=== PATIENT | male | born 1965 | race Caucasian/White ===

== ENCOUNTER 2018-04-20 07:54 | Inpatient (IN) | payer SELFPAY ==
[2018-04-20] MEDS ORDERED: NA CHLORIDE 0.9% 1,000 ML ONE (08:22)
[2018-04-20] MEDS ORDERED: HYDROCODONE/APAP 10/325 TAB ONE (08:35)
[2018-04-20] MEDS ORDERED: ASPIRIN 81 MG CHEWABLE TABLET ONE (08:35)
[2018-04-20 08:54] LABS: Absolute Lymphocytes (CBC) 2.3 K/uL (0.7-4.9); Absolute Monocytes 1.1 K/uL (0.1-1.3); Absolute Neutrophil 7.1 K/uL (1.8-8.0); Basophils % 0.5 % (0-1.3); Eosinophils % 2.3 % (0-4.4); Hematocrit 49.8 % (39.6-49.0); MCH 32.3 pg (27.0-35.0); MCV 95.1 fL (80-100); MPV 9.3 fL (7.6-11.3); Monocytes % 9.8 % (3.3-12.3); RBC Red Blood Cell Count 5.23 M/uL (4.33-5.43)
[2018-04-20 08:57] LABS: Protime INR 1.03
[2018-04-20 09:09] LABS: Potassium 3.8 mmol/L (3.5-5.1)
--- NOTE | 2018-04-20 10:06 | ER ---
Nurse's Notes [facility] Name: Micheal Murillo Age: 52 yrs Sex: Male : 1965 Arrival Date: 04/20/2018 Time: 07:58 Bed 13 Private MD: None, None Diagnosis: Deep venous thrombosis of left lower extremity;Peripheral vascular disease, unspecified Presentation: 04/20 08:10 Presenting complaint: Patient states: woke up Sunday evening with burning to his L toes ss and then Sunday had pain to his L calf. No swelling noted to affected area. Transition of care: patient was not received from another setting of care. Onset of symptoms was April 14, 2018. Risk Assessment: Do you want to hurt yourself or someone else? Patient reports no desire to harm self or others. Initial Sepsis Screen: Does the patient meet any 2 criteria? No. Patient's initial sepsis screen is negative. Does the patient have a suspected source of infection? No. Patient's initial sepsis screen is negative. Care prior to arrival: None. 08:10 Method Of Arrival: Other ss 08:10 Acuity: TORRIE 3 ss Historical: - Allergies: 08:13 No Known Allergies; ss - Home Meds: 08:10 None [Active]; rb1 - PMHx: 08:10 None; rb1 - PSHx: 08:10 None; rb1 - Immunization history:: Adult Immunizations unknown. - Social history:: Smoking status: Patient uses tobacco products, smokes one-half pack cigarettes per day. - Ebola Screening: : Patient denies exposure to infectious person Patient denies travel to an Ebola-affected area in the 21 days before illness onset. - Family history:: not pertinent. - Hospitalizations: : No recent hospitalization is reported. Screenin:10 Abuse screen: Denies threats or abuse. Nutritional screening: No deficits noted. rb1 Tuberculosis screening: No symptoms or risk factors identified. Fall Risk None identified. Assessment: 08:10 General: Appears uncomfortable, well groomed, well developed, well nourished, Behavior rb1 is calm, cooperative, Denies fever. Pain: Complains of pain in left calf Pain currently is 8 out of 10 on a pain scale. Pain began Sunday. Pain: Aggravated by weight bearing. Neuro: Level of Consciousness is awake, alert, obeys commands, Oriented to person, place, time, situation. Cardiovascular: Capillary refill < 3 seconds is brisk in bilateral toes Pulses are palpable in left dorsalis pedis artery. Respiratory: Airway is patent Respiratory effort is even, unlabored, Respiratory pattern is regular, symmetrical. GI: No signs and/or symptoms were reported involving the gastrointestinal system. : No signs and/or symptoms were reported regarding the genitourinary system. Derm: Skin is pink, warm \T\ dry. Musculoskeletal: Range of motion: intact in all extremities. 08:40 Reassessment: Ultrasound at bedside. rb1 09:00 Reassessment: Patient appears in no apparent distress at this time. No changes from rb1 previously documented assessment. 10:09 Reassessment: Patient appears in no apparent distress at this time. Patient and/or rb1 family updated on plan of care and expected duration. Pain level reassessed. Patient is alert, oriented x 3, equal unlabored respirations, skin warm/dry/pink. Faxed Xarelto to pharmacy. 11:00 Reassessment: Patient appears in no apparent distress at this time. No changes from rb1 previously documented assessment. Pt. is watching TV. 12:00 Reassessment: Patient appears in no apparent distress at this time. Patient and/or rb1 family updated on plan of care and expected duration. Pain level reassessed. Patient is alert, oriented x 3, equal unlabored respirations, skin warm/dry/pink. 12:23 Reassessment: Spoke to Moni, stenographer secretary. Was not able to give report because the [facility] room is not clean. 12:55 Reassessment: Spoke to Moni, stenographer secretary on the floor. Was unable to give report rb1 because the room is still not clean. Notified ALISON Moreno and she called [facility] [facility] [employer]. 13:20 Reassessment: Called report to ASHLEY Geiger. Information from the SBAR was given. All rb1 questions asked and answered. Vital Signs: 08:13 BP 149 / 97; Pulse 83; Resp 17; Temp 97.8(TE); Pulse Ox 98% on R/A; Weight 63.5 kg; ss Height 5 ft. 5 in. (165.10 cm); Pain 8/10; 09:00 BP 156 / 88; Pulse 65; Resp 17; Pulse Ox 100% on R/A; rb1 10:00 BP 143 / 90; Pulse 66; Resp 19; Pulse Ox 100% on R/A; rb1 11:00 BP 127 / 92; Pulse 65; Resp 17; Pulse Ox 99% on R/A; rb1 12:00 BP 131 / 91; Pulse 62; Resp 17; Pulse Ox 99% on R/A; rb1 13:00 BP 147 / 93; Pulse 67; Resp 20; Pulse Ox 100% on R/A; rb1 08:13 Body Mass Index 23.30 (63.50 kg, 165.10 cm) ED Course: 07:58 Patient arrived in ED. sb2 07:59 None, None is Private Physician. sb2 08:07 Abilio Ortega MD is Attending Physician. rn 08:10 Patient has correct armband on for positive identification. Placed in gown. Bed in low rb1 position. Call light in reach. Side rails up X 1. Pulse ox on. NIBP on. 08:13 Triage completed. ss 08:13 Arm band placed on right wrist. ss 08:25 Initial lab(s) drawn, by me, sent to lab. Inserted saline lock: 20 gauge in right em antecubital area, using aseptic technique. Blood collected. 08:37 Yvonne Walton, RN is Primary Nurse. rb1 09:32 Ultrasound completed. Patient tolerated well. Notified Primary Nurse aron rodgers. sg3 09:39 Extremity Venous Uni Ltd US In Process Unspecified. EDMS 09:40 Lower Extremity Artery Uni Ltd US In Process Unspecified. EDMS 10:05 Celestina Sparrow MD is Referral Physician. rn 10:32 Yifan Al DO is Hospitalizing Provider. rn 11:46 CT completed. Patient tolerated procedure well. Patient moved back from CT. sj 13:45 No provider procedures requiring assistance completed. Patient admitted, IV remains in rb1 place. Administered Medications: 08:30 Drug: NS 0.9% 1000 ml Route: IV; Rate: 1000 ml; Site: right antecubital; em 09:42 Follow up: IV Status: Completed infusion rb1 08:37 Drug: [place] 10 mg-325 mg 1 tabs Route: PO; em 09:02 Follow up: Response: No adverse reaction; Pain is decreased rb1 08:37 Drug: Aspirin Chewable Tablet 324 mg Route: PO; em 09:02 Follow up: Response: No adverse reaction rb1 10:31 Not Given (Duplicate Order): Xarelto 20 mg PO once rn 10:40 Drug: Lovenox 60 mg Route: Sub-Q; Site: right lower abdomen; rb1 Outcome: 10:05 Discharge ordered by . rn 10:33 Decision to Hospitalize by Provider. rn 13:45 Patient left the ED. rb1 13:45 Admitted to Med/surg accompanied by tech, via wheelchair, room 230, with chart, Report rb1 called to ASHLEY Geiger 13:45 Condition: stable 13:45 Instructed on the need for admit. Signatures: Dispatcher [employer] Kimber Driscoll Edgar, MAT PUNCHER MAT PUNCHER Abilio Aragon MD MD rn Smirch, Shelby, RN RN ss Barber, Rebecca, RN RN rb1 Yeny Sheldon sg3 Tricia Pacheco sb2 Corrections: (The following items were deleted from the chart) 08:27 08:10 Acuity: TORRIE 4 ss ss 13:56 13:55 Patient left the ED. rb1 rb1
--- NOTE | 2018-04-20 10:06 | EDPHYS ---
Physician Documentation [facility] Name: Micheal Murillo Age: 52 yrs Sex: Male : 1965 Arrival Date: 04/20/2018 Time: 07:58 Bed 13 Private MD: None, None ED Physician Abilio Ortega HPI: 04/20 08:20 This 52 yrs old Male presents to ER via Other with complaints of Leg Pain. rn 08:20 The patient presents with pain. The complaints affect the left calf. Context: The rn problem was sustained at home, resulted from an unknown cause, the patient can fully bear weight, the patient is able to ambulate. Onset: The symptoms/episode began/occurred 6 day(s) ago. Modifying factors: The symptoms are alleviated by nothing. the symptoms are aggravated by movement. Severity of symptoms: At their worst the symptoms were moderate, in the emergency department the symptoms have improved. The patient has experienced a previous episode. Reports left leg pain/burning, began 5-6 days ago, worse with movement and ambulation, hurts posterior lower left leg, shoots to toes, no trauma, no fever, + smokes. Improves at night.. Historical: - Allergies: 08:13 No Known Allergies; ss - Home Meds: 08:10 None [Active]; rb1 - PMHx: 08:10 None; rb1 - PSHx: 08:10 None; rb1 - Immunization history:: Adult Immunizations unknown. - Social history:: Smoking status: Patient uses tobacco products, smokes one-half pack cigarettes per day. - Ebola Screening: : Patient denies exposure to infectious person Patient denies travel to an Ebola-affected area in the 21 days before illness onset. - Family history:: not pertinent. - Hospitalizations: : No recent hospitalization is reported. ROS: 08:20 Constitutional: Negative for fever, chills, and weight loss, Eyes: Negative for injury, rn pain, redness, and discharge, Cardiovascular: Negative for chest pain, palpitations, and edema, Respiratory: Negative for shortness of breath, cough, wheezing, and pleuritic chest pain, Abdomen/GI: Negative for abdominal pain, nausea, vomiting, diarrhea, and constipation, MS/Extremity: + LLE pain Skin: Negative for injury, rash, and discoloration, Neuro: Negative for headache, weakness, and seizure. Exam: 08:20 Constitutional: This is a well developed, well nourished patient who is awake, alert, rn and in no acute distress. Head/Face: Normocephalic, atraumatic. Eyes: Pupils equal round and reactive to light, extra-ocular motions intact. Lids and lashes normal. Conjunctiva and sclera are non-icteric and not injected. Cornea within normal limits. Periorbital areas with no swelling, redness, or edema. Cardiovascular: Regular rate and rhythm with a normal S1 and S2. No gallops, murmurs, or rubs. Normal PMI, no JVD. No pulse deficits. Respiratory: Lungs have equal breath sounds bilaterally, clear to auscultation and percussion. No rales, rhonchi or wheezes noted. No increased work of breathing, no retractions or nasal flaring. MS/ Extremity: no cyanosis. Neuro intact. Full, normal range of motion. Equal circumference. + palpable distal pulses on RLE, no palpable pulse LLE, extremities without pallor or cold. No appreciable skin changes/rash. + tender to touch dorsum of foot and squeezing left calf. Vital Signs: 08:13 BP 149 / 97; Pulse 83; Resp 17; Temp 97.8(TE); Pulse Ox 98% on R/A; Weight 63.5 kg; ss Height 5 ft. 5 in. (165.10 cm); Pain 8/10; 09:00 BP 156 / 88; Pulse 65; Resp 17; Pulse Ox 100% on R/A; rb1 10:00 BP 143 / 90; Pulse 66; Resp 19; Pulse Ox 100% on R/A; rb1 11:00 BP 127 / 92; Pulse 65; Resp 17; Pulse Ox 99% on R/A; rb1 12:00 BP 131 / 91; Pulse 62; Resp 17; Pulse Ox 99% on R/A; rb1 13:00 BP 147 / 93; Pulse 67; Resp 20; Pulse Ox 100% on R/A; rb1 08:13 Body Mass Index 23.30 (63.50 kg, 165.10 cm) ss MDM: 08:07 Patient medically screened. rn 10:03 Differential diagnosis: arterial insufficiency, DVT. Data reviewed: vital signs, nurses rn notes, lab test result(s), radiologic studies, doppler, ultrasound, and as a result, I will discharge patient. Counseling: I had a detailed discussion with the patient and/or guardian regarding: the historical points, exam findings, and any diagnostic results supporting the discharge/admit diagnosis, lab results, radiology results, the need for outpatient follow up, to return to the emergency department if symptoms worsen or persist or if there are any questions or concerns that arise at home. Response to treatment: the patient's symptoms have mildly improved after treatment, and as a result, I will admit patient. Special discussion: I discussed with the patient/guardian in detail that at this point there is no indication for admission to the hospital. It is understood, however, that if the symptoms persist or worsen the patient needs to return immediately for re-evaluation. Based on the history and exam findings, there is no indication for further emergent testing or inpatient evaluation. I discussed with the patient/guardian the need to see the thread checker/oncologist for further evaluation of the symptoms. 10:03 ED course: Uncomplicated DVT, has arterial blood flow but decreased likely due to rn smoking, will dc home on xarelto and heme f/u for hypercoagulable w/u as no clear etiology for DVT.. 10:31 ED course: Pt unable to afford xarelto, will admit to Dr. Al for coumadin loading rn and social work consult.. 04/20 08:20 Order name: CBC with Diff; Complete Time: 09:15 rn 04/20 08:20 Order name: Basic Metabolic Panel; Complete Time: 09:15 rn 04/20 08:20 Order name: Protime (+inr); Complete Time: 09: rn 04/20 08:20 Order name: Ptt, Activated; Complete Time: 09:15 rn 04/20 13:23 Order name: Troponin I EDWA 04/20 13:24 Order name: Creatine Phosphokinase EDWA 04/20 08:20 Order name: Extremity Venous Uni Ltd US; Complete Time: :42 rn 04/20 08:20 Order name: Lower Extremity Artery Uni Ltd US; Complete Time: :42 rn 04/20 12:07 Order name: CT; Complete Time: 12:12 EDWA 04/20 13:24 Order name: CKMB Creatine Kinase MB EDWA 04/20 08:20 Order name: IV Start; Complete Time: 08: rn 04/20 08:23 Order name: EKG; Complete Time: 08:23 rn 04/20 08:23 Order name: EKG - Nurse/Tech; Complete Time: 09:59 rn 04/20 11:28 Order name: Diet Heart Healthy; Complete Time: 11:29 rb1 Administered Medications: 08:30 Drug: NS 0.9% 1000 ml Route: IV; Rate: 1000 ml; Site: right antecubital; em 09:42 Follow up: IV Status: Completed infusion rb1 08:37 Drug: [place] 10 mg-325 mg 1 tabs Route: PO; em 09:02 Follow up: Response: No adverse reaction; Pain is decreased rb1 08:37 Drug: Aspirin Chewable Tablet 324 mg Route: PO; em 09:02 Follow up: Response: No adverse reaction rb1 10:31 Not Given (Duplicate Order): Xarelto 20 mg PO once rn 10:40 Drug: Lovenox 60 mg Route: Sub-Q; Site: right lower abdomen; rb1 Disposition: 04/20/18 10:33 Hospitalization ordered by Yifan Al for Inpatient Admission. Preliminary diagnosis are Deep venous thrombosis of left lower extremity, Peripheral vascular disease, unspecified. - Bed requested for Telemetry/MedSurg (Inpatient). - Status is Inpatient Admission. rb1 - Condition is Stable. - Problem is new. - Symptoms have improved. UTI on Admission? No Signatures: Dispatcher [employer] EDMS Del Henriquez, PRACTICE SPECIALIST PRACTICE SPECIALIST em Abilio Ortega MD MD rn Martinez, Eric em1 Tiffanie Short RN RN ss Yvonne Walton, RN RN rb1 Corrections: (The following items were deleted from the chart) 08:24 08:20 Constitutional: This is a well developed, well nourished patient who is awake, rn alert, and in no acute distress. rn 10:31 10:05 04/20/2018 10:05 Discharged to Home. Impression: Deep venous thrombosis of left rn lower extremity. Condition is Stable. Prescriptions for Xarelto 20 mg Oral tablet - take 1 tablet by ORAL route once daily; 60 tablet. and Forms are Medication Reconciliation Form, Thank You Letter, Antibiotic Education, Prescription Opioid Use. Follow up: Celestina Baker; When: 5 - 6 days; Reason: Recheck today's complaints, Re-evaluation by your physician. Problem is new. Symptoms have improved. rn 12:12 10:33 Hospitalization Ordered by Yifan Al DO for Inpatient Admission. Preliminary em1 diagnosis is Deep venous thrombosis of left lower extremity; Peripheral vascular disease, unspecified. Bed requested for Telemetry/MedSurg (Inpatient). Status is Inpatient Admission. Condition is Stable. Problem is new. Symptoms have improved. UTI on Admission? No. rn 13:55 12:12 04/20/2018 10:33 Hospitalization Ordered by Yifan Al DO for Inpatient rb1 Admission. Preliminary diagnosis is Deep venous thrombosis of left lower extremity; Peripheral vascular disease, unspecified. Bed requested for Telemetry/MedSurg (Inpatient). Status is Inpatient Admission. Condition is Stable. Problem is new. Symptoms have improved. UTI on Admission? No. em1
--- NOTE | 2018-04-20 10:37 | RAD REPORT ---
EXAM DESCRIPTION: VAS - Extremity Venous Uni Ltd - 04/20/2018 9:39 am CLINICAL HISTORY: Left leg pain, numbness and tingling Preliminary findings provided at the time of the study. COMPARISON: None. TECHNIQUE: Real-time sonographic evaluation of the left lower extremity deep venous system was perfo rmed. FINDINGS: Normal compressibility, flow augmentation, phasic flow and spontaneous flow are identified in the left lower extremity common femoral and superficial femoral veins. Hypoechoic material is pre sent filling the popliteal vein. Vein is noncompressible. More distally into the calf and into the po sterior tibial vein there is a mixed echogenic and hypoechoic thrombus pattern filling and enlarging the vein. No abscess or drainable fluid collection. IMPRESSION: Acute deep venous thrombosis in the left popliteal and posterior tibial veins. A portion of the posterior tibial vein thrombus is relatively echogenic and the distal leg may have a mixed acute and chronic thrombus pattern.
--- NOTE | 2018-04-20 10:41 | RAD REPORT ---
EXAM DESCRIPTION: VAS - Lower Extremity Artery Uni Ltd - 04/20/2018 9:40 am CLINICAL HISTORY: Left lower extremity pain, numbness and tingling. COMPARISON: None. TECHNIQUE: Grayscale and duplex Doppler evaluation of the left lower extremity arterial tree perform ed. Velocity values and waveforms were obtained. Visual inspection of the lower extremity arterial tr ee performed. FINDINGS: Triphasic waveform pattern was identified in the left common femoral artery to the mid fem oral artery level. Prominent plaquing changes are identifiable in the distal femoral artery extending into the popliteal artery. There is significantly diminished blood flow in this region with monophas ic to biphasic waveform pattern seen. Very minimal flow seen at the dorsalis pedis artery and diminis hed flow seen in the posterior tibial artery. Common femoral artery peak systolic velocity was 66 cm/second. This taper to 48 cm/seconds into the m id superficial femoral artery. Significant diminished velocity noted in the distal superficial femora l artery down to 20 cm/second. Popliteal artery was 29 cm/second with posterior tibial artery and hernesto salis pedis artery velocities measuring 10 cm/second and 8 cm/second, respectively. IMPRESSION: No arterial occlusion seen. Significant flow restricting lower extremity peripheral arterial disease involving the distal superfi cial femoral artery, popliteal artery, posterior tibial and dorsalis pedis arteries.
[2018-04-20] MEDS ORDERED: ENOXAPARIN 60 MG/0.6 ML SQ ONE (10:44)
[2018-04-20] MEDS ORDERED: RIVAROXABAN 20 MG TABLET PO ONE (11:00)
[2018-04-20] MEDS ORDERED: IPRATROPIUM BROM 0.5MG/2.5ML NEB PRN (11:12)
[2018-04-20] MEDS ORDERED: ONDANSETRON 4 MG/2 ML VIAL IV PRN (11:12)
[2018-04-20] MEDS ORDERED: TRAMADOL HCL 50 MG TAB PO PRN (11:12)
[2018-04-20] MEDS ORDERED: ACETAMINOPHEN 500 MG TAB PO PRN (11:12)
[2018-04-20] MEDS ORDERED: ALBUTEROL 2.5 MG/3 ML NEB SOL NEB PRN (11:12)
--- NOTE | 2018-04-20 11:23 | P.HP ---
Certification for Inpatient Patient admitted to: Observation With expected LOS: <2 Midnights Patient will require the following post-hospital care: Other Practitioner: I am a practitioner with admitting privileges, knowledge of patient current condition, hospital course, and medical plan of care. Services: Services provided to patient in accordance with Admission requirements found in Title 42 Section 412.3 of the Code of Federal Regulations Patient History Date of Service: 04/20/18 Primary Care Provider: None Reason for admission: Left calf pain History of Present Illness: 52-year-old male presented emergency room with left calf pain. Patient reports left calf pain since Sunday. He denies any fever, chills, nausea, vomiting or significant shortness of breath. Patient has no past medical problems. He does smoke regularly. 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 No significant swelling noted to the calf. Pain persisted to the point were he came to the emergency room for evaluation. In the ER patient was evaluated. CBC and BMP unremarkable. INR 1.0. Venous Doppler shows left popliteal acute thrombus. Posterior tibial veins also notes thrombus. Arterial Doppler showed no arterial occlusion. Significant PVD noted to the distal superficial femoral artery, popliteal artery, posterior tibialis artery and dorsalis pedis. Patient was admitted for further evaluation and treatment. Patient given Lovenox in the emergency room. When I saw the patient ER, he still reported pain to the lower extremity. He was given pain medication. No prior history of DVTs. He has not been traveling. He has not been sedentary. No recent trauma. There is a family history of lymphoma. He smokes about a half a pack to more a day. Drinks on occasion. Allergies No Known Allergies Allergy (Verified 04/20/18 10:13) Home medications list reviewed: Yes - Past Medical/Surgical History Diabetic: No -: Tobacco abuse Past Surgical History: Patient denies surgical history Psychosocial/ Personal History: The patient works heavily stacking pallets. - Family History Mother -: Cancer (Lymphoma) - Social History Smoking Status: Heavy Tobacco smoker (>10 cigarettes/day) Counseled patient to stop smoking for: less than 10 minutes Smoking therapy provided: Yes Patient receptive to therapy: Yes Alcohol use: Yes CD- Drugs: No Caffeine use: Yes Place of Residence: Home Review of Systems General: As per HPI Eyes: Unremarkable ENT: Unremarkable Respiratory: Unremarkable Cardiovascular: Unremarkable Gastrointestinal: Unremarkable Genitourinary: Unremarkable Musculoskeletal: Leg Pain, As per HPI Integumentary: As per HPI Neurological: Unremarkable Lymphatics: Unremarkable Physical Examination - Physical Exam General: Alert, In no apparent distress, Oriented x3, Cooperative HEENT: Atraumatic, Normocephalic, Other (Dry mucous membranes), EOMI Neck: Supple, No Thyromegaly Respiratory: Other (Poor inspiration and expiration) Cardiovascular: Normal pulses, Regular rate/rhythm Gastrointestinal: Normal bowel sounds, Soft and benign, Non-distended, No tenderness, No masses, No rebound, No guarding Musculoskeletal: No warmth, Tenderness (Tenderness to the right calf region. Tenderness also noted to the foot.) Integumentary: No erythema, No warmth, No cyanosis, Other (Cool extremities noted [id number].) Neurological: Normal speech, Normal strength at 5/5 x4 extr, Normal tone, Normal affect Lymphatics: No axilla or inguinal lymphadenopathy - Studies Laboratory Data (last 24 hrs) 04/20/18 08:25: PT 12.1, INR 1.03, APTT 24.8 04/20/18 08:25: Sodium 142, Potassium 3.8, BUN 13, Creatinine 0.90, Glucose 99 04/20/18 08:25: WBC 10.7, Hgb 16.9, Hct 49.8 H, Plt Count 197 Assessment and Plan - Problems (Diagnosis) (1) DVT (deep venous thrombosis) Current Visit: Yes Status: Acute Plan: Acute DVT noted to the left lower extremity. Will start Lovenox at 1 milligram/ kilograms subcu twice daily. Will discuss options for chronic anti coagulation therapy. Prefer newer agent. Will check echocardiogram and CT of the chest to rule out pulmonary embolism. Will have social worker assistant help with discharge medication. Qualifiers: DVT location: lower extremity Affected thrombotic vein of extremity: popliteal Chronicity: acute Laterality: left Qualified Code(s): I82.432 - Acute embolism and thrombosis of left popliteal vein (2) PVD (peripheral vascular disease) Current Visit: Yes Status: Chronic Plan: Patient found to have severe PVD to the lower extremities. No arterial occlusion noted. Significant distal superficial femoral artery, popliteal artery , posterior tibialis dialysis, and dorsalis pedis arteries notes significant PVD. Will start aspirin 81 mg daily. Patient will need to discontinue tobacco. Will discuss cessation. Patient will need to be further evaluated by cardiology as an outpatient to further address and monitor. (3) Tobacco abuse Current Visit: Yes Status: Chronic Plan: Tobacco cessation addressed in detail. Will provide nicotine patch. (4) COPD (chronic obstructive pulmonary disease) Current Visit: Yes Status: Suspected Plan: Suspect COPD. Will start COPD medication. Will check CT scan to rule out pulmonary embolism. Patient may require pulmonary consultation if abnormal. Qualifiers: COPD type: chronic bronchitis Chronic bronchitis type: unspecified Qualified Code(s): J42 - Unspecified chronic bronchitis Discharge Plan: Home Plan to discharge in: 48 Hours - Advance Directives Does patient have a Living Will: No Does patient have a Durable POA for Healthcare: No - Code Status/Comfort Care Code Status Assessed: Yes (Full code) Time Spent Managing Pts Care (In Minutes): 55
[2018-04-20] MEDS: NA CHLORIDE 0.9% 1,000 ML IV SCH (12:00)
--- NOTE | 2018-04-20 12:07 | RAD REPORT ---
EXAM DESCRIPTION: CT - Chest Angio - 04/20/2018 11:46 am CLINICAL HISTORY: Chest pain, shortness of breath COMPARISON: None. TECHNIQUE: Dynamically enhanced 3 mm thick images of the chest were obtained during administration o f approximately 150mL Isovue 370 IV contrast. Coronal and oblique reconstruction images were generate d and reviewed. Exam utilizes a protocol to evaluate the pulmonary arterial tree. All CT scans are performed using dose optimization technique as appropriate and may include automated exposure control or mA/KV adjustment according to patient size. FINDINGS: No pulmonary emboli are identified. The aorta as imaged shows no acute or suspicious finding. No pericardial thickening or effusion. No mass or infiltrate in the lung parenchyma. Bulla and bleb formation is present in the medial right upper lobe. No pleural effusion or pleural thickening. No mediastinal or hilar suspicious masses. No chest wall masses or abnormal axillary lymphadenopathy. No acute bone finding. IMPRESSION: No pulmonary emboli identified. Right upper lobe bulla and bleb formation. No acute or suspicious lung parenchymal finding.
[2018-04-20 13:24] LABS: CKMB Creatine Kinase MB 1.8 ng/mL (0.3-3.6)
[2018-04-20] MEDS: HYDROCODONE/APAP 7.5/325 MG TAB PO PRN ×2 (14:18→20:59)
[2018-04-20 18:13] LABS: Urine Appearance CLEAR; Urine Bilirubin NEGATIVE (NEG); Urine Blood NEGATIVE (NEG); Urine Color YELLOW; Urine Glucose NEGATIVE (NEG); Urine Protein NEGATIVE (NEG); Urine Specific Gravity >=1.030 (1.005-1.030)
[2018-04-20 18:15] LABS: Urine Microscopic Reflex NO UMIC
[2018-04-20 18:32] LABS: Barbiturates NEGATIVE (NEGATIVE); Benzodiazepines NEGATIVE (NEGATIVE); Cocaine NEGATIVE (NEGATIVE); METHAMPHETAM NEGATIVE (NEGATIVE); Methadone NEGATIVE (NEGATIVE); Opiates POSITIVE (NEGATIVE); Phencyclidine NEGATIVE (NEGATIVE); THC Cannibis NEGATIVE (NEGATIVE)
[2018-04-20] MEDS: ARFORMOTEROL TARTRATE 15 MCG/2 ML VIAL.NEB NEB SCH (19:47)
[2018-04-20 19:52] LABS: CKMB Creatine Kinase MB 1.4 ng/mL (0.3-3.6)
[2018-04-20] MEDS: ENOXAPARIN 60 MG/0.6 ML SQ SCH (20:57)
--- NOTE | 2018-04-20 22:59 | EKG ---
Test Date: 2018-04-20 Test Time: 09:49:23 Dry Finisher: REYNA MEASUREMENT RESULTS: Intervals: Rate: 68 AZ: 130 QRSD: 144 QT: 430 QTc: 457 Gunter: P: 76 AZ: 130 QRS: 79 T: 63 INTERPRETIVE STATEMENTS: Normal sinus rhythm Right bundle branch block Septal infarct, age undetermined Abnormal ECG No previous ECG available for comparison Electronically Signed On 04-20-18 22:58:54 CDT by Philippe Lubin
[2018-04-21] MEDS: NA CHLORIDE 0.9% 1,000 ML IV SCH ×2 (02:18→16:15)
[2018-04-21] MEDS: HYDROCODONE/APAP 7.5/325 MG TAB PO PRN ×3 (04:18→16:15)
[2018-04-21 04:33] LABS: Absolute Lymphocytes (CBC) 2.8 K/uL (0.7-4.9); Absolute Monocytes 0.8 K/uL (0.1-1.3); Basophils % 0.8 % (0-1.3); Eosinophils % 3.4 % (0-4.4); Hematocrit 44.4 % (39.6-49.0); MCV 94.8 fL (80-100); MPV 9.4 fL (7.6-11.3); Monocytes % 8.9 % (3.3-12.3); RBC Red Blood Cell Count 4.68 M/uL (4.33-5.43)
[2018-04-21 04:55] LABS: CKMB Creatine Kinase MB 1.3 ng/mL (0.3-3.6)
[2018-04-21 04:57] LABS: BUN Blood Urea Nitrogen 13 mg/dL (7-18); Bicarbonate 28 mmol/L (21-32); Glucose Level 94 mg/dL (74-106); HDL Cholesterol 30 mg/dL (40-60); LDL Cholesterol, Calculated 70 (<130); Magnesium 2.3 mg/dL (1.8-2.4); Sodium Level 143 mmol/L (136-145)
[2018-04-21] MEDS: PANTOPRAZOLE 40MG TABLET PO SCH (05:44)
[2018-04-21] MEDS: ARFORMOTEROL TARTRATE 15 MCG/2 ML VIAL.NEB NEB SCH ×2 (08:00→19:57)
[2018-04-21] MEDS: ASPIRIN EC 81 MG TAB PO SCH (09:00)
[2018-04-21] MEDS: NICOTINE 21 MG/PAT TD SCH (09:00)
[2018-04-21] MEDS: ENOXAPARIN 60 MG/0.6 ML SQ SCH ×2 (09:02→20:19)
--- NOTE | 2018-04-21 11:00 | P.PN ---
Subjective Date of Service: 04/21/18 Primary Care Provider: None Chief Complaint: Left calf pain Subjective: Improving Physical Examination - Vital Signs Temperature: 97.6 F Blood Pressure: 126/78 Pulse: 54 Respirations: 20 Pulse Ox (%): 98 - Physical Exam General: Alert, In no apparent distress, Oriented x3, Cooperative HEENT: Atraumatic Neck: Supple Respiratory: Clear to auscultation bilaterally, Normal air movement Cardiovascular: Normal pulses, Regular rate/rhythm Gastrointestinal: Normal bowel sounds, Soft and benign, Non-distended, No tenderness, No masses, No rebound, No guarding Musculoskeletal: No erythema, No tenderness, No warmth Integumentary: Tenderness/swelling (Less pain to the left lower extremity. No erythema, swelling noted.) Neurological: Normal speech, Normal strength at 5/5 x4 extr, Normal tone, Normal affect - Studies Medications List Reviewed: Yes Assessment & Plan - Problems (Diagnosis) (1) DVT (deep venous thrombosis) Current Visit: Yes Status: Acute Plan: Acute DVT noted to the left lower extremity. Will continue with Lovenox at 1 milligram/kilogram subcu twice daily. CT scan showed no pulmonary embolism. Await echocardiogram. Recommend chronic anti coagulation therapy with newer agent. Patient provided information for patient assistance on Contrib. Will check to see if the patient can afford Contrib with the help of family. Patient will need close follow up with a PCP. Will try to arrange PCP arrangement. Qualifiers: DVT location: lower extremity Affected thrombotic vein of extremity: popliteal Chronicity: acute Laterality: left Qualified Code(s): I82.432 - Acute embolism and thrombosis of left popliteal vein (2) PVD (peripheral vascular disease) Current Visit: Yes Status: Chronic Plan: Patient found to have severe PVD to the lower extremities. No arterial occlusion noted. Significant distal superficial femoral artery, popliteal artery , posterior tibialis dialysis, and dorsalis pedis arteries notes significant PVD. Will start aspirin 81 mg daily. Patient will need to discontinue tobacco. Will discuss cessation. Patient will need to be further evaluated by cardiology as an outpatient to further address and monitor. (3) Tobacco abuse Current Visit: Yes Status: Chronic Plan: Tobacco cessation addressed in detail. Will provide nicotine patch. (4) COPD (chronic obstructive pulmonary disease) Current Visit: Yes Status: Suspected Plan: Suspect COPD. Will start COPD medication. CT scan shows no pulmonary embolism. Patient will need follow up with pulmonology as an outpatient to further monitor and address Qualifiers: COPD type: chronic bronchitis Chronic bronchitis type: unspecified Qualified Code(s): J42 - Unspecified chronic bronchitis (5) Bleb, lung Current Visit: Yes Status: Acute Plan: CT scan showed right upper lobe bleb. Likely from COPD exacerbation. This can be followed up as an outpatient. Patient to continue with COPD medication at discharge. Patient will need pulmonology evaluation as an outpatient. (6) Abnormal TSH Current Visit: Yes Status: Acute Plan: Recommendation to recheck tsh and free T4 in 4 weeks to monitor progress. Patient may require medication in the future if still abnormal. Discharge Plan: Home Plan to discharge in: 24 Hours - Code Status/Comfort Care Code Status Assessed: Yes (Patient full code) Time Spent Managing Pts Care (In Minutes): 55
[2018-04-22] MEDS: HYDROCODONE/APAP 7.5/325 MG TAB PO PRN ×3 (00:05→11:53)
[2018-04-22 05:22] LABS: Absolute Lymphocytes (CBC) 2.9 K/uL (0.7-4.9); Absolute Monocytes 0.8 K/uL (0.1-1.3); Absolute Neutrophil 6.4 K/uL (1.8-8.0); Basophils % 0.5 % (0-1.3); Eosinophils % 2.5 % (0-4.4); Hematocrit 45.3 % (39.6-49.0); Lymphocytes % 27.6 % (15.3-44.8); MCH 32.6 pg (27.0-35.0); MCV 95.7 fL (80-100); MPV 9.5 fL (7.6-11.3); Monocytes % 8.1 % (3.3-12.3); RBC Red Blood Cell Count 4.73 M/uL (4.33-5.43)
[2018-04-22] MEDS: NA CHLORIDE 0.9% 1,000 ML IV SCH (05:37)
[2018-04-22] MEDS: PANTOPRAZOLE 40MG TABLET PO SCH (05:37)
[2018-04-22 05:41] LABS: Magnesium 2.2 mg/dL (1.8-2.4); Potassium 4.2 mmol/L (3.5-5.1)
[2018-04-22] MEDS: ARFORMOTEROL TARTRATE 15 MCG/2 ML VIAL.NEB NEB SCH (08:00)
[2018-04-22] MEDS: NICOTINE 21 MG/PAT TD SCH (09:00)
[2018-04-22] MEDS: ENOXAPARIN 60 MG/0.6 ML SQ SCH (09:35)
[2018-04-22] MEDS: ASPIRIN EC 81 MG TAB PO SCH (09:36)
--- NOTE | 2018-04-22 16:06 | P.DS ---
Admission Date: 04/20/18 Discharge Date: 04/22/18 Primary Care Provider: None Disposition: ROUTINE DISCHARGE Discharge Condition: GOOD Reason for Admission: Left calf pain Consultations: None - Problems (1) DVT (deep venous thrombosis) Onset Date: 04/22/18 Current Visit: Yes Status: Acute Qualifiers: DVT location: lower extremity Affected thrombotic vein of extremity: popliteal Chronicity: acute Laterality: left Qualified Code(s): I82.432 - Acute embolism and thrombosis of left popliteal vein (2) PVD (peripheral vascular disease) Onset Date: 04/22/18 Current Visit: Yes Status: Chronic (3) Tobacco abuse Onset Date: 04/22/18 Current Visit: Yes Status: Chronic (4) COPD (chronic obstructive pulmonary disease) Onset Date: 04/22/18 Current Visit: Yes Status: Suspected Qualifiers: COPD type: chronic bronchitis Chronic bronchitis type: unspecified Qualified Code(s): J42 - Unspecified chronic bronchitis Brief History of Present Illness: 52-year-old male presented emergency room with left calf pain. Patient reports left calf pain since Sunday. He denies any fever, chills, nausea, vomiting or significant shortness of breath. Patient has no past medical problems. He does smoke regularly. 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 No significant swelling noted to the calf. Pain persisted to the point were he came to the emergency room for evaluation. In the ER patient was evaluated. CBC and BMP unremarkable. INR 1.0. Venous Doppler shows left popliteal acute thrombus. Posterior tibial veins also notes thrombus. Arterial Doppler showed no arterial occlusion. Significant PVD noted to the distal superficial femoral artery, popliteal artery, posterior tibialis artery and dorsalis pedis. Patient was admitted for further evaluation and treatment. Patient given Lovenox in the emergency room. When I saw the patient ER, he still reported pain to the lower extremity. He was given pain medication. No prior history of DVTs. He has not been traveling. He has not been sedentary. No recent trauma. There is a family history of lymphoma. He smokes about a half a pack to more a day. Drinks on occasion. Hospital Course: Overall during the hospital stay patient remained stable The patient was initially admitted to the hospital for left lower extremity swelling. Patient had an ultrasound of the left lower extremity done and was found to have deep venous thrombosis. Patient was started on anti coagulation here. Patient was started on Ellik was 10 mg b.i.d. slack cooper consult was placed was arranged for 10 dollar co-pay program. Patient under stable condition. Had no complication during hospital stay. Vital Signs/Physical Exam: Temp Pulse Resp BP Pulse Ox 98.6 F 68 20 127/76 98 04/22/18 12:00 04/22/18 12:00 04/22/18 12:00 04/22/18 12:00 04/22/18 12:00 General: Alert, In no apparent distress HEENT: Atraumatic, PERRLA, EOMI Neck: Supple, JVD not distended Respiratory: Clear to auscultation bilaterally, Normal air movement Cardiovascular: Regular rate/rhythm, Normal S1 S2 Gastrointestinal: Normal bowel sounds, No tenderness Musculoskeletal: No tenderness Integumentary: No rashes Neurological: Normal speech, Normal tone, Normal affect Lymphatics: No axilla or inguinal lymphadenopathy Laboratory Data at Discharge: WBC 10.5 K/uL (4.3-10.9) D 04/22/18 05:03 Hgb 15.4 g/dL (13.6-17.9) 04/22/18 05:03 Hct 45.3 % (39.6-49.0) 04/22/18 05:03 Plt Count 199 K/uL (152-406) 04/22/18 05:03 PT 12.1 SECONDS (9.5-12.5) 04/20/18 08:25 INR 1.03 04/20/18 08:25 APTT 24.8 SECONDS (24.3-36.9) 04/20/18 08:25 Sodium 140 mmol/L (136-145) 04/22/18 05:03 Potassium 4.2 mmol/L (3.5-5.1) 04/22/18 05:03 BUN 9 mg/dL (7-18) 04/22/18 05:03 Creatinine 0.90 mg/dL (0.55-1.3) 04/22/18 05:03 Glucose 84 mg/dL (74-106) 04/22/18 05:03 Magnesium 2.2 mg/dL (1.8-2.4) 04/22/18 05:03 Troponin I < 0.02 ng/mL (0.0-0.045) 04/21/18 04:05 Triglycerides 73 mg/dL (<150) 04/21/18 04:05 Cholesterol 115 mg/dL (<200) 04/21/18 04:05 HDL Cholesterol 30 mg/dL (40-60) L 04/21/18 04:05 Cholesterol/HDL Ratio 3.83 04/21/18 04:05 Home Medications: Albuterol Sulfate [Proair Hfa] 8.5 gm IH TID PRN #1 hfa.aer.ad 04/21/18 Apixaban [Eliquis] 5 mg PO SEECOM #90 tablet 04/21/18 Fluticasone/Salmeterol [Airduo Respiclick 113-14 Mcg] 1 each IH BID #1 aer.[email or web address] 04/21/18 New Medications: Albuterol Sulfate [Proair Hfa] 8.5 gm IH TID PRN #1 hfa.aer.ad PRN Reason: Shortness Of Breath Apixaban [Eliquis] 5 mg PO SEECOM #90 tablet Fluticasone/Salmeterol [Airduo Respiclick 113-14 Mcg] 1 each IH BID #1 [email or web address] Patient Discharge Instructions: Please f.u with PCP in 1 to 2 days post discharge. New medication. Eliquis 5mg BID, You will need to take 10mg twice daily for 7 days and then take 5mg twice daily thereafter. Diet: Regular Activity: Ad rose
[2018-04-24 03:53] LABS: HBsAG Nonreactive (Nonreactive); Hepatitis A IgM Antibody Nonreactive
[2018-04-24 14:02] LABS: Hepatitis C Virus RNA (PCR)log 6.39 log IU/mL
== END 2018-04-22 17:31 | disposition home or self-care (01) | DRG 300 ==
LOC: ER 07:54 → ERHOLD 10:33 → 2ND 13:26
PROVIDERS: ADMIT Family Medicine; ATTEND Family Medicine
DX: I82.432 Acute embolism and thrombosis of left popliteal vein (principal); J44.1 Chronic obstructive pulmonary disease with (acute) exacerbation; I82.442 Acute embolism and thrombosis of left tibial vein; I73.9 Peripheral vascular disease, unspecified; F17.210 Nicotine dependence, cigarettes, uncomplicated; R94.6 Abnormal results of thyroid function studies
CPT/HCPCS: 36415; 71275; 80048; 80061; 80074; 80307; 81003; 82550; 82553; 83735; 84439; 84443; 84484; 85025; 85610; 85730; 87522; 93005; 93926; 93971; 94640; 96360; 96372; 99285; J1650; J7030; J7605; Q9967

== ENCOUNTER 2018-05-06 10:25 | Emergency (ER) | payer SELFPAY ==
--- NOTE | 2018-05-06 11:25 | ER ---
Nurse's Notes [facility] Name: Micheal Murillo Age: 52 yrs Sex: Male : 1965 Arrival Date: 05/06/2018 Time: 10:29 Bed 25 Private MD: None, None Diagnosis: Pain in left leg;Peripheral vascular disease, unspecified;Tobacco abuse counseling;Tobacco use Presentation: 05/06 10:34 Presenting complaint: Patient states: was admitted to hospital 2 weeks ago, had dvt in iw leg, wants a note to go back to work now. Transition of care: patient was not received from another setting of care. Onset of symptoms was May 06, 2018. Risk Assessment: Do you want to hurt yourself or someone else? Patient reports no desire to harm self or others. Initial Sepsis Screen: Does the patient meet any 2 criteria? No. Patient's initial sepsis screen is negative. Does the patient have a suspected source of infection? No. Patient's initial sepsis screen is negative. Care prior to arrival: None. 10:34 Method Of Arrival: Ambulatory iw 10:34 Acuity: TORRIE 4 iw Historical: - Allergies: 10:38 NKA; iw - Home Meds: 10:38 None [Active]; iw - PMHx: 10:38 DVT; iw - PSHx: 10:38 None; iw - Immunization history:: Adult Immunizations up to date. - Ebola Screening: : Patient negative for fever greater than or equal to 101.5 degrees Fahrenheit, and additional compatible Ebola Virus Disease symptoms Patient denies exposure to infectious person Patient denies travel to an Ebola-affected area in the 21 days before illness onset No symptoms or risks identified at this time. - Family history:: not pertinent. - Social history:: Smoking status: Patient uses tobacco products, smokes one-half pack cigarettes per day. Screenin:45 Abuse screen: Denies threats or abuse. Denies injuries from another. Nutritional sg screening: No deficits noted. Tuberculosis screening: No symptoms or risk factors identified. Never had TB. Fall Risk None identified. Assessment: 10:45 General: Appears in no apparent distress. comfortable, well groomed, well developed, sg well nourished, Behavior is calm, cooperative, appropriate for age. Pain: Complains of pain in left leg Pain does not radiate. Quality of pain is described as aching. Neuro: No deficits noted. Cardiovascular: Heart tones S1 S2 present Capillary refill is brisk in bilateral fingers Patient's skin is warm and dry. Chest pain is denied. Respiratory: Airway is patent Respiratory effort is even, unlabored, Respiratory pattern is regular, symmetrical, Breath sounds are clear. GI: No signs and/or symptoms were reported involving the gastrointestinal system. : No signs and/or symptoms were reported regarding the genitourinary system. EENT: No signs and/or symptoms were reported regarding the EENT system. Derm: Skin is pink, warm \T\ dry. Musculoskeletal: No signs and/or symptoms reported regarding the musculoskeletal system. Vital Signs: 10:36 BP 155 / 93; Pulse 89; Resp 18; Temp 98.7; Pulse Ox 100% on R/A; iw 11:25 BP 142 / 86; Pulse 88; Resp 18; Temp 98.7; Pulse Ox 99% on R/A; Pain 0/10; sg ED Course: 10:29 Patient arrived in ED. mr 10:30 None, None is Private Physician. mr 10:32 Yuniel Navarro MD is Attending Physician. norma 10:33 Pascual Quintanilla RN is Primary Nurse. sg 10:36 Triage completed. iw 10:43 Patient taken to ultrasound. hr 10:45 Patient has correct armband on for positive identification. Bed in low position. Call sg light in reach. Pulse ox on. NIBP on. Warm blanket given. Head of bed elevated. 10:45 No provider procedures requiring assistance completed. sg 11:23 Arm band placed on. sg 11:25 Awaiting radiology results. sg 11:26 Florencio Cadena MD is Referral Physician. norma 11:30 Patient did not have IV access during this emergency room visit. sg 11:54 US Extremity Venous W Compression Eddie In Process Unspecified. EDMS Administered Medications: No medications were administered Outcome: 11:25 Discharge ordered by . norma 11:30 Discharged to home ambulatory. sg 11:30 Condition: good 11:30 Discharge instructions given to patient, Instructed on discharge instructions, follow up and referral plans. safety practices, Demonstrated understanding of instructions, follow-up care. 11:32 Patient left the ED. iw Signatures: Dispatcher [employer] EDMS Pascual Quintanilla, RN RN Yuniel Singh MD MD cha Rivera, Maria mr Rod, Haley hr Arsenio, Michelle, RN RN iw Corrections: (The following items were deleted from the chart) 10:37 10:34 Acuity: TORRIE 5 iw iw 05/07 11:29 11:25 BP 142 / 86; Pulse 88bpm; Resp 18bpm; Pulse Ox 99% RA; Temp 98.7F; Pain 0/10; sg sg
--- NOTE | 2018-05-06 11:25 | EDPHYS ---
Physician Documentation [facility] Name: Micheal Murillo Age: 52 yrs Sex: Male : 1965 Arrival Date: 05/06/2018 Time: 10:29 Bed 25 Private MD: None, None ED Physician Yuniel Navarro HPI: 05/06 10:38 This 52 yrs old Male presents to ER via Ambulatory with complaints of Work norma Note,Leg Recheck. 10:38 The patient presents with pain. The complaints affect the left leg. Context: The norma problem was sustained at an unknown site. Onset: The symptoms/episode began/occurred 2 week(s) ago. Modifying factors: The symptoms are alleviated by nothing. the symptoms are aggravated by nothing. Associated signs and symptoms: The patient has no apparent associated signs or symptoms. Treatment prior to arrival includes: aspirin. Severity of symptoms: At their worst the symptoms were a " 0" out of "10", in the emergency department the symptoms a " 0" out of "10". The patient has not experienced similar symptoms in the past. Historical: - Allergies: 10:38 NKA; iw - Home Meds: 10:38 None [Active]; iw - PMHx: 10:38 DVT; iw - PSHx: 10:38 None; iw - Immunization history:: Adult Immunizations up to date. - Ebola Screening: : Patient negative for fever greater than or equal to 101.5 degrees Fahrenheit, and additional compatible Ebola Virus Disease symptoms Patient denies exposure to infectious person Patient denies travel to an Ebola-affected area in the 21 days before illness onset No symptoms or risks identified at this time. - Family history:: not pertinent. - Social history:: Smoking status: Patient uses tobacco products, smokes one-half pack cigarettes per day. ROS: 10:38 Constitutional: Negative for fever, chills, and weight loss, Eyes: Negative for injury, norma pain, redness, and discharge, ENT: Negative for injury, pain, and discharge, Neck: Negative for injury, pain, and swelling, Cardiovascular: Negative for chest pain, palpitations, and edema, Respiratory: Negative for shortness of breath, cough, wheezing, and pleuritic chest pain, Abdomen/GI: Negative for abdominal pain, nausea, vomiting, diarrhea, and constipation, Back: Negative for injury and pain, : Negative for injury, bleeding, discharge, and swelling, MS/Extremity: Negative for injury and deformity, Skin: Negative for injury, rash, and discoloration, Neuro: Negative for headache, weakness, numbness, tingling, and seizure, Psych: Negative for depression, anxiety, suicide ideation, homicidal ideation, and hallucinations, Allergy/Immunology: Negative for hives, rash, and allergies, Endocrine: Negative for neck swelling, polydipsia, polyuria, polyphagia, and marked weight changes, Hematologic/Lymphatic: Negative for swollen nodes, abnormal bleeding, and unusual bruising. Exam: 10:38 Constitutional: This is a well developed, well nourished patient who is awake, alert, norma and in no acute distress. Head/Face: Normocephalic, atraumatic. Eyes: Pupils equal round and reactive to light, extra-ocular motions intact. Lids and lashes normal. Conjunctiva and sclera are non-icteric and not injected. Cornea within normal limits. Periorbital areas with no swelling, redness, or edema. ENT: Nares patent. No nasal discharge, no septal abnormalities noted. Tympanic membranes are normal and external auditory canals are clear. Oropharynx with no redness, swelling, or masses, exudates, or evidence of obstruction, uvula midline. Mucous membranes moist. Neck: Trachea midline, no thyromegaly or masses palpated, and no cervical lymphadenopathy. Supple, full range of motion without nuchal rigidity, or vertebral point tenderness. No Meningismus. Chest/axilla: Normal chest wall appearance and motion. Nontender with no deformity. No lesions are appreciated. Cardiovascular: Regular rate and rhythm with a normal S1 and S2. No gallops, murmurs, or rubs. Normal PMI, no JVD. No pulse deficits. Respiratory: Lungs have equal breath sounds bilaterally, clear to auscultation and percussion. No rales, rhonchi or wheezes noted. No increased work of breathing, no retractions or nasal flaring. Abdomen/GI: Soft, non-tender, with normal bowel sounds. No distension or tympany. No guarding or rebound. No evidence of tenderness throughout. Back: No spinal tenderness. No costovertebral tenderness. Full range of motion. Skin: Warm, dry with normal turgor. Normal color with no rashes, no lesions, and no evidence of cellulitis. MS/ Extremity: Pulses equal, no cyanosis. Neurovascular intact. Full, normal range of motion. Neuro: Awake and alert, GCS 15, oriented to person, place, time, and situation. Cranial nerves II-XII grossly intact. Motor strength 5/5 in all extremities. Sensory grossly intact. Cerebellar exam normal. Normal gait. Psych: Awake, alert, with orientation to person, place and time. Behavior, mood, and affect are within normal limits. Vital Signs: 10:36 BP 155 / 93; Pulse 89; Resp 18; Temp 98.7; Pulse Ox 100% on R/A; iw 11:25 BP 142 / 86; Pulse 88; Resp 18; Temp 98.7; Pulse Ox 99% on R/A; Pain 0/10; sg MDM: 10:32 Patient medically screened. norma 05/06 10:41 Order name: US Extremity Venous W Compression Eddie norma Administered Medications: No medications were administered Disposition: 05/06/18 11:25 Discharged to Home. Impression: Pain in left leg, Peripheral vascular disease, unspecified, Tobacco abuse counseling, Tobacco use. - Condition is Stable. - Discharge Instructions: Peripheral Vascular Disease, Smoking Cessation, Smoking Hazards, Smoking Cessation, Tips For Success, Smoking, You Can Quit, [id number], Peripheral Vascular Disease, [id number], Aspirin and Your Heart. - Work release form, Medication Reconciliation Form, Thank You Letter, Antibiotic Education, Prescription Opioid Use form. - Follow up: Private Physician; When: 2 - 3 days; Reason: Recheck today's complaints, Continuance of care, Re-evaluation by your physician. Follow up: Florencio Cadena MD; When: 2 - 3 days; Reason: Recheck today's complaints, Re-evaluation by your physician. - Problem is new. - Symptoms have improved. Signatures: Dispatcher [employer] EDVT Pascual Quintanilla, Yuniel Clement RN, MD MD cha Williams, Irene, RN RN Corrections: (The following items were deleted from the chart) 10:45 10:38 Extremity Venous Uni [id number] ordered. EDVT EDVT 11:26 11:25 05/06/2018 11:25 Discharged to Home. Impression: Pain in left leg; Peripheral norma vascular disease, unspecified; Tobacco abuse counseling; Tobacco use. Condition is Stable. Forms are Medication Reconciliation Form, Thank You Letter, Antibiotic Education, Prescription Opioid Use. Follow up: Private Physician; When: 2 - 3 days; Reason: Recheck today's complaints, Continuance of care, Re-evaluation by your physician. Problem is new. Symptoms have improved. norma 11:32 11:26 05/06/2018 11:25 Discharged to Home. Impression: Pain in left leg; Peripheral iw vascular disease, unspecified; Tobacco abuse counseling; Tobacco use. Condition is Stable. Discharge Instructions: Peripheral Vascular Disease, Smoking Cessation, Smoking Hazards, Smoking Cessation, Tips For Success, Smoking, You Can Quit, [id number], Peripheral Vascular Disease, [id number], Aspirin and Your Heart. Forms are Medication Reconciliation Form, Thank You Letter, Antibiotic Education, Prescription Opioid Use. Follow up: Private Physician; When: 2 - 3 days; Reason: Recheck today's complaints, Continuance of care, Re-evaluation by your physician. Follow up: Florencio Cadena; When: 2 - 3 days; Reason: Recheck today's complaints, Re-evaluation by your physician. Problem is new. Symptoms have improved. norma
--- NOTE | 2018-05-06 12:19 | RAD REPORT ---
EXAM DESCRIPTION: VAS - Extrem Venous W Compress Eddie - 05/06/2018 11:54 am CLINICAL HISTORY: Left leg pain and swelling, history of DVT COMPARISON: Ultrasound April 20 TECHNIQUE: Real-time sonographic evaluation of the bilateral lower extremity deep venous systems was performed. FINDINGS: Normal compressibility, flow augmentation, phasic flow and spontaneous flow are identified in the right side common femoral, superficial femoral and popliteal veins. Right posterior tibial ve in also compressible and without DVT. No abnormality in the adjacent soft tissues. Left lower extremity common femoral, superficial and popliteal veins show good compression with augme nted flow. No thrombus or remnant clot identifiable. Left posterior tibial vein also clear of thrombu s. Patient has significant echogenic material filling left popliteal artery. There is significant flow r estriction through this region. By report from the referring clinician, the patient used only aspirin therapy for treatment of the DVT detailed April 20. It is possible the popliteal vessels were miss identified with the significant arterial restrictive disease mistaken for venous thrombosis. Findings the current and prior studies were discussed with the referring physician. IMPRESSION: No DVT in either lower extremity. Patient has significant left popliteal arterial disease causing very substantial flow restriction thr ough this region.
== END 2018-05-06 11:32 | disposition home or self-care (01) ==
LOC: ER 10:25
DX: M79.605 Pain in left leg (principal); I73.9 Peripheral vascular disease, unspecified; F17.210 Nicotine dependence, cigarettes, uncomplicated
CPT/HCPCS: 93970; 99284

== ENCOUNTER 2023-03-20 08:47 | Emergency (ER) | payer SELFPAY ==
--- OUTSIDE RECORDS SUMMARY | 2023-03-20 08:54 | XMS REPORT | Continuity of Care Document ---
:1965 Author Organization [facility] t Address [address] [place] [id number] Care Team Providers Name Role Phone Unavailable Unavailable Unavailable Problems This patient has no known problems. Allergies, Adverse Reactions, Alerts This patient has no known allergies or adverse reactions. Medications This patient has no known medications. Procedures This patient has no known procedures. Results This patient has no known results.
[2023-03-20 09:39] LABS: Specific Gravity 1.007 (1.005-1.030); Urine Bacteria None Seen /HPF (<20); Urine Bilirubin NEGATIVE (Negative); Urine Blood Negative (Negative); Urine Clarity Clear (Clear); Urine Color Dark-Yellow (Yellow); Urine Glucose NEGATIVE (Negative); Urine Protein NEGATIVE (Negative); Urine RBC <5 /HPF (None Seen); Urine Urobilinogen Normal (Normal)
--- NOTE | 2023-03-20 09:50 | RAD REPORT ---
EXAM DESCRIPTION: CT - Abdomen Pelvis Wo Contrast - 03/20/2023 9:19 am CLINICAL HISTORY: urinary retention, hematuri COMPARISON: No comparisons TECHNIQUE: Thin cut axial CT imaging of the abdomen and pelvis was performed without IV contrast. Mu ltiplanar reformats were generated and reviewed. All CT scans are performed using dose optimization technique as appropriate and may include automated exposure control or mA/KV adjustment according to patient size. FINDINGS: No suspicious findings in the lung bases. Heterogeneous areas of hypoattenuation throughout the liver, most prominent in the right lobe, nonspe cific. The adrenal gland, spleen, and pancreas show no suspicious findings. Gallbladder and biliary t ree are also without suspicious finding. Symmetric renal contour, without suspicious parenchymal findings within limits of noncontrast techniq ue. No evidence of radiopaque calculi. Mild bilateral hydroureter and hydronephrosis. No dilated bowel loops or bowel wall thickening. No free air, free fluid or inflammatory stranding. N o suspicious mass or bulky lymphadenopathy. Left inguinal hernia containing fat. The urinary bladder is markedly distended. . Prostatomegaly with calcifications. No suspicious bony findings. IMPRESSION: Marked urinary bladder distention. Mild bilateral hydroureter and hydronephrosis, could relate to retrograde reflux. Prostatomegaly with calcifications. The bladder distention could be related to mechanical outlet obst ruction. Heterogeneous areas of hypoattenuation throughout the liver, nonspecific. Findings may relate to vinicio onal areas of fatty infiltration. Please correlate clinically, and with patient's hepatic lab profile .
[2023-03-20 09:51] LABS: Absolute Lymphocytes (CBC) 1.4 K/uL (0.7-4.9); Hematocrit 52.8 % (39.6-49.0); MCV 102.7 fL (80-100); MPV 9.4 fL (7.6-11.3); RBC Red Blood Cell Count 5.15 M/uL (4.33-5.43)
[2023-03-20 10:06] LABS: Potassium 4.1 mEq/L (3.5-5.1)
--- NOTE | 2023-03-20 10:17 | EDPHYS ---
Physician Documentation [facility] Name: Micheal Murillo Age: 57 yrs Sex: Male : 1965 Arrival Date: 03/20/2023 Time: 08:47 Bed 11 Private MD: ED Physician Anthony Paredes HPI: 03/20 09:08 This 57 yrs old Male presents to ER via Unassigned with complaints of Urinary bs3 Problem. 09:08 57-year-old male no significant past medical history presents with several days of bs3 discomfort when urinating sure on he notes pain with urination dribbling and difficulty urinating he notes small amount of blood today never had this before no new medications tried Azo last night without relief denies fevers chills chest pain shortness of breath he does note abdominal pain. Historical: - Allergies: 09:16 NKA; hb - PMHx: 09:16 DVT; hb - PSHx: 09:16 None; hb - Immunization history:: Adult Immunizations up to date. - Social history:: Smoking status: Patient denies any tobacco usage or history of. ROS: 09:08 Constitutional: Negative for fever, chills bs3 09:08 All other systems are negative. Exam: 09:08 Constitutional: This is a well developed, well nourished patient who is awake, alert, bs3 and in no acute distress. Head/Face: Normocephalic, atraumatic. Eyes: Pupils equal round and reactive to light, extra-ocular motions intact. Lids and lashes normal. ENT: mmm, no posterior phyarngeal erythema Chest/axilla: Normal chest wall appearance and motion. Nontender with no deformity. No lesions are appreciated. Cardiovascular: Regular rate and rhythm with a normal S1 and S2. symmetric pulses in upper extremities Respiratory: Lungs have equal breath sounds bilaterally, clear to auscultation, no respiratory distress Abdomen/GI: Suprapubic tenderness and distention MS/ Extremity: Pulses equal, no cyanosis. Neurovascular intact. Full, normal range of motion. Neuro: Awake and alert, GCS 15, oriented to person, place, time, and situation. Cranial nerves II-XII grossly intact. Motor strength 5/5 in all extremities. Sensory grossly intact. Vital Signs: 09:14 BP 146 / 96; Pulse 87; Resp 16; Temp 99(TE); Pulse Ox 100% on R/A; Weight 63.5 kg; hb Height 5 ft. 7 in. ; Pain 10; 09:14 Body Mass Index 21.93 (63.50 kg, 170.18 cm) hb 09:14 Pain Scale: Adult hb MDM: 08:56 Patient medically screened. bs3 09:08 Data reviewed: vital signs, nurses notes. ED course: Patient showed me his urine looked bs3 orange in color likely related to the Azo he only had approximately 20 cc in his urine cup he noted that he was only able to pee 20 cc I did a bedside ultrasound which demonstrated greater than 300 cc in his bladder he likely has acute urinary retention secondary to possible infection although less likely possible BPH possible prostate cancer we will do CT as he is a smoker and does not follow-up with anyone advised outpatient urology follow-up for further work-up. 09:59 ED course: CT notable for bladder outlet obstruction possible enlarged prostate advised bs3 outpatient follow-up with urology. 03/20 09:07 Order name: CBC with Diff; Complete Time: 09:59 bs3 03/20 09:07 Order name: BMP; Complete Time: 10:15 bs3 03/20 09:07 Order name: Urinalysis w/ reflexes; Complete Time: 09:59 bs3 03/20 09:07 Order name: CT Abd/Pelvis - Without Contrast; Complete Time: 09:59 bs3 03/20 09:07 Order name: Bautista; Complete Time: 11:37 bs3 Administered Medications: No medications were administered Disposition Summary: 03/20/23 10:17 Discharge Ordered Location: Home bs3 Problem: new bs3 Symptoms: have improved bs3 Condition: Stable bs3 Diagnosis - Retention of urine, unspecified bs3 Followup: bs3 - With: Private Physician - When: 5 - 6 days - Reason: Recheck today's complaints Discharge Instructions: - Discharge Summary Sheet bs3 - Acute Urinary Retention, Male bs3 Forms: - Medication Reconciliation Form bs3 - Thank You Letter bs3 - Antibiotic Education bs3 - Prescription Opioid Use bs3 Prescriptions: - tamsulosin 0.4 mg Oral capsule - take 1 capsule by ORAL route once for 14 days; 14 capsule; Refills: 0, Product bs3 Selection Permitted Signatures: Dispatcher MedAyanna Anthony, RN RN Anthony Gonzalez MD MD bs3
--- NOTE | 2023-03-20 10:17 | ER ---
Nurse's Notes [facility] Name: Micheal Murillo Age: 57 yrs Sex: Male : 1965 Arrival Date: 03/20/2023 Time: 08:47 Bed 11 Private MD: Diagnosis: Retention of urine, unspecified Presentation: 03/20 09:14 Chief complaint: Lower abdominal pain, penile pain when urinating, and difficulty hb urinating x 3 days. Coronavirus screen: At this time, the client does not indicate any symptoms associated with coronavirus-19. Ebola Screen: No symptoms or risks identified at this time. Initial Sepsis Screen: Does the patient meet any 2 criteria? No. Patient's initial sepsis screen is negative. Does the patient have a suspected source of infection? No. Patient's initial sepsis screen is negative. Risk Assessment: Do you want to hurt yourself or someone else? Patient reports no desire to harm self or others. Onset of symptoms was March 17, 2023. 09:14 Method Of Arrival: Ambulatory hb 09:14 Acuity: TORRIE 3 hb Triage Assessment: 12:00 General: Appears distressed, uncomfortable, Behavior is cooperative, appropriate for iw age, anxious. Pain: Complains of pain in pelvis. EENT: No deficits noted. Neuro: No deficits noted. Cardiovascular: No deficits noted. Respiratory: No deficits noted. GI: No signs and/or symptoms were reported involving the gastrointestinal system. : Reports inability to void. Derm: No deficits noted. Musculoskeletal: No deficits noted. Historical: - Allergies: 09:16 NKA; hb - PMHx: 09:16 DVT; hb - PSHx: 09:16 None; hb - Immunization history:: Adult Immunizations up to date. - Social history:: Smoking status: Patient denies any tobacco usage or history of. Screenin:39 [facility] ED Fall Risk Assessment (Adult) History of falling in the last 3 months, iw including since admission No falls in past 3 months (0 pts). Abuse screen: Denies threats or abuse. Denies injuries from another. Nutritional screening: No deficits noted. Tuberculosis screening: No symptoms or risk factors identified. Assessment: 12:39 Reassessment: PT DC HOME AMBULATORY WITH LEG BAG. iw Vital Signs: 09:14 BP 146 / 96; Pulse 87; Resp 16; Temp 99(TE); Pulse Ox 100% on R/A; Weight 63.5 kg; hb Height 5 ft. 7 in. ; Pain 10/10; 09:14 Body Mass Index 21.93 (63.50 kg, 170.18 cm) hb 09:14 Pain Scale: Adult hb ED Course: 08:52 Patient arrived in ED. mr 08:56 Anthony Paredes MD is Attending Physician. bs3 09:15 Anthony Paredes MD is Attending Physician. bs3 09:16 Triage completed. hb 09:16 Arm band placed on. hb 09:19 CT Abd/Pelvis - Without Contrast In Process Unspecified. EDMS 09:22 Urinalysis w/ reflexes Sent. zm 09:41 Inserted saline lock: 20 gauge in right antecubital area, using aseptic technique. zm Blood collected. 09:41 BMP Sent. zm 09:41 CBC with Diff Sent. zm 11:37 Bautista cath inserted, using sterile technique, 16 Fr., by ED staff, balloon inflated, to iw gravity drainage. 12:39 Patient has correct armband on for positive identification. iw 12:39 No provider procedures requiring assistance completed. IV discontinued, intact, iw bleeding controlled, No redness/swelling at site. Pressure dressing applied. Administered Medications: No medications were administered Medication: 12:39 VIS not applicable for this client. iw Outcome: 10:17 Discharge ordered by . bs3 12:39 Discharged to home ambulatory. iw 12:39 Condition: stable 12:39 Discharge instructions given to patient, Instructed on discharge instructions, follow up and referral plans. medication usage, Demonstrated understanding of instructions, follow-up care, medications, Prescriptions given X 1. 12:49 Patient left the ED. iw Signatures: Dispatcher [employer] [facility] CamposBrandy hartman Michelle Cesar, Ayanna Gooden RN, RN RN hb Martinez, Zaina Anthony Paredes MD MD bs3
[2023-03-20 13:11] VITALS: BP 146/96; TEMP 99; O2SAT 100
== END 2023-03-20 12:49 | disposition home or self-care (01) ==
LOC: ER 08:47
DX: R33.9 Retention of urine, unspecified (principal)
CPT/HCPCS: 36415; 51702; 74176; 80048; 81001; 85025; 99284

== ENCOUNTER 2023-04-03 08:38 | Emergency (ER) | payer SELFPAY ==
--- OUTSIDE RECORDS SUMMARY | 2023-04-03 08:41 | XMS REPORT | Continuity of Care Document ---
:1965 Author Organization [facility] t Address [address] [place] [address] [place] [id number] Care Team Providers Name Role Phone Unavailable Unavailable Unavailable Problems This patient has no known problems. Allergies, Adverse Reactions, Alerts This patient has no known allergies or adverse reactions. Medications This patient has no known medications. Procedures This patient has no known procedures. Results This patient has no known results.
--- NOTE | 2023-04-03 10:56 | EDPHYS ---
Physician Documentation [facility] Name: Micheal Murillo Age: 57 yrs Sex: Male : 1965 Arrival Date: 04/03/2023 Time: 08:38 Bed 19 Private MD: ED Physician Dickson Shirley HPI: 04/03 11:27 This 57 yrs old Male presents to ER via Ambulatory with complaints of Medication ms3 Refill, Carmichael catheter removal. Historical: - Allergies: 08:59 NKA; cm10 - PMHx: 08:59 DVT; cm10 - Immunization history:: Adult Immunizations up to date. - Social history:: Smoking status: Patient reports the use of cigarette tobacco products, denies chronic smoking, but will smoke occasionally, smokes one-half pack cigarettes per day. ROS: 11:27 Constitutional: Negative for fever, and chills. Neck: Negative for injury, pain, and ms3 swelling, Cardiovascular: Negative for chest pain, and palpitations. Respiratory: Negative for shortness of breath, cough, wheezing, and pleuritic chest pain, Abdomen/GI: Negative for abdominal pain, nausea, vomiting, diarrhea, and constipation. 11:27 : Positive for Carmichael catheter in. 11:27 All other systems are negative. Exam: 11:27 Constitutional: This is a well developed, well nourished patient who is awake, alert, ms3 and in no acute distress. Head/Face: Normocephalic, atraumatic. Neck: Trachea midline, no cervical lymphadenopathy. Supple, full range of motion without nuchal rigidity, or vertebral point tenderness. No Meningismus. Chest/axilla: Normal chest wall appearance and motion. Nontender with no deformity. Cardiovascular: Regular rate and rhythm with a normal S1 and S2. No gallops, murmurs, or rubs. Normal PMI, no JVD. No pulse deficits. Respiratory: Lungs have equal breath sounds bilaterally, clear to auscultation and percussion. No rales, rhonchi or wheezes noted. No increased work of breathing, no retractions or nasal flaring. Abdomen/GI: Soft, non-tender, with normal bowel sounds. No distension or tympany. No guarding or rebound. No evidence of tenderness throughout. 11:27 : a carmichael is noted. Vital Signs: 08:58 BP 163 / 103; Pulse 88; Resp 16; Temp 99.3; Pulse Ox 99% ; Weight 65.77 kg; Height 5 cm10 ft. 7 in. ; Pain 0/10; 08:58 Body Mass Index 22.71 (65.77 kg, 170.18 cm) cm10 08:58 Pain Scale: Adult cm10 MDM: 08:55 Patient medically screened. ms3 11:27 Data reviewed: vital signs, nurses notes, and as a result, I will discharge patient. ms3 Care significantly affected by the following Social Determinants of Health: Poor access to healthcare and/or lack of insurance. Counseling: I had a detailed discussion with the patient and/or guardian regarding: the historical points, exam findings, and any diagnostic results supporting the discharge/admit diagnosis, the need for outpatient follow up, a urologist. Special discussion: I discussed with the patient/guardian in detail that at this point there is no indication for admission to the hospital. It is understood, however, that if the symptoms persist or worsen the patient needs to return immediately for re-evaluation. ED course: Patient's Carmichael catheter removed without complications. Patient able to self urinate while in the emergency department, no suprapubic pain. Patient given prescription for tamsulosin x30 days. Patient follow-up with Dr. Syed. Patient understands and agrees with plan. All questions were answered. Return precautions discussed include worsening symptoms, or any other concerns. 04/03 08:56 Order name: Sarabjit. Order: Remove Carmichael Cath; Complete Time: 09:22 ms3 Administered Medications: No medications were administered Disposition Summary: 04/03/23 10:55 Discharge Ordered Location: Home ms3 Condition: Stable ms3 Diagnosis - Carmichael Catheter removal ms3 - Medication Refill ms3 Followup: ms3 - With: Rayray Syed MD - When: 2 - 3 days - Reason: Recheck today's complaints Discharge Instructions: - Discharge Summary Sheet ms3 - Benign Prostatic Hyperplasia ms3 Forms: - Medication Reconciliation Form ms3 - Thank You Letter ms3 - Antibiotic Education ms3 - Prescription Opioid Use ms3 Prescriptions: - Flomax 0.4 mg Oral capsule - take 1 capsule by ORAL route every 24 hours; 30 capsule; Refills: 0, Product ms3 Selection Permitted Signatures: Dickson Shirley DO DO ms3 Sherie Ferrera, RN RN cm10
--- NOTE | 2023-04-03 10:56 | ER ---
Nurse's Notes [facility] Name: Micheal Murillo Age: 57 yrs Sex: Male : 1965 Arrival Date: 04/03/2023 Time: 08:38 Bed 19 Private MD: Diagnosis: Carmichael Catheter removal;Medication Refill Presentation: 04/03 08:56 Chief complaint: Patient states: Pt states, "I am here following up and to have my cm10 catheter removed. I was told to come back when I finished my medication." Pt was seen here 14 days ago and is noted to have carmichael catheter in place. Pt denies any other complaints. Coronavirus screen: Vaccine status: Patient reports receiving the 2nd dose of the covid vaccine. 08:56 Method Of Arrival: Ambulatory cm10 08:58 Ebola Screen: No symptoms or risks identified at this time. Initial Sepsis Screen: Does cm10 the patient meet any 2 criteria? No. Patient's initial sepsis screen is negative. Does the patient have a suspected source of infection? No. Patient's initial sepsis screen is negative. Risk Assessment: Do you want to hurt yourself or someone else? Patient reports no desire to harm self or others. 08:58 Acuity: TORRIE 4 cm10 Historical: - Allergies: 08:59 NKA; cm10 - PMHx: 08:59 DVT; cm10 - Immunization history:: Adult Immunizations up to date. - Social history:: Smoking status: Patient reports the use of cigarette tobacco products, denies chronic smoking, but will smoke occasionally, smokes one-half pack cigarettes per day. Vital Signs: 08:58 BP 163 / 103; Pulse 88; Resp 16; Temp 99.3; Pulse Ox 99% ; Weight 65.77 kg; Height 5 cm10 ft. 7 in. ; Pain 0/10; 08:58 Body Mass Index 22.71 (65.77 kg, 170.18 cm) cm10 08:58 Pain Scale: Adult cm10 ED Course: 08:41 Patient arrived in ED. rg4 08:45 Dickson Shirley DO is Attending Physician. ms3 08:59 Triage completed. cm10 08:59 Arm band placed on. cm10 09:06 Paula Alvarado, ASHLEY is Primary Nurse. eh3 09:22 Patient tolerated well. Carmichael cath removed intact, balloon deflated. 3 10:55 Rayray Syed MD is Referral Physician. ms3 Administered Medications: No medications were administered Outcome: : Discharge ordered by . ms3 11:17 Patient left the ED. 3 Signatures: Vesna Thakkar rg4 Dickson Shirley DO DO ms3 Paula Alvarado, RN RN 3 Sherie Ferrera RN RN cm10
[2023-04-03 11:35] VITALS: BP 163/103; TEMP 99.3; O2SAT 99
== END 2023-04-03 11:17 | disposition home or self-care (01) ==
LOC: ER 08:38
DX: Z46.6 Encounter for fitting and adjustment of urinary device (principal); Z76.0 Encounter for issue of repeat prescription
CPT/HCPCS: 99281

== ENCOUNTER 2023-04-04 08:16 | Emergency (ER) | payer SELFPAY ==
--- OUTSIDE RECORDS SUMMARY | 2023-04-04 08:19 | XMS REPORT | Continuity of Care Document ---
:1965 Author Organization [facility] t Address [address] [place] [id number] Care Team Providers Name Role Phone Unavailable Unavailable Unavailable Problems This patient has no known problems. Allergies, Adverse Reactions, Alerts This patient has no known allergies or adverse reactions. Medications This patient has no known medications. Procedures This patient has no known procedures. Results This patient has no known results.
[2023-04-04] MEDS ORDERED: LIDOCAINE HCL JELLY 2% 6 ML SYRINGE TOP ONE (08:49)
[2023-04-04] MEDS ORDERED: LIDOCAINE JELLY 2% 5 ML SYRINGE TOP ONE (08:51)
[2023-04-04 09:31] LABS: Specific Gravity 1.005 (1.005-1.030); Urine Bacteria <20 /HPF (<20); Urine Bilirubin NEGATIVE (Negative); Urine Blood 1+ (Negative); Urine Clarity Extremely Turbid (Clear); Urine Color Light-Orange (Yellow); Urine Glucose NEGATIVE (Negative); Urine Protein TRACE (Negative); Urine RBC <5 /HPF (None Seen); Urine Urobilinogen Normal (Normal); Urine WBC Clump Moderate /HPF (None Seen); Urine pH 6.5 (5.0-7.0)
--- NOTE | 2023-04-04 09:36 | ER ---
Nurse's Notes [facility] Name: Micheal Murillo Age: 57 yrs Sex: Male : 1965 Arrival Date: 04/04/2023 Time: 08:16 Bed 13 Private MD: Diagnosis: UTI/ Urinary tract infection, site not specified Presentation: 04/04 08:26 Chief complaint: Patient states: Cannot urinate well since he got the catheter taken ll1 out yesterday. Coronavirus screen: Client denies travel out of the [place] in the last 14 days. At this time, the client does not indicate any symptoms associated with coronavirus-19. Ebola Screen: Patient denies travel to an Ebola-affected area in the 21 days before illness onset. Initial Sepsis Screen: Does the patient meet any 2 criteria? No. Patient's initial sepsis screen is negative. Does the patient have a suspected source of infection? Yes: Dysuria/Frequency/Urgency/UTI. Risk Assessment: Do you want to hurt yourself or someone else? Patient reports no desire to harm self or others. Onset of symptoms was April 03, 2023. 08:26 Method Of Arrival: Ambulatory ll1 08:26 Acuity: TORRIE 3 ll1 Triage Assessment: 08:26 General: Appears uncomfortable, Behavior is calm, cooperative, appropriate for age. ll1 Pain: Complains of pain in pelvis Pain currently is 10 out of 10 on a pain scale. Quality of pain is described as aching, pressure. Derm: Reports cannot urinate well, only dribbling. Historical: - Allergies: 08:26 NKA; ll1 - PMHx: 08:26 DVT; ll1 - Immunization history:: Adult Immunizations up to date. - Social history:: Smoking status: Patient reports the use of cigarette tobacco products, smokes one-half pack cigarettes per day. Screenin:28 [facility] ED Fall Risk Assessment (Adult) History of falling in the last 3 months, db including since admission No falls in past 3 months (0 pts) Confusion or Disorientation No (0 pts) Intoxicated or Sedated No (0 pts) Impaired Gait No (0 pts) Mobility Assist Device Used No (0 pt) Altered Elimination No (0 pt) Score/Fall Risk Level 0 - 2 = Low Risk Oriented to surroundings, Maintained a safe environment. Abuse screen: Denies threats or abuse. Denies injuries from another. Nutritional screening: No deficits noted. Tuberculosis screening: No symptoms or risk factors identified. Assessment: 09:00 Reassessment: Patient appears in no apparent distress at this time. Patient and/or db family updated on plan of care and expected duration. Pain level reassessed. Patient is alert, oriented x 3, equal unlabored respirations, skin warm/dry/pink. General: Appears in no apparent distress. comfortable, Behavior is calm, cooperative. Neuro: Level of Consciousness is awake, alert, obeys commands, Oriented to person, place, time, situation, Speech is normal. Respiratory: Airway is patent Respiratory effort is even, unlabored, Respiratory pattern is regular, symmetrical. Vital Signs: 08:26 BP 181 / 112; Pulse 102; Resp 18; Temp 98.7; Pulse Ox 94% on R/A; Weight 65.77 kg; ll1 Height 5 ft. 7 in. ; Pain 10/10; 09:45 BP 151 / 99; Pulse 86; Resp 16; Pulse Ox 99% on R/A; db 08:26 Body Mass Index 22.71 (65.77 kg, 170.18 cm) ll1 08:26 Pain Scale: Adult ll1 ED Course: 08:18 Patient arrived in ED. mr 08:19 Anthony Paredes MD is Attending Physician. bs3 08:25 Arm band placed on Patient placed in an exam room, on a stretcher. ll1 08:27 Triage completed. ll1 08:28 Tg Whitehead, ASHLEY is Primary Nurse. db 09:20 Bautista cath inserted, using sterile technique, 16 Fr., by ED staff, balloon inflated, to db gravity drainage, clamped. urine specimen collected. 09:26 No provider procedures requiring assistance completed. db 10:01 Patient has correct armband on for positive identification. Bed in low position. Call db light in reach. Side rails up X 1. Client placed on continuous cardiac and pulse oximetry monitoring. NIBP monitoring applied. Warm blanket given. 10:01 Patient did not have IV access during this emergency room visit. db Administered Medications: 09:40 Drug: Cephalexin PO 500 mg Route: PO; db 10:06 Follow up: Response: No adverse reaction db Medication: 10:02 VIS not applicable for this client. db Output: 09:24 Urine: 625ml (Bautista); Total: 625ml. db 09:59 Urine: 250ml (Bautista); Total: 875ml. db Outcome: 09:35 Discharge ordered by bs3 10:01 Discharged to home ambulatory. db 10:01 Condition: stable 10:01 Discharge instructions given to patient, Instructed on discharge instructions, Prescriptions given X 1. 10:16 Patient left the ED. zm Signatures: Brandy Campos mr Sully Leos, RN RN ll1 Tamanna Ferrera Brandon, MD MD bs3 Tg Whitehead RN RN db
--- NOTE | 2023-04-04 09:36 | EDPHYS ---
Physician Documentation [facility] Name: Micheal Murillo Age: 57 yrs Sex: Male : 1965 Arrival Date: 04/04/2023 Time: 08:16 Bed 13 Private MD: ED Physician Anthony Paredes HPI: 04/04 08:39 This 57 yrs old Male presents to ER via Ambulatory with complaints of Urinary bs3 Problem. 08:39 57-year-old male presents with urinary retention after his Bautista was discontinued bs3 yesterday at our emergency department he notes increasing supra pubic distention he is able to pee a little bit but it just dribbles out. Historical: - Allergies: 08:26 NKA; ll1 - PMHx: 08:26 DVT; ll1 - Immunization history:: Adult Immunizations up to date. - Social history:: Smoking status: Patient reports the use of cigarette tobacco products, smokes one-half pack cigarettes per day. ROS: 08:39 Constitutional: Negative for fever, chills bs3 08:39 All other systems are negative. Exam: 08:39 Constitutional: This is a well developed, well nourished patient who is awake, alert, bs3 and in no acute distress. Head/Face: Normocephalic, atraumatic. Eyes: Pupils equal round and reactive to light, extra-ocular motions intact. Lids and lashes normal. ENT: mmm, no posterior phyarngeal erythema Chest/axilla: Normal chest wall appearance and motion. Nontender with no deformity. No lesions are appreciated. Cardiovascular: Regular rate and rhythm with a normal S1 and S2. symmetric pulses in upper extremities Respiratory: Lungs have equal breath sounds bilaterally, clear to auscultation, no respiratory distress Abdomen/GI: Suprapubic tenderness and distention MS/ Extremity: Pulses equal, no cyanosis. Neurovascular intact. Full, normal range of motion. Neuro: Awake and alert, GCS 15, oriented to person, place, time, and situation. Cranial nerves II-XII grossly intact. Motor strength 5/5 in all extremities. Sensory grossly intact. Psych: Awake, alert, with orientation to person, place and time. Behavior, mood, and affect are within normal limits. Vital Signs: 08:26 BP 181 / 112; Pulse 102; Resp 18; Temp 98.7; Pulse Ox 94% on R/A; Weight 65.77 kg; ll1 Height 5 ft. 7 in. ; Pain 10/10; 09:45 BP 151 / 99; Pulse 86; Resp 16; Pulse Ox 99% on R/A; db 08:26 Body Mass Index 22.71 (65.77 kg, 170.18 cm) ll1 08:26 Pain Scale: Adult ll1 MDM: 08:19 Patient medically screened. bs3 08:39 Data reviewed: vital signs, nurses notes. ED course: Bedside ultrasound demonstrated bs3 large volume of urine in bladder after he tried to urinate will place Bautista advised outpatient follow-up. 09:34 ED course: Urinalysis consistent with UTI. bs3 04/04 09:00 Order name: Urinalysis w/ reflexes; Complete Time: 09:32 bs3 04/04 09:35 Order name: Urine Culture EDMS Administered Medications: 09:40 Drug: Cephalexin PO 500 mg Route: PO; db 10:06 Follow up: Response: No adverse reaction db Disposition Summary: 04/04/23 09:35 Discharge Ordered Location: Home bs3 Problem: new bs3 Symptoms: have improved bs3 Condition: Stable bs3 Diagnosis - UTI/ Urinary tract infection, site not specified bs3 Followup: bs3 - With: Private Physician - When: 10 - 14 days - Reason: Re-evaluation by your physician Discharge Instructions: - Discharge Summary Sheet bs3 - Urinary Tract Infection, Adult, [id number]-mt-[id number] bs3 Forms: - Medication Reconciliation Form bs3 - Thank You Letter bs3 - Antibiotic Education bs3 - Prescription Opioid Use bs3 Prescriptions: - Cephalexin 500 mg Oral Capsule - take 1 capsule by ORAL route every 12 hours for 10 days; 20 capsule; Refills: bs3 0, Product Selection Permitted Signatures: Dispatcher [employer] EDSully Licona RN RN ll1 Anthony Paredes MD MD bs3 Tg Whitehead RN RN db
[2023-04-04] MEDS ORDERED: CEPHALEXIN 250 MG CAP ONE (09:49)
[2023-04-04 10:23] VITALS: TEMP 98.7
[2023-04-04 10:24] VITALS: BP 151/99; O2SAT 99
== END 2023-04-04 10:16 | disposition home or self-care (01) ==
LOC: ER 08:16
DX: N39.0 Urinary tract infection, site not specified (principal); F17.210 Nicotine dependence, cigarettes, uncomplicated
CPT/HCPCS: 51702; 81001; 87077; 87086; 87088; 87186; 99284

== ENCOUNTER 2023-05-29 15:44 | Emergency (ER) | payer SELFPAY ==
--- OUTSIDE RECORDS SUMMARY | 2023-05-29 15:52 | XMS REPORT | Continuity of Care Document ---
:1965 Author Organization [facility] t Address [address] [place] [address] [place] [id number] Care Team Providers Name Role Phone Unavailable Unavailable Unavailable Problems This patient has no known problems. Allergies, Adverse Reactions, Alerts This patient has no known allergies or adverse reactions. Medications This patient has no known medications. Procedures This patient has no known procedures. Results This patient has no known results.
--- NOTE | 2023-05-29 16:56 | ER ---
Nurse's Notes [facility] Name: Micheal Murillo Age: 58 yrs Sex: Male : 1965 Arrival Date: 05/29/2023 Time: 15:44 Bed 11 Private MD: Diagnosis: Breakdown (mechanical) of indwelling urethral catheter, initial encounter Presentation: 05/29 16:21 Chief complaint: Patient states: LEAKING ANDERSON BAG / NO F/U WITH UROLOGY. Coronavirus bp screen: At this time, the client does not indicate any symptoms associated with coronavirus-19. Ebola Screen: No symptoms or risks identified at this time. Initial Sepsis Screen: Does the patient meet any 2 criteria? No. Patient's initial sepsis screen is negative. Does the patient have a suspected source of infection? No. Patient's initial sepsis screen is negative. Risk Assessment: Do you want to hurt yourself or someone else? Patient reports no desire to harm self or others. Onset of symptoms is unknown. 16:21 Method Of Arrival: Wheelchair bp 16:21 Acuity: TORRIE 5 bp Triage Assessment: 16:22 General: Appears in no apparent distress. Behavior is agitated, anxious, Smells of bp alcohol. Pain: Denies pain. EENT: No deficits noted. Neuro: No deficits noted. Cardiovascular: No deficits noted. Respiratory: No deficits noted. GI: No deficits noted. : Anderson in place. Derm: No deficits noted. Musculoskeletal: No deficits noted. Historical: - Allergies: 16:22 NKA; bp - PMHx: 16:22 DVT; bp - Immunization history:: Adult Immunizations unknown. - Social history:: Smoking status: Patient reports the use of cigarette tobacco products, unknown amount Patient uses alcohol, on a daily basis. - Family history:: not pertinent. - Hospitalizations: : No recent hospitalization is reported. Screenin:25 [facility] ED Fall Risk Assessment (Adult) History of falling in the last 3 months, bp including since admission No falls in past 3 months (0 pts). Abuse screen: Denies threats or abuse. Denies injuries from another. Nutritional screening: No deficits noted. Tuberculosis screening: No symptoms or risk factors identified. Assessment: 17:25 Reassessment: [facility]. bp Vital Signs: 16:21 BP 157 / 65; Pulse 95; Resp 16; Temp 98; Pulse Ox 97% ; bp ED Course: 15:51 Patient arrived in ED. mg5 16:21 Triage completed. bp 16:22 Arm band placed on. bp 16:30 Abilio Ortega MD is Attending Physician. rn 17:25 Patient has correct armband on for positive identification. bp 17:25 No provider procedures requiring assistance completed. Patient did not have IV access bp during this emergency room visit. Administered Medications: No medications were administered Medication: 17:25 VIS not applicable for this client. bp Outcome: 16:55 Discharge ordered by . rn 17:25 Discharged to home ambulatory. bp 17:25 Condition: stable 17:25 Discharge instructions given to patient, Instructed on discharge instructions, follow up and referral plans. Demonstrated understanding of instructions, follow-up care. 17:26 Patient left the ED. bp Signatures: Abilio Ortega MD MD rn Peltier, Brian, RN RN Theodora Roman mg5
--- NOTE | 2023-05-29 16:56 | EDPHYS ---
Physician Documentation [facility] Name: Micheal Murillo Age: 58 yrs Sex: Male : 1965 Arrival Date: 05/29/2023 Time: 15:44 Bed 11 Private MD: ED Physician Abilio Ortega HPI: 05/29 16:50 This 58 yrs old Male presents to ER via Wheelchair with complaints of Carmichael Leak. rn 16:50 The patient presents with a Carmichael catheter problem, is leaking urine. Onset: The rn symptoms/episode began/occurred at an unknown time. Modifying factors: The symptoms are alleviated by taping bag, the symptoms are aggravated by nothing. Severity of symptoms: At their worst the symptoms were moderate, in the emergency department the symptoms are unchanged. The patient has not experienced similar symptoms in the past. The patient has not recently seen a physician. Has had existing carmichael for some time, now leaking, tape helps but still leaks. . Historical: - Allergies: 16:22 NKA; bp - PMHx: 16:22 DVT; bp - Immunization history:: Adult Immunizations unknown. - Social history:: Smoking status: Patient reports the use of cigarette tobacco products, unknown amount Patient uses alcohol, on a daily basis. - Family history:: not pertinent. - Hospitalizations: : No recent hospitalization is reported. ROS: 16:50 Constitutional: Negative for fever, chills, and weight loss, Cardiovascular: Negative rn for chest pain, palpitations, and edema, Respiratory: Negative for shortness of breath, cough, wheezing, and pleuritic chest pain, Abdomen/GI: Negative for abdominal pain, nausea, vomiting, diarrhea, and constipation, : + carmichael leaking Exam: 16:50 Constitutional: This is a well developed, well nourished patient who is awake, alert, rn and in no acute distress. Male : + carmichael leaking from bag. Vital Signs: 16:21 BP 157 / 65; Pulse 95; Resp 16; Temp 98; Pulse Ox 97% ; bp MDM: 16:31 Patient medically screened. rn 16:50 Differential diagnosis: Carmichael catheter problem. Data reviewed: vital signs, nurses rn notes, and as a result, I will discharge patient. Counseling: I had a detailed discussion with the patient and/or guardian regarding: the historical points, exam findings, and any diagnostic results supporting the discharge/admit diagnosis, the need for outpatient follow up, to return to the emergency department if symptoms worsen or persist or if there are any questions or concerns that arise at home. Response to treatment: the patient's symptoms have resolved after treatment. 05/29 16:34 Order name: Carmichael: replace entire carmichael catheter and bag, is leaking; Complete Time: rn 16:43 Administered Medications: No medications were administered Disposition Summary: 05/29/23 16:55 Discharge Ordered Location: Home rn Problem: new rn Symptoms: have improved rn Condition: Stable rn Diagnosis - Breakdown (mechanical) of indwelling urethral catheter, initial encounter rn Followup: rn - With: Private Physician - When: As needed - Reason: Recheck today's complaints, Re-evaluation by your physician Discharge Instructions: - Discharge Summary Sheet rn - Indwelling Urinary Catheter Care, Adult rn Forms: - Medication Reconciliation Form rn - Thank You Letter rn - Antibiotic medical technologist prn - Prescription Opioid Use rn - Patient Portal Instructions rn Signatures: Abilio Ortega MD MD rn Peltier, Brian RN RN bp
[2023-05-29 17:35] VITALS: BP 157/65; TEMP 98; O2SAT 97
== END 2023-05-29 17:26 | disposition home or self-care (01) ==
LOC: ER 15:44
DX: T83.011A Breakdown (mechanical) of indwelling urethral catheter, initial encounter (principal)
CPT/HCPCS: 99282

== ENCOUNTER 2023-08-13 20:29 | Inpatient (IN) | payer SELFPAY ==
--- OUTSIDE RECORDS SUMMARY | 2023-08-13 20:33 | XMS REPORT | Continuity of Care Document ---
:1965 Author Organization [facility] t Address [address] [place] [id number] Care Team Providers Name Role Phone Unavailable Unavailable Unavailable Problems This patient has no known problems. Allergies, Adverse Reactions, Alerts This patient has no known allergies or adverse reactions. Medications This patient has no known medications. Procedures This patient has no known procedures. Results This patient has no known results.
[2023-08-13 22:04] LABS: Absolute Lymphocytes (CBC) 1.8 K/uL (0.7-4.9); Hematocrit 48.1 % (39.6-49.0); Lymphocytes % 18.6 % (15.3-44.8); MCV 99.3 fL (80-100); MPV 8.7 fL (7.6-11.3); Platelets 256 thou/uL (152-406); RBC Red Blood Cell Count 4.85 M/uL (4.33-5.43)
[2023-08-13] MEDS ORDERED: PHENAZOPYRIDINE 100MG TAB PO ONE (22:06)
[2023-08-13] MEDS ORDERED: VANCOMYCIN 1 GM/VIAL ONE (22:07)
[2023-08-13] MEDS ORDERED: SMZ./TMP. 800/160 MG TABLET ONE (22:07)
[2023-08-13] MEDS ORDERED: DIAZEPAM 10 MG/2 ML INJ SYRINGE ONE (22:07)
[2023-08-13] MEDS ORDERED: MORPHINE 4 MG/ML SYR ONE (22:07)
[2023-08-13] MEDS ORDERED: CEFTRIAXONE 1000 MG/VIAL ONE (22:08)
[2023-08-13] MEDS ORDERED: NA CHLORIDE 0.9% 50 ML ONE (22:08)
[2023-08-13] MEDS ORDERED: NA CHLORIDE 0.9% 250 ML ONE (22:08)
[2023-08-13] MEDS ORDERED: NA CHLORIDE 0.9% 1,000 ML ONE (22:08)
[2023-08-13 22:23] LABS: Albumin 3.3 g/dL (3.4-5.0); Bilirubin Total 0.2 mg/dL (0.2-1.0); Potassium 3.8 mEq/L (3.5-5.1); Protein, Total 7.5 g/dL (6.4-8.2)
[2023-08-13] MEDS ORDERED: LIDOCAINE HCL JELLY 2% 6 ML SYRINGE TOP ONE (22:29)
[2023-08-13 22:52] LABS: Specific Gravity 1.015 (1.005-1.030); Urine Bacteria <20 /HPF (<20); Urine Bilirubin NEGATIVE (Negative); Urine Blood 3+ (OVER) (Negative); Urine Clarity Extremely Turbid (Clear); Urine Color Colorless (Yellow); Urine Crystals Unidentified Few /HPF (None Seen); Urine Glucose 1+ (Negative); Urine Protein TRACE (Negative); Urine RBC >50 /HPF (None Seen); Urine Urobilinogen Normal (Normal); Urine pH 5.5 (5.0-7.0)
--- NOTE | 2023-08-13 23:28 | EDPHYS ---
Physician Documentation [facility] Name: Micheal Murillo Age: 58 yrs Sex: Male : 1965 Arrival Date: 08/13/2023 Time: 20:29 Bed 16 Private MD: ED Physician Zack Barakat HPI: 08/13 20:52 This 58 yrs old Male presents to ER via Unassigned with complaints of General complaint sp4 . 20:55 Prescriptions from 08/02/2023 - tamsulosin 0.4 mg Oral capsule take 1 capsule ORAL sp4 route every 24 hours; 30 capsule; Refills: 0 Cipro 500 mg Oral Tablet take 1 tablet ORAL route every 12 hours for 7 days; 14 tablet. 21:01 58-year-old male with history of indwelling urinary catheter and the leg bag presents sp4 with acute worsening of bladder pain, penile pain feeling like he has to urinate and burning sensation. Patient mildly agitated on arrival pacing restlessly. Reports moderate pain that causes him agitation and anxiety. Leg bag present on arrival. . 21:02 Patient states last time his catheter was exchanged was about 2 months ago, patient was sp4 here on 08/02/2023 and was diagnosed with urinary tract infection and prescribed tamsulosin, and ciprofloxacin 500 mg every 12 hours for 7 days. . Urine culture has established that patient has E. coli, and Staphylococcus,, E. coli is susceptible to Bactrim, nitrofurantoin, Augmentin, gentamicin, cefazolin, levofloxacin, Unasyn, ceftazidime, ciprofloxacin. Staphylococcus is resistant to everything except for vancomycin. I reported the results to be due to Bactrim.. 23:22 Additional history includes DVT, PVD, tobacco use, COPD,. Prior medications include sp4 albuterol, apixaban, fluticasone-salmeterol.. Historical: - Allergies: 21:01 NKA; cm10 - PMHx: 21:01 BPH (DVT); DVT; cm10 - Immunization history:: Adult Immunizations unknown. - Social history:: Smoking status: unknown. - Family history:: not pertinent. ROS: 23:22 Constitutional: Negative for fever, chills, and weight loss, positive for bladder sp4 pain, urethral pain, pain associated with Bautista catheter, positive for cloudy urine, positive for spasmodic bladder pain 23:22 All other systems are negative, Exam: 23:22 Constitutional: This is a well developed, well nourished patient who is awake, alert, sp4 moderate agitation on arrival, restlessness and emotional upset/ Bautista catheter with leg bag present on arrival. Head/Face: Normocephalic, atraumatic. Eyes: Pupils equal round and reactive to light, extra-ocular motions intact. Lids and lashes normal. Conjunctiva and sclera are not injected. Cornea within normal limits. Periorbital areas with no swelling, redness, or edema. ENT: Nares patent. No nasal discharge, no septal abnormalities noted. Tympanic membranes are normal and external auditory canals are clear. Oropharynx with no redness, swelling, or masses, exudates, or evidence of obstruction, uvula midline. Mucous membranes moist. Neck: Trachea midline, no thyromegaly or masses palpated, and no cervical lymphadenopathy. Supple, full range of motion without nuchal rigidity, or vertebral point tenderness. Chest/axilla: Normal chest wall appearance and motion. Nontender with no deformity. No lesions are appreciated. Cardiovascular: Regular rate and rhythm with a normal S1 and S2. No gallops, murmurs, or rubs. Normal PMI, no JVD. No pulse deficits. Respiratory: Lungs have equal breath sounds bilaterally, clear to auscultation and percussion. No rales, rhonchi or wheezes noted. No increased work of breathing, no retractions or nasal flaring. Abdomen/GI: Soft, non-tender, with normal bowel sounds. No distension or tympany. No guarding or rebound. No evidence of tenderness throughout. Back: No spinal tenderness. No costovertebral tenderness. Male : Normal genitalia with no discharge or lesions. Patient is circumcised male with indwelling Bautista catheter Skin: Warm, dry with normal turgor. Normal color with no rashes, no lesions, and no evidence of cellulitis. MS/ Extremity: Pulses equal, no cyanosis. Neurovascular intact. Full, normal range of motion. Neuro: Awake and alert, GCS 15, oriented to person, place, time, and situation. Cranial nerves II-XII grossly intact. Motor strength 5/5 in all extremities. Sensory grossly intact. Psych: Awake, alert, with orientation to person, place and time. Behavior is agitated, patient has emotional upset and the restlessness on exam Vital Signs: 20:58 BP 176 / 123; Pulse 99; Resp 18; Temp 97.1(TE); Pulse Ox 100% ; cm10 22:15 BP 160 / 99; Pulse 79; Resp 16; Pulse Ox 98% on R/A; jb4 23:36 Weight 63.5 kg; jb4 23:54 BP 133 / 74; Pulse 61; Resp 16; Pulse Ox 95% on R/A; jb4 08/14 01:14 BP 112 / 75; Pulse 56; Resp 16; Pulse Ox 93% ; jb4 01:20 BP 118 / 69; Pulse 54; Resp 16; Pulse Ox 94% ; jj7 02:37 BP 130 / 74; Pulse 61; Resp 17; Pulse Ox 97% ; Pain 0/10; jj7 02:37 Pain Scale: Adult jj7 MDM: 08/13 21:01 Patient medically screened. sp4 23:22 Differential Diagnosis altered mental status, sepsis, flu. Data reviewed: vital signs, sp4 nurses notes, old medical records, lab test result(s), CBC, electrolytes, hepatic panel, urinalysis. Consideration of Admission/Observation Patient was admitted/placed on observation. Escalation of care including admission/observation considered. Management of patient was discussed with the following: Hospitalist: Discussed with admitting hospitalist. ED course: Patient has urinary catheter associated infection, with urine culture on 08/02/2023 revealing presence of Staphylococcus that is multidrug-resistant including Bactrim resistance. It is susceptible to vancomycin. This secondary microorganism includes E. coli that is susceptible to multiple antibiotics. Since were not able to start patient on outpatient vancomycin we will consider admission at this time for IV antibiotic management and further consultation with infectious disease. . 08/13 20:55 Order name: Urinalysis W/Microscopic; Complete Time: 23:22 sp4 08/13 21:00 Order name: CBC with Diff; Complete Time: 23:22 sp4 08/13 21:00 Order name: CMP; Complete Time: 23:22 sp4 08/13 22:55 Order name: Urine Culture EDMS 08/14 00:52 Order name: Urinalysis w/ reflexes EDMS 08/13 21:00 Order name: Bautista; Complete Time: 22:31 sp4 08/13 21:00 Order name: IV Saline Lock; Complete Time: 21:47 sp4 08/13 21:00 Order name: Labs collected and sent; Complete Time: 21:47 sp4 Administered Medications: 22:08 Drug: morphine IVP or IV 4 mg IVP once over 4 mins Route: IVP; Infused Over: 4 mins; jb4 Site: left upper arm; 08/14 02:55 Follow up: Response: Pain is decreased j 08/13 22:08 Drug: Diazepam IVP 5 mg IVP once Route: IVP; Site: left upper arm; [facility] 08/14 02:54 Follow up: Response: No adverse reaction j 08/13 22:08 Drug: NS 0.9% IV 1000 ml IV at 1 bolus Per protocol; 1000 mL bolus Route: IV; Rate: 1 jb4 bolus; Site: left upper arm; 22:08 Drug: Trimethoprim-Sulfamethoxazole PO (160 mg-800 mg (DS) 1 tablet PO once Route: PO; [facility] 08/14 02:54 Follow up: Response: No adverse reaction j 08/13 22:08 Drug: Phenazopyridine PO 200 mg PO once Route: PO; 4 08/14 02:53 Follow up: Response: No adverse reaction j 08/13 22:31 Drug: Rocephin - Rocephin (cefTRIAXone) IVPB 1 grams IVPB once over 30 mins; (mix in 50 jb4 mL NS) Route: IVPB; Infused Over: 30 mins; Site: left upper arm; 08/14 01:20 Follow up: IV Status: Completed infusion j7 08/13 22:31 Drug: Lidocaine Mucous Membrane Gel 2 % 1 application Mucous Membrane once Route: jb4 Mucous Membrane; 23:53 Drug: vancoMYCIN IVPB 1 grams IVPB once over 2 hrs Route: IVPB; Infused Over: 2 hrs; 4 Site: left upper arm; 08/14 01:55 Follow up: IV Status: Completed infusion 7 08/13 23:53 Drug: NS 0.9% IV 1000 ml IV at 125 ml/hr continuous Route: IV; Rate: 125 ml/hr; Site: [facility] left upper arm; 23:54 Drug: [place] PO 10 mg-325 mg 1 tabs PO once Route: PO; [facility] 08/14 02:54 Follow up: Response: Pain is decreased jj7 08/13 23:54 Drug: Promethazine PO 25 mg PO once Route: PO; jb4 08/14 02:54 Follow up: Response: No adverse reaction jj7 Disposition Summary: 08/13/23 23:27 Hospitalization Ordered Notes: Hospitalization Status: Inpatient Admission sp4 Provider: Alexandru Ball sp4 [facility] sp[facility] Condition: Stable sp4 Problem: new sp4 Symptoms: have improved sp4 Bed/Room Type: Standard sp4 Room Assignment: 411(08/14/23 01:27) mw Diagnosis - UTI/ Urinary tract infection, site not specified sp4 - Indwelling Bautista catheter, acute cystitis, multidrug-resistant UTI sp4 Forms: - Medication Reconciliation Form sp4 - SBAR form sp4 - Leadership Thank You Letter sp4 Signatures: Dispatcher [employer] Patience Loving RN RN mw Nathaniel Chávez RN RN jb4 Zack Barakat MD MD sp4 Sherie Ferrera RN RN cm10 Kenney Baker RN jj7 Corrections: (The following items were deleted from the chart) 01:27 08/13 23:27 sp4 mw
--- NOTE | 2023-08-13 23:28 | ER ---
Nurse's Notes [facility] Name: Micheal Murillo Age: 58 yrs Sex: Male : 1965 Arrival Date: 08/13/2023 Time: 20:29 Bed 16 Private MD: Diagnosis: UTI/ Urinary tract infection, site not specified;Indwelling Carmichael catheter, acute cystitis, multidrug-resistant UTI Presentation: 08/13 20:58 Chief complaint: Patient states: pt has a chronic carmichael catheter in place and feels cm10 like he is having burning with urination. Pt pacing in triage. Coronavirus screen: Vaccine status: Patient reports receiving the 2nd dose of the covid vaccine. Client denies travel out of the [place] in the last 14 days. Ebola Screen: Patient denies travel to an Ebola-affected area in the 21 days before illness onset. No symptoms or risks identified at this time. Initial Sepsis Screen: Does the patient meet any 2 criteria? No. Patient's initial sepsis screen is negative. Does the patient have a suspected source of infection? Yes: Catheter related infection (Carmichael/dialysis/PICC/central line). Risk Assessment: Do you want to hurt yourself or someone else? Patient reports no desire to harm self or others. Onset of symptoms was August 13, 2023. 20:58 Method Of Arrival: Ambulatory cm10 20:58 Acuity: TORRIE 3 cm10 Historical: - Allergies: 21:01 NKA; cm10 - PMHx: 21:01 BPH (DVT); DVT; cm10 - Immunization history:: Adult Immunizations unknown. - Social history:: Smoking status: unknown. - Family history:: not pertinent. Screenin/24 01:20 [facility] ED Fall Risk Assessment (Adult) History of falling in the last 3 months, jj7 including since admission No falls in past 3 months (0 pts) Confusion or Disorientation No (0 pts) Intoxicated or Sedated No (0 pts) Impaired Gait No (0 pts) Mobility Assist Device Used No (0 pt) Altered Elimination Yes (1 pt) Score/Fall Risk Level 0 - 2 = Low Risk Oriented to surroundings, Maintained a safe environment, Educated pt \T\ family on fall prevention, incl call for assistance when getting out of bed. Abuse screen: Denies threats or abuse. Nutritional screening: No deficits noted. Tuberculosis screening: No symptoms or risk factors identified. Assessment: 08/13 22:00 General: Appears in no apparent distress. comfortable, Behavior is calm, cooperative, jb4 appropriate for age. Pain: Complains of pain in head of penis Pain does not radiate. Pain currently is 9 out of 10 on a pain scale. Quality of pain is described as burning. Neuro: Level of Consciousness is awake, alert, obeys commands, Oriented to person, place, time, situation. Cardiovascular: Patient's skin is warm and dry. Respiratory: Airway is patent Respiratory effort is even, unlabored, Respiratory pattern is regular, symmetrical. GI: No signs and/or symptoms were reported involving the gastrointestinal system. : No signs and/or symptoms were reported regarding the genitourinary system. EENT: No signs and/or symptoms were reported regarding the EENT system. Derm: Skin is intact, Skin is pink, warm \T\ dry. Musculoskeletal: Circulation, motion, and sensation intact. Range of motion: intact in all extremities. 23:00 Reassessment: Patient appears in no apparent distress at this time. Patient and/or jb4 family updated on plan of care and expected duration. Pain level reassessed. Patient is alert, oriented x 3, equal unlabored respirations, skin warm/dry/pink. 08/14 00:01 Reassessment: Patient appears in no apparent distress at this time. Patient and/or jb4 family updated on plan of care and expected duration. Pain level reassessed. Patient is alert, oriented x 3, equal unlabored respirations, skin warm/dry/pink. 01:14 Reassessment: Pt resting in bed with eyes closed, respirations are even and unlabored jb4 with no s/s of pain or distress noted. 01:20 Reassessment: ASSUMED CARE OF PT. PT RESTING IN BED. NO DISTRESS NOTED. VS STABLE. CALL jj7 MCKEON IN REACH. Vital Signs: 08/13 20:58 BP 176 / 123; Pulse 99; Resp 18; Temp 97.1(TE); Pulse Ox 100% ; cm10 22:15 BP 160 / 99; Pulse 79; Resp 16; Pulse Ox 98% on R/A; jb4 23:36 Weight 63.5 kg; jb4 23:54 BP 133 / 74; Pulse 61; Resp 16; Pulse Ox 95% on R/A; jb4 08/14 01:14 BP 112 / 75; Pulse 56; Resp 16; Pulse Ox 93% ; jb4 01:20 BP 118 / 69; Pulse 54; Resp 16; Pulse Ox 94% ; jj7 02:37 BP 130 / 74; Pulse 61; Resp 17; Pulse Ox 97% ; Pain 0/10; jj7 02:37 Pain Scale: Adult j7 ED Course: 08/13 20:40 Patient arrived in ED. cm10 20:52 Zack Barakat MD is Attending Physician. sp4 21:01 Triage completed. cm10 21:01 Arm band placed on Patient placed in waiting room. cm10 22:07 Nathaniel Cháevz RN is Primary Nurse. jb4 23:27 Alexandru Ball MD is Hospitalizing Provider. sp4 08/14 01:20 Patient has correct armband on for positive identification. Bed in low position. Call jj7 light in reach. Side rails up X2. 01:20 No provider procedures requiring assistance completed. Carmichael cath inserted, using jj7 sterile technique, 16 Fr., by ED staff, balloon inflated, urine specimen collected. Inserted saline lock: 18 gauge in left upper arm, using aseptic technique. ,using aseptic technique. INSERTED BY THELMA RAMIREZ Blood collected. 02:57 Patient admitted, IV remains in place. jj7 Administered Medications: 08/13 22:08 Drug: morphine IVP or IV 4 mg IVP once over 4 mins Route: IVP; Infused Over: 4 mins; jb4 Site: left upper arm; 08/14 02:55 Follow up: Response: Pain is decreased jj7 08/13 22:08 Drug: Diazepam IVP 5 mg IVP once Route: IVP; Site: left upper arm; jb4 08/14 02:54 Follow up: Response: No adverse reaction jj7 08/13 22:08 Drug: NS 0.9% IV 1000 ml IV at 1 bolus Per protocol; 1000 mL bolus Route: IV; Rate: 1 jb4 bolus; Site: left upper arm; 22:08 Drug: Trimethoprim-Sulfamethoxazole PO (160 mg-800 mg (DS) 1 tablet PO once Route: PO; jb4 08/14 02:54 Follow up: Response: No adverse reaction jj7 08/13 22:08 Drug: Phenazopyridine PO 200 mg PO once Route: PO; 4 08/14 02:53 Follow up: Response: No adverse reaction j7 08/13 22:31 Drug: Rocephin - Rocephin (cefTRIAXone) IVPB 1 grams IVPB once over 30 mins; (mix in 50 jb4 mL NS) Route: IVPB; Infused Over: 30 mins; Site: left upper arm; 08/14 01:20 Follow up: IV Status: Completed infusion j7 08/13 22:31 Drug: Lidocaine Mucous Membrane Gel 2 % 1 application Mucous Membrane once Route: jb4 Mucous Membrane; 23:53 Drug: vancoMYCIN IVPB 1 grams IVPB once over 2 hrs Route: IVPB; Infused Over: 2 hrs; 4 Site: left upper arm; 08/14 01:55 Follow up: IV Status: Completed infusion j7 08/13 23:53 Drug: NS 0.9% IV 1000 ml IV at 125 ml/hr continuous Route: IV; Rate: 125 ml/hr; Site: [facility] left upper arm; 23:54 Drug: Dwarf PO 10 mg-325 mg 1 tabs PO once Route: PO; 4 08/14 02:54 Follow up: Response: Pain is decreased j7 08/13 23:54 Drug: Promethazine PO 25 mg PO once Route: PO; [facility] 08/14 02:54 Follow up: Response: No adverse reaction j7 Medication: 01:20 VIS not applicable for this client. jj7 Outcome: 08/13 23:27 Decision to Hospitalize by Provider. 4 08/14 02:57 Admitted to Med/surg accompanied by nurse, via wheelchair, room 411, Report called to catrachita STANLEY RN Condition: improved 03:05 Patient left the ED. jw7 Signatures: Nathaniel Chávez RN RN jb4 Sabiha Rhodes RN RN [email or web address] Kenney Baker RN RN Zack Christie MD MD sp4 Sherie Ferrera RN RN cm10
[2023-08-13] MEDS ORDERED: PROMETHAZINE 25 MG TABLET ONE (23:59)
[2023-08-13] MEDS ORDERED: HYDROCODONE/APAP 10/325 TAB ONE (23:59)
[2023-08-14] MEDS ORDERED: NA CHLORIDE 0.9% 1,000 ML ONE
[2023-08-14] MEDS ORDERED: ACETAMINOPHEN 325 MG TABLET PO PRN (00:45)
[2023-08-14] MEDS ORDERED: ONDANSETRON 4 MG/2 ML VIAL IV PRN (00:45)
--- NOTE | 2023-08-14 05:58 | P.HP ---
Certification for Inpatient Patient admitted to: Inpatient With expected LOS: >2 Midnights Practitioner: I am a practitioner with admitting privileges, knowledge of patient current condition, hospital course, and medical plan of care. Services: Services provided to patient in accordance with Admission requirements found in Title 42 Section 412.3 of the Code of Federal Regulations Patient History Date of Service: 08/14/23 Reason for admission: Complicated UTI, abdominal pain. History of Present Illness: 50-year-old male patient with medical history significant for complicated genitourinary health with chronic indwelling Bautista catheter that has not been changed for about 2 months. He had come to the ER with complaint of abdominal pain and concerns for worsening infection so he had a catheter exchange. . 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 He recently had oral antibiotic therapy with ciprofloxacin for 7 days. UA was significantly concerning for UTI and because of clinical states he was asked evaluated for inpatient care. 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 - Family History Mother -: Cancer - Social History Smoking Status: Current every day smoker Alcohol use: Yes CD- Drugs: No Caffeine use: Yes Place of Residence: Home Review of Systems General: Unremarkable Eyes: Unremarkable ENT: Unremarkable Respiratory: Unremarkable Cardiovascular: Unremarkable Gastrointestinal: Unremarkable Genitourinary: Retention Musculoskeletal: Unremarkable Integumentary: Unremarkable Neurological: Unremarkable Physical Examination - Vital Signs Temperature: 97.1 F Blood Pressure: 164/89 Pulse: 62 Respirations: 18 Pulse Ox (%): 98 - Physical Exam General: Alert, Oriented x3 HEENT: Atraumatic, Normocephalic Neck: Supple Respiratory: Normal air movement Cardiovascular: Regular rate/rhythm, Normal S1 S2 Gastrointestinal: Soft and benign Neurological: Normal speech, Normal strength at 5/5 x4 extr - Studies Laboratory Data (last 24 hrs) 08/13/23 08/13/23 21:40 21:40 WBC 9.50 Hgb 17.1 Hct 48.1 Plt Count 256 Sodium 137 Potassium 3.8 BUN 14 Creatinine 0.97 Glucose 146 H Total Bilirubin 0.2 AST 41 H ALT 87 H Alkaline Phosphatase 55 Assessment and Plan - Plan Complicated urinary tract infection: This is then catheter associated UTI with MDRO infection. His urine culture in the past was concerning for a multidrug resistant Staphylococcus aureus infection. We will have him continued on empiric antibiotic therapy with vancomycin based on cultures and follow repeat cultures. We will continue routine care of indwelling Bautista catheter status. History of respiratory issues: We will continue breathing treatment Prostatic hypertrophy: We will continue tamsulosin therapy and Bautista catheter care. Patient encouraged to have Bautista catheter changed at least every 4 weeks. Prophylaxis: Lovenox for DVT prophylaxis CODE STATUS: Full code Patient will treat his complicated UTI and discharge once is deemed clinically stable. - Advance Directives Does patient have a Living Will: No Does patient have a Durable POA for Healthcare: No
[2023-08-14] MEDS ORDERED: NA CHLORIDE 0.9% 1,000 ML IV SCH (06:00)
[2023-08-14] MEDS ORDERED: PNEUMOCOCCAL VACCINE 0.5 ML IMVAC ONE (08:00)
[2023-08-14] MEDS ORDERED: INFLUENZA VACCINE (for 6+ mo) 0.5 ML DOSE IMVAC ONE (08:00)
[2023-08-14] MEDS: VANCOMYCIN 1.5 GM in NA CHLORIDE 0.9% 500 ML IVPB ONE ×3 (08:10→10:53)
[2023-08-14] MEDS ORDERED: VANCOMYCIN 1.5 GM in NA CHLORIDE 0.9% 500 ML IVPB SCH (09:00)
[2023-08-14] MEDS ORDERED: ENOXAPARIN 40 MG/0.4 ML SQ SCH ×2 (09:00→17:00)
--- NOTE | 2023-08-14 09:06 | P.CNS ---
Date of Consult: 08/14/23 Reason for Consult: UTI MDR Chief Complaint: Complicated UTI, abdominal pain. History of Present Illness: Patient is a 58 yo male with a past medical history of recurrent UTI, BPH with chronic indwelling carmichael catheter who presented to the ED with abdominal pain and concern of worsening infection. He reports his carmichael catheter had not been changed in at least 2 months. He was recently seen in the ED on 08/02 for UTI for which he was prescribed Ciprofloxacin PO for 7 days. Urine culture from 08/02 resulting with E.coli ESBL and Staph schleiferi. Urine culture obtained this visit, pending results. Infectious disease was consulted. 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 - Family History Mother Medical History: Cancer - Social History Smoking Status: Unknown if ever smoked Alcohol use: Yes CD- Drugs: No Caffeine use: Yes Place of Residence: Home Review of Systems Unremarkable Physical Examination Temp Pulse Resp BP Pulse Ox 97.6 F 55 16 131/77 97 08/14/23 08:00 08/14/23 08:00 08/14/23 08:00 08/14/23 08:00 08/14/23 08:00 General: Alert, In no apparent distress, Oriented x3 HEENT: Atraumatic, Normocephalic Neck: Supple, JVD not distended Respiratory: Clear to auscultation bilaterally, Normal air movement Cardiovascular: No edema, Regular rate/rhythm Gastrointestinal: Normal bowel sounds, Soft and benign Musculoskeletal: No clubbing Integumentary: Other (psoriasis lesion abdomen) Neurological: Normal speech, Normal strength at 5/5 x4 extr Urinary: Carmichael catheter (chronic) Laboratory Data -Reviewed Microbiology data -Reviewed Imagings Data: -Reviewed Conclusions/Impression: Problem list Complicated urinary tract infection BPH Chronic indwelling carmichael catheter Catheter-Associated Urinary Tract Infection (POA) -Chronic indwelling Carmichael catheter -previous urine culture on 08/02: Escherichia coli ESBL and Staphylococcus schleiferi - Urine culture 08/13: pending -Started on meropenem and vancomycin 08/14 - Carmichael catheter exchanged 08/13. WBC 9.5 Afebrile Recommendations - CAUTI: continue antibiotic therapy for 10-14 days. Currently on Meropenem and Vancomycin, continue for now. - Follow up with urine culture results from 08/13 Follow up with renal ultrasound report. Case discussed with Junay Antonio
[2023-08-14] MEDS: Meropenem 1,000 MG in NA CHLORIDE 0.9% 100 ML IV SCH ×2 (10:15→16:40)
[2023-08-14] MEDS: APIXABAN 5 MG TABLET PO SCH ×2 (10:17→20:20)
[2023-08-14] MEDS: TAMSULOSIN 0.4 MG SR CAP PO SCH (10:17)
[2023-08-14] MEDS: CODEINE 30MG/APAP 300MG TAB PO PRN ×3 (10:21→22:52)
--- NOTE | 2023-08-14 10:48 | RAD REPORT ---
EXAM DESCRIPTION: US - Renal Ultrasound-Complete - 08/14/2023 10:03 am CLINICAL HISTORY: Acute renal failure. Chronic renal failure. COMPARISON: None FINDINGS: The right kidney measures 11 cm with a normal echotexture. The left kidney measures 0 cm with a normal echotexture. Hydronephrosis is not seen. A Bautista catheter is present within a collapsed bladder. Bladder wall appears thickened IMPRESSION: Unremarkable renal ultrasound. Bladder wall appears thickened. This may be secondary to incomplete distention or inflammation or chr onic outlet obstruction
[2023-08-15] MEDS: Meropenem 1,000 MG in NA CHLORIDE 0.9% 100 ML IV SCH ×3 (00:31→17:22)
[2023-08-15] MEDS ORDERED: VANCOMYCIN 1.25 GM in NA CHLORIDE 0.9% 250 ML IVPB SCH (02:00)
[2023-08-15] MEDS: CODEINE 30MG/APAP 300MG TAB PO PRN ×4 (04:54→23:34)
[2023-08-15 06:39] LABS: Absolute Lymphocytes (CBC) 1.2 K/uL (0.7-4.9); Lymphocytes % 14.9 % (15.3-44.8); MCV 100.6 fL (80-100); MPV 8.8 fL (7.6-11.3); Platelets 220 thou/uL (152-406); RBC Red Blood Cell Count 4.97 M/uL (4.33-5.43)
[2023-08-15 06:57] LABS: Albumin 3.1 g/dL (3.4-5.0); Bilirubin Total 0.4 mg/dL (0.2-1.0); Magnesium 2.3 mg/dL (1.6-2.4); Potassium 4.3 mEq/L (3.5-5.1); Protein, Total 7.1 g/dL (6.4-8.2)
[2023-08-15] MEDS: APIXABAN 5 MG TABLET PO SCH ×2 (08:47→23:34)
[2023-08-15] MEDS: TAMSULOSIN 0.4 MG SR CAP PO SCH (08:47)
--- NOTE | 2023-08-15 13:03 | P.PN ---
Date of Service: 08/15/23 Subjective: Urgency to urinate improving; doesn't feel like he needs to go as often ~4L emptied since carmichael placed per I/Os reports not being on any anticoagulation for "long time" d/t cost failed voiding trial in march - ~2 weeks since initial carmichael placed and starting tamulosin ROS: 10 point ROS as noted above, otherwise negative Physical Exam: GEN: Alert, oriented, NAD HEENT: Normal conjunctiva, sclera anicteric CV: Regular rate and rhythm, no edema Pulm: Nonlabored respirations on room air, clear bilaterally ABD: Soft, nontender, nondistended Neuro: Normal speech, normal affect chronic indwelling carmichael catheter in place vitals reviewed Problem List: Suspected Catheter-associated UTI BPH with chronic indwelling Carmichael catheter h/o Esbl E. coli h/o DVT; unprovoked h/o PVD Tobacco use Suspected Catheter-associated UTI BPH with chronic indwelling Carmichael catheter h/o Esbl E. coli Patient with chronic indwelling Carmichael catheter since 03/20 and discharged with tamulosin Carmichael replaced in ED 08/13; unsure how many times its been replaced since 03/20. replace every 4 weeks failed voiding trial in march - ~2 weeks since initial carmichael placed and starting tamulosin Discussed briefly with Dr. Syed who recommended outpatient follow up offered to remove carmichael for voiding trial 08/15; refused for now - scared "bladder will just fill back up" discussed reasoning for void trial, now on tamsulosin for quite some time, risk of infxn with carmichael, has not f/u'd with urology in several months renal u/s (08/14): Bladder wall appears thickened. This may be secondary to incomplete distention or inflammation or chronic outlet obstruction urine cx(08/02): E. coli Esbl, Staphylococcus Schleiferi urine cx(08/13): No growth ID consulted continue meropenem (08/14-); dc vanc 08/15 continue abx for 10-14 days per ID 08/15 reports urinary urgency improving h/o DVT; unprovoked h/o PVD Patient with history of DVT of left popliteal and posterior tibial veins in 2018 reports he has not been on any anticoagulation for "long time" d/t cost/running out Continue eliquis Tobacco use counselled on tobacco cessation. VTE: Eliquis Code: Full Dispo: Home Pending further improvement
--- NOTE | 2023-08-15 16:10 | PN ---
Subjective: Patient is here for followup. Patient is here for urinary tract infection. Urine cultures are growing no growth. Objective: Vital Signs: 97, pulse 86, respirations 17, blood pressure 153/83. Lungs: Basal crackles. Heart: S1, S2. Regular. Abdomen: Soft, nontender. Bowel sounds present. Extremity: No edema. Bautista catheter in place. Laboratory Data: Shows WBC 8, hemoglobin 17, platelets are 220. Chemistry shows BUN of 13, creatinine 1.9. Currently, patient is on vancomycin and meropenem. Patient had E coli ESBL on 08/02 which was not treated. Patient also has appointment with the urologist for BPH. Continue treatment of 5 days and repeat UA. If patient has any symptoms, follow up with the surgical team. We will follow patient as needed. NF/MODL Voice ID: [id number] Report ID: [id number] MTDDeion
[2023-08-15 17:17] LABS: Urine Bacteria <20 /HPF (<20); Urine RBC <5 /HPF (None Seen)
[2023-08-15 17:18] LABS: Urine Bilirubin NEGATIVE (Negative); Urine Blood Negative (Negative); Urine Clarity Turbid (Clear); Urine Color Light-Yellow (Yellow); Urine Glucose TRACE (Negative); Urine Protein NEGATIVE (Negative); Urine Urobilinogen Normal (Normal)
[2023-08-16] MEDS: Meropenem 1,000 MG in NA CHLORIDE 0.9% 100 ML IV SCH ×3 (00:03→16:35)
[2023-08-16] MEDS: CODEINE 30MG/APAP 300MG TAB PO PRN ×3 (05:59→22:35)
[2023-08-16 06:52] LABS: Absolute Lymphocytes (CBC) 1.4 K/uL (0.7-4.9); Hematocrit 50.6 % (39.6-49.0); Lymphocytes % 15.8 % (15.3-44.8); MCV 99.6 fL (80-100); Platelets 223 thou/uL (152-406); RBC Red Blood Cell Count 5.08 M/uL (4.33-5.43)
[2023-08-16 07:08] LABS: Potassium 4.1 mEq/L (3.5-5.1)
[2023-08-16] MEDS: TAMSULOSIN 0.4 MG SR CAP PO SCH (08:36)
[2023-08-16] MEDS: APIXABAN 5 MG TABLET PO SCH ×2 (08:36→21:23)
--- NOTE | 2023-08-16 08:52 | P.PN ---
Date of Service: 08/16/23 Subjective: Feeling better today no new / worsening problems pain improving afebrile ROS: 10 point ROS as noted above, otherwise negative Physical Exam: GEN: Alert, oriented, NAD HEENT: Normal conjunctiva, sclera anicteric CV: Regular rate and rhythm, no edema Pulm: Nonlabored respirations on room air, clear bilaterally ABD: Soft, nontender, nondistended Neuro: Normal speech, normal affect chronic indwelling carmichael catheter in place (replaced 08/13) vitals reviewed Problem List: Catheter-associated UTI BPH with chronic indwelling Carmichael catheter h/o Esbl E. coli h/o Hepatits C, untreated - new information for patient 08/16 h/o DVT; unprovoked h/o PVD Tobacco use Suspected Catheter-associated UTI BPH with chronic indwelling Carmichael catheter h/o Esbl E. coli Patient with chronic indwelling Carmichael catheter since 03/20 and discharged with tamulosin Carmichael replaced in ED 08/13; unsure how many times its been replaced since 03/20. replace every 4 weeks failed voiding trial in march - ~2 weeks since initial carmichael placed and starting tamulosin Discussed briefly with Dr. Syed who recommended outpatient follow up offered to remove carmichael for voiding trial 08/15; refused for now - scared "bladder will just fill back up" discussed reasoning for void trial, now on tamsulosin for quite some time, risk of infxn with carmichael, has not f/u'd with urology in several months renal u/s (08/14): Bladder wall appears thickened. This may be secondary to incomplete distention or inflammation or chronic outlet obstruction urine cx (08/02): E. coli Esbl, Staphylococcus Schleiferi urine cx (08/13): No growth ID consulted continue meropenem (08/14-); dc vanc 08/15 continue abx for 5 days per ID 08/15 reports urinary urgency improving repeat UA (08/15): unremarkable wean pain medication as tolerated h/o Hepatits C, untreated - new information for patient 08/16 reviewed prior records, 2018 - noted +Hep C, with high viral load patient denies being told he had liver problems / hepatitis never received treatment will check hep c ab, viral load will discuss with ID h/o DVT; unprovoked h/o PVD Patient with history of DVT of left popliteal and posterior tibial veins in 2018 reports he has not been on any anticoagulation for "long time" d/t cost/running out Continue eliquis Tobacco use counselled on tobacco cessation. VTE: Eliquis Code: Full Dispo: Home ~2 days Pending further improvement
[2023-08-16 14:37] VITALS: BMI 20.8
[2023-08-17] MEDS: Meropenem 1,000 MG in NA CHLORIDE 0.9% 100 ML IV SCH ×3 (00:50→17:11)
[2023-08-17] MEDS: CODEINE 30MG/APAP 300MG TAB PO PRN ×3 (06:33→19:15)
[2023-08-17 07:04] LABS: Absolute Lymphocytes (CBC) 1.7 K/uL (0.7-4.9); Hematocrit 54.5 % (39.6-49.0); Lymphocytes % 20.7 % (15.3-44.8); MCV 99.2 fL (80-100); MPV 8.9 fL (7.6-11.3); Platelets 222 thou/uL (152-406)
[2023-08-17 07:08] LABS: Albumin 3.4 g/dL (3.4-5.0); Bilirubin Total 0.3 mg/dL (0.2-1.0); Protein, Total 8.2 g/dL (6.4-8.2)
[2023-08-17 07:09] LABS: Magnesium 2.5 mg/dL (1.6-2.4); Potassium 5.1 mEq/L (3.5-5.1)
[2023-08-17] MEDS: TAMSULOSIN 0.4 MG SR CAP PO SCH (09:00)
[2023-08-17] MEDS: APIXABAN 5 MG TABLET PO SCH ×2 (09:00→20:30)
--- NOTE | 2023-08-17 13:44 | P.PN ---
Date of Service: 08/17/23 Subjective: Feeling better today abdominal pain improved no acute events overnight afebrile ROS: 10 point ROS as noted above, otherwise negative Physical Exam: GEN: Alert, oriented, NAD HEENT: Normal conjunctiva, sclera anicteric CV: Regular rate and rhythm, no edema Pulm: Nonlabored respirations on room air, clear bilaterally ABD: Soft, nontender, nondistended Neuro: Normal speech, normal affect chronic indwelling carmichael catheter in place (replaced 08/13) vitals reviewed Problem List: Catheter-associated UTI BPH with chronic indwelling Carmichael catheter h/o Esbl E. coli h/o Hepatits C, untreated - new information for patient 08/16 h/o DVT; unprovoked h/o PVD Tobacco use Suspected Catheter-associated UTI BPH with chronic indwelling Carmichael catheter h/o Esbl E. coli Patient with chronic indwelling Carmichael catheter since 03/20 and discharged with tamulosin Carmichael replaced in ED 08/13; unsure how many times its been replaced since 03/20. replace every 4 weeks failed voiding trial in march - ~2 weeks since initial carmichael placed and starting tamulosin Discussed briefly with Dr. Syed who recommended outpatient follow up offered to remove carmichael for voiding trial 08/15; refused for now - scared "b ladder will just fill back up" discussed reasoning for void trial, now on tamsulosin for quite some time, risk of infxn with carmichael, has not f/u'd with urology in several months renal u/s (08/14): Bladder wall appears thickened. This may be secondary to incomplete distention or inflammation or chronic outlet obstruction urine cx (08/02): E. coli Esbl, Staphylococcus Schleiferi urine cx (08/13): No growth ID consulted continue meropenem (08/14-); dc vanc 08/15 continue abx for 5 days per ID 08/15 reports urinary urgency improving repeat UA (08/15): unremarkable wean pain medication as tolerated h/o Hepatits C, untreated - new information for patient 08/16 reviewed prior records, 2018 - noted +Hep C, with high viral load patient denies being told he had liver problems / hepatitis never received treatment will check hep c ab, viral load will discuss with ID h/o DVT; unprovoked h/o PVD Patient with history of DVT of left popliteal and posterior tibial veins in 2018 reports he has not been on any anticoagulation for "long time" d/t cost/running out Continue eliquis Tobacco use counselled on tobacco cessation. VTE: Eliquis Code: Full Dispo: Home ~1-2 days Pending further improvement
[2023-08-18] MEDS: Meropenem 1,000 MG in NA CHLORIDE 0.9% 100 ML IV SCH ×2 (02:04→09:00)
[2023-08-18] MEDS: CODEINE 30MG/APAP 300MG TAB PO PRN ×2 (02:05→08:33)
--- NOTE | 2023-08-18 07:27 | RAD REPORT ---
EXAM DESCRIPTION: US - Liver Only - 08/18/2023 6:16 am CLINICAL HISTORY: h/o untreated hep C, eval liver COMPARISON: No comparisons FINDINGS: The liver demonstrates increased echotexture. No focal liver lesion or intrahepatic biliary dilatation.No evidence of portal vein thrombosis. The spleen is normal in size. IMPRESSION: Hepatic steatosis. No focal mass identified.
[2023-08-18] MEDS: TAMSULOSIN 0.4 MG SR CAP PO SCH (08:32)
[2023-08-18] MEDS: APIXABAN 5 MG TABLET PO SCH (08:32)
[2023-08-18 10:54] VITALS: O2SAT 87
--- NOTE | 2023-08-18 13:02 | P.DS ---
Admission Date: 08/14/23 Discharge Date: 08/18/23 Disposition: ROUTINE DISCHARGE Discharge Condition: GOOD Reason for Admission: Complicated UTI, abdominal pain. Consultations: Infectious Disease - Dr. Saleh Brief History of Present Illness: 50yo M, PMH: significant for complicated genitourinary health with chronic indwelling Carmichael catheter, h/o ESBL, h/o unprovoked DVT, PVD He had come to the ER with complaint of abdominal pain and concerns for worsening infection so he had a catheter exchange. . 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 He recently had oral antibiotic therapy with ciprofloxacin for 7 days. UA was significantly concerning for UTI and because of clinical states he was asked evaluated for inpatient care. Hospital Course: Problem List: Catheter-associated UTI BPH with chronic indwelling Carmichael catheter h/o Esbl E. coli h/o Hepatits C, untreated - new information for patient 08/16 h/o DVT; unprovoked h/o PVD Tobacco use Patient presented with lower abdominal pain, chronic indwelling catheter that hasn't been exchanged in ~2 months. Carmichael was replaced in the ED 08/13. UA was unremarkable. Patient seen in ER 08/02 and urine cx at the time was growing E. coli Esbl, Staphylococcus Schleiferi and was discharged with ciprofloxacin. Urine culture this hospitalization without growth. Patient remained afebrile without leukocytosis throughout hospitalization. He was treated with IV merrem for ~5 days. No further antibiotic coverage indicated at this time. Some of his discomfort may have been bladder spasms. Pain resolved by day 2 of hospitalization. Patient noted to have chronic carmichael since 03/20/23 and has been on tamulosin since then. Patient failed voiding trial in march 2023- ~2 weeks since initial carmichael placement on 03/20/23. Renal ultrasound noted thickened bladder wall, possibly secondary to incomplete distention / inflammation / chronic outlet obstruction. Offered to remove carmichael for voiding trial 08/15; discussed reasoning for void trial, now on tamsulosin for quite some time, risk of infxn with carmichael, has not f/u'd with urology in several months. Patient refused as he was scared bladder would fill back up and pain would worsen. Discussed briefly with Dr. Syed (Urologist) who recommended follow up as outpatient for further workup. No further urological workup this hospitalization. Advised to exchange carmichael every ~30 days. During his hospitalization, patient was noted to have h/o of Hep c. On further review of prior records, in 2018 noted +Hep C, with high viral load. Patient denies being told he had liver problems / hepatitis and never received treatment. Currently asymptomatic and LFTs stable. ID was consulted. Hep c ab positive / viral load were sent out however results pending upon discharge. Advised to follow up with PCP in ~1 week for further discussion / request re cords to review results. Medication: no change in medications Follow up: PCP 3-5 days Urology as previously scheduled Physical Exam: GEN: Alert, oriented, NAD HEENT: Normal conjunctiva, sclera anicteric CV: Regular rate and rhythm, no edema Pulm: Nonlabored respirations on room air, clear bilaterally ABD: Soft, nontender, nondistended Neuro: Normal speech, normal affect chronic indwelling carmichael catheter in place (last replaced 08/13/23) Vital Signs/Physical Exam: Temp Pulse Resp BP Pulse Ox 97.6 F 70 14 146/86 H 100 08/18/23 12:00 08/18/23 12:00 08/18/23 12:00 08/18/23 12:00 08/18/23 12:00 Laboratory Data at Discharge: WBC 8.10 thou/uL (4.3-10.9) 08/17/23 06:19 Hgb 19.1 g/dL (13.6-17.9) H D 08/17/23 06:19 Hct 54.5 % (39.6-49.0) H 08/17/23 06:19 Plt Count 222 thou/uL (152-406) 08/17/23 06:19 Sodium 136 mEq/L (136-145) 08/17/23 06:19 Potassium 5.1 mEq/L (3.5-5.1) D 08/17/23 06:19 BUN 22 mg/dL (7-18) H 08/17/23 06:19 Creatinine 0.95 mg/dL (0.70-1.30) 08/17/23 06:19 Glucose 97 mg/dL (74-106) 08/17/23 06:19 Magnesium 2.5 mg/dL (1.6-2.4) H 08/17/23 06:19 Total Bilirubin 0.3 mg/dL (0.2-1.0) 08/17/23 06:19 AST 45 U/L (15-37) H 08/17/23 06:19 ALT 97 U/L (16-61) H 08/17/23 06:19 Alkaline Phosphatase 53 U/L (45-117) 08/17/23 06:19 Home Medications: Apixaban [Eliquis] 5 mg PO BID 30 Days #60 tab 08/18/23 Tamsulosin [Flomax*] 0.4 mg PO DAILY 6PM 30 Days #30 cap 08/18/23 New Medications: Apixaban [Eliquis] 5 mg PO BID 30 Days #60 tab Tamsulosin [Flomax*] 0.4 mg PO DAILY 6PM 30 Days #30 cap Physician Discharge Instructions: Patient presented with lower abdominal pain, chronic indwelling catheter that hasn't been exchanged in ~2 months. Carmichael was replaced in the ED 08/13. UA was unremarkable. Patient seen in ER 08/02 and urine cx at the time was growing E. coli Esbl, Staphylococcus Schleiferi and was discharged with ciprofloxacin. Urine culture this hospitalization without growth. Patient remained afebrile without leukocytosis throughout hospitalization. He was treated with IV merrem for ~5 days. No further antibiotic coverage indicated at this time. Some of his discomfort may have been bladder spasms. Pain resolved by day 2 of hospitalization. Patient noted to have chronic carmichael since 03/20/23 and has been on tamulosin since then. Patient failed voiding trial in march 2023- ~2 weeks since initial carmichael placement on 03/20/23. Renal ultrasound noted thickened bladder wall, possibly secondary to incomplete distention / inflammation / chronic outlet obstruction. Offered to remove carmichael for voiding trial 08/15; discussed reasoning for void trial, now on tamsulosin for quite some time, risk of infxn with carmichael, has not f/u'd with urology in several months. Patient refused as he was scared bladder would fill back up and pain would worsen. Discussed briefly with Dr. Syed (Urologist) who recommended follow up as outpatient for further workup. No further urological workup this hospitalization. Advised to exchange carmichael every ~30 days. During his hospitalization, patient was noted to have h/o of Hep c. On further review of prior records, in 2018 noted +Hep C, with high viral load. Patient denies being told he had liver problems / hepatitis and never received treatment. ID was consulted. Hep c ab+ / viral load were sent out however results were still pending. Patient reported feeling well and ready to go home. Expressed understanding of pending labs and importance of follow up. Stated he will follow up at PCP office later this week. Discussed to have PCP check on hepatitis viral load results - pending at time of discharge. Medication: eliquis - restarted due to prior unprovoked DVT tamsulosin - prescription refilled Follow up: PCP 3-5 days for further discussion / request records to review results. Urology as previously scheduled Hepatology regarding Hep C Followup: NONE,NONE [Primary Care Provider] - 1 Week (make follow up appointment 3-5 days) Time spent managing pt's care (in minutes): 45
[2023-08-18 16:49] VITALS: BP 145/85; TEMP 97.9
[2023-08-20 13:01] LABS: Hepatitis C Virus RNA (PCR)log 5.84 log IU/mL
== END 2023-08-18 17:45 | disposition home or self-care (01) | DRG 699 ==
LOC: ER 20:29 → ERHOLD 08-14 00:57 → 4TH 08-14 02:54
PROVIDERS: ADMIT Internal Medicine Nephrology; ATTEND Hospitalist
DX: T83.511A Infection and inflammatory reaction due to indwelling urethral catheter, initial encounter (principal); N30.00 Acute cystitis without hematuria; Z16.24 Resistance to multiple antibiotics; N40.0 Benign prostatic hyperplasia without lower urinary tract symptoms; F41.9 Anxiety disorder, unspecified; J44.9 Chronic obstructive pulmonary disease, unspecified; F17.200 Nicotine dependence, unspecified, uncomplicated; Z79.01 Long term (current) use of anticoagulants; Z86.718 Personal history of other venous thrombosis and embolism; Z86.711 Personal history of pulmonary embolism; Z79.899 Other long term (current) drug therapy
CPT/HCPCS: 36415; 51702; 76705; 76770; 80048; 80053; 81001; 82947; 83735; 85025; 86803; 87086; 87088; 87522; 96365; 96366; 96375; 99285; J0696; J2185; J2405; J3360; J7030; J7040; J7050; Q0169

== ENCOUNTER → 2023-12-09 | Emergency (ER) | payer BC, SELFPAY ==
[~2023-12-09] MED LIST: HYDROCODONE/APAP 10/325 TAB ONE; KETOROLAC 30 MG/ML INJ ONE; LIDOCAINE HCL JELLY 2% 6 ML SYRINGE TOP ONE
--- OUTSIDE RECORDS SUMMARY | 2023-12-09 11:01 | XMS REPORT | Continuity of Care Document ---
Author Name Unknown Address [address] [facility] [place] [address] [facility] thconnect Address [address] [place] [address] Care Team Providers Care Post Closer Name Role Phone PCP, PATIENT DOES NOT HAVE A Primary Care Physic TERESA Colin Attending Clinician Unavaila ble Doctor Unassigned, [place] Attending Clinician U Lacy Navarro MD Attending Clinician [phone] LACY DODSON Attending Clinician Unavailable Payers Payer Name Policy Type Policy Number Effective Date Expirati on Date Source [id number] 2023 00:00:00 Problems Condition Name Condition Details Condition Category Status Onset Date Resolution Date Last Treatment Date Treating Clinician Comments Source DVT (deep venous thrombosis ) DVT (deep venous thrombosis ) Disease Active 04-07 00:00: 00 [facility] Lower limb ischemia Lower limb ischemia Disease Active 04-07 00:00: 00 [facility] PAD (periphera l artery disease) PAD (periphera l artery disease) Disease [facility] 04-07 00:00: 00 [facility] Smoker Smoker Disease [facility] 04-07 00:00: 00 [facility] Allergies, Adverse Reactions, Alerts Allergy Name Allergy Type Status Severity Reaction(s) Onset Date Inactive Date Treating Clinician Comments Source NO KNOWN ALLERGIE S Drug Class Active [facility] Social History Social Habit Start Date Stop Date Quantity Comments Source History of tobacco use Smokes tobacco daily [facility] Sexual orientation U [facility] History of Social function 2023-09-25 00:00:00 2023-09-25 00:00:00 [facility] Tobacco use and exposure 2019-04-07 00:00:00 2019-04-07 00:00:00 Smokeless tobacco non-user [facility] Sex Assigned At 1965 00:00:00 1965 00:00:00 [facility] Smoking Status Start Date Stop Date Source Smokes tobacco daily 2019-04-07 00:00:00 [facility] Medications Ordered Medication Name Filled Medication Name Start Date Stop Date Current Medication? Ordering Clinician Indication Dosage Frequency Signature (SIG) Comments Components Source tamsulosin 0.4 mg 24 hr capsule 2022-10 00:00: 00 Yes TAKE 1 CAPSULE BY MOUTH EVERY DAY AT 6 PM [facility] tamsulosin 0.4 mg 24 hr capsule 2022-10 00:00: 00 Yes TAKE 1 CAPSULE BY MOUTH EVERY DAY AT 6 PM [facility] tamsulosin 0.4 mg 24 hr capsule 2022-10 00:00: 00 Yes TAKE 1 CAPSULE BY MOUTH EVERY DAY AT 6 PM [facility] tamsulosin 0.4 mg 24 hr capsule 2022-10 00:00: 00 Yes TAKE 1 CAPSULE BY MOUTH EVERY DAY AT 6 PM [facility] ELIQUIS 5 mg tablet 2022-10 00:00: 00 Yes 5mg Take 1 tablet by mouth in the morning and 1 tablet in the evening. [facility] ELIQUIS 5 mg tablet 2022-10 00:00: 00 Yes 5mg Take 1 tablet by mouth in the morning and 1 tablet in the evening. [facility] ELIQUIS 5 mg tablet 2022-10 00:00: 00 Yes 5mg Take 1 tablet by mouth in the morning and 1 tablet in the evening. [facility] ELIQUIS 5 mg tablet 2022-10 00:00: 00 Yes 5mg Take 1 tablet by mouth in the morning and 1 tablet in the evening. [facility] aspirin 81 mg chewable tablet 04-08 00:00: 00 Yes [id number] 81mg Take 1 tablet by mouth daily. [facility] aspirin 81 mg chewable tablet 04-08 00:00: 00 Yes [id number] 81mg Take 1 tablet by mouth daily. [facility] aspirin 81 mg chewable tablet 04-08 00:00: 00 Yes [id number] 81mg Take 1 tablet by mouth daily. [facility] aspirin 81 mg chewable tablet 04-08 00:00: 00 Yes [id number] 81mg Take 1 tablet by mouth daily. [facility] aspirin 81 mg chewable tablet 04-08 00:00: 00 Yes [id number] 81mg Take 1 tablet by mouth daily. [facility] aspirin 81 mg chewable tablet 04-08 00:00: 00 Yes [id number] 81mg Take 1 tablet by mouth daily. [facility] Vital Signs Vital Name Observation Time Observation Value Comments S kiersten Systolic blood pressure 2023-09-25 14:16:00 147 mm[Hg] [facility] Diastolic blood pressure 2023-09-25 14:16:00 95 mm[Hg] [facility] Heart rate 2023-09-25 14:16:00 93 /min [facility] Oxygen saturation in Arterial blood by Pulse oximetry 2023-09-25 14:16:00 100 /min [facility] Body temperature 2023-09-25 14:14:00 37.33 Ailyn [facility] Respiratory rate 2023-09-25 14:14:00 18 /min [facility] Body height 2023-09-25 14:14:00 170.2 cm [facility] Body weight 2023-09-25 14:14:00 60.328 kg [facility] BMI 2023-09-25 14:14:00 20.83 kg/m2 [facility] Procedures Procedure Date / Time Performed Performing Clinicia n Source REFERRAL- REQUEST/RESPONSE 2023-10-25 06:01:00 Doctor Unassigned, [place] [facility] CONSENT/REFUSAL FOR DIAGNOSIS AND TREATMENT 2023-09-25 14:03:55 Doctor Unassigned, [place] [facility] REFERRAL- REQUEST/RESPONSE 2023-08-16 05:01:00 Doctor Unassigned, [place] [facility] Encounters Start Date/Time End Date/Time Encounter Type Admission Type Attending [facility] Care Department Encounter ID Source 2023-12-07 16:00:00 2023-12-07 16:00:00 Outpatient TERESA HER [facility] [id number] [facility] 2023-11-01 11:00:00 2023-11-01 11:00:00 Outpatient [facility] [id number] [facility] 2023-10-25 00:00:00 2023-10-25 00:00:00 Orders Only Doctor Unassigned, [place] [facility] 1.2840.114 350.1.13.10 4.2.7.2.686 [id number] [facility] 2023-10-17 00:00:00 2023-10-17 00:00:00 Telephone [facility] 1.2840.114 350.1.13.10 4.2.7.2.686 [id number] [facility] 2023-09-25 08:00:00 2023-09-25 08:52:46 Outpatient R [facility] [id number] [facility] 2023-09-25 08:00:00 2023-09-25 08:52:46 Office Visit [facility] 1.2840.114 350.1.13.10 4.2.7.2.686 [id number] [facility] 2023-09-25 00:00:00 2023-09-25 00:00:00 Orders Only Doctor Unassigned, [place] [facility] 1.2840.114 350.1.13.10 4.2.7.2.686 [id number] [facility] 2023-08-16 00:00:00 2023-08-16 00:00:00 Orders Only Doctor Unassigned, [place] [facility] [id number] 350.1.13.10 4.2.7.2.686 [id number] [facility] Notes Date/Time Note Provider Source 2023-10-18 15:27:02 [id number] [id number] uQLKVVN6L/3qOEgtoLDSNHWhhU+XwQkd 5185-17-88Q82:27:02 Call placed to patient. No answer, unable to leave message. [id number] encounter [id number]:27:30Telepho ne encounter [id number] .7.2.756159|[id number] e for patient [id number] emilia Copeland-JAZLYNA narrative [id number] Mulcare [address] CieuRnyoeiaipGzsjjnhsoEXIU259944 8612WIEPCPCPTJSAJEQEOVVSSP7963-6 2-28T15:27:301.2.840.580342.1.72 .3.15|1.2.840.935833.1.13.104.2. [id number] Traci Lacy [facility] 2023-10-17 15:58:43 VmTQhIyOjMPcGvABG0AR 8D6hpUrFtKXJ 63TC94fob7COMtExqVUr7alhVHSXvw0t 2618-90-85P13:58:43 Pt is wanting information about his visit with Dr Dodson on 09/25. He is asking if he needs to have a procedure scheduled.Please assist 05902-5Gvyevjaej encounter ModqMD6408-45-11G06:02:11Telepho ne encounter [id number] .7.2.811970|[id number] for patient znpv48872-0OxkzTRLAKTDDXOXVsgzvl emilia Copeland-JAZLYNA narrative [id number] [address] XccaVkznushtsSjmvqyrgpEOSA236006 1600VNLKOLZBPHJLGJWEQCKVVA6409-4 :02:111.2.840.400500.1.72 .3.15|1.2.840.611881.1.13.104.2. [id number] Sully Judge [facility]"
--- NOTE | 2023-12-09 12:07 | ER ---
Nurse's Notes [facility] Name: Micheal Murillo Age: 58 yrs Sex: Male : 1965 Arrival Date: 12/09/2023 Time: 10:58 Bed 19 Private MD: Diagnosis: Penile pain Presentation: 12/09 11:13 Chief complaint: Patient states: extreme pain at tip of penis where catheter is. ko1 Coronavirus screen: At this time, the client does not indicate any symptoms associated with coronavirus-19. Ebola Screen: No symptoms or risks identified at this time. Initial Sepsis Screen: Does the patient meet any 2 criteria? No. Patient's initial sepsis screen is negative. Does the patient have a suspected source of infection? No. Patient's initial sepsis screen is negative. Risk Assessment: Do you want to hurt yourself or someone else? Patient reports no desire to harm self or others. Onset of symptoms was December 09, 2023. 11:13 Method Of Arrival: Ambulatory ko1 11:13 Acuity: TORRIE 3 ko1 Triage Assessment: 11:17 General: Appears distressed, uncomfortable, Behavior is cooperative, appropriate for ko1 age, anxious. Pain: Complains of pain in meatus. Historical: - Allergies: 11:17 NKA; ko1 - PMHx: 11:17 BPH (DVT); DVT; ko1 - Immunization history:: Adult Immunizations up to date. - Social history:: Smoking status: Patient reports the use of cigarette tobacco products, smokes one pack cigarettes per day. - Family history:: not pertinent. Screenin:20 [facility] ED Fall Risk Assessment (Adult) History of falling in the last 3 months, bp including since admission No falls in past 3 months (0 pts). Abuse screen: Denies threats or abuse. Denies injuries from another. Nutritional screening: No deficits noted. Tuberculosis screening: No symptoms or risk factors identified. Assessment: 11:20 General: SEE TRIAGE NOTE. bp 11:58 Reassessment: NO MEDS OR INTERVENTIONS AT THIS TIME, PT REQUESTING "LET ME THINK ABOUT bp IT A MINUTE" BEFORE ANY DIAGNOSTICS OR INTERVENTIONS. Vital Signs: 11:13 BP 152 / 104; Pulse 111; Resp 20; Temp 99; Pulse Ox 100% ; ko1 12:20 BP 149 / 96; Pulse 98; Resp 16; Pulse Ox 99% on R/A; bp ED Course: 10:59 Patient arrived in ED. ra3 11:03 Reji Uriarte MD is Attending Physician. rt 11:17 Triage completed. ko1 11:17 Arm band placed on left wrist. Patient placed in an exam room, on a stretcher, on pulse ko1 oximetry, Patient notified of wait time. 11:18 Zacarias Aldrich, RN is Primary Nurse. bp 11:20 Patient has correct armband on for positive identification. bp 12:06 Rayray Syed MD is Referral Physician. rt 12:21 Provided Education on: ED PROCESS. bp 12:21 No provider procedures requiring assistance completed. Patient did not have IV access bp during this emergency room visit. Administered Medications: 12:20 Drug: [place] PO 10 mg-325 mg 1 tabs PO once Route: PO; bp 12:20 Follow up: Response: Medication administered at discharge. bp 12:20 Not Given (Patient Refused): [id number] mg IM once bp 12:20 Not Given (Patient Refused): lidocainegel 2 % 1 application Mucous Membrane once bp Medication: 11:20 VIS not applicable for this client. bp Outcome: 12:06 Discharge ordered by MD. rt 12:21 Discharged to home ambulatory, bp 12:21 Condition: stable 12:21 Discharge instructions given to patient, Instructed on discharge instructions, follow up and referral plans. Demonstrated understanding of instructions, follow-up care, 12:22 Patient left the ED. bp Signatures: Zacarias Aldrich, ASHLEY RN bp Jill Campos RN RN ko1 Reji Uriarte MD MD rt Sophie Trejo ra3
--- NOTE | 2023-12-09 12:07 | EDPHYS ---
Physician Documentation [facility] Name: Micheal Murillo Age: 58 yrs Sex: Male : 1965 Arrival Date: 12/09/2023 Time: 10:58 Bed 19 Private MD: ED Physician Reji Uriarte HPI: 12/09 12:24 This 58 yrs old Male presents to ER via Ambulatory with complaints of Problem With rt Urinary Catheter. 12:24 Patient with history of indwelling urinary catheter presents to the ED with pain at the rt tip of his penis which he attributes to the urinary catheter. States has been performing well. Denies fever, chills, abdominal pain, other acute complaints, symptoms are moderate in severity, no other aggravating or alleviating factors.. Historical: - Allergies: 11:17 NKA; ko1 - PMHx: 11:17 BPH (DVT); DVT; ko1 - Immunization history:: Adult Immunizations up to date. - Social history:: Smoking status: Patient reports the use of cigarette tobacco products, smokes one pack cigarettes per day. - Family history:: not pertinent. ROS: 12:24 Constitutional: Negative for fever, chills, and weight loss, Cardiovascular: Negative rt for chest pain, palpitations, and edema, Respiratory: Negative for shortness of breath, cough, wheezing, and pleuritic chest pain, Abdomen/GI: Negative for abdominal pain, nausea, vomiting, diarrhea, and constipation, Skin: Negative for injury, rash, and discoloration, Neuro: Negative for headache, weakness, numbness, tingling, and seizure, Psych: Negative for depression, anxiety, suicide ideation, homicidal ideation, and hallucinations, 12:24 : Positive for Penile pain, negative for urinary retention, Exam: 12:24 Constitutional: This is a well developed, well nourished patient who is awake, alert, rt and in no acute distress. Head/Face: Normocephalic, atraumatic. Chest/axilla: Normal chest wall appearance and motion. Nontender with no deformity. No lesions are appreciated. Cardiovascular: Regular rate and rhythm with a normal S1 and S2. No gallops, murmurs, or rubs. Normal PMI, no JVD. No pulse deficits. Respiratory: Lungs have equal breath sounds bilaterally, clear to auscultation and percussion. No rales, rhonchi or wheezes noted. No increased work of breathing, no retractions or nasal flaring. Abdomen/GI: Soft, non-tender, with normal bowel sounds. No distension or tympany. No guarding or rebound. No evidence of tenderness throughout. Skin: Warm, dry with normal turgor. Normal color with no rashes, no lesions, and no evidence of cellulitis. MS/ Extremity: Pulses equal, no cyanosis. Neurovascular intact. Full, normal range of motion. Neuro: Awake and alert, GCS 15, oriented to person, place, time, and situation. Cranial nerves II-XII grossly intact. Motor strength 5/5 in all extremities. Sensory grossly intact. Cerebellar exam normal. Normal gait. 12:24 : Bautista catheter in place, no purulence, penis appears to be within normal limits, Vital Signs: 11:13 BP 152 / 104; Pulse 111; Resp 20; Temp 99; Pulse Ox 100% ; ko1 12:20 BP 149 / 96; Pulse 98; Resp 16; Pulse Ox 99% on R/A; bp MDM: 11:22 Patient medically screened. rt 12:24 Differential Diagnosis UTI, pain due to catheter. Data reviewed: vital signs, nurses rt notes. Counseling: I had a detailed discussion with the patient and/or guardian regarding the historical points, exam findings, and any diagnostic results supporting the discharge/admit diagnosis, the need for outpatient follow up, to return to the emergency department if symptoms worsen or persist or if there are any questions or concerns that arise at home. Response to treatment: the patient's symptoms have resolved after treatment. ED course: Initially ordered urinalysis, Bautista catheter placement. When patient was here, he had a bowel movement, had subsequent complete resolution of symptoms, denies any pain. Does not wish to have any further interventions or evaluations be done. Patient was instructed to follow-up with urology as an outpatient.. Administered Medications: 12:20 Drug: [place] PO 10 mg-325 mg 1 tabs PO once Route: PO; bp 12:20 Follow up: Response: Medication administered at discharge. bp 12:20 Not Given (Patient Refused): [id number] mg IM once bp 12:20 Not Given (Patient Refused): lidocainegel 2 % 1 application Mucous Membrane once bp Disposition Summary: 12/09/23 12:06 Discharge Ordered Notes: Location: Home rt Problem: an ongoing problem rt Symptoms: are resolved rt Condition: Stable rt Diagnosis - Penile pain rt Followup: rt - With: Rayray Syed MD - When: 5 - 6 days - Reason: Discharge Instructions: - Discharge Summary Sheet rt - Indwelling Urinary Catheter Care, Adult rt Forms: - Medication Reconciliation Form rt - Thank You Letter rt - Antibiotic Education rt - Prescription Opioid Use rt - Patient Portal Instructions rt - Leadership Thank You Letter rt Signatures: Dispatcher [employer] Zacarias Michaud, RN RN bp Jill Campos, RN RN ko1 Reji Uriarte MD MD rt
[2023-12-09 12:44] VITALS: BP 149/96; TEMP 99; O2SAT 99
== END ==
LOC: ER 10:58
DX: N48.89 Other specified disorders of penis (principal); F17.210 Nicotine dependence, cigarettes, uncomplicated

== ENCOUNTER → 2023-12-11 | Emergency (ER) | payer BC ==
[~2023-12-11] MED LIST changes: -HYDROCODONE/APAP 10/325 TAB ONE; -LIDOCAINE HCL JELLY 2% 6 ML SYRINGE TOP ONE
--- OUTSIDE RECORDS SUMMARY | 2023-12-11 12:01 | XMS REPORT | Continuity of Care Document ---
Author Name Unknown Address [address] [place] [address] [facility] thconnect Address [address] [place] [address] Care Team Providers Care Terrapin Fisher Name Role Phone PCP, PATIENT DOES NOT HAVE A Primary Care Physic TERESA Colin Attending Clinician Unavaila ble Doctor Unassigned, [place] Attending Clinician U Lacy Navarro MD Attending Clinician [phone] LACY DODSON Attending Clinician Unavailable Payers Payer Name Policy Type Policy Number Effective Date Expirati on Date Source [id number] 2023 00:00:00 Problems Condition Name Condition Details Condition Category Status Onset Date Resolution Date Last Treatment Date Treating Clinician Comments Source DVT (deep venous thrombosis ) DVT (deep venous thrombosis ) Disease Active 04-07 00:00: 00 [facility] Lower limb ischemia Lower limb ischemia Disease Active 04-07 00:00: 00 [facility] PAD (periphera l artery disease) PAD (periphera l artery disease) Disease [facility] 04-07 00:00: 00 [facility] Smoker Smoker Disease [facility] 04-07 00:00: 00 [facility] Allergies, Adverse Reactions, Alerts Allergy Name Allergy Type Status Severity Reaction(s) Onset Date Inactive Date Treating Clinician Comments Source NO KNOWN ALLERGIE S Drug Class Active [facility] Social History Social Habit Start Date Stop Date Quantity Comments Source History of tobacco use Smokes tobacco daily [facility] Sexual orientation U [facility] History of Social function 2023-09-25 00:00:00 2023-09-25 00:00:00 [facility] Tobacco use and exposure 2019-04-07 00:00:00 2019-04-07 00:00:00 Smokeless tobacco non-user [facility] Sex Ass[birth year] At 1965 00:00:00 1965 00:00:00 [facility] Smoking Status Start Date Stop Date Source Smokes tobacco daily 2019-04-07 00:00:00 [facility] Medications Ordered Medication Name Filled Medication Name Start Date Stop Date Current Medication? Ordering Clinician Indication Dosage Frequency Signature (SIG) Comments Components Source tamsulosin 0.4 mg 24 hr capsule 2022-10 00:00: 00 Yes TAKE 1 CAPSULE BY MOUTH EVERY DAY AT 6 PM [facility] tamsulosin 0.4 mg 24 hr capsule 2022-10 00:00: 00 Yes TAKE 1 CAPSULE BY MOUTH EVERY DAY AT 6 PM [facility] tamsulosin 0.4 mg 24 hr capsule 2022-10 00:00: 00 Yes TAKE 1 CAPSULE BY MOUTH EVERY DAY AT 6 PM [facility] tamsulosin 0.4 mg 24 hr capsule 2022-10 00:00: 00 Yes TAKE 1 CAPSULE BY MOUTH EVERY DAY AT 6 PM [facility] ELIQUIS 5 mg tablet 2022-10 00:00: 00 Yes 5mg Take 1 tablet by mouth in the morning and 1 tablet in the evening. [facility] ELIQUIS 5 mg tablet 2022-10 00:00: 00 Yes 5mg Take 1 tablet by mouth in the morning and 1 tablet in the evening. [facility] ELIQUIS 5 mg tablet 2022-10 00:00: 00 Yes 5mg Take 1 tablet by mouth in the morning and 1 tablet in the evening. [facility] ELIQUIS 5 mg tablet 2022-10 00:00: 00 Yes 5mg Take 1 tablet by mouth in the morning and 1 tablet in the evening. [facility] aspirin 81 mg chewable tablet 04-08 00:00: 00 Yes [id number] 81mg Take 1 tablet by mouth daily. [facility] aspirin 81 mg chewable tablet 04-08 00:00: 00 Yes [id number] 81mg Take 1 tablet by mouth daily. [facility] aspirin 81 mg chewable tablet 04-08 00:00: 00 Yes [id number] 81mg Take 1 tablet by mouth daily. [facility] aspirin 81 mg chewable tablet 04-08 00:00: 00 Yes [id number] 81mg Take 1 tablet by mouth daily. [facility] aspirin 81 mg chewable tablet 04-08 00:00: 00 Yes [id number] 81mg Take 1 tablet by mouth daily. [facility] aspirin 81 mg chewable tablet 04-08 00:00: 00 Yes [id number] 81mg Take 1 tablet by mouth daily. [facility] Vital Signs Vital Name Observation Time Observation Value Comments S kiersten Systolic blood pressure 2023-09-25 14:16:00 147 mm[Hg] [facility] Diastolic blood pressure 2023-09-25 14:16:00 95 mm[Hg] [facility] Heart rate 2023-09-25 14:16:00 93 /min [facility] Oxygen saturation in Arterial blood by Pulse oximetry 2023-09-25 14:16:00 100 /min [facility] Body temperature 2023-09-25 14:14:00 37.33 Ailyn [facility] Respiratory rate 2023-09-25 14:14:00 18 /min [facility] Body height 2023-09-25 14:14:00 170.2 cm [facility] Body weight 2023-09-25 14:14:00 60.328 kg [facility] BMI 2023-09-25 14:14:00 20.83 kg/m2 [facility] Procedures Procedure Date / Time Performed Performing Clinicia n Source REFERRAL- REQUEST/RESPONSE 2023-10-25 06:01:00 Doctor Unassigned, [place] [facility] CONSENT/REFUSAL FOR DIAGNOSIS AND TREATMENT 2023-09-25 14:03:55 Doctor Unassigned, [place] [facility] REFERRAL- REQUEST/RESPONSE 2023-08-16 05:01:00 Doctor Unassigned, [place] [facility] Encounters Start Date/Time End Date/Time Encounter Type Admission Type Attending [facility] Facility Care Department Encounter ID Source 2023-12-07 16:00:00 2023-12-07 16:00:00 Outpatient TERESA HER [facility] [id number] [facility] 2023-11-01 11:00:00 2023-11-01 11:00:00 [facility] [id number] 2023-10-25 00:00:00 2023-10-25 00:00:00 Orders Only Doctor Unassigned, [place] [facility] [id number] [id number] [id number] [id number] [facility] 2023-10-17 00:00:00 2023-10-17 00:00:00 Telephone L[facility] [id number] [id number] [id number] [facility] 2023-09-25 08:00:00 2023-09-25 08:52:46 Outpatient R [facility] [id number] [facility] 2023-09-25 08:00:00 2023-09-25 08:52:46 Office Visit [facility] [id number] [id number] [id number] [id number] [facility] 2023-09-25 00:00:00 2023-09-25 00:00:00 Orders Only Doctor Unassigned, [place] [facility] [id number] [id number] 4.2.7.2.686 [id number] [facility] 2023-08-16 00:00:00 2023-08-16 00:00:00 Orders Only Doctor Unassigned, [place] [facility] [id number] [id number] [id number] [facility] Notes Date/Time Note Provider Source 2023-10-18 15:27:02 [id number] [id number] bGEZCAS2G/3qOEgtoLDSNHWhhU+XwQkd 2822-63-86C79:27:02 Call placed to patient. No answer, unable to leave message. [id number] encounter [id number]:27:30Telepho ne encounter [id number] .[id number] e for patient zevt61066-3XmciZNYWYBCSOVSRsczzo emilia Copeland-JAZLYNA narrative [id number] Mulcare [address] Nl[id number] 2-28T15:27:301.2.840.881785.1.72 .3.15|[id number]. [id number] Traci Lacy [facility] 2023-10-17 15:58:43 ArWWzIsPkZHuUwHUW1XD 6H7scDuRnWZU 21UA35eoz0FHIjIrzENg6nzcGNUBkq6j 9046-40-55I21:58:43 Pt is wanting information about his visit with Dr Dodson on 09/25. He is asking if he needs to have a procedure scheduled.Please assist [id number] encounter UqysEM3816-11-55Q30:02:11Telepho ne encounter [id number] .[id number] for patient yotx49884-2OuanDJGALMVZKCEAqryci emilia Copeland-JAZLYNA narrative [id number] [address] XotvJjwoqebhhGpmonztquPXMB763473 [id number] :02:111.2.840.666612.1.72 .3.15|1.2.840.035580.1.13.104.2. [id number] Sully Judge [facility]"
[2023-12-11 14:00] LABS: Absolute Lymphocytes (CBC) 1.4 K/uL (0.7-4.9); Hematocrit 51.2 % (39.6-49.0); Lymphocytes % 14.8 % (15.3-44.8); MCV 94.7 fL (80-100); MPV 8.2 fL (7.6-11.3); Platelets 200 thou/uL (152-406); RBC Red Blood Cell Count 5.41 M/uL (4.33-5.43)
[2023-12-11 14:11] LABS: Albumin 3.8 g/dL (3.4-5.0); Bilirubin Total 0.6 mg/dL (0.2-1.0); Potassium 3.9 mEq/L (3.5-5.1); Protein, Total 8.2 g/dL (6.4-8.2)
[2023-12-11 14:41] LABS: Urine Bacteria 20-50 /HPF (<20); Urine Mucus 4+ /HPF (None Seen); Urine RBC >50 /HPF (None Seen)
[2023-12-11 14:45] LABS: Specific Gravity 1.017 (1.005-1.030); Urine Bilirubin NEGATIVE (Negative); Urine Blood 3+ (OVER) (Negative); Urine Clarity Extremely Turbid (Clear); Urine Color Yellow (Yellow); Urine Glucose NEGATIVE (Negative); Urine Protein 2+ (Negative); Urine Urobilinogen Normal (Normal)
--- NOTE | 2023-12-11 14:52 | ER ---
Nurse's Notes [facility] Name: Micheal Murlilo Age: 58 yrs Sex: Male : 1965 Arrival Date: 12/11/2023 Time: 11:58 Bed 13 Private MD: Diagnosis: UTI/ Urinary tract infection, site not specified;Mechanical complication of urinary (indwelling) catheter Presentation: 12/11 12:12 Chief complaint: Patient states: STATES 2300 URINARY PAIN AND PENILE PAIN STARTED. HAS db ANDERSON CATHETER. STATES LAST TIME HAD THIS PAIN IT WAS A UTI. PT ANXIOUS AND PACING IN TRIAGE. Coronavirus screen: Vaccine status: Patient reports being unvaccinated. Client denies travel out of the [place] in the last 14 days. At this time, the client does not indicate any symptoms associated with coronavirus-19. Ebola Screen: Patient negative for fever greater than or equal to 101.5 degrees Fahrenheit, and additional compatible Ebola Virus Disease symptoms Patient denies exposure to infectious person. Patient denies travel to an Ebola-affected area in the 21 days before illness onset. No symptoms or risks identified at this time. Initial Sepsis Screen: Does the patient meet any 2 criteria? No. Patient's initial sepsis screen is negative. Does the patient have a suspected source of infection? Yes: Dysuria/Frequency/Urgency/UTI. Risk Assessment: Do you want to hurt yourself or someone else? Patient reports no desire to harm self or others. Onset of symptoms was December 10, 2023. 12:12 Method Of Arrival: Ambulatory db 12:12 Acuity: TORRIE 3 db Triage Assessment: 12:14 General: Appears in no apparent distress. uncomfortable, Behavior is cooperative, db anxious. Pain: Complains of pain in pelvis. : Anderson in place Reports burning with urination, pain. Historical: - Allergies: 12:14 NKA; db - PMHx: 12:14 BPH (DVT); DVT; db - Immunization history:: Adult Immunizations unknown. - Social history:: Smoking status: Patient reports the use of cigarette tobacco products, cigars. Screenin:07 [facility] ED Fall Risk Assessment (Adult) History of falling in the last 3 months, cp4 including since admission No falls in past 3 months (0 pts) Confusion or Disorientation No (0 pts) Intoxicated or Sedated No (0 pts) Impaired Gait No (0 pts) Mobility Assist Device Used No (0 pt) Altered Elimination No (0 pt) Score/Fall Risk Level 0 - 2 = Low Risk Oriented to surroundings, Maintained a safe environment, Educated pt \T\ family on fall prevention, incl call for assistance when getting out of bed, Assessed \T\ reinforced patient's understanding of fall precautions, Hourly rounding (assess needs \T\ fall precautionary measures) done. Abuse screen: Denies threats or abuse. Nutritional screening: No deficits noted. Tuberculosis screening: No symptoms or risk factors identified. Assessment: 13:07 General: Appears distressed, Behavior is agitated, anxious. cp4 15:34 Reassessment: Patient provided education on anderson catheter care and penile cleaning. cp4 Instructed on use of leg bag and night time bag. Patient demonstrated understanding. Vital Signs: 12:12 BP 152 / 93; Pulse 113; Resp 18; Temp 97.8; Pulse Ox 100% ; Weight 61.23 kg; Height 5 db ft. 5 in. ; Pain 10/10; 15:33 BP 143 / 87; Pulse 94; Resp 18; Pulse Ox 100% ; cp4 12:12 Body Mass Index 22.46 (61.23 kg, 165.1 cm) db 12:12 Pain Scale: Adult db ED Course: 12:03 Patient arrived in ED. mr 12:14 Triage completed. db 12:14 Arm band placed on. db 12:16 Antonia Matamoros is Primary Nurse. cp4 12:16 Dickson Shirley DO is Attending Physician. ms3 13:07 Placed in gown. Bed in low position. Call light in reach. cp4 13:07 CMP Sent. cp4 13:07 CBC with Diff Sent. cp4 13:07 No provider procedures requiring assistance completed. Inserted saline lock: 20 gauge cp4 in right antecubital area, using aseptic technique. Blood collected. 14:17 Anderson cath removed intact, balloon deflated. Anderson cath inserted, using sterile cp4 technique, 16 Fr., by mi, balloon inflated, to gravity drainage, urine specimen collected. 14:46 Zac Batres DO is Referral Physician. ms3 15:34 Provided Education on: anderson catheter care. cp4 15:34 intact, bleeding controlled, No redness/swelling at site. Pressure dressing applied. cp4 Administered Medications: 13:07 Drug: Ketorolac IVP 10 mg 10 mg IVP once Route: IVP; Site: right antecubital; cp4 Medication: 13:07 VIS not applicable for this client. cp4 Outcome: 14:51 Discharge ordered by . ms3 15:34 Discharged to home ambulatory, cp4 15:34 Condition: stable 15:34 Discharge instructions given to patient, Instructed on discharge instructions, follow up and referral plans. medication usage, Demonstrated understanding of instructions, follow-up care, medications, Prescriptions given X 1, 15:39 Patient left the ED. ap3 Signatures: Brandy Campos, Jeffery Reg mr Sowmya Whitlock RN RN ap3 Dickson Shirley DO DO ms3 Tg Whitehead, ASHLEY RN Antonia Diaz cp4
--- NOTE | 2023-12-11 14:52 | EDPHYS ---
Physician Documentation [facility] Name: Micheal Murillo Age: 58 yrs Sex: Male : 1965 Arrival Date: 12/11/2023 Time: 11:58 Bed 13 Private MD: ED Physician Dickson Shirley HPI: 12/11 14:51 This 58 yrs old Male presents to ER via Ambulatory with complaints of Problem With ms3 Urinary Catheter. 14:51 58-year-old male with past medical history of BPH, DVT presents to the emergency md3 department for penile pain where his catheter is inserted in his penis. Patient states 5 days ago he had hematuria. Patient states his pain is 10/10 located suprapubically. Patient denies any alleviating or inciting factors.. Historical: - Allergies: 12:14 NKA; db - PMHx: 12:14 BPH (DVT); DVT; db - Immunization history:: Adult Immunizations unknown. - Social history:: Smoking status: Patient reports the use of cigarette tobacco products, cigars. ROS: 14:51 Constitutional: Negative for fever, and chills. Neck: Negative for injury, pain, and ms3 swelling, Cardiovascular: Negative for chest pain, and palpitations. Respiratory: Negative for shortness of breath, cough, wheezing, and pleuritic chest pain, Abdomen/GI: Negative for abdominal pain, nausea, vomiting, diarrhea, and constipation, 14:51 Skin: Negative for injury, rash, and discoloration, 14:51 : Positive for penile pain, Exam: 14:51 Constitutional: This is a well developed, well nourished patient who is awake, alert, ms3 and in no acute distress. Head/Face: Normocephalic, atraumatic. Chest/axilla: Normal chest wall appearance and motion. Nontender with no deformity. Cardiovascular: Regular rate and rhythm with a normal S1 and S2. No gallops, murmurs, or rubs. Normal PMI, no JVD. No pulse deficits. Respiratory: Lungs have equal breath sounds bilaterally, clear to auscultation and percussion. No rales, rhonchi or wheezes noted. No increased work of breathing, no retractions or nasal flaring. 14:51 Skin: Warm, dry with normal turgor. Normal color with no rashes, no lesions, and no evidence of cellulitis. 14:51 Abdomen/GI: Inspection: abdomen appears normal, Bowel sounds: normal, Palpation: moderate abdominal tenderness, in the suprapubic area, Vital Signs: 12:12 BP 152 / 93; Pulse 113; Resp 18; Temp 97.8; Pulse Ox 100% ; Weight 61.23 kg; Height 5 db ft. 5 in. ; Pain 10/10; 15:33 BP 143 / 87; Pulse 94; Resp 18; Pulse Ox 100% ; cp4 12:12 Body Mass Index 22.46 (61.23 kg, 165.1 cm) db 12:12 Pain Scale: Adult db MDM: 12:31 Patient medically screened. ms3 14:51 Differential diagnosis: nonspecific abdominal pain, UTI, urinary retention. Data ms3 reviewed: vital signs, nurses notes, lab test result(s), and as a result, I will discharge patient. Counseling: I had a detailed discussion with the patient and/or guardian regarding the historical points, exam findings, and any diagnostic results supporting the discharge/admit diagnosis, lab results, the need for outpatient follow up, to return to the emergency department if symptoms worsen or persist or if there are any questions or concerns that arise at home. Special discussion: I discussed with the patient/guardian in detail that at this point there is no indication for admission to the hospital. It is understood, however, that if the symptoms persist or worsen the patient needs to return immediately for re-evaluation. ED course: Lab with patient. Patient to follow-up with primary care physician 2 to 3 days. Patient given prescription for Vantin 200 mg twice daily. On reevaluation patient is improved, alert and orient x 4, no apparent distress, nontoxic-appearing, ambulatory emergency room. Discussed return precautions to include worsening symptoms, or any other concerns.. 12/11 12:31 Order name: CBC with Diff; Complete Time: 14:17 ms3 12/11 12:31 Order name: CMP; Complete Time: 14:17 ms3 12/11 12:31 Order name: Urinalysis w/ reflexes; Complete Time: 14:54 ms3 12/11 14:52 Order name: Urine Culture EDKY 12/11 12:31 Order name: Bautista; Complete Time: 14:17 ms3 12/11 13:17 Order name: Labs - recollect needed: lavender and green recollect; Complete Time: 13:48 bd Administered Medications: 13:07 Drug: Ketorolac IVP 10 mg 10 mg IVP once Route: IVP; Site: right antecubital; cp4 Disposition Summary: 12/11/23 14:51 Discharge Ordered Notes: Location: Home ms3 Condition: Stable ms3 Diagnosis - UTI/ Urinary tract infection, site not specified ms3 - Mechanical complication of urinary (indwelling) catheter ms3 Followup: ms3 - With: Zac Batres DO - When: 2 - 3 days - Reason: Recheck today's complaints Discharge Instructions: - Discharge Summary Sheet ms3 - Urinary Tract Infection, Adult ms3 Forms: - Medication Reconciliation Form ms3 - Thank You Letter ms3 - Antibiotic Education ms3 - Prescription Opioid Use ms3 - Patient Portal Instructions ms3 - Leadership Thank You Letter ms3 Prescriptions: - cefpodoxime 200 mg Oral tablet - take 1 tablet ORAL route every 12 hours with food; 14 tablet; Refills: 0, ms3 Product Selection Permitted Signatures: Dispatcher [employer] EDMagaly Velásquez Marcus, DO DO ms3 Tg Whitehead, RN RN Antonia Diaz cp4
[2023-12-11 16:03] VITALS: BP 143/87; TEMP 97.8; O2SAT 100
== END ==
LOC: ER 11:58
PROC: 0T2BX0Z Change Drainage Device in Bladder, External Approach (ICD-10-PCS; principal; 2023-12-11)
DX: N39.0 Urinary tract infection, site not specified (principal); T83.098A Other mechanical complication of other urinary catheter, initial encounter; Z72.0 Tobacco use
CPT/HCPCS: 36415; 80053; 81003; 85025; 87086; 87088

== ENCOUNTER 2024-01-19 22:24 | Emergency (ER) | payer BC ==
--- OUTSIDE RECORDS SUMMARY | 2024-01-19 22:27 | XMS REPORT | Continuity of Care Document ---
Author Name Unknown Address [address] [facility] [address] [place] [address] [facility] thconnect Address [address] [facility] [address] [place] [address] Care Team Providers Care Sports Coordinator Name Role Phone PCP, PATIENT DOES NOT HAVE A Primary Care Physic lidia Unavailable Yisel Tirado Attending Clinician Doctor Unassigned, Rivereno Attending Clinician U YISEL Miller Attending Clinician UnavailLacy Noe MD Attending Clinician LACY SERVIN Attending Clinician Unavailable Payers Payer Name Policy Type Policy Number Effective Date Expirati on Date Source [facility] [id number] 2023 00:00:00 Problems Condition Name Condition Details Condition Category Status Onset Date Resolution Date Last Treatment Date Treating Clinician Comments Source DVT (deep venous thrombosis ) DVT (deep venous thrombosis ) Disease Active 04-07 00:00: 00 [facility] Lower limb ischemia Lower limb ischemia Disease Active 04-07 00:00: 00 [facility] PAD (periphera l artery disease) PAD (periphera l artery disease) Disease [facility] 04-07 00:00: 00 [facility] Smoker Smoker Disease [facility] 04-07 00:00: 00 [facility] Allergies, Adverse Reactions, Alerts Allergy Name Allergy Type Status Severity Reaction(s) Onset Date Inactive Date Treating Clinician Comments Source NO KNOWN ALLERGIE S Drug Class Active [facility] Social History Social Habit Start Date Stop Date Quantity Comments Source History of tobacco use Smokes tobacco daily [facility] use and exposure 2023-12-25 00:00:00 2023-12-25 00:00:00 Smokeless tobacco non-user [facility] History of Social function 2023-12-25 00:00:00 2023-12-25 00:00:00 [facility] Sex Assigned At 1965 00:00:00 1965 00:00:00 [facility] Smoking Status Start Date Stop Date Source Smokes tobacco daily 2023-12-25 00:00:00 [facility] Medications Ordered Medication Name Filled Medication Name Start Date Stop Date Current Medication? Ordering Clinician Indication Dosage Frequency Signature (SIG) Comments Components Source tamsulosin 0.4 mg 24 hr capsule 12-24 00:00: 00 Yes [id number] .4mg Take 1 capsule by mouth in the morning and 1 capsule in the evening. [facility] tamsulosin 0.4 mg 24 hr capsule 2023-0 12-24 00:00: 00 Yes [id number] .4mg Take 1 capsule by mouth in the morning and 1 capsule in the evening. [facility] tamsulosin 0.4 mg 24 hr capsule 2023-0 12-24 00:00: 00 Yes [id number] .4mg Take 1 capsule by mouth in the morning and 1 capsule in the evening. [facility] tamsulosin 0.4 mg 24 hr capsule 0 12-24 00:00: 00 Yes [id number] .4mg Take 1 capsule by mouth in the morning and 1 capsule in the evening. [facility] cefpodoxime 200 mg tablet 2023-0 2-20 00:00: 00 Yes TAKE 1 TABLET BY MOUTH EVERY 12 HOURS WITH FOOD [facility] cefpodoxime 200 mg tablet 2023-0 2-20 00:00: 00 Yes TAKE 1 TABLET BY MOUTH EVERY 12 HOURS WITH FOOD [facility] cefpodoxime 200 mg tablet 2023-0 2-20 00:00: 00 Yes TAKE 1 TABLET BY MOUTH EVERY 12 HOURS WITH FOOD [facility] cefpodoxime 200 mg tablet 2-20 00:00: 00 Yes TAKE 1 TABLET BY MOUTH EVERY 12 HOURS WITH FOOD [facility] tamsulosin 0.4 mg 24 hr capsule 2022-10 00:00: 00 Yes TAKE 1 CAPSULE BY MOUTH EVERY DAY AT 6 PM [facility] tamsulosin 0.4 mg 24 hr capsule 2022-10 00:00: 00 Yes TAKE 1 CAPSULE BY MOUTH EVERY DAY AT 6 PM [facility] tamsulosin 0.4 mg 24 hr capsule 2022-10 00:00: 00 Yes TAKE 1 CAPSULE BY MOUTH EVERY DAY AT 6 PM [facility] tamsulosin 0.4 mg 24 hr capsule 2022-10 00:00: 00 Yes TAKE 1 CAPSULE BY MOUTH EVERY DAY AT 6 PM [facility] tamsulosin 0.4 mg 24 hr capsule 2022-10 00:00: 00 12-24 00:00 :00 No TAKE 1 CAPSULE BY MOUTH EVERY DAY AT 6 PM [facility] tamsulosin 0.4 mg 24 hr capsule 2022-10 00:00: 00 12-24 00:00 :00 No TAKE 1 CAPSULE BY MOUTH EVERY DAY AT 6 PM [facility] ELIQUIS 5 mg tablet 2022-10 00:00: 00 Yes 5mg Take 1 tablet by mouth in the morning and 1 tablet in the evening. [facility] ELIQUIS 5 mg tablet 2022-10 00:00: 00 Yes 5mg Take 1 tablet by mouth in the morning and 1 tablet in the evening. [facility] ELIQUIS 5 mg tablet 2022-10 00:00: 00 Yes 5mg Take 1 tablet by mouth in the morning and 1 tablet in the evening. [facility] ELIQUIS 5 mg tablet 2022-10 00:00: 00 Yes 5mg Take 1 tablet by mouth in the morning and 1 tablet in the evening. [facility] ELIQUIS 5 mg tablet 2022-10 00:00: 00 Yes 5mg Take 1 tablet by mouth in the morning and 1 tablet in the evening. [facility] ELIQUIS 5 mg tablet 2022-10 0 00:00: 00 Yes 5mg Take 1 tablet by mouth in the morning and 1 tablet in the evening. [facility] ELIQUIS 5 mg tablet 2022-10 00:00: 00 Yes 5mg Take 1 tablet by mouth in the morning and 1 tablet in the evening. [facility] ELIQUIS 5 mg tablet 2022-10 0 00:00: 00 Yes 5mg Take 1 tablet by mouth in the morning and 1 tablet in the evening. [facility] aspirin 81 mg chewable tablet 04-08 00:00: 00 Yes [id number] 81mg Take 1 tablet by mouth daily. [facility] aspirin 81 mg chewable tablet 04-08 00:00: 00 Yes [id number] 81mg Take 1 tablet by mouth daily. [facility] aspirin 81 mg chewable tablet 04-08 00:00: 00 Yes [id number] 81mg Take 1 tablet by mouth daily. [facility] aspirin 81 mg chewable tablet 04-08 00:00: 00 Yes [id number] 81mg Take 1 tablet by mouth daily. [facility] aspirin 81 mg chewable tablet 04-08 00:00: 00 Yes [id number] 81mg Take 1 tablet by mouth daily. [facility] aspirin 81 mg chewable tablet 04-08 00:00: 00 Yes [id number] 81mg Take 1 tablet by mouth daily. [facility] aspirin 81 mg chewable tablet 0 04-08 00:00: 00 Yes [id number] 81mg Take 1 tablet by mouth daily. [facility] aspirin 81 mg chewable tablet 04-08 00:00: 00 Yes [id number] 81mg Take 1 tablet by mouth daily. [facility] aspirin 81 mg chewable tablet 0 18 00:00: 00 Yes [id number] 81mg Take 1 tablet by mouth daily. [facility] aspirin 81 mg chewable tablet 0 618 00:00: 00 Yes [id number] 81mg Take 1 tablet by mouth daily. [facility] Vital Signs Vital Name Observation Time Observation Value Comments Escobar burch Systolic blood pressure 2023-12-25 15:10:00 135 mm[Hg] [facility] Diastolic blood pressure 2023-12-25 15:10:00 88 mm[Hg] [facility] Heart rate 2023-12-25 15:10:00 93 /min Un[facility] Respiratory rate 2023-12-25 15:10:00 18 /min [facility] Body height 2023-12-25 15:10:00 165.1 cm [facility] Body weight 2023-12-25 15:10:00 59.512 kg [facility] BMI 2023-12-25 15:10:00 21.83 kg/m2 [facility] Oxygen saturation in Arterial blood by Pulse oximetry 2023-12-25 15:10:00 100 /min [facility] Systolic blood pressure 2023-09-25 14:16:00 147 mm[Hg] [facility] Diastolic blood pressure 2023-09-25 14:16:00 95 mm[Hg] [facility] Heart rate 2023-09-25 14:16:00 93 /min [facility] Oxygen saturation in Arterial blood by Pulse oximetry 2023-09-25 14:16:00 100 /min [facility] Body temperature 2023-09-25 14:14:00 37.33 Ailyn [facility] Respiratory rate 2023-09-25 14:14:00 18 /min [facility] Body height 2023-09-25 14:14:00 170.2 cm [facility] Body weight 2023-09-25 14:14:00 60.328 kg [facility] BMI 2023-09-25 14:14:00 20.83 kg/m2 [facility] Procedures Procedure Date / Time Performed Performing Clinicia n Source EXTERNAL PROVIDER RECORDS 2024-01-04 05:01:00 Doctor Unassigned, Rivereno [facility] THAIS,POST-VOID RES,US,NON-IMAGING 2023-12-25 15:19:00 Yisel Oliveira [facility] REFERRAL- REQUEST/RESPONSE 2023-10-25 06:01:00 Doctor Unassigned, Rivereno [facility] CONSENT/REFUSAL FOR DIAGNOSIS AND TREATMENT 2023-09-25 14:03:55 Doctor Unassigned, Rivereno [facility] REFERRAL- REQUEST/RESPONSE 2023-08-16 05:01:00 Doctor Unassigned, Rivereno [facility] Encounters Start Date/Time End Date/Time Encounter Type Admission Type Attending [facility] Facility Care Department Encounter ID Source 2024-01-14 09:00:00 2024-01-14 09:00:00 Outpatient R [facility] [id number] [facility] 2024-01-11 15:00:00 2024-01-11 15:00:00 Outpatient R [facility] [id number] [facility] 2024-01-04 00:00:00 2024-01-04 00:00:00 Telephone Yisel Oliveira [facility] 1.2.840.114 350.1.13.10 4.2.7.2.686 [id number] [facility] 2024-01-04 00:00:00 2024-01-04 00:00:00 Orders Only Doctor Unassigned, Rivereno [facility] 1..840.114 350.1.13.10 4.2.7.2.686 [id number] [id number] [facility] 2023-12-25 09:00:00 2023-12-25 09:44:52 Outpatient R YISEL OLIVEIRA [facility] [id number] [facility] 2023-12-25 09:00:00 2023-12-25 09:44:52 Office Visit Lizzy Oliveiratney [facility] 1.2.840.114 350.1.13.10 4.2.7.2.686 [id number] [facility] 2023-12-07 16:00:00 2023-12-07 16:00:00 Outpatient [facility] [id number] [facility] 2023-11-01 11:00:00 2023-11-01 11:00:00 [facility] [id number] [facility] 2023-10-25 00:00:00 2023-10-25 00:00:00 Orders Only Doctor Unassigned, Rivereno [facility] 1.840.114 350.1.13.10 4.2.7.2.686 [id number] [id number] [facility] 2023-10-17 00:00:00 2023-10-17 00:00:00 Telephone Lyle [facility] 1..114 350.1.13.10 4.2.7.2.686 [id number] [facility] 2023-09-25 08:00:00 2023-09-25 08:52:46 Outpatient R [facility] [id number] [facility] 2023-09-25 08:00:00 2023-09-25 08:52:46 Office Visit [facility] 1.84.114 350.1.13.10 4.2.7.2.686 [id number] [facility] 2023-09-25 00:00:00 2023-09-25 00:00:00 Orders Only Doctor Unassigned, Rivereno [facility] 1.84.114 350.1.13.10 4.2.7.2.686 [id number] [id number] [facility] 2023-08-16 00:00:00 2023-08-16 00:00:00 Orders Only Doctor Unassigned, Rivereno [facility] 1.2840.114 350.1.13.10 4.2.7.2.686 [id number] [id number] [facility] Results Test Description Test Time Test Comments Results Result Co mments Source [facility] RES,US,[id number] 15:19:00* Test Item Value Reference Range Interpretation Comme nts PVR (URINE VOLUME) (test code = 5193) 0 ml 0-100 [facility] Notes Date/Time Note Provider Source 2024-01-04 08:51:57 [id number] sWL1PkQIf5+U +W3I6+Y2WUhAAYLxLeoNVZ3N2V4RFH/8 5595-35-52L03:51:57 Dr. Delgado's office faxed in requested medical records. Uploaded into pts chart under external provider records dated 01/04/24. 06841-4Efjchwwzq encounter FenqJB8598-25-11I46:52:51Telepho ne encounter NoteTXT1.2.840.886702.1.13.104.2 .7.2.888210|[id number] e for patient lezn55462-6KpkhZMVGJGGPKXAObzhzz emilia C-CDA narrative [id number] E [address] OwsmMupytmystOravghkaqGRMD994821 8609VVXQONVQWNWHSOWODHFNUM8718-3 01-03T08:52:511.2.840.780508.1.72 .3.15|1.2.840.432764.1.13.104.2. 7.2.727879_[id number] [facility] 2023-10-18 15:27:02 nQvkRY7V7UKBkEj2sAHS ine2nns8x3RG nVUSEOI7N/3qOEgtoLDSNHWhhU+XwQkd 1225-81-10Q14:27:02 Call placed to patient. No answer, unable to leave message. 68713-2Sosikrtbn encounter QojnDS0428-26-14A04:27:30Telepho ne encounter NoteTXT1.2.840.404067.1.13.104.2 .7.2.589856|[id number] e for patient pxnw08348-8FoigKSQZZOQGCQMQbhyuz emilia C-CDA narrative [id number] [address] KwukZoxlvzzvzXiqzyininZRNW736522 0389SUBKFGTDAEMZGFTUBLMSAF8483-2 2-28T15:27:301.2.840.963095.1.72 .3.15|1.2.840.021771.1.13.104.2. 7.2.727879_[id number] Traci Lacy [facility] 2023-10-17 15:58:43 WzLSlMeClGDwWjSJW9RS 1A6voCsKaZXS 99AY40yuq7ASBlNqpATl0imhCMOMnt2j 8047-61-80C12:58:43 Pt is wanting information about his visit with Dr Servin on 09/25. He is asking if he needs to have a procedure scheduled.Please assist 20685-0Meohwiten encounter PbtoBO1449-41-78B03:02:11Telepho ne encounter NoteTXT1.2.840.637759.1.13.104.2 .7.2.828389|[id number] e for patient nlka95619-3QldhPJPZVYMHKALVqczpn emilia C-CDA narrative [id number] [address] QikkAxlocvvohYknjpcsfpAMGZ932070 2620ECKBTKXGGLIAJLAOJQYDVW8499-1 2-27T16:02:111.2.840.511209.1.72 .3.15|1.2.840.578466.1.13.104.2. 7.2.727879_[id number] [place] [facility]"
[2024-01-19] MEDS ORDERED: KETOROLAC 30 MG/ML INJ ONE (22:55)
[2024-01-19] MEDS ORDERED: NA CHLORIDE 0.9% 1,000 ML ONE (22:55)
[2024-01-19 23:29] LABS: Absolute Basophils 0.1 K/uL (0-0.5); Absolute Eosinophils 0.2 K/uL (0-0.5); Absolute Lymphocytes (CBC) 2.4 K/uL (0.7-4.9); Absolute Monocytes 1.3 K/uL (0.1-1.3); Eosinophils % 1.9 % (0-4.4); Hematocrit 50.7 % (39.6-49.0); Hemoglobin 17.4 g/dL (13.6-17.9); Lymphocytes % 18.3 % (15.3-44.8); MCH 32.2 pg (27.0-35.0); MCHC 34.3 g/dL (32.0-36.0); MCV 93.9 fL (80-100); MPV 8.4 fL (7.6-11.3); Monocytes % 9.6 % (3.3-12.3); Neutrophils % 69.2 % (41.7-73.7); Platelets 227 thou/uL (152-406); Red Cell Distribution Width 13.5 % (12.1-15.2)
[2024-01-19] MEDS ORDERED: ONDANSETRON 4 MG/2 ML VIAL ONE (23:38)
[2024-01-19] MEDS ORDERED: MORPHINE 4 MG/ML SYR ONE (23:38)
[2024-01-19 23:46] LABS: Albumin/Globulin Ratio 0.9 (1.1-1.8); Anion Gap 9.9 mEq/L (5.0-15.0); Bilirubin Total 0.6 mg/dL (0.2-1.0); Globulin 4.5 g/dL (2.3-3.5); Potassium 4.9 mEq/L (3.5-5.1); Protein, Total 8.5 g/dL (6.4-8.2)
[2024-01-20] MEDS ORDERED: MORPHINE 4 MG/ML SYR ONE (02:28)
[2024-01-20] MEDS ORDERED: LIDOCAINE HCL JELLY 2% 6 ML SYRINGE TOP ONE (03:02)
[2024-01-20] MEDS ORDERED: LIDOCAINE VISCOUS 2% 10ML ORAL SOLN ONE (03:03)
--- NOTE | 2024-01-20 03:29 | EDPHYS ---
Physician Documentation [facility] Name: Micheal Murillo Age: 58 yrs Sex: Male : 1965 Arrival Date: 01/19/2024 Time: 22:24 Bed 19 Private MD: ED Physician Yuniel Navarro HPI: 01/18 23:00 This 58 yrs old Male presents to ER via EMS with complaints of Pain with urination. cp 23:00 The patient presents with urinary symptoms, pain. Onset: The symptoms/episode cp began/occurred today. Associated signs and symptoms: Pertinent positives: abdominal pain, Pertinent negatives: constipation, diarrhea, fever, hematuria, vomiting. Severity of symptoms: in the emergency department the symptoms are unchanged, despite EMS interventions. Patient reports having Bautista catheter placed about 1 year ago for enlarged prostate and urinary retention. Has not seen a urologist for f/u due to work schedule. Historical: - Allergies: 22:31 NKA; rv - PMHx: 22:31 BPH (DVT); DVT; rv - PSHx: 22:31 None; rv - Immunization history:: Adult Immunizations up to date. - Social history:: Smoking status: Patient denies any tobacco usage or history of. ROS: 23:05 Eyes: Negative for injury, pain, redness, and discharge, cp 23:05 Constitutional: Negative for body aches, chills, fever, poor PO intake, 23:05 ENT: Negative for drainage from ear(s), ear pain, sore throat, difficulty swallowing, difficulty handling secretions, 23:05 Cardiovascular: Negative for chest pain, palpitations, 23:05 Respiratory: Negative for cough, shortness of breath, wheezing, 23:05 Abdomen/GI: Positive for abdominal pain, Negative for vomiting, diarrhea, constipation, 23:05 Back: Negative for pain at rest, pain with movement, 23:05 : Positive for burning with urination, 23:05 Neuro: Negative for altered mental status, dizziness, headache, weakness, 23:05 All other systems are negative, Exam: 23:10 Constitutional: The patient appears in no acute distress, alert, awake, cp non-diaphoretic, non-toxic, well developed, well nourished, uncomfortable, 23:10 Head/Face: Normocephalic, atraumatic. cp 23:10 Eyes: Periorbital structures: appear normal, Conjunctiva: normal, no exudate, no injection, Sclera: no appreciated abnormality, Lids and lashes: appear normal, bilaterally, 23:10 ENT: External ear(s): are unremarkable, Nose: is normal, Mouth: Lips: moist, Oral mucosa: moist, Posterior pharynx: is normal, airway is patent, no erythema, no exudate, 23:10 Chest/axilla: Inspection: normal, 23:10 Cardiovascular: Rate: tachycardic, Rhythm: regular, 23:10 Respiratory: the patient does not display signs of respiratory distress, Respirations: normal, no use of accessory muscles, no retractions, labored breathing, is not present, Breath sounds: are clear throughout, no decreased breath sounds, no stridor, no wheezing, 23:10 Abdomen/GI: Inspection: abdomen appears normal, Bowel sounds: active, all quadrants, Palpation: soft, in all quadrants, severe abdominal tenderness, in the suprapubic area, rebound tenderness, is not appreciated, voluntary guarding, is elicited in the suprapubic area, 23:10 Back: pain, is absent, ROM is normal, 23:10 Neuro: Orientation: to person, place \T\ time. Mentation: is normal, Motor: moves all fours, strength is normal, Gait: is steady, Vital Signs: 22:29 BP 146 / 95; Pulse 108; Resp 18; Temp 98; Pulse Ox 99% on R/A; rv 23:01 BP 153 / 104; Pulse 105; Resp 19; Pulse Ox 97% on R/A; rv 01/19 00:00 BP 139 / 94; Pulse 98; Resp 16; Pulse Ox 97% ; pf1 01:00 BP 122 / 100; Pulse 98; Resp 16; Pulse Ox 100% on R/A; pf1 02:00 BP 161 / 97; Pulse 98; Resp 16; Pulse Ox 97% on R/A; Pain 5/10; pf1 03:00 BP 152 / 83; Pulse 92; Resp 16; Temp 97.9; Pulse Ox 96% on R/A; Pain 0/10; pf1 02:00 Pain Scale: Adult pf1 03:00 Pain Scale: Adult pf1 MDM: 01/18 22:33 Patient medically screened. cp 01/19 00:00 Differential diagnosis: appendicitis, UTI, urinary retention, Bautista catheter problem, cp prostatitis, urethritis. 03:27 Data reviewed: vital signs, nurses notes, lab test result(s), radiologic studies, and cp as a result, I will discharge patient. 03:27 I considered the following discharge prescriptions or medication management in the emergency department Medications were administered in the Emergency Department. See MAR. Care significantly affected by the following chronic conditions: bph. Counseling: I had a detailed discussion with the patient and/or guardian regarding the historical points, exam findings, and any diagnostic results supporting the discharge/admit diagnosis, lab results, radiology results, the need for outpatient follow up, for definitive care, a urologist, to return to the emergency department if symptoms worsen or persist or if there are any questions or concerns that arise at home. Response to treatment: the patient's symptoms have markedly improved after treatment, and as a result, I will discharge patient. 01/18 22:50 Order name: CBC with Diff; Complete Time: 00:04 01/19 03:23 Interpretation: Normal except: WBC 13.00; HCT 50.7; NEUT A 9.0. cp 01/18 22:50 Order name: CMP; Complete Time: 00:04 cp 01/19 03:23 Interpretation: Normal except: GLUC 108; CRE 1.40; GFR 58; AST 50; ALT 120; CA 10.4; TP cp 8.5; GLOB 4.5; A/G 0.9. 01/18 22:50 Order name: Lipase; Complete Time: 00:04 cp 01/18 22:50 Order name: Urinalysis w/ reflexes; Complete Time: 03:43 01/19 03:46 Order name: Urine Culture EDND 01/19 00:05 Order name: CT Abd/Pelvis - IV Contrast Only; Complete Time: 02:48 cp 01/18 22:50 Order name: IV Saline Lock; Complete Time: 23:22 cp 01/18 22:50 Order name: Labs collected and sent; Complete Time: 23:22 cp 01/19 03:02 Order name: Bautista; Complete Time: 03:23 cp Administered Medications: 01/18 23:21 Drug: NS 0.9% IV 1000 ml IV at 1 bolus Per protocol; 1000 mL bolus Route: IV; Rate: 1 pf1 bolus; Site: right forearm; 01/19 00:20 Follow up: Response: No adverse reaction; Marked relief of symptoms; IV Status: pf1 Completed infusion; IV Intake: 1000ml 01/18 23:21 Drug: TORadol - Ketorolac IVP 15 mg IVP once Route: IVP; Site: right forearm; pf1 01/19 00:20 Follow up: Response: No adverse reaction; Marked relief of symptoms; Pain is unchanged, pf1 physician notified 01/18 23:44 Drug: morphine IVP or IV 4 mg IVP once over 4 mins Route: IVP; Infused Over: 4 mins; pf1 Site: right forearm; 01/19 00:40 Follow up: Response: No adverse reaction; Marked relief of symptoms; Pain is decreased; pf1 RASS: Alert and Calm (0) 01/18 23:44 Drug: Ondansetron IVP 4 mg IVP once; over 2 minutes Route: IVP; Site: right forearm; pf1 01/19 00:40 Follow up: Response: No adverse reaction; Marked relief of symptoms pf1 02:30 Drug: morphine IVP or IV 4 mg IVP once over 4 mins Route: IVP; Infused Over: 4 mins; pf1 Site: right forearm; 03:30 Follow up: Response: No adverse reaction; Marked relief of symptoms; Pain is decreased; pf1 RASS: Alert and Calm (0) 03:10 Drug: Viscous Lidocaine Mucous Membrane Liquid (4 %) 10 ml Mucous Membrane once Route: pf1 Mucous Membrane; 03:50 Follow up: Response: No adverse reaction; Marked relief of symptoms; Pain is decreased pf1 03:41 Drug: Rocephin IV 1 grams IV at calculated rate once; Given slow IV push per pharmacy pf1 instructions Route: IV; Rate: calculated rate; Site: right forearm; 03:45 Follow up: Response: No adverse reaction; Marked relief of symptoms; IV Status: pf1 Completed infusion; IV Intake: 10ml 03:41 Drug: LevOfloxacin PO 500 mg PO once Route: PO; pf1 03:50 Follow up: Response: No adverse reaction; Marked relief of symptoms pf1 Disposition Summary: 01/20/24 03:28 Discharge Ordered Notes: Location: Home cp Problem: new cp Symptoms: have improved cp Condition: Stable cp Diagnosis - Other retention of urine cp - Cystitis, unspecified without hematuria cp Followup: cp - With: Rayray Syed MD - When: 5 - 6 days - Reason: Recheck today's complaints Discharge Instructions: - Discharge Summary Sheet cp - Acute Urinary Retention, Male cp - Urinary Tract Infection, Adult cp Forms: - Medication Reconciliation Form cp - Thank You Letter cp - Antibiotic Education cp - Prescription Opioid Use cp - Patient Portal Instructions cp - Leadership Thank You Letter cp Prescriptions: - cefpodoxime 200 mg Oral tablet - take 1 tablet ORAL route every 12 hours for 10 days with food; 20 tablet; cp Refills: 0, Product Selection Permitted Signatures: Dispatcher [employer] EDMS Yuniel Orourke PA PA cp Terence Cardenas RN RN rv Yara Rodríguez RN RN pf1 Corrections: (The following items were deleted from the chart) 01/20 02:42 01/19 23:05 Constitutional: Negative for body aches, chills, fever, poor PO intake, cp cp 01/20 02:01/19 23:05 Abdomen/GI: Positive for abdominal pain, Negative for vomiting, diarrhea, cp constipation, cp 01/20 02:01/19 23:05 : Positive for burning with urination, cp cp 01/20 02:42 01/19 23:05 Back: Negative for pain at rest, pain with movement, cp cp 01/20 02:42 01/19 23:05 Eyes: Negative for injury, pain, redness, and discharge, cp cp 01/20 02:42 01/19 23:05 ENT: Negative for drainage from ear(s), ear pain, sore throat, difficulty cp swallowing, difficulty handling secretions, cp 01/20 02:01/19 23:05 Respiratory: Negative for cough, shortness of breath, wheezing, cp cp 01/20 02:42 01/19 23:05 Cardiovascular: Negative for chest pain, palpitations, cp cp 01/20 02:42 01/19 23:05 Neuro: Negative for altered mental status, dizziness, headache, weakness, cpcp 01/20 02:42 01/19 23:05 All other systems are negative, cp cp 01/20 02:52 02:48 Abdomen Pelvis W Con+CT.RAD.BRZ reviewed. cp cp 02:53 01/19 02:48 I considered the following discharge prescriptions or medication management cp in the emergency department Medications were administered in the Emergency Department. See MAR cp 01/20 02:48 Care significantly affected by the following chronic conditions: bph. cp cp 01/20 02:48 Counseling: I had a detailed discussion with the patient and/or guardian cp regarding the historical points, exam findings, and any diagnostic results supporting the discharge/admit diagnosis, lab results, radiology results, the need for outpatient follow up, for definitive care, a urologist, to return to the emergency department if symptoms worsen or persist or if there are any questions or concerns that arise at home, cp 01/20 02:48 Response to treatment: the patient's symptoms have markedly improved after cp treatment, and as a result, I will discharge patient, cp
--- NOTE | 2024-01-20 03:29 | ER ---
Nurse's Notes [facility] Name: Micheal Murillo Age: 58 yrs Sex: Male : 1965 Arrival Date: 01/19/2024 Time: 22:24 Bed 19 Private MD: Diagnosis: Other retention of urine;Cystitis, unspecified without hematuria Presentation: 01/18 22:29 Chief complaint: EMS states: PRESENTED TO ED WITH ANDERSON CATHETER IN PLACED, NO URINE rv NOTED IN THE BAG. COMPLAINING OF URGENCY AND PAIN IN URINATION. HX OF BPH. Coronavirus screen: At this time, the client does not indicate any symptoms associated with coronavirus-19. Ebola Screen: No symptoms or risks identified at this time. Initial Sepsis Screen: Does the patient meet any 2 criteria? No. Patient's initial sepsis screen is negative. Does the patient have a suspected source of infection? No. Patient's initial sepsis screen is negative. Risk Assessment: Do you want to hurt yourself or someone else? Patient reports no desire to harm self or others. Onset of symptoms was January 19, 2024. 22:29 Method Of Arrival: EMS: [facility] rv 22:29 Acuity: TORRIE 3 rv Triage Assessment: 22:31 General: Appears uncomfortable, Behavior is agitated. Pain:. Neuro: Level of rv Consciousness is awake, alert, obeys commands, Oriented to person, place, time, situation. Cardiovascular: Capillary refill < 3 seconds Patient's skin is warm and dry. Respiratory: Airway is patent Respiratory effort is even, unlabored. GI: No signs and/or symptoms were reported involving the gastrointestinal system. : Anderson in place Reports pain BLADDER. Historical: - Allergies: 22:31 NKA; rv - PMHx: 22:31 BPH (DVT); DVT; rv - PSHx: 22:31 None; rv - Immunization history:: Adult Immunizations up to date. - Social history:: Smoking status: Patient denies any tobacco usage or history of. Screenin:32 [facility] ED Fall Risk Assessment (Adult) History of falling in the last 3 months, rv including since admission No falls in past 3 months (0 pts) Score/Fall Risk Level 0 - 2 = Low Risk Oriented to surroundings, Maintained a safe environment, Educated pt \T\ family on fall prevention, incl call for assistance when getting out of bed, Assessed \T\ reinforced patient's understanding of fall precautions. Abuse screen: Denies threats or abuse. Denies injuries from another. Nutritional screening: No deficits noted. Tuberculosis screening: No symptoms or risk factors identified. Assessment: 22:30 General: Appears in no apparent distress. uncomfortable, well groomed, well developed, pf1 Behavior is cooperative, appropriate for age, anxious. 22:30 Pain: Complains of pain in penis Pain currently is 10 out of 10 on a pain scale. Neuro: pf1 No deficits noted. Level of Consciousness is awake, alert, obeys commands, Oriented to person, place, time, situation. Cardiovascular: No deficits noted. Capillary refill < 3 seconds Patient's skin is warm and dry. Respiratory: No deficits noted. Airway is patent Respiratory effort is even, unlabored, Respiratory pattern is regular, symmetrical. GI: No deficits noted. No signs and/or symptoms were reported involving the gastrointestinal system. : Anderson in place in place prior to arrival. Patient stated was inserted approximately 4 weeks ago. Reports burning with urination, pain with urination, penis urgency. EENT: No deficits noted. No signs and/or symptoms were reported regarding the EENT system. Derm: No deficits noted. No signs and/or symptoms reported regarding the dermatologic system. 23:00 Reassessment: Patient pacing in room in pain. Patient stated can not start his IV until pf1 the pain improves. 23:25 Reassessment: leg bag changed and reapplied to left leg. pf1 23:30 Reassessment: Patient appears in no apparent distress at this time. Patient and/or pf1 family updated on plan of care and expected duration. Pain level reassessed. Patient is alert, oriented x 3, equal unlabored respirations, skin warm/dry/pink. 01/19 00:30 Reassessment: Patient appears in no apparent distress at this time. Patient and/or pf1 family updated on plan of care and expected duration. Pain level reassessed. Patient is alert, oriented x 3, equal unlabored respirations, skin warm/dry/pink. 01:30 Reassessment: Patient appears in no apparent distress at this time. Patient and/or pf1 family updated on plan of care and expected duration. Pain level reassessed. Patient is alert, oriented x 3, equal unlabored respirations, skin warm/dry/pink. 02:30 Reassessment: Patient appears in no apparent distress at this time. Patient and/or pf1 family updated on plan of care and expected duration. Pain level reassessed. Patient is alert, oriented x 3, equal unlabored respirations, skin warm/dry/pink. 03:30 Reassessment: Patient appears in no apparent distress at this time. Patient and/or pf1 family updated on plan of care and expected duration. Pain level reassessed. Patient is alert, oriented x 3, equal unlabored respirations, skin warm/dry/pink. 03:40 Reassessment: leg bag reapplied to left leg. pf1 Vital Signs: 01/18 22:29 BP 146 / 95; Pulse 108; Resp 18; Temp 98; Pulse Ox 99% on R/A; rv 23:01 BP 153 / 104; Pulse 105; Resp 19; Pulse Ox 97% on R/A; rv 01/19 00:00 BP 139 / 94; Pulse 98; Resp 16; Pulse Ox 97% ; pf1 01:00 BP 122 / 100; Pulse 98; Resp 16; Pulse Ox 100% on R/A; pf1 02:00 BP 161 / 97; Pulse 98; Resp 16; Pulse Ox 97% on R/A; Pain 5/10; pf1 03:00 BP 152 / 83; Pulse 92; Resp 16; Temp 97.9; Pulse Ox 96% on R/A; Pain 0/10; pf1 02:00 Pain Scale: Adult pf1 03:00 Pain Scale: Adult pf1 ED Course: 01/18 22:29 Patient arrived in ED. rv 22:31 Triage completed. rv 22:31 Arm band placed on right wrist. rv 22:32 Patient has correct armband on for positive identification. Client placed on continuous rv cardiac and pulse oximetry monitoring. NIBP monitoring applied. 22:32 Door closed. Noise minimized. Moved to private room. Warm blanket given. pf1 22:33 Yuniel Orourke PA is PHCP. cp 22:33 Yuniel Navarro MD is Attending Physician. cp 22:50 Yara Rodríguez, ASHLEY is Primary Nurse. pf1 23:15 No provider procedures requiring assistance completed. Inserted saline lock: 22 gauge pf1 in right forearm, using aseptic technique. Blood collected. 23:15 Initial lab(s) drawn, by me, sent to lab. pf1 23:22 CBC with Diff Sent. pf1 23:22 CMP Sent. pf1 23:22 Lipase Sent. pf1 01/19 00:58 CT Abd/Pelvis - IV Contrast Only In Process Unspecified. EDMS 03:10 Urine collected: Anderson catheter specimen, cloudy, Amount Returned: 500mL. pf1 03:10 Anderson cath inserted, using sterile technique, 16 Fr., by me, balloon inflated, to pf1 gravity drainage, clamped. urine specimen collected. returned cloudy urine. Patient tolerated well. 03:23 Urinalysis w/ reflexes Sent. pf1 03:27 Rayray Syed MD is Referral Physician. cp 03:45 PO fluids given. sandwich given to patient. pf1 03:50 Provided Education on: prescription. pf1 03:50 IV discontinued, intact, bleeding controlled, No redness/swelling at site. Pressure pf1 dressing applied. Administered Medications: 01/18 23:21 Drug: NS 0.9% IV 1000 ml IV at 1 bolus Per protocol; 1000 mL bolus Route: IV; Rate: 1 pf1 bolus; Site: right forearm; 01/19 00:20 Follow up: Response: No adverse reaction; Marked relief of symptoms; IV Status: pf1 Completed infusion; IV Intake: 1000ml 01/18 23:21 Drug: TORadol - Ketorolac IVP 15 mg IVP once Route: IVP; Site: right forearm; pf1 01/19 00:20 Follow up: Response: No adverse reaction; Marked relief of symptoms; Pain is unchanged, pf1 physician notified 01/18 23:44 Drug: morphine IVP or IV 4 mg IVP once over 4 mins Route: IVP; Infused Over: 4 mins; pf1 Site: right forearm; 01/19 00:40 Follow up: Response: No adverse reaction; Marked relief of symptoms; Pain is decreased; pf1 RASS: Alert and Calm (0) 01/18 23:44 Drug: Ondansetron IVP 4 mg IVP once; over 2 minutes Route: IVP; Site: right forearm; pf1 01/19 00:40 Follow up: Response: No adverse reaction; Marked relief of symptoms pf1 02:30 Drug: morphine IVP or IV 4 mg IVP once over 4 mins Route: IVP; Infused Over: 4 mins; pf1 Site: right forearm; 03:30 Follow up: Response: No adverse reaction; Marked relief of symptoms; Pain is decreased; pf1 RASS: Alert and Calm (0) 03:10 Drug: Viscous Lidocaine Mucous Membrane Liquid (4 %) 10 ml Mucous Membrane once Route: pf1 Mucous Membrane; 03:50 Follow up: Response: No adverse reaction; Marked relief of symptoms; Pain is decreased pf1 03:41 Drug: Rocephin IV 1 grams IV at calculated rate once; Given slow IV push per pharmacy pf1 instructions Route: IV; Rate: calculated rate; Site: right forearm; 03:45 Follow up: Response: No adverse reaction; Marked relief of symptoms; IV Status: pf1 Completed infusion; IV Intake: 10ml 03:41 Drug: LevOfloxacin PO 500 mg PO once Route: PO; pf1 03:50 Follow up: Response: No adverse reaction; Marked relief of symptoms pf1 Medication: 03 22:32 VIS not applicable for this client. rv Intake: 01/19 00:20 IV: 1000ml; Total: 1000ml. pf1 03:45 IV: 10ml; Total: 1010ml. pf1 Outcome: 03:28 Discharge ordered by MD. cp 03:50 Discharged to home ambulatory, pf1 03:50 Condition: improved 03:50 Discharge instructions given to patient, Instructed on discharge instructions, follow up and referral plans. Demonstrated understanding of instructions, follow-up care, medications, Prescriptions given X 1, 03:50 Patient left the ED. pf1 Signatures: Dispatcher [employer] EDNC Yuniel Orourke PA PA cp Terence Cardenas RN RN Yara Rondon RN RN pf1 Corrections: (The following items were deleted from the chart) 05:16 04:09 Patient left the ED. pf1 pf1 05:25 03:00 BP 152 / 83; Pulse 92bpm; Resp 16bpm; Pulse Ox 96% RA; Pain 0/10, Adult; pf1 pf1
[2024-01-20] MEDS ORDERED: levoFLOXacin 250 MG TAB ONE (03:31)
[2024-01-20] MEDS ORDERED: CEFTRIAXONE 1000 MG/VIAL ONE (03:31)
[2024-01-20 03:42] LABS: Specific Gravity > 1.030 (1.005-1.030); Sqamous Epithelial None Seen /HPF (None Seen); Urine Bacteria None Seen /HPF (<20); Urine Bilirubin NEGATIVE (Negative); Urine Blood 2+ (Negative); Urine Clarity Extremely Turbid (Clear); Urine Color Light-Orange (Yellow); Urine Crystals Unidentified Few /HPF (None Seen); Urine Culture Reflex Order REFLEXED; Urine Glucose NEGATIVE (Negative); Urine Ketones NEGATIVE (Negative); Urine Microscopic Reflex YN ORDER UMIC; Urine Nitrite 1+ (Negative); Urine Protein TRACE (Negative); Urine RBC >50 /HPF (None Seen); Urine Urobilinogen Normal (Normal); Urine WBC >50 /HPF (<5); Urine WBC Clump Many /HPF (None Seen); Urine Yeast (Budding) Many /HPF (None Seen); Urine pH 7.5 (5.0-7.0)
[2024-01-20 09:28] VITALS: TEMP 98
[2024-01-20 10:01] VITALS: BP 152/83; O2SAT 96
--- NOTE | 2024-01-20 17:27 | RAD REPORT ---
EXAM DESCRIPTION: CT - Abdomen Pelvis W Contrast - 01/20/2024 7:03 am CLINICAL HISTORY: ABD PAIN COMPARISON: 03/20/2023 TECHNIQUE: Contiguous axial images of the abdomen and pelvis were obtained after the administration of intravenous contrast followed by reconstruction images.This exam was performed according to our de partmental dose-optimization program, which includes automated exposure control, adjustment of the mA and/or kV according to patient size and/or use of iterative reconstruction technique. FINDINGS: There is elevation of the left hemidiaphragm. There is atherosclerosis. The superior aspec t of the spleen was not completely included in the examination. There is a Bautista catheter within the bladder. The bladder is distended. There is bilateral hydronephrosis. There are calcifications within the prostate. The liver, spleen, pancreas and kidneys are otherwise within normal limits. There is no renal stones. The gallbladder is unremarkable by CT criteria. Adrenal glands are within normal limits. Aorta is of normal caliber and tapering. There is no free fluid in the abdomen or pelvis. There is no bowel obst ruction. There is no stranding of the mesenteric fat to suggest an inflammatory response. The appendi x is within normal limits. There is no pericecal inflammation. IMPRESSION: Distended bladder with bilateral hydronephrosis. Bautista catheter in place. Electronically signed by: Konrad Jung MD 01/20/2024 01:46 AM CDT Due to temporary technical issues with the PACS/Fluency reporting system, reports are being signed by the in house radiologists without review as a courtesy to insure prompt reporting. The interpreting radiologist is fully responsible for the content of the report
== END 2024-01-20 04:09 | disposition home or self-care (01) ==
LOC: ER 22:24
DX: N30.90 Cystitis, unspecified without hematuria (principal)
CPT/HCPCS: 96361; 87088; 85025; 81001; 87086; 36415; 87077; 87186; 83690; 80053; 74177; 51702; 96375; 96374; 99285; Q9967; J2405; J7030; J0696

== ENCOUNTER 2024-02-29 18:46 | Emergency (ER) | payer BC, SELFPAY ==
--- OUTSIDE RECORDS SUMMARY | 2024-02-29 18:49 | XMS REPORT | Continuity of Care Document ---
Author Name Unknown Address [address] [place] [address] [facility] thconnect Address [address] [place] [address] Care Team Providers Care Parts Counter Salesperson Name Role Phone Pcp, Patient Does Not Have A Primary Care Physic lidia Lacy Servin MD Attending Clinician Yisel Tirado Attending Clinician Doctor Unassigned, [place] Attending Clinician U navailable YISEL ROSE Attending Clinician Unavaila ble LACY SERVIN Attending Clinician Unavailable Payers Payer Name Policy Type Policy Number Effective Date Expirati on Date Source Problems Condition Name Condition Details Condition Category Status Onset Date Resolution Date Last Treatment Date Treating Clinician Comments Source DVT (deep venous thrombosis ) DVT (deep venous thrombosis ) Disease Active 04-07 00:00: 00 [facility] Lower limb ischemia Lower limb ischemia Disease Active 04-07 00:00: 00 [facility] PAD (periphera l artery disease) PAD (periphera l artery disease) Disease [facility] 04-07 00:00: 00 [facility] Smoker Smoker Disease [facility] 04-07 00:00: 00 [facility] Allergies, Adverse Reactions, Alerts Allergy Name Allergy Type Status Severity Reaction(s) Onset Date Inactive Date Treating Clinician Comments Source NO KNOWN ALLERGIE S Drug Class Active [facility] Social History Social Habit Start Date Stop Date Quantity Comments Source History of tobacco use Smokes tobacco daily [facility] Tobacco use and exposure 2023-12-25 00:00:00 2023-12-25 00:00:00 Smokeless tobacco non-user [facility] History of Social function 2023-12-25 00:00:00 2023-12-25 00:00:00 [facility] Sex assigned at 1965 00:00:00 1965 00:00:00 [facility] Smoking Status Start Date Stop Date Source Smokes tobacco daily 2023-12-25 00:00:00 [facility] Medications Ordered Medication Name Filled Medication Name Start Date Stop Date Current Medication? Ordering Clinician Indication Dosage Frequency Signature (SIG) Comments Components Source tamsulosin 0.4 mg 24 hr capsule 12-24 00:00: 00 Yes [id number] .4mg Take 1 capsule by mouth in the morning and 1 capsule in the evening. [facility] cefpodoxime 200 mg tablet 220 00:00: 00 Yes TAKE 1 TABLET BY MOUTH EVERY 12 HOURS WITH FOOD [facility] tamsulosin 0.4 mg 24 hr capsule 2022-10 00:00: 00 12-24 00:00 :00 No TAKE 1 CAPSULE BY MOUTH EVERY DAY AT 6 PM [facility] ELIQUIS 5 mg tablet 2022-10 028 00:00: 00 Yes 5mg Take 1 tablet by mouth in the morning and 1 tablet in the evening. [facility] aspirin 81 mg chewable tablet 04-08 00:00: 00 Yes [id number] 81mg Take 1 tablet by mouth daily. [facility] Vital Signs Vital Name Observation Time Observation Value Comments S kiersten Systolic blood pressure 2023-12-25 15:10:00 135 mm[Hg] [facility] Diastolic blood pressure 2023-12-25 15:10:00 88 mm[Hg] [place] [facility] Heart rate 2023-12-25 15:10:00 93 /min Sarah [facility] Respiratory rate 2023-12-25 15:10:00 18 /min [facility] Body height 2023-12-25 15:10:00 165.1 cm [facility] Body weight 2023-12-25 15:10:00 59.512 kg [facility] BMI 2023-12-25 15:10:00 21.83 kg/m2 [facility] Oxygen saturation in Arterial blood by Pulse oximetry 2023-12-25 15:10:00 100 /min [facility] Systolic blood pressure 2023-09-25 14:16:00 147 mm[Hg] [facility] Diastolic blood pressure 2023-09-25 14:16:00 95 mm[Hg] [facility] Heart rate 2023-09-25 14:16:00 93 /min [facility] Oxygen saturation in Arterial blood by Pulse oximetry 2023-09-25 14:16:00 100 /min [facility] Body weight 2023-09-25 14:14:00 60.328 kg [facility] BMI 2023-09-25 14:14:00 20.83 kg/m2 [facility] Body temperature 2023-09-25 14:14:00 37.33 Ailyn [facility] Respiratory rate 2023-09-25 14:14:00 18 /min [facility] Body height 2023-09-25 14:14:00 170.2 cm [facility] Procedures Procedure Date / Time Performed Performing Clinicia n Source EXTERNAL PROVIDER RECORDS 2024-01-04 05:01:00 Doctor Unassigned, [place] [facility] THAIS,POST-VOID RES,US,NON-IMAGING 2023-12-25 15:19:00 Yisel Rose [facility] REFERRAL- REQUEST/RESPONSE 2023-10-25 06:01:00 Doctor Unassigned, [place] [facility] CONSENT/REFUSAL FOR DIAGNOSIS AND TREATMENT 2023-09-25 14:03:55 Doctor Unassigned, [place] [facility] REFERRAL- REQUEST/RESPONSE 2023-08-16 05:01:00 Doctor Unassigned, [place] [facility] Encounters Start Date/Time End Date/Time Encounter Type Admission Type Attending Clinicians Care Facility Care Department Encounter ID Source 2024-02-28 00:00:00 2024-02-28 08:51:10 Telephone Lacy Servin [facility] 1.2.840.114 350.1.13.10 4.2.7.2.686 [id number] [facility] 2024-02-27 00:00:00 2024-02-28 08:25:39 Telephone Yisel Rose [facility] 1.2.840.114 350.1.13.10 4.2.7.2.686 [id number] [facility] 2024-01-14 09:00:00 2024-01-14 09:00:00 Outpatient R [facility] [id number] [facility] 2024-01-11 15:00:00 2024-01-11 15:00:00 Outpatient R [facility] [id number] [facility] 2024-01-04 00:00:00 2024-01-04 00:00:00 [facility] 1.2.840.114 350.1.13.10 4.2.7.2.686 [id number] [facility] 2024-01-04 00:00:00 2024-01-04 00:00:00 Orders Only Doctor Unassigned, [place] [facility] 1.2.840.114 350.1.13.10 4.2.7.2.686 [id number] [id number] [facility] 2023-12-25 09:00:00 2023-12-25 09:44:52 [id number] [facility] 2023-12-25 09:00:00 2023-12-25 09:44:52 [facility] 1.2.840.114 350.1.13.10 4.2.7.2.686 [id number] [facility] 2023-12-07 16:00:00 2023-12-07 16:00:00 Outpatient Mavis ROSE [facility] [id number] [facility] 2023-11-01 11:00:00 2023-11-01 11:00:00 Outpatient Mavis TEE [facility] [id number] [facility] 2023-10-25 00:00:00 2023-10-25 00:00:00 Orders Only Doctor Unassigned, [place] [facility] 1..114 350.1.13.10 4.2.7.2.686 [id number] 009 [id number] [facility] 2023-10-17 00:00:00 2023-10-17 [facility] 350.1.13.10 4.2.7.2.686 [id number] [facility] 2023-09-25 08:00:00 2023-09-25 08:52:46 Outpatient R [facility] [id number] [facility] 2023-09-25 08:00:00 2023-09-25 08:52:[facility]114 350.1.13.10 4.2.7.2.686 [id number] [facility] 2023-09-25 00:00:00 2023-09-25 00:00:00 Orders Only Doctor Unassigned, [place] [facility] 1.20.114 350.1.13.10 4.2.7.2.686 [id number] [facility] 2023-08-16 00:00:00 2023-08-16 00:00:00 Orders Only Doctor Unassigned, [place] [facility] 1.2.840.114 350.1.13.10 4.2.7.2.686 [id number] [id number] [facility] Results Test Description Test Time Test Comments Results Result Co mments Source [facility],POST-VOID RES,US,EFJ-[id number] 15:19:00* Test Item Value Reference Range Interpretation Comme nts PVR (URINE VOLUME) (test code = 5193) 0 ml 0-100 [facility] Notes Date/Time Note Provider Source 2024-02-28 10:54:08 psNYi4fROd2ETBIq1ytc 8FmcBr5F0GFR FjgNp1kJo0yHpNmd30GqGR6hcEzIdvew 7190-63-70D04:54:08 Patient will call back to schedule cysto 07508-7Yhxomgqgy encounter KuxoXO3630-37-07K65:54:18Telepho ne encounter NoteTXT1.2.840.841668.1.13.104.2 .7.2.070839|[id number] e for patient raib15574-3OvbgMOASOVHCWCJWxedxj emilia C-CDA narrative [id number] L [address] QthoTmyznizqvDjcdxcpbjPJKO010792 0050PPSVKANGTYRYVDNUCAQITG1863-1 0:54:181.2.840.545885.1.72 .3.15|1..840.692180.1.13.104.2. 7.2.727879_[id number] Radha Sahni [facility] 2024-02-28 10:50:00 sRoqBb7vFCVLXe3+937C 758bMp8SuA9F D32gTBm0ugt6Iub7Q9U1QeWBOCtDDE9t 3034-04-70B35:50:00 Cost [place] [address]-2Sldryybgd encounter VffzCV3268-07-79B91:50:20Telepho ne encounter NoteTXT1.2.840.015536.1.13.104.2 .7.2.213484|[id number] e for patient hqod78596-9YrlqKUVEVAZSUGDHrchxn emilia C-CDA narrative textURO-UROLOGY STAFFURO-UROLOGY STAFF[address] 3333JYKPJIUUKFMYQKLGFETFOQ8020-9 5-09T10:50:201.2.840.154109.1.72 .3.15|1.2.840.979288.1.13.104.2. 7.2.727879_[id number] URO-UROLOGY STAFF [facility] 2024-02-28 08:49:11 LlhdmY69OnzLF4mgxTsz VdOTB3we9mPW VNK9P7gpXng0Kd6l4QvBjpYBiRHyZsSU 6309-99-93O23:49:11 Images from the original note were not included. 72235-6Wuodzqyuq encounter CtpaQN7553-00-92W08:51:10Telepho ne encounter NoteTXT1.2.840.707584.1.13.104.2 .7.2.185348|[id number] e for patient itbj36676-8BjzpOHHMIZBMXACBpwigx emilia C-CDA narrative [id number] A Hall RN[address] 7638ALPLKOHODGLDGGBINVCXHY9055-3 08:51:101.2.840.692780.1.72 .3.15|1.2.840.335401.1.13.104.2. 7.2.727879_[id number] Jennifer Christine Christiano RAMIREZ [facility] 2024-02-28 08:47:10 xZvAo3ft68OGv3YqGWM5 p2BDzQgurmEu MhTrzxKEgB2Qjpl3sz3rpuYboF3gXog1 1252-54-59N31:47:10 Patient expressed interest in scheduling cysto. 2 PVR visits where missed by the patient.Can we schedule Cysto or does PVR nurse visit need to be done first?Please confirm 13768-0Zlmurpdej encounter EgsnTP9015-77-78W65:48:00Telepho ne encounter NoteTXT1.2.840.824951.1.13.104.2 .7.2.549062|[id number] e for patient dyid65658-0UzfzRMVGQGVNPWTPiefnf emilia NI narrative yzzs942896828Wkulqw L [address] IecqYvnrrupzrIhvlpcgyuQSOA571704 3095UCNCFHZJKNOLKGMRYOXTPP5158-6 08:48:001.2.840.363058.1.72 .3.15|1.2.840.837556.1.13.104.2. 7.2.727879_[id number] Radha Sahni [facility] 2024-02-28 08:25:08 NrRi51hywYutyTUP6z4F kdiarBbSnBRS Fz+NEaY2aqOWG86qhpSfMsG0N7psi4At 5576-36-45O48:25:08 Attempted to contact patient to review questions. Patient states he will call back. 13115-1Lngadzqav encounter RhzdMJ0780-31-75T02:25:34Telepho ne encounter NoteTXT1.2.840.982965.1.13.104.2 .7.2.922419|[id number] e for patient qlmn25916-8FwlyNGIVEFTJVWWZvcjno emilia C-CDA narrative [id number] L [address] SjjzNjwjkwylkTtzhmrpbkIPQJ483991 2243IKBLXTPBTAYDOUDEXFMASU5332-3 08:25:341.2.840.663959.1.72 .3.15|1.2.840.780150.1.13.104.2. 7.2.727879_[id number] Radha Russell [facility] 2024-02-27 17:02:58 PcpRx4XTiphL+RbW/PyB L4JVqqwcmy9Y A+TG0as98Mpri1J50s6Q2qHHbqWPPm7m 0894-75-73U20:02:58 Patient calling states he has discussed cystoscopy with Dr. Servin and wanting to get a burden. States he also has some other things he would like to discuss. 88281-2Cstsyjezt encounter RfqxXO6488-94-67W36:05:35Telepho ne encounter NoteTXT1.2.840.499986.1.13.104.2 .7.2.946838|[id number] e for patient jxrl26071-1KziuQJPGNCBLFWNZnqgli emilia C-CDA narrative ytvm12859139Xoccah Drew [address] 8085FLDEYQZEGZBMFPFIPALLLV2541-3 :05:351.2.840.291745.1.72 .3.15|1.2.840.026155.1.13.104.2. 7.2.727879_[id number] Mercedes Akhtar [facility] 2024-01-04 08:51:57 rt3SweQ3g99LtrNS2Ic6 xYN2NcUAw1+U +W3I6+K8VRrSKJEaOdyINV6F4P4KZP/8 7512-64-71F79:51:57 Dr. Delgado's office faxed in requested medical records. Uploaded into pts chart under external provider records dated 01/04/24. 39561-6Swhsqnsyu encounter BorzTH6639-34-25X76:52:51Telepho ne encounter NoteTXT1.2.840.490324.1.13.104.2 .7.2.720355|[id number] e for patient kkug12385-2OqkwZJOBOYLESKIOsjwce emilia NI narrative hjjv997785390Koiishj E Buck[address] TsymHpjlgioevCwtrltnnnWNLZ161261 6186PZBFMHWPKUBZOAGYYKXQLQ4376-6 08:52:511.2.840.500806.1.72 .3.15|1.2.840.987302.1.13.104.2. 7.2.727879_[id number] Little Gallo [facility] 2023-10-18 15:27:02 lEhhZN6K2NJHtIb0cQBK zkw0wxu5g9LH sABKKOQ3L/3qOEgtoLDSNHWhhU+XwQkd 2032-09-82R74:27:02 Call placed to patient. No answer, unable to leave message. 72402-8Otufxcfhn encounter BeakIO4678-02-83A27:27:30Telepho ne encounter NoteTXT1.2.840.690878.1.13.104.2 .7.2.828078|[id number] e for patient zkcq37627-4QfnaJSPCJAVWWQLEbzdzs emilia CCoskataCDA narrative jjbe660715204Ppzgqo Mul[address]TX[place] 2087GOYGXNAOBHQKFHHBPILFSN9876-7 2-28T15:27:301.2.840.005461.1.72 .3.15|1.2.840.745716.1.13.104.2. 7.2.727879_[id number] Traci Lacy [facility] 2023-10-17 15:58:43 MlWGpIfArHIzGxDIQ4XP 9C5dkQeGxJPR 08UU47rqv7WSQvEkjHBg9ubvYMNKvl5z 6604-40-20W14:58:43 Pt is wanting information about his visit with Dr Servin on 09/25. He is asking if he needs to have a procedure scheduled.Please assist 93051-7Ltkvpfzoi encounter GcqlXX8119-20-38O98:02:11Telepho ne encounter NoteTXT1.2.840.581224.1.13.104.2 .7.2.773109|[id number] e for patient kouv09550-0LskpWFHWUCZAOBCEnyywz emilia C-CDA narrative kebf558351986Hczevfvao [address] 5717VMKMUFLZBVWEEAIEYHLPGM0435-5 2-27T16:02:111.2.840.466141.1.72 .3.15|1.2.840.412207.1.13.104.2. 7.2.727879_[id number] Sully Judge [facility]"
[2024-02-29] MEDS ORDERED: LIDOCAINE HCL JELLY 2% 6 ML SYRINGE TOP ONE (19:32)
[2024-02-29] MEDS ORDERED: KETOROLAC 30 MG/ML INJ ONE (19:32)
[2024-02-29] MEDS ORDERED: HYDROCODONE/APAP 10/325 TAB ONE (19:56)
--- NOTE | 2024-02-29 20:36 | ER ---
Nurse's Notes [facility] Name: Micheal Murillo Age: 58 yrs Sex: Male : 1965 Arrival Date: 02/29/2024 Time: 18:46 Bed 7 Private MD: Diagnosis: Mechanical complication of urinary (indwelling) catheter Presentation: 02/28 19:19 Chief complaint: Patient states: carmichael catheter needs to be replaced. Patient stated pf1 the carmichael is not draining,onset today with suprapubic pain of 10. Coronavirus screen: Vaccine status: Patient reports receiving the 1st dose of the Covid vaccine. Client denies travel out of the [place] in the last 14 days. At this time, the client does not indicate any symptoms associated with coronavirus-19. Ebola Screen: Patient negative for fever greater than or equal to 101.5 degrees Fahrenheit, and additional compatible Ebola Virus Disease symptoms. Initial Sepsis Screen: Does the patient meet any 2 criteria? HR > 90 bpm. No. Patient's initial sepsis screen is negative. Does the patient have a suspected source of infection? No. Patient's initial sepsis screen is negative. Risk Assessment: Do you want to hurt yourself or someone else? Patient reports no desire to harm self or others. Onset of symptoms was February 29, 2024. 19:19 Method Of Arrival: Ambulatory pf1 19:19 Acuity: TORRIE 4 pf1 Historical: - Allergies: 19:23 NKA; pf1 - PMHx: 19:23 BPH (DVT); DVT; pf1 - PSHx: 19:23 None; pf1 - Immunization history:: Adult Immunizations not up to date, Client reports receiving the 1st dose of the Covid vaccine, Last tetanus immunization: > 10 years ago Flu vaccine is not up to date. - Infectious Disease History:: Denies. - Social history:: Smoking status: Patient reports the use of cigarette tobacco products, cigars, Patient uses alcohol, occasionally. Patient/guardian denies using street drugs. Screenin:37 [facility] ED Fall Risk Assessment (Adult) History of falling in the last 3 months, rv including since admission No falls in past 3 months (0 pts) Score/Fall Risk Level 0 - 2 = Low Risk Oriented to surroundings, Maintained a safe environment, Educated pt \T\ family on fall prevention, incl call for assistance when getting out of bed, Assessed \T\ reinforced patient's understanding of fall precautions. Abuse screen: Denies threats or abuse. Denies injuries from another. Nutritional screening: No deficits noted. Tuberculosis screening: No symptoms or risk factors identified. Assessment: 19:37 General: Appears uncomfortable, Behavior is agitated. Pain: Complains of pain in rv genital, urine bladder. Neuro: Level of Consciousness is awake, alert, obeys commands, Oriented to person, place, time, situation. Cardiovascular: Capillary refill < 3 seconds Patient's skin is warm and dry. Respiratory: Airway is patent Respiratory effort is even, unlabored. : Reports pain genital, urine bladder. Derm: Skin is intact. 19:39 Reassessment: pt is refusing removal and insertion of carmichael catheter at this time. rv Vital Signs: 19:19 BP 137 / 119; Pulse 107; Resp 16; Temp 98.2; Pulse Ox 99% ; Weight 61.23 kg; Height 5 pf1 ft. 6 in. ; Pain 10/10; 20:52 BP 131 / 93; Pulse 89; Resp 18; Temp 98; Pulse Ox 99% ; rv 19:19 Body Mass Index 21.79 (61.23 kg, 167.64 cm) pf1 19:19 Pain Scale: Adult pf1 Angleine Coma Score: 20:52 Eye Response: spontaneous(4). Motor Response: obeys commands(6). Verbal Response: rv oriented(5). Total: 15. ED Course: 18:47 Patient arrived in ED. im 18:47 [facility]C [facility] kb 18:47 Yuniel Nvaarro MD is Attending Physician. kb 19:23 Triage completed. pf1 19:29 Terence Cardenas RN is Primary Nurse. rv 19:37 Patient has correct armband on for positive identification. rv 19:37 No provider procedures requiring assistance completed. rv 19:40 Arm band placed on right wrist. rv 20:30 Carmichael cath inserted, using sterile technique, 16 Fr., by wy, balloon inflated, to rv gravity drainage, returned clear yellow urine. Patient tolerated well. leg bag. 20:30 Patient did not have IV access during this emergency room visit. rv Administered Medications: 19:27 CANCELLED (Duplicate Order): erpgwbwvl98 mg IM once lg3 19:37 Drug: Ketorolac IM 30 mg IM once Route: IM; Site: left deltoid; rv 20:52 Follow up: Response: No adverse reaction; Marked relief of symptoms rv 19:58 Drug: Martha PO 10 mg-325 mg 1 tabs PO once Route: PO; rv 20:52 Follow up: Response: No adverse reaction; Marked relief of symptoms rv 20:30 Drug: Lidocaine Mucous Membrane Gel 2 % 1 application Mucous Membrane once Route: rv Mucous Membrane; Medication: 19:37 VIS not applicable for this client. rv Outcome: 20:36 Discharge ordered by . lian 20:53 Discharged to home ambulatory, rv 20:53 Condition: good 20:53 Discharge instructions given to patient, Instructed on discharge instructions, follow up and referral plans. Demonstrated understanding of instructions, follow-up care, 20:53 Patient left the ED. rv Signatures: Aicha Mason, NIB FINISHER-C NIB FINISHER-Terence King RN RN rv Yara Rodríguez, ASHLEY RN pf1 Nuvia Townsend Lacie RN lg3
--- NOTE | 2024-02-29 20:37 | EDPHYS ---
Physician Documentation [facility] Name: Micheal Murillo Age: 58 yrs Sex: Male : 1965 Arrival Date: 02/29/2024 Time: 18:46 Bed 7 Private MD: ED Physician Yuniel Navarro HPI: 02/28 20:43 This 58 yrs old Male presents to ER via Ambulatory with complaints of Problem With kb Urinary Catheter. 20:43 Pt is a 58 year old male who presents for suprapubic pain due to carmichael catheter not kb draining all day. States he has had a carmichael for about 5 weeks. states the carmichael drained last night, but hasn't drained at all today so he is having pain due to his bladder being full. Denies fever. . Historical: - Allergies: 19:23 NKA; pf1 - PMHx: 19:23 BPH (DVT); DVT; pf1 - PSHx: 19:23 None; pf1 - Immunization history:: Adult Immunizations not up to date, Client reports receiving the 1st dose of the Covid vaccine, Last tetanus immunization: > 10 years ago Flu vaccine is not up to date. - Infectious Disease History:: Denies. - Social history:: Smoking status: Patient reports the use of cigarette tobacco products, cigars, Patient uses alcohol, occasionally. Patient/guardian denies using street drugs. ROS: 20:42 Constitutional: As per HPI kb Exam: 20:42 Constitutional: This is a well developed, well nourished patient who is awake, alert, kb and in no acute distress. Head/Face: Normocephalic, atraumatic. ENT: Moist Mucous membranes Cardiovascular: Regular rate Respiratory: Respirations even and unlabored. No increased work of breathing. Talking in full sentences Skin: Warm, dry with normal turgor. Normal color. MS/ Extremity: Pulses equal, no cyanosis. Neurovascular intact. Full, normal range of motion. Neuro: Awake and alert, GCS 15, oriented to person, place, time, and situation. Moves all extremities. Normal gait. 20:42 Abdomen/GI: Inspection: abdomen appears normal, Bowel sounds: normal, Palpation: soft, in all quadrants, moderate abdominal tenderness, in the suprapubic area, Vital Signs: 19:19 BP 137 / 119; Pulse 107; Resp 16; Temp 98.2; Pulse Ox 99% ; Weight 61.23 kg; Height 5 pf1 ft. 6 in. ; Pain 10/10; 20:52 BP 131 / 93; Pulse 89; Resp 18; Temp 98; Pulse Ox 99% ; rv 19:19 Body Mass Index 21.79 (61.23 kg, 167.64 cm) pf1 19:19 Pain Scale: Adult pf1 Angeline Coma Score: 20:52 Eye Response: spontaneous(4). Motor Response: obeys commands(6). Verbal Response: rv oriented(5). Total: 15. MDM: 18:48 Patient medically screened. kb 20:43 Data reviewed: vital signs, nurses notes. kb 20:43 Differential diagnosis: Carmichael catheter problem. Counseling: I had a detailed discussion kb with the patient and/or guardian regarding the historical points, exam findings, and any diagnostic results supporting the discharge/admit diagnosis, the need for outpatient follow up, a urologist, to return to the emergency department if symptoms worsen or persist or if there are any questions or concerns that arise at home. ED course: Pt reports relief of pain after new carmichael placed and bladder emptied. . Administered Medications: 19:27 CANCELLED (Duplicate Order): dgaqbrbrt16 mg IM once lg3 19:37 Drug: Ketorolac IM 30 mg IM once Route: IM; Site: left deltoid; rv 20:52 Follow up: Response: No adverse reaction; Marked relief of symptoms rv 19:58 Drug: Winters PO 10 mg-325 mg 1 tabs PO once Route: PO; rv 20:52 Follow up: Response: No adverse reaction; Marked relief of symptoms rv 20:30 Drug: Lidocaine Mucous Membrane Gel 2 % 1 application Mucous Membrane once Route: rv Mucous Membrane; Disposition Summary: 02/29/24 20:36 Discharge Ordered Notes: Location: Home kb Condition: Stable kb Diagnosis - Mechanical complication of urinary (indwelling) catheter kb Followup: kb - With: Emergency Department - When: As needed - Reason: Worsening of condition Followup: kb - With: Private Physician - When: 2 - 3 days - Reason: Recheck today's complaints, Continuance of care, Re-evaluation by your physician Discharge Instructions: - Discharge Summary Sheet kb - Indwelling Urinary Catheter Care, Adult, Hxcj-qw-Dwmt kb Forms: - Medication Reconciliation Form kb - Antibiotic Education kb - Prescription Opioid Use kb - Patient Portal Instructions kb - Leadership Thank You Letter kb Signatures: Aicha Mason, SHIELA-C DIRECTOR FOOD AND BEVERAGE-Terence King, RN RN rv Alexia Gray RN RN lg3 Yara Rodríguez RN RN pf1 Corrections: (The following items were deleted from the chart) 19:27 19:25 Ketorolac IM 15 mg IM once ordered. lian lg3
[2024-02-29 21:25] VITALS: BP 131/93; TEMP 98; O2SAT 99
== END 2024-02-29 20:53 | disposition home or self-care (01) ==
LOC: ER 18:46
DX: T83.098A Other mechanical complication of other urinary catheter, initial encounter (principal)
CPT/HCPCS: 51702; 96372; 99284

== ENCOUNTER 2024-03-14 21:14 | Emergency (ER) | payer SELFPAY ==
--- OUTSIDE RECORDS SUMMARY | 2024-03-14 21:16 | XMS REPORT | Continuity of Care Document ---
Author Name Unknown Address [address] [facility] [address] [facility] [address] [place] [address] [facility] thconnect Address [address] [facility] [address] [place] [address] Care Team Providers Care Fruit Shipper Name Role Phone PCP, PATIENT DOES NOT HAVE A Primary Care Physic lidia Unavailable LACY SERVIN Attending Clinician Unavailable Lacy Servin MD Attending Clinician [phone] Yisel Tirado Attending Clinician Doctor Unassigned, Section Attending Clinician U navailable YISEL ROSE Attending Clinician Unavaila ble Payers Payer Name Policy Type Policy Number Effective Date Expirati on Date Source Problems Condition Name Condition Details Condition Category Status Onset Date Resolution Date Last Treatment Date Treating Clinician Comments Source DVT (deep venous thrombosis ) DVT (deep venous thrombosis ) Disease Active 04-07 00:00: 00 [facility] Lower limb ischemia Lower limb ischemia Disease Active 04-07 00:00: 00 [facility] PAD (periphera l artery disease) PAD (periphera l artery disease) Disease [facility] 04-07 00:00: 00 [facility] Smoker Smoker Disease [facility] 04-07 00:00: 00 [facility] Allergies, Adverse Reactions, Alerts Allergy Name Allergy Type Status Severity Reaction(s) Onset Date Inactive Date Treating Clinician Comments Source NO KNOWN ALLERGIE S Drug Class Active [facility] Social History Social Habit Start Date Stop Date Quantity Comments Source History of tobacco use Smokes tobacco daily [facility] Tobacco use and exposure 2023-12-25 00:00:00 2023-12-25 00:00:00 Smokeless tobacco non-user [facility] History of Social function 2023-12-25 00:00:00 2023-12-25 00:00:00 [facility] Sex assigned at 1965 00:00:00 1965 00:00:00 [facility] Smoking Status Start Date Stop Date Source Smokes tobacco daily 2023-12-25 00:00:00 [facility] Medications Ordered Medication Name Filled Medication Name Start Date Stop Date Current Medication? Ordering Clinician Indication Dosage Frequency Signature (SIG) Comments Components Source tamsulosin 0.4 mg 24 hr capsule 12-24 00:00: 00 Yes [id number] .4mg Take 1 capsule by mouth in the morning and 1 capsule in the evening. [facility] cefpodoxime 200 mg tablet 220 00:00: 00 Yes TAKE 1 TABLET BY MOUTH EVERY 12 HOURS WITH FOOD [facility] tamsulosin 0.4 mg 24 hr capsule 2022-1008 00:00: 00 12-24 00:00 :00 No TAKE 1 CAPSULE BY MOUTH EVERY DAY AT 6 PM [facility] ELIQUIS 5 mg tablet 2022-10 028 00:00: 00 Yes 5mg Take 1 tablet by mouth in the morning and 1 tablet in the evening. [facility] aspirin 81 mg chewable tablet 18 00:00: 00 Yes [id number] 81mg Take 1 tablet by mouth daily. [facility] Vital Signs Vital Name Observation Time Observation Value Comments S kiersten Systolic blood pressure 2023-12-25 15:10:00 135 mm[Hg] [facility] Diastolic blood pressure 2023-12-25 15:10:00 88 mm[Hg] [facility] Heart rate 2023-12-25 15:10:00 93 /min [facility] Respiratory rate 2023-12-25 15:10:00 18 /min [facility] Body height 2023-12-25 15:10:00 165.1 cm [facility] Body weight 2023-12-25 15:10:00 59.512 kg [facility] BMI 2023-12-25 15:10:00 21.83 kg/m2 [facility] Oxygen saturation in Arterial blood by Pulse oximetry 2023-12-25 15:10:00 100 /min [facility] Systolic blood pressure 2023-09-25 14:16:00 147 mm[Hg] [facility] Diastolic blood pressure 2023-09-25 14:16:00 95 mm[Hg] [facility] Heart rate 2023-09-25 14:16:00 93 /min [facility] Oxygen saturation in Arterial blood by Pulse oximetry 2023-09-25 14:16:00 100 /min [facility] Body temperature 2023-09-25 14:14:00 37.33 Ailyn [facility] Respiratory rate 2023-09-25 14:14:00 18 /min [facility] Body height 2023-09-25 14:14:00 170.2 cm [facility] Body weight 2023-09-25 14:14:00 60.328 kg [facility] BMI 2023-09-25 14:14:00 20.83 kg/m2 [facility] Procedures Procedure Date / Time Performed Performing Clinicia n Source EXTERNAL PROVIDER RECORDS 2024-01-04 05:01:00 Doctor Unassigned, Section [facility] THAIS,POST-VOID RES,US,NON-IMAGING 2023-12-25 15:19:00 Yisel Rose [facility] REFERRAL- REQUEST/RESPONSE 2023-10-25 06:01:00 Doctor Unassigned, Section [facility] CONSENT/REFUSAL FOR DIAGNOSIS AND TREATMENT 2023-09-25 14:03:55 Doctor Unassigned, Section [facility] REFERRAL- REQUEST/RESPONSE 2023-08-16 05:01:00 Doctor Unassigned, Section [facility] Encounters Start Date/Time End Date/Time Encounter Type Admission Type Attending Clinicians Care Facility Care Department Encounter ID Source 2024-02-28 00:00:00 2024-02-28 08:51:10 Telephone Lacy Servin [facility] 1.2.840.114 350.1.13.10 4.2.7.2.686 [id number] [facility] 2024-02-27 00:00:00 2024-02-28 08:25:39 Telephone Yisel Rose [facility] 1.2.840.114 350.1.13.10 4.2.7.2.686 [id number] [facility] 2024-01-14 09:00:00 2024-01-14 09:00:00 Outpatient R [facility] [id number] [facility] 2024-01-11 15:00:00 2024-01-11 15:00:00 Outpatient R [facility] [id number] [facility] 2024-01-04 00:00:00 2024-01-04 00:00:00 [facility] 1.2.840.114 350.1.13.10 4.2.7.2.686 [id number] [facility] 2024-01-04 00:00:00 2024-01-04 00:00:00 Orders Only Doctor Unassigned, Section [facility] 1.2.840.114 350.1.13.10 4.2.7.2.686 [id number] 009 [id number] [facility] 2023-12-25 09:00:00 2023-12-25 09:44:52 [facility] [id number] 2023-12-25 09:00:00 2023-12-25 09:44:52 [facility] 1.2.840.114 350.1.13.10 4.2.7.2.686 [id number] [facility] 2023-12-07 16:00:00 2023-12-07 16:00:00 [facility] [id number] [facility] 2023-11-01 11:00:00 2023-11-01 11:00:00 Outpatient Mavis ROSE, [facility] [id number] [facility] 2023-10-25 00:00:00 2023-10-25 00:00:00 Orders Only Doctor Unassigned, Section [facility] 1.840.114 350.1.13.10 4.2.7.2.686 [id number] [id number] [facility] 2023-10-17 00:00:00 2023-10-17 00:00:00 Telephone Malathi [facility] 1..114 350.1.13.10 4.2.7.2.686 [id number] [facility] 2023-09-25 08:00:00 2023-09-25 08:52:[address] [facility] [id number] [facility] 2023-09-25 08:00:00 2023-09-25 08:52:46 Office Visit Malathi [facility] 1.84.114 350.1.13.10 4.2.7.2.686 [id number] [facility] 2023-09-25 00:00:00 2023-09-25 00:00:00 Orders Only Doctor Unassigned, Section [facility] 1.84.114 350.1.13.10 4.2.7.2.686 [id number] [id number] [facility] 2023-08-16 00:00:00 2023-08-16 00:00:00 Orders Only Doctor Unassigned, Section [facility] 1.2.840.114 350.1.13.10 4.2.7.2.686 [id number] [facility] Results Test Description Test Time Test Comments Results Result Co mments Source [facility],US,TUQ-ATVAOTQ0290-26-05 15:19:00* Test Item Value Reference Range Interpretation Comme nts PVR (URINE VOLUME) (test code = 5193) 0 ml 0-100 [facility] Notes Date/Time Note Provider Source 2024-02-28 10:54:08 bhMMa8pSVq7OCAOg3qso 1DdwIc3O8UYN ZowDg9xWk1lAvUfe44MaRV0zyUoIfljh 0585-69-55F34:54:08 Patient will call back to schedule cysto 58043-0Kpughfshh encounter AleuLR7970-03-14X78:54:18Telepho ne encounter NoteTXT1.2.840.302534.1.13.104.2 .7.2.386806|[id number] e for patient akif14379-4HgkgTFCJQPTORLXZlyjgt emilia C-CDA narrative wnzm621723250Xtbkla L [address] GdfuQcwwcgaajQjkzxwzbcOJWT348376 0896IONVPABWYKITQHLRDDRCKB1826-4 5-09T10:54:181.2.840.040949.1.72 .3.15|1..840.088891.1.13.104.2. 7.2.727879_[id number] Radha Sahni [facility] 2024-02-28 10:50:00 hTahCs5aEPZUFz5+937C 207sWt5LgN3P Z00yBBr4oow6Hfe8Z6L3FpJRNOzIZC7n 5679-25-67Y45:50:00 Cost with RCO[place] [address]-3Rpkqgxtzt encounter DhvnNM2044-42-66K70:50:20Telepho ne encounter NoteTXT1.2.840.284425.1.13.104.2 .7.2.641432|[id number] e for patient oqaq51561-8BrofAYKRQJKJGHHJlvhos emilia C-CDA narrative textURO-UROLOGY STAFFURO-UROLOGY STAFF[address] 5591OHIWCNXCIRBMTIKUZFBPLW0343-1 02-27T10:50:201.2.840.300403.1.72 .3.15|1.2.840.798361.1.13.104.2. 7.2.727879_[id number] URO-UROLOGY STAFF [facility] 2024-02-28 08:49:11 MuvqkB86PutKZ1xwcPqn YsLYE6tl9iWU YPP5T2tcJle9Du7i8LlJvjRVxYTsZwLL 0492-37-21G51:49:11 Images from the original note were not included. 79908-1Wsjgrdsjz encounter VglqNX3634-11-37H44:51:10Telepho ne encounter NoteTXT1.2.840.101260.1.13.104.2 .7.2.774361|[id number] e for patient tzbh80444-3AfbgJAOFNRBFLUUWpqary emilia C-CDA narrative [id number] A Hall RN[address] 2862MPPJYMPVVDCBVBGJOOEPUE2493-5 08:51:101.2.840.366993.1.72 .3.15|1.2.840.464475.1.13.104.2. 7.2.727879_[id number] Jennifer Alvarado RN [facility] 2024-02-28 08:47:10 bXpUo5kq38SFj9BrSXT4 t1MGzLrcycTi BlThroHItM6Jdsg2fz4vvkEbjY4vSkx3 4648-84-13W62:47:10 Patient expressed interest in scheduling cysto. 2 PVR visits where missed by the patient.Can we schedule Cysto or does PVR nurse visit need to be done first?Please confirm 29911-3Gutvmnjwu encounter FrqcKW0586-91-24X28:48:00Telepho ne encounter NoteTXT1.2.840.707397.1.13.104.2 .7.2.383336|[id number] e for patient kdqe98821-6IqcuDSHYKAANUBTEpbcdf emilia NI narrative [id number] L [address] VczmXfckubsqjPretslrqfZPJH228026 4491BVYGJYBOJRFIJDLKYNNDPZ1718-9 08:48:001.2.840.672476.1.72 .3.15|1.2.840.123694.1.13.104.2. 7.2.727879_[id number] Radha Sahni [facility] 2024-02-28 08:25:08 DtIb73dukPymqRLV7l3B kdiarBbSnBRS Fz+FYfB0oyQNN95nyuFxIuB8S4vxf7Xd 8549-76-78F18:25:08 Attempted to contact patient to review questions. Patient states he will call back. 07963-4Kagvxxsaw encounter UowaFT7465-06-36U93:25:34Telepho ne encounter NoteTXT1.2.840.584755.1.13.104.2 .7.2.248164|[id number] e for patient cgkn51768-6DsrjAFLAHZIXJNHRwfwvj emilia C-CDA narrative vazc389375396Stttpx L [address] 3930RZRQCSAUJMQIRYQZZPSGKA1107-2 08:25:341.2.840.684383.1.72 .3.15|1.2.840.681056.1.13.104.2. 7.2.727879_[id number] Radha L [facility] 2024-02-27 17:02:58 VhbYr4JVlhtO+RbW/PyB J5WVbjawss5J A+IH2kf84Vwfq4N15g6E5lRSbcEKZw0p 2754-08-15Z94:02:58 Patient calling states he has discussed cystoscopy with Dr. Servin and wanting to get a burden. States he also has some other things he would like to discuss. 60747-8Nuatkyopf encounter VquuTD8975-13-28A23:05:35Telepho ne encounter NoteTXT1.2.840.906014.1.13.104.2 .7.2.540856|[id number] e for patient tdxk63794-7TakwNCCBZQEHQRHUluzby emilia C-CDA narrative [id number] Drew [address] 2606ZSQFDUNBKLKBMBYAJUQZPZ0931-8 :05:351.2.840.457098.1.72 .3.15|1.2.840.830914.1.13.104.2. 7.2.727879_[id number] Mercedes Akhtar [facility] 2024-01-04 08:51:57 pr5VdtC4m69KemOJ7My1 lAU0FkMXp5+U +W3I6+Z8IVyXOUFzPpvMJB2H9W2OVQ/8 1609-27-33A48:51:57 Dr. Delgado's office faxed in requested medical records. Uploaded into pts chart under external provider records dated 01/04/24. 49098-2Aqwrydtlb encounter SlpfUP3851-79-84R33:52:51Telepho ne encounter NoteTXT1.2.840.130014.1.13.104.2 .7.2.605726|[id number] e for patient rjim02957-1YhpsTHDMXVMKJVZFizfpg emilia Copeland-BOBBI narrative [id number] E [address] KxilYoggydurhKdbxthxxkGCZD017091 5167BPCTWNSDOHJRSGMHWAWKXG1768-4 3-15T08:52:511.2.840.908319.1.72 .3.15|1.2.840.723617.1.13.104.2. 7.2.727879_[id number] Little Gallo [facility] 2023-10-18 15:27:02 nOumYG4I4CCXrHh1pMWF sxb1tve8k2AL mEWTTLL1P/3qOEgtoLDSNHWhhU+XwQkd 1783-58-33R35:27:02 Call placed to patient. No answer, unable to leave message. 08741-9Bgvhpzhma encounter JrebEH1495-51-92H70:27:30Telepho ne encounter NoteTXT1.2.840.038522.1.13.104.2 .7.2.171759|[id number] e for patient peqd85167-2YrdrXCOLEULYWEPNytyco emilia C-CDA narrative [id number] [address] 6701QORUHKIPTGUALOAJLCTDWL7292-9 2-28T15:27:301.2.840.835076.1.72 .3.15|1.2.840.378611.1.13.104.2. 7.2.727879_[id number] Traci Lacy [facility] 2023-10-17 15:58:43 XhKJbKyHnSVhAtBSP1RH 2U9lhNjDnMHU 28PI55mbk4IQYiHmeGOj5vcvGDSWfm3a 2691-79-79N30:58:43 Pt is wanting information about his visit with Dr Servin on 09/25. He is asking if he needs to have a procedure scheduled.Please assist 72376-1Jshzblgfq encounter HdxpVA3237-15-52N72:02:11Telepho ne encounter NoteTXT1.2.840.760452.1.13.104.2 .7.2.707115|[id number] e for patient ydsu73466-1FxkeNVZTQMQOXNMFcqhjb emilia C-CDA narrative [id number] [address] 2881UMUGYIXADJCPWQYQCSTEAQ1514-4 2-27T16:02:111.2.840.058767.1.72 .3.15|1.2.840.720631.1.13.104.2. 7.2.727879_[id number] Sully Judge [facility]"
[2024-03-14] MEDS ORDERED: KETOROLAC 30 MG/ML INJ ONE (21:48)
[2024-03-14] MEDS ORDERED: HYDROCODONE/APAP 10/325 TAB ONE (21:48)
[2024-03-14] MEDS ORDERED: LIDOCAINE HCL JELLY 2% 6 ML SYRINGE TOP ONE (21:48)
[2024-03-15 00:06] LABS: Specific Gravity 1.019 (1.005-1.030); Sqamous Epithelial <5 /HPF (None Seen); Urine Bacteria <20 /HPF (<20); Urine Bilirubin NEGATIVE (Negative); Urine Blood 2+ (Negative); Urine Clarity Extremely Turbid (Clear); Urine Color Light-Orange (Yellow); Urine Culture Reflex Order REFLEXED; Urine Glucose NEGATIVE (Negative); Urine Ketones NEGATIVE (Negative); Urine Microscopic Reflex YN ORDER UMIC; Urine Mucus Slight /HPF (None Seen); Urine Nitrite NEGATIVE (Negative); Urine Protein 2+ (Negative); Urine RBC >50 /HPF (None Seen); Urine Urobilinogen Normal (Normal); Urine WBC >50 /HPF (<5); Urine WBC Clump Few /HPF (None Seen)
--- NOTE | 2024-03-15 00:20 | EDPHYS ---
Physician Documentation [facility] Name: Micheal Murillo Age: 58 yrs Sex: Male : 1965 Arrival Date: 03/14/2024 Time: 21:14 Bed 19 Private MD: ED Physician Arron Batres HPI: 03/14 23:52 This 58 yrs old Male presents to ER via EMS with complaints of Problem With Urinary kb Catheter. 23:52 Pt is a 58 year old male who presents for pain to penis and carmichael not draining. Pt kb states he normally has this same pain when his carmichael isn't draining. Denies fever. . Historical: - Allergies: 22:26 NKA; tl4 - Home Meds: 22:26 tamsulosin oral [Active]; Eliquis oral [Active]; tl4 - PMHx: 22:26 BPH (DVT); DVT; tl4 - Immunization history:: Adult Immunizations unknown. - Infectious Disease History:: Denies. - Social history:: Smoking status: Patient reports the use of cigarette tobacco products, smokes one-half pack cigarettes per day. ROS: 23:50 Constitutional: As per HPI kb Exam: 23:50 Constitutional: This is a well developed, well nourished patient who is awake, alert, kb and in no acute distress. Head/Face: Normocephalic, atraumatic. ENT: Moist Mucous membranes Cardiovascular: Regular rate Respiratory: Respirations even and unlabored. No increased work of breathing. Talking in full sentences Abdomen/GI: Soft, non-tender. No distention Skin: Warm, dry with normal turgor. Normal color. MS/ Extremity: Pulses equal, no cyanosis. Neurovascular intact. Full, normal range of motion. Neuro: Awake and alert, GCS 15, oriented to person, place, time, and situation. Moves all extremities. Normal gait. Vital Signs: 21:20 BP 147 / 93; Pulse 51; Resp 18; Temp 99(O); Pulse Ox 100% on R/A; Weight 61.23 kg; tl4 Height 5 ft. 6 in. ; Pain 10/10; 21:38 vk 03/15 00:30 BP 133 / 89; Pulse 60; Resp 16; Temp 98.9; Pulse Ox 100% on R/A; Pain 4/10; pf1 03/14 21:20 Body Mass Index 21.79 (61.23 kg, 167.64 cm) tl4 03/14 21:20 Pain Scale: Adult tl4 03/15 00:30 Pain Scale: Adult pf1 03/14 21:38 patient refused vitals vk MDM: 21:17 Patient medically screened. kb 23:51 Differential diagnosis: UTI, carmichael catheter malfunction. Data reviewed: vital signs, kb nurses notes. 23:52 Historians other than the Patient: EMS: [facility]. Counseling: I had a detailed kb discussion with the patient and/or guardian regarding the historical points, exam findings, and any diagnostic results supporting the discharge/admit diagnosis, lab results, the need for outpatient follow up, a urologist, to return to the emergency department if symptoms worsen or persist or if there are any questions or concerns that arise at home. ED course: Nurse placed new carmichael and reports cloudy urine. Urinalysis ordered. 03/14 22:57 Order name: Urinalysis w/ reflexes; Complete Time: 00:19 kb 03/15 00:10 Order name: Urine Culture EDAL 03/14 21:20 Order name: Carmichael: replace carmichael; Complete Time: 22:59 kb Administered Medications: 21:54 Drug: Lynbrook PO 10 mg-325 mg 1 tabs PO once Route: PO; tl4 22:30 Follow up: Response: No adverse reaction; Pain is decreased tl4 21:55 Drug: Ketorolac IM 30 mg IM once Route: IM; Site: right deltoid; tl4 22:30 Follow up: Response: No adverse reaction; Pain is decreased tl4 22:58 Drug: Lidocaine Mucous Membrane Gel 2 % 1 application Mucous Membrane once Route: tl4 Mucous Membrane; 03/15 00:43 Drug: Amoxicillin-Clavulanate PO 875 mg PO once Route: PO; pf1 00:48 Follow up: Response: No adverse reaction pf1 Disposition Summary: 03/15/24 00:20 Discharge Ordered Notes: Location: Home kb Condition: Stable kb Diagnosis - Mechanical complication of urinary (indwelling) catheter kb - UTI/ Urinary tract infection, site not specified kb Followup: kb - With: Emergency Department - When: As needed - Reason: Worsening of condition Followup: kb - With: Private Physician - When: 2 - 3 days - Reason: Recheck today's complaints, Continuance of care, Re-evaluation by your physician Discharge Instructions: - Discharge Summary Sheet kb - Urinary Tract Infection, Adult, Fyps-dw-Beph kb - Indwelling Urinary Catheter Care, Adult, Rsrs-ko-Hbel kb Forms: - Medication Reconciliation Form kb - Antibiotic Education kb - Prescription Opioid Use kb - Patient Portal Instructions kb - Leadership Thank You Letter kb Prescriptions: - Augmentin 875-125 mg Oral Tablet - take 1 tablet ORAL route every 12 hours for 10 days; 20 tablet; Refills: 0, kb Product Selection Permitted Signatures: Dispatcher [employer] EDAL Aicha Mason, ENGINEERING AND SCIENTIFIC PROGRAMMER-C ENGINEERING AND SCIENTIFIC PROGRAMMER-Yara Mcgrath RN RN pf1 Emery Allen RN RN tl4
--- NOTE | 2024-03-15 00:20 | ER ---
Nurse's Notes [facility] Name: Micheal Murillo Age: 58 yrs Sex: Male : 1965 Arrival Date: 03/14/2024 Time: 21:14 Bed 19 Private MD: Diagnosis: Mechanical complication of urinary (indwelling) catheter;UTI/ Urinary tract infection, site not specified Presentation: 03/14 21:20 Chief complaint: Patient states: Pt c/o pain in the tip of his penis. Last carmichael change tl4 approx 3 weeks ago. Coronavirus screen: At this time, the client does not indicate any symptoms associated with coronavirus-19. Ebola Screen: No symptoms or risks identified at this time. Initial Sepsis Screen: Does the patient meet any 2 criteria? No. Patient's initial sepsis screen is negative. Does the patient have a suspected source of infection? No. Patient's initial sepsis screen is negative. Risk Assessment: Do you want to hurt yourself or someone else? Patient reports no desire to harm self or others. Onset of symptoms was March 14, 2024. 21:20 Method Of Arrival: EMS: [facility] tl4 21:20 Acuity: TORRIE 3 tl4 Triage Assessment: 21:25 General: Appears uncomfortable, Behavior is cooperative, anxious. Pain: Complains of tl4 pain in penis. EENT: No signs and/or symptoms were reported regarding the EENT system. Neuro: Level of Consciousness is awake, alert, obeys commands, Oriented to person, place, time, situation, Moves all extremities. Full function Gait is steady, Speech is normal, Facial symmetry appears normal. Cardiovascular: Capillary refill < 3 seconds Patient's skin is warm and dry. Respiratory: Airway is patent Respiratory effort is even, unlabored, Respiratory pattern is regular, symmetrical, Breath sounds are clear bilaterally. GI: No signs and/or symptoms were reported involving the gastrointestinal system. : Reports inability to void, pain penis. Derm: No signs and/or symptoms reported regarding the dermatologic system. Musculoskeletal: No signs and/or symptoms reported regarding the musculoskeletal system. Historical: - Allergies: 22:26 NKA; tl4 - Home Meds: 22:26 tamsulosin oral [Active]; Eliquis oral [Active]; tl4 - PMHx: 22:26 BPH (DVT); DVT; tl4 - Immunization history:: Adult Immunizations unknown. - Infectious Disease History:: Denies. - Social history:: Smoking status: Patient reports the use of cigarette tobacco products, smokes one-half pack cigarettes per day. Screenin:29 [facility] ED Fall Risk Assessment (Adult) History of falling in the last 3 months, tl4 including since admission No falls in past 3 months (0 pts) Confusion or Disorientation No (0 pts) Intoxicated or Sedated No (0 pts) Impaired Gait No (0 pts) Mobility Assist Device Used No (0 pt) Altered Elimination No (0 pt) Score/Fall Risk Level 0 - 2 = Low Risk Oriented to surroundings, Maintained a safe environment, Educated pt \T\ family on fall prevention, incl call for assistance when getting out of bed, Assessed \T\ reinforced patient's understanding of fall precautions. Abuse screen: Denies threats or abuse. Denies injuries from another. Nutritional screening: No deficits noted. Tuberculosis screening: No symptoms or risk factors identified. Assessment: 23:25 Reassessment: Patient and/or family updated on plan of care and expected duration. Pain tl4 level reassessed. Patient is alert, oriented x 3, equal unlabored respirations, skin warm/dry/pink. Pt states he is feeling better. Large drainage bag removed and replaced with a new leg bag. Carmichael care discussed with patient. He acknowledges understanding Patient states feeling better. 03/15 00:30 Reassessment: Patient appears in no apparent distress at this time. Patient and/or pf1 family updated on plan of care and expected duration. Pain level reassessed. Patient is alert, oriented x 3, equal unlabored respirations, skin warm/dry/pink. Patient states feeling better. Patient states symptoms have improved. Vital Signs: 03/14 21:20 BP 147 / 93; Pulse 51; Resp 18; Temp 99(O); Pulse Ox 100% on R/A; Weight 61.23 kg; tl4 Height 5 ft. 6 in. ; Pain 10/10; 21:38 vk 03/15 00:30 BP 133 / 89; Pulse 60; Resp 16; Temp 98.9; Pulse Ox 100% on R/A; Pain 4/10; pf1 03/14 21:20 Body Mass Index 21.79 (61.23 kg, 167.64 cm) tl4 03/14 21:20 Pain Scale: Adult tl4 03/15 00:30 Pain Scale: Adult pf1 03/14 21:38 patient refused vitals vk ED Course: 21:15 Patient arrived in ED. cm10 21:17 Aicha Mason FNP-C [facility] kb 21:17 Arron Batres MD is Attending Physician. kb 21:40 Emery Allen, ASHLEY is Primary Nurse. tl4 21:57 Triage completed. tl4 22:29 Patient has correct armband on for positive identification. Bed in low position. Call tl4 light in reach. Provided Education on: ED process, call heard. Door closed. Noise minimized. Moved to private room. 22:30 No provider procedures requiring assistance completed. Patient did not have IV access tl4 during this emergency room visit. 22:59 Carmichael cath inserted, using sterile technique, 16 Fr., by ia, balloon inflated, urine tl4 specimen collected. 23:27 Arm band placed on right wrist. tl4 03/15 00:10 Report given to ASHLEY Mendez. tl4 Administered Medications: 03/14 21:54 Drug: [place] PO 10 mg-325 mg 1 tabs PO once Route: PO; tl4 22:30 Follow up: Response: No adverse reaction; Pain is decreased tl4 21:55 Drug: Ketorolac IM 30 mg IM once Route: IM; Site: right deltoid; tl4 22:30 Follow up: Response: No adverse reaction; Pain is decreased tl4 22:58 Drug: Lidocaine Mucous Membrane Gel 2 % 1 application Mucous Membrane once Route: tl4 Mucous Membrane; 03/15 00:43 Drug: Amoxicillin-Clavulanate PO 875 mg PO once Route: PO; pf1 00:48 Follow up: Response: No adverse reaction pf1 Medication: 03/14 23:26 VIS not applicable for this client. tl4 Outcome: 03/15 00:20 Discharge ordered by . kb 00:49 Discharged to home ambulatory, pf1 00:49 Condition: improved 00:49 Discharge instructions given to patient, Instructed on discharge instructions, follow up and referral plans. Demonstrated understanding of instructions, follow-up care, medications, Prescriptions given X 1, 00:49 Patient left the ED. pf1 Signatures: Aicha Mason FNP-C FNP-Yara Mcgrath RN RN pf1 Sherie Ferrera, RN RN cm10 Emery Allen, RN RN tl4 Chloe Marsh vk
[2024-03-15] MEDS ORDERED: AMOX/K CLAV 875 MG TAB ONE (00:41)
[2024-03-15 01:15] VITALS: BP 133/89; TEMP 98.9; O2SAT 100
== END 2024-03-15 00:49 | disposition home or self-care (01) ==
LOC: ER 21:14
PROC: 0T2BX0Z Change Drainage Device in Bladder, External Approach (ICD-10-PCS; principal; 2024-03-15)
DX: T83.098A Other mechanical complication of other urinary catheter, initial encounter (principal); N39.0 Urinary tract infection, site not specified
CPT/HCPCS: 51702; 81001; 87077; 87086; 87088; 87186; 96372; 99285

== ENCOUNTER 2024-04-05 09:56 | Emergency (ER) | payer SELFPAY ==
--- OUTSIDE RECORDS SUMMARY | 2024-04-05 09:59 | XMS REPORT | Continuity of Care Document ---
Author Name Unknown Address [address] [place] [address] [facility] thconnect Address [address] [place] [address] Care Team Providers Care Client Service Associate Name Role Phone PCP, PATIENT DOES NOT HAVE A Primary Care Physic lidia Unavailable LACY SERVIN Attending Clinician Unavailable Lacy Servin MD Attending Clinician Yisel Tirado Attending Clinician [phone] Doctor Unassigned, [place] Attending Clinician U navailable YISEL ROSE Attending Clinician Unavaila ble Payers Payer Name Policy Type Policy Number Effective Date Expirati on Date Source Problems Condition Name Condition Details Condition Category Status Onset Date Resolution Date Last Treatment Date Treating Clinician Comments Source DVT (deep venous thrombosis ) DVT (deep venous thrombosis ) Disease Active 04-07 00:00: 00 [facility] Lower limb ischemia Lower limb ischemia Disease Active 04-07 00:00: 00 [facility] PAD (periphera l artery disease) PAD (periphera l artery disease) Disease [facility] 04-07 00:00: 00 [facility] Smoker Smoker Disease [facility] 04-07 00:00: 00 [facility] Allergies, Adverse Reactions, Alerts Allergy Name Allergy Type Status Severity Reaction(s) Onset Date Inactive Date Treating Clinician Comments Source NO KNOWN ALLERGIE S Drug Class Active [facility] Social History Social Habit Start Date Stop Date Quantity Comments Source History of tobacco use Smokes tobacco daily [facility] Tobacco use and exposure 2023-12-25 00:00:00 2023-12-25 00:00:00 Smokeless tobacco non-user [facility] History of Social function 2023-12-25 00:00:00 2023-12-25 00:00:00 [facility] Sex assigned at 1965 00:00:00 1965 00:00:00 [facility] Smoking Status Start Date Stop Date Source Smokes tobacco daily 2023-12-25 00:00:00 [facility] Medications Ordered Medication Name Filled Medication Name Start Date Stop Date Current Medication? Ordering Clinician Indication Dosage Frequency Signature (SIG) Comments Components Source tamsulosin 0.4 mg 24 hr capsule 12-24 00:00: 00 Yes [id number] .4mg Take 1 capsule by mouth in the morning and 1 capsule in the evening. [facility] cefpodoxime 200 mg tablet 220 00:00: 00 Yes TAKE 1 TABLET BY MOUTH EVERY 12 HOURS WITH FOOD [facility] tamsulosin 0.4 mg 24 hr capsule 2022-1008 00:00: 00 12-24 00:00 :00 No TAKE 1 CAPSULE BY MOUTH EVERY DAY AT 6 PM [facility] ELIQUIS 5 mg tablet 2022-10 028 00:00: 00 Yes 5mg Take 1 tablet by mouth in the morning and 1 tablet in the evening. [facility] aspirin 81 mg chewable tablet 18 00:00: 00 Yes [id number] 81mg Take 1 tablet by mouth daily. [facility] Vital Signs Vital Name Observation Time Observation Value Comments S kiersten Systolic blood pressure 2023-12-25 15:10:00 135 mm[Hg] [facility] Diastolic blood pressure 2023-12-25 15:10:00 88 mm[Hg] [facility] Heart rate 2023-12-25 15:10:00 93 /min [facility] Respiratory rate 2023-12-25 15:10:00 18 /min [facility] Body height 2023-12-25 15:10:00 165.1 cm [facility] Body weight 2023-12-25 15:10:00 59.512 kg [facility] BMI 2023-12-25 15:10:00 21.83 kg/m2 [facility] Oxygen saturation in Arterial blood by Pulse oximetry 2023-12-25 15:10:00 100 /min [facility] Systolic blood pressure 2023-09-25 14:16:00 147 mm[Hg] [facility] Diastolic blood pressure 2023-09-25 14:16:00 95 mm[Hg] [facility] Heart rate 2023-09-25 14:16:00 93 /min [facility] Oxygen saturation in Arterial blood by Pulse oximetry 2023-09-25 14:16:00 100 /min [facility] Body temperature 2023-09-25 14:14:00 37.33 Ailyn [facility] Respiratory rate 2023-09-25 14:14:00 18 /min [facility] Body height 2023-09-25 14:14:00 170.2 cm [facility] Body weight 2023-09-25 14:14:00 60.328 kg [facility] BMI 2023-09-25 14:14:00 20.83 kg/m2 [facility] Procedures Procedure Date / Time Performed Performing Clinicia n Source EXTERNAL PROVIDER RECORDS 2024-01-04 05:01:00 Doctor Unassigned, [place] [facility] THAIS,POST-VOID RES,US,NON-IMAGING 2023-12-25 15:19:00 Yisel Rose [facility] REFERRAL- REQUEST/RESPONSE 2023-10-25 06:01:00 Doctor Unassigned, [place] [facility] CONSENT/REFUSAL FOR DIAGNOSIS AND TREATMENT 2023-09-25 14:03:55 Doctor Unassigned, [place] [facility] REFERRAL- REQUEST/RESPONSE 2023-08-16 05:01:00 Doctor Unassigned, [place] [facility] Encounters Start Date/Time End Date/Time Encounter Type Admission Type Attending Clinicians Care Facility Care Department Encounter ID Source 2024-03-27 00:00:00 2024-03-27 13:36:15 Telephone Lacy Servin [facility] 1.2.840.114 350.1.13.10 4.2.7.2.686 [id number] [facility] 2024-02-28 00:00:00 2024-02-28 08:51:10 Telephone Lacy Servin [facility] 1.2.840.114 350.1.13.10 4.2.7.2.686 [id number] [facility] 2024-02-27 00:00:00 2024-02-28 08:25:39 [facility] 1.2.840.114 350.1.13.10 4.2.7.2.686 [id number] [facility] 2024-01-14 09:00:00 2024-01-14 09:00:00 Outpatient [facility] [id number] [facility] 2024-01-11 15:00:00 2024-01-11 15:00:00 [facility]patient [facility] [id number] [facility] 2024-01-04 00:00:00 2024-01-04 00:00:00 Telephone Lizzy Rosetney [facility] 1.2.840.114 350.1.13.10 4.2.7.2.686 [id number] [facility] 2024-01-04 00:00:00 2024-01-04 00:00:00 Orders Only Doctor Unassigned, [place] [facility] 1.2.840.114 350.1.13.10 4.2.7.2.686 [id number] 009 [id number] [facility] 2023-12-25 09:00:00 2023-12-25 09:44:52 [facility] [id number] [facility] 2023-12-25 09:00:00 2023-12-25 09:44:52 Office [facility] 1.84.114 350.1.13.10 4.2.7.2.686 [id number] [facility] 2023-12-07 16:00:00 2023-12-07 16:00:00 [facility] [id number] 2023-11-01 11:00:00 2023-11-01 11:00:00 [facility] [id number] 2023-10-25 00:00:00 2023-10-25 00:00:00 Orders Only Doctor Unassigned, [place] [facility] 1.84.114 350.1.13.10 4.2.7.2.686 [id number] [id number] [facility] 2023-10-17 00:00:00 2023-10-17 00:00:00 Telephone [facility] 1.84.114 350.1.13.10 4.2.7.2.686 [id number] [facility] 2023-09-25 08:00:00 2023-09-25 08:52:46 Outpatient R [facility] [id number] [facility] 2023-09-25 08:00:00 2023-09-25 08:52:46 Office Visit [facility] 1..114 350.1.13.10 4.2.7.2.686 [id number] [facility] 2023-09-25 00:00:00 2023-09-25 00:00:00 Orders Only Doctor Unassigned, [place] [facility] 1.2.840.114 350.1.13.10 4.2.7.2.686 [id number] [id number] [facility] 2023-08-16 00:00:00 2023-08-16 00:00:00 Orders Only Doctor Unassigned, [place] [facility] 1.2.840.114 350.1.13.10 4.2.7.2.686 [id number] [id number] [facility] Results Test Description Test Time Test Comments Results Result Co mments Source [facility], 15:19:00* Test Item Value Reference Range Interpretation Comme nts PVR (URINE VOLUME) (test code = 5193) 0 ml 0-100 [facility] Notes Date/Time Note Provider Source 2024-02-28 10:54:08 3977-45-89Z62:54:08F ormatting of this note might be different from the original.Patient will call back to schedule cysto 30802-6Nlrlcnbvb encounter PlerXB8345-43-13I07:54:18Telepho ne encounter NoteTXT1.2.840.368416.1.13.104.2 .7.2.363398|[id number] e for patient tnjp39349-9UjxtFXLDIBSLCHVWnassz emilia C-CDA narrative [id number] L [address] CworUcygaqcopZdxvabdouQGAT513748 4706BYFETEQUGINFQCDWFQOILK9063-0 5-09T10:54:181.2.840.747153.1.72 .3.15|1.2.840.602351.1.13.104.2. 7.2.727879_[id number] Radha Sahni [facility] 2024-02-28 10:50:00 4800-53-94M70:50:00F ormatting of this note might be different from the original.Cost with RCO. Otherwise offer RTC 53583-9Odqmndaqt encounter ZcgiLK9874-57-46I30:50:20Telepho ne encounter NoteTXT1.2.840.953112.1.13.104.2 .7.2.441034|[id number] e for patient yaay28977-8CzjxCVKYUPRMAPTUpgydd emilia C-CDA narrative textURO-UROLOGY STAFFURO-UROLOGY STAFF[address] 2527UXHAXJFQLZDQZMUMFWPGKM4550-8 0:50:201.2.840.229436.1.72 .3.15|1.2.840.519024.1.13.104.2. 7.2.727879_[id number] URO-UROLOGY STAFF [facility] 2024-02-28 08:49:11 7195-89-96X46:49:11F ormatting of this note might be different from the original.Images from the original note were not included. 52981-5Enrzcvakz encounter EkeaNM1466-81-35I80:51:10Telepho ne encounter NoteTXT1.2.840.874161.1.13.104.2 .7.2.072877|[id number] e for patient jyhc37748-1DmzcXKOUHBRAARYZisaeg emilia C-CDA narrative [id number] A Hall RN[address]TX[address] 1296PLUHOFBLGJJHMQYADUBOPJ3294-8 08:51:101.2.840.885055.1.72 .3.15|1.2.840.891765.1.13.104.2. 7.2.727879_[id number] Jennifer Alvarado RN [facility] 2024-02-28 08:47:10 7262-86-54R60:47:10F ormatting of this note might be different from the original.Patient expressed interest in scheduling cysto. 2 PVR visits where missed by the patient.Can we schedule Cysto or does PVR nurse visit need to be done first?Please confirm 49026-6Fgnzglhrv encounter TzroIQ9465-68-20N30:48:00Telepho ne encounter NoteTXT1.2.840.342551.1.13.104.2 .7.2.445895|[id number] e for patient nsky51726-2IhlcBTBVUOYQMQSVapeim emilia C-CDA narrative [id number] L [address] CdvhXfuvrmjbnGclzjntqdLAIJ110314 2659JAWUGYDRBSMWFAAJGDMQLP5901-6 02-27T08:48:001.2.840.130177.1.72 .3.15|1.2.840.942099.1.13.104.2. 7.2.727879_[id number] Radha Sahni [facility] 2024-02-28 08:25:08 8111-31-11S64:25:08F ormatting of this note might be different from the original.Attempted to contact patient to review questions. Patient states he will call back. 87018-9Xhizpprme encounter SyuoUP5412-89-65I06:25:34Telepho ne encounter NoteTXT1.2.840.857145.1.13.104.2 .7.2.727536|[id number] e for patient fohk27118-4UdqhWHFIMJGEPCUYdrtsr emilia C-CDA narrative [id number] L [address] 3911JKPTRGZYLLLVPUJZZPZOIY3520-6 5-09T08:25:341.2.840.857014.1.72 .3.15|1.2.840.572691.1.13.104.2. 7.2.727879_[id number] Radha Russell [facility] 2024-02-27 17:02:58 7691-37-47H61:02:58F ormatting of this note might be different from the original.Patient calling states he has discussed cystoscopy with Dr. Servin and wanting to get a burden. States he also has some other things he would like to discuss. 68711-0Otnedakow encounter XwwsJW1061-03-43R49:05:35Telepho ne encounter NoteTXT1.2.840.107713.1.13.104.2 .7.2.226326|[id number] e for patient geae50751-3XmgfVTCZAAYPGOEHzedng emilia C-CDA narrative efsr03782895Knmktj L [address] 0079OSFAVCGPGGOXIFOIGIJZTU4354-6 5-08T17:05:351.2.840.344183.1.72 .3.15|1.2.840.471668.1.13.104.2. 7.2.727879_[id number] Mercedes Hernandezolsby [facility] 2024-01-04 08:51:57 7200-87-51G21:51:57F ormatting of this note might be different from the original.Dr. Delgado's office faxed in requested medical records. Uploaded into pts chart under external provider records dated 01/04/24. 61173-9Mxjjvlrfh encounter EnsjSZ9598-67-22F40:52:51Telepho ne encounter NoteTXT1.2.840.891544.1.13.104.2 .7.2.291512|[id number] e for patient lika75141-5JwziXCEZVMXGRYXUfjefh emilia C-CDA narrative [id number] E [address] 9190ADNSSIFKKCAQBJKSRZREKL2630-9 08:52:511.2.840.678252.1.72 .3.15|1.2.840.505858.1.13.104.2. 7.2.727879_[id number] [facility] 2023-10-18 15:27:02 6544-59-43X99:27:02F ormatting of this note might be different from the original.Call placed to patient. No answer, unable to leave message. 02967-9Ifqazjrrf encounter WszoYJ9502-37-69T78:27:30Telepho ne encounter NoteTXT1.2.840.935733.1.13.104.2 .7.2.417722|[id number] e for patient wfdr50544-4ItsdFUIMUEVFQMGRdsrjk emilia C-CDA narrative [id number] Mulcare [address] 2165PSDBRGTBZGZROYBYLJYUGX9399-6 12-19T15:27:301.2.840.808502.1.72 .3.15|1.2.840.030413.1.13.104.2. 7.2.727879_[id number] Traci Lacy [facility] 2023-10-17 15:58:43 1364-98-55Z81:58:43F ormatting of this note might be different from the original.Pt is wanting information about his visit with Dr Servin on 09/25. He is asking if he needs to have a procedure scheduled.Please assist 09752-1Mpnebellv encounter RefxBO4233-87-21H90:02:11Telepho ne encounter NoteTXT1.2.840.579289.1.13.104.2 .7.2.389780|[id number] e for patient obbs34310-2HxjwNKEWDZOQRSVDahoov emilia NI narrative [id number] [address] LbpfOlmstyadvZbwmdfkbzAEHT367833 9761SSJYINOXLLHAFTTZRRSJLM6408-3 :02:111.2.840.892845.1.72 .3.15|1.2.840.201081.1.13.104.2. 7.2.727879_[id number] Sully Robertsonedon [facility]"
[2024-04-05] MEDS ORDERED: HYDROCODONE/APAP 10/325 TAB ONE (10:39)
[2024-04-05] MEDS ORDERED: LIDOCAINE HCL JELLY 2% 6 ML SYRINGE TOP ONE (10:41)
[2024-04-05 11:14] LABS: Sqamous Epithelial None Seen /HPF (None Seen); Urine Bacteria 20-50 /HPF (<20); Urine Bilirubin NEGATIVE (Negative); Urine Blood Negative (Negative); Urine Clarity Extremely Turbid (Clear); Urine Color Yellow (Yellow); Urine Culture Reflex Order REFLEXED; Urine Glucose NEGATIVE (Negative); Urine Ketones NEGATIVE (Negative); Urine Microscopic Reflex YN ORDER UMIC; Urine Nitrite 1+ (Negative); Urine Protein TRACE (Negative); Urine Urobilinogen Normal (Normal); Urine WBC >50 /HPF (<5); Urine pH 7.5 (5.0-7.0)
--- NOTE | 2024-04-05 11:17 | ER ---
Nurse's Notes [facility] Name: Micheal Murillo Age: 58 yrs Sex: Male : 1965 Arrival Date: 04/05/2024 Time: 09:56 Bed 12 Private MD: Diagnosis: UTI/ Urinary tract infection, site not specified Presentation: 04/05 10:13 Chief complaint: Patient states: Needs catheter changed, reports mild lower abdominal ph and penile pain, last changed 03/15. Coronavirus screen: Vaccine status: Patient reports being unvaccinated. Ebola Screen: No symptoms or risks identified at this time. 10:13 Method Of Arrival: Ambulatory ph 10:22 Initial Sepsis Screen: Does the patient meet any 2 criteria? No. Patient's initial ph sepsis screen is negative. Does the patient have a suspected source of infection? No. Patient's initial sepsis screen is negative. Risk Assessment: Do you want to hurt yourself or someone else? Patient reports no desire to harm self or others. Onset of symptoms was April 05, 2024. 10:22 Acuity: TORRIE 4 ph Triage Assessment: 10:22 General: Appears in no apparent distress. Behavior is calm, cooperative. Pain: ph Complains of pain in pelvis. : Bautista in place to gravity drainage. Historical: - Allergies: 10:17 NKA; ph - Home Meds: 10:17 Eliquis oral [Active]; tamsulosin oral [Active]; tamsulosin oral [Active]; ph - PMHx: 10:17 BPH (DVT); DVT; ph - Immunization history:: Adult Immunizations unknown. - Infectious Disease History:: Denies. - Social history:: Smoking status: Patient reports the use of cigarette tobacco products, smokes one pack cigarettes per day. Screenin:40 [facility] ED Fall Risk Assessment (Adult) History of falling in the last 3 months, hb including since admission No falls in past 3 months (0 pts) Confusion or Disorientation No (0 pts) Intoxicated or Sedated No (0 pts) Impaired Gait No (0 pts) Mobility Assist Device Used No (0 pt) Altered Elimination No (0 pt) Score/Fall Risk Level 0 - 2 = Low Risk Oriented to surroundings, Maintained a safe environment, Educated pt \T\ family on fall prevention, incl call for assistance when getting out of bed, Assessed \T\ reinforced patient's understanding of fall precautions. Abuse screen: Denies threats or abuse. Denies injuries from another. Nutritional screening: No deficits noted. Tuberculosis screening: No symptoms or risk factors identified. Assessment: 10:40 General: Appears in no apparent distress. Behavior is cooperative, anxious, restless. hb Pain: Pain currently is 7 out of 10 on a pain scale. Neuro: Level of Consciousness is awake, alert, obeys commands, Oriented to person, place, time, situation. Cardiovascular: Patient's skin is warm and dry. Respiratory: Respiratory effort is even, unlabored, Respiratory pattern is regular, symmetrical. : Bautista in place Reports pain. Vital Signs: 10:13 Resp 18; Weight 65.77 kg; Height 5 ft. 5 in. ; ph 10:22 BP 172 / 102; Pulse 85; Resp 18; Temp 97.9; Pulse Ox 97% on R/A; ph 10:13 Body Mass Index 24.13 (65.77 kg, 165.1 cm) ph ED Course: 09:58 Patient arrived in ED. [facility] 09:58 [facility] F[facility] 09:58 Cristian Godinez MD is Attending Physician. [facility] 10:18 Arm band placed on Patient placed in an exam room. ph 10:22 Triage completed. ph 10:40 Patient has correct armband on for positive identification. Provided Education on: hb tests, wait time, use of call light. 10:40 No provider procedures requiring assistance completed. Patient did not have IV access hb during this emergency room visit. 10:50 Bautitsa cath removed intact, balloon deflated. hb 10:53 Bautista cath inserted, using sterile technique, 16 Fr., by ne, balloon inflated, to hb gravity drainage, urine specimen collected. 11:02 Ayanna Champagne, RN is Primary Nurse. hb 11:02 Urinalysis w/ reflexes Sent. hb Administered Medications: 10:40 Drug: [place] PO 10 mg-325 mg 1 tabs PO once Route: PO; hb Medication: 10:40 VIS not applicable for this client. hb Outcome: 11:16 Discharge ordered by . [facility] 11:52 Patient left the ED. hb Signatures: Gina Alvarado RN RN Ayanna Champagne RN RN Vesna Thakkar rg4 Dian Parker, LAP LAYER LAP LAYER jh7
--- NOTE | 2024-04-05 11:17 | EDPHYS ---
Physician Documentation [facility] Name: Micheal Murillo Age: 58 yrs Sex: Male : 1965 Arrival Date: 04/05/2024 Time: 09:56 Bed 12 Private MD: ED Physician Cristian Godinez HPI: 04/05 09:58 This 58 yrs old Male presents to ER via Unassigned with complaints of Problem With [facility] Urinary Catheter. 09:58 Onset: The symptoms/episode began/occurred 1 day(s) ago. 58-year-old male with a past [facility] medical history of BPH presents to the ER for needing his Carmichael replaced. He reports that it feels like his Carmichael is clogged and that he is starting to develop pain. He reports that he is going to get a urethrogram in 2 weeks. Denies fever or hematuria.. Historical: - Allergies: 10:17 NKA; ph - Home Meds: 10:17 Eliquis oral [Active]; tamsulosin oral [Active]; tamsulosin oral [Active]; ph - PMHx: 10:17 BPH (DVT); DVT; ph - Immunization history:: Adult Immunizations unknown. - Infectious Disease History:: Denies. - Social history:: Smoking status: Patient reports the use of cigarette tobacco products, smokes one pack cigarettes per day. ROS: 09:58 Constitutional: Per HPI jh7 Exam: 09:58 Constitutional: This is a well developed, well nourished patient who is awake, alert, jh7 and in no acute distress. Head/Face: Normocephalic, atraumatic. Neck: Trachea midline, no thyromegaly or masses palpated, and no cervical lymphadenopathy. Supple, full range of motion without nuchal rigidity, or vertebral point tenderness. No Meningismus. Cardiovascular: Regular rate and rhythm with a normal S1 and S2. No gallops, murmurs, or rubs. Normal PMI, no JVD. No pulse deficits. Respiratory: Lungs have equal breath sounds bilaterally, clear to auscultation and percussion. No rales, rhonchi or wheezes noted. No increased work of breathing, no retractions or nasal flaring. Abdomen/GI: Soft, non-tender, with normal bowel sounds. No distension or tympany. No guarding or rebound. No evidence of tenderness throughout. Skin: Warm, dry with normal turgor. Normal color with no rashes, no lesions, and no evidence of cellulitis. Neuro: Awake and alert, GCS 15, oriented to person, place, time, and situation. Normal gait. 09:58 Constitutional: The patient appears alert, awake, uncomfortable, 09:58 : a carmichael is noted, Vital Signs: 10:13 Resp 18; Weight 65.77 kg; Height 5 ft. 5 in. ; ph 10:22 BP 172 / 102; Pulse 85; Resp 18; Temp 97.9; Pulse Ox 97% on R/A; ph 10:13 Body Mass Index 24.13 (65.77 kg, 165.1 cm) ph MDM: 09:58 Patient medically screened. [facility] 11:20 Differential diagnosis: UTI, Malfunctioning Carmichael catheter. Data reviewed: vital signs, [facility] nurses notes, lab test result(s). I considered the following discharge prescriptions or medication management in the emergency department Medications were administered in the Emergency Department. See MAR. Counseling: I had a detailed discussion with the patient and/or guardian regarding the historical points, exam findings, and any diagnostic results supporting the discharge/admit diagnosis, the need for outpatient follow up, a urologist, to return to the emergency department if symptoms worsen or persist or if there are any questions or concerns that arise at home. Response to treatment: the patient's symptoms have markedly improved after treatment. 04/05 10:08 Order name: Urinalysis w/ reflexes; Complete Time: 11:15 [facility] 04/05 11:17 Order name: Urine Culture [facility] 04/05 10:08 Order name: Misc. Order: change carmichael catheter; Complete Time: 11:02 [facility] Administered Medications: 10:40 Drug: [place] PO 10 mg-325 mg 1 tabs PO once Route: PO; hb Disposition Summary: 04/05/24 11:16 Discharge Ordered Notes: Location: Home [facility] Problem: an ongoing problem [facility] Symptoms: are unchanged [facility] Condition: Stable [facility] Diagnosis - UTI/ Urinary tract infection, site not specified [facility] Followup: [facility] - With: Private Physician - When: 2 - 3 days - Reason: Recheck today's complaints Discharge Instructions: - Discharge Summary Sheet [facility] - Indwelling Urinary Catheter Care, Adult [facility] - Urinary Tract Infection, Adult [facility] Forms: - Medication Reconciliation Form 7 - Antibiotic Education 7 - Patient Portal Instructions [facility] - Leadership Thank You Letter [facility] Prescriptions: - Cipro 500 mg Oral Tablet - take 1 tablet ORAL route every 12 hours for 10 days; 20 tablet; Refills: 0, jh7 Product Selection Permitted Addendum: 04/08/2024 14:10 I was immediately available for consultation during this patient's visit. I did not e c2 personally see the patient or discuss the patient with the BRADEN. . Signatures: Dispatcher [employer] Gina Villavicencio RN RN Ayanna Champagne RN RN Dian Parker, GLASS EDGER [place] [address] Cristian Godinez MD MD ec2
[2024-04-05 12:15] VITALS: BP 172/102; TEMP 97.9; O2SAT 97
== END 2024-04-05 11:52 | disposition home or self-care (01) ==
LOC: ER 09:56
DX: N39.0 Urinary tract infection, site not specified (principal)
CPT/HCPCS: 51702; 81001; 87077; 87086; 87088; 87186; 99284

== ENCOUNTER 2024-04-15 19:16 | Emergency (ER) | payer SELFPAY ==
--- OUTSIDE RECORDS SUMMARY | 2024-04-15 19:44 | XMS REPORT | Continuity of Care Document ---
Author Name Unknown Address [address] [place] [address] [facility] thconnect Address [address] [place] [address] Care Team Providers Care Computer Console Operator Name Role Phone PCP, PATIENT DOES NOT HAVE A Primary Care Physic lidia Unavailable LACY SERVIN Attending Clinician Unavailable Lacy Servin MD Attending Clinician Yisel Tirado Attending Clinician Doctor Unassigned, [place] Attending Clinician U navailable YISEL ROSE Attending Clinician Unavaila ble Payers Payer Name Policy Type Policy Number Effective Date Expirati on Date Source Problems Condition Name Condition Details Condition Category Status Onset Date Resolution Date Last Treatment Date Treating Clinician Comments Source DVT (deep venous thrombosis ) DVT (deep venous thrombosis ) Disease Active 04-07 00:00: 00 [facility] Lower limb ischemia Lower limb ischemia Disease Active 04-07 00:00: 00 [facility] PAD (periphera l artery disease) PAD (periphera l artery disease) Disease [facility] 04-07 00:00: 00 [facility] Smoker Smoker Disease [facility] 04-07 00:00: 00 [facility] Allergies, Adverse Reactions, Alerts Allergy Name Allergy Type Status Severity Reaction(s) Onset Date Inactive Date Treating Clinician Comments Source NO KNOWN ALLERGIE S Drug Class Active [facility] Social History Social Habit Start Date Stop Date Quantity Comments Source History of tobacco use Smokes tobacco daily [facility] Tobacco use and exposure 2023-12-25 00:00:00 2023-12-25 00:00:00 Smokeless tobacco non-user [facility] History of Social function 2023-12-25 00:00:00 2023-12-25 00:00:00 [facility] Sex assigned at 1965 00:00:00 1965 00:00:00 [facility] Smoking Status Start Date Stop Date Source Smokes tobacco daily 2023-12-25 00:00:00 [facility] Medications Ordered Medication Name Filled Medication Name Start Date Stop Date Current Medication? Ordering Clinician Indication Dosage Frequency Signature (SIG) Comments Components Source tamsulosin 0.4 mg 24 hr capsule 12-24 00:00: 00 Yes [id number] .4mg Take 1 capsule by mouth in the morning and 1 capsule in the evening. [facility] cefpodoxime 200 mg tablet 220 00:00: 00 Yes TAKE 1 TABLET BY MOUTH EVERY 12 HOURS WITH FOOD [facility] tamsulosin 0.4 mg 24 hr capsule 2022-1008 00:00: 00 12-24 00:00 :00 No TAKE 1 CAPSULE BY MOUTH EVERY DAY AT 6 PM [facility] ELIQUIS 5 mg tablet 2022-10 028 00:00: 00 Yes 5mg Take 1 tablet by mouth in the morning and 1 tablet in the evening. [facility] aspirin 81 mg chewable tablet 18 00:00: 00 Yes [id number] 81mg Take 1 tablet by mouth daily. [facility] Vital Signs Vital Name Observation Time Observation Value Comments S ource Respiratory rate 2023-12-25 15:10:00 18 /min [facility] Body height 2023-12-25 15:10:00 165.1 cm [facility] Body weight 2023-12-25 15:10:00 59.512 kg [facility] BMI 2023-12-25 15:10:00 21.83 kg/m2 [facility] Oxygen saturation in Arterial blood by Pulse oximetry 2023-12-25 15:10:00 100 /min [facility] Systolic blood pressure 2023-12-25 15:10:00 135 mm[Hg] [facility] Diastolic blood pressure 2023-12-25 15:10:00 88 mm[Hg] [facility] Heart rate 2023-12-25 15:10:00 93 /min [facility] Systolic blood pressure 2023-09-25 14:16:00 147 mm[Hg] [facility] Diastolic blood pressure 2023-09-25 14:16:00 95 mm[Hg] [facility] Heart rate 2023-09-25 14:16:00 93 /min [facility] Oxygen saturation in Arterial blood by Pulse oximetry 2023-09-25 14:16:00 100 /min [facility] Body temperature 2023-09-25 14:14:00 37.33 Ailyn [facility] Respiratory rate 2023-09-25 14:14:00 18 /min [facility] Body height 2023-09-25 14:14:00 170.2 cm [facility] Body weight 2023-09-25 14:14:00 60.328 kg [facility] BMI 2023-09-25 14:14:00 20.83 kg/m2 [facility] Procedures Procedure Date / Time Performed Performing Clinicia n Source EXTERNAL PROVIDER RECORDS 2024-01-04 05:01:00 Doctor Unassigned, [place] [facility] THAIS,POST-VOID RES,US,NON-IMAGING 2023-12-25 15:19:00 Yisel Rose [facility] REFERRAL- REQUEST/RESPONSE 2023-10-25 06:01:00 Doctor Unassigned, [place] [facility] CONSENT/REFUSAL FOR DIAGNOSIS AND TREATMENT 2023-09-25 14:03:55 Doctor Unassigned, [place] [facility] REFERRAL- REQUEST/RESPONSE 2023-08-16 05:01:00 Doctor Unassigned, [place] [facility] Encounters Start Date/Time End Date/Time Encounter Type Admission Type Attending Clinicians Care Facility Care Department Encounter ID Source 2024-04-11 10:00:00 2024-04-11 10:00:00 Outpatient R LACY SERVIN [facility] [id number] [facility] 2024-03-27 00:00:00 2024-03-27 13:36:15 Telephone Lacy Servin [facility] 1.2840.114 350.1.13.10 4.2.7.2.686 [id number] [facility] 2024-02-28 00:00:00 2024-02-28 08:51:10 Telephone Malathi [facility] 1.2840.114 350.1.13.10 4.2.7.2.686 [id number] [facility] 2024-02-27 00:00:00 2024-02-28 08:25:39 Telephone Yisel Rose [facility] 1.284.114 350.1.13.10 4.2.7.2.686 [id number] [facility] 2024-01-14 09:00:00 2024-01-14 09:00:00 Outpatient R [facility] [id number] [facility] 2024-01-11 15:00:00 2024-01-11 15:00:00 Outpatient R [facility] [id number] [facility] 2024-01-04 00:00:00 2024-01-04 00:00:00 [facility] 1.2840.114 350.1.13.10 4.2.7.2.686 [id number] [facility] 2024-01-04 00:00:00 2024-01-04 00:00:00 Orders Only Doctor Unassigned, [place] [facility] 1.20.114 350.1.13.10 4.2.7.2.686 [id number] [facility] 2023-12-25 09:00:00 2023-12-25 09:44:52 [id number] [facility] 2023-12-25 09:00:00 2023-12-25 09:44:52 [facility] 1..840.114 350.1.13.10 4.2.7.2.686 [id number] [facility] 2023-12-07 16:00:00 2023-12-07 16:00:00 Outpatient [facility] [id number] [facility] 2023-11-01 11:00:00 2023-11-01 11:00:00 [facility] [id number] [facility] 2023-10-25 00:00:00 2023-10-25 00:00:00 Orders Only Doctor Unassigned, [place] [facility] 1.840.114 350.1.13.10 4.2.7.2.686 [id number] [facility] 2023-10-17 00:00:00 2023-10-17 00:00:00 [facility] 1.840.114 350.1.13.10 4.2.7.2.686 [id number] [facility] 2023-09-25 08:00:00 2023-09-25 08:52:46 Outpatient R MALATHI [facility] [id number] [facility] 2023-09-25 08:00:00 2023-09-25 08:52:46 Office Visit Malathi [facility] 1.840.114 350.1.13.10 4.2.7.2.686 [id number] [facility] 2023-09-25 00:00:00 2023-09-25 00:00:00 Orders Only Doctor Unassigned, [place] [facility] 1.2840.114 350.1.13.10 4.2.7.2.686 [id number] [facility] 2023-08-16 00:00:00 2023-08-16 00:00:00 Orders Only Doctor Unassigned, [place] [facility] 1.2840.114 350.1.13.10 4.2.7.2.686 [id number] [id number] [facility] Results Test Description Test Time Test Comments Results Result Co mments Source [facility],POST-VOID RES,US,[id number] 15:19:00* Test Item Value Reference Range Interpretation Comme nts PVR (URINE VOLUME) (test code = 5193) 0 ml 0-100 [facility] Notes Date/Time Note Provider Source 2024-02-28 10:54:08 9565-05-89Z48:54:08F ormatting of this note might be different from the original.Patient will call back to schedule cysto 87979-6Fwqourrql encounter LpbqKC3907-39-25Z86:54:18Telepho ne encounter NoteTXT1.2.840.196479.1.13.104.2 .7.2.110136|[id number] e for patient ouyt68645-1OxjeBLIBCJPRCUNSjbswp emilia Copeland-CDA narrative [id number] [address] QyxgTidasvdhcRjzqutydeZWDC373319 8884SCHPPAHLSMGFFPCRRXAQBT2111-8 02-27T10:54:181.2.840.386567.1.72 .3.15|1.2.840.355434.1.13.104.2. 7.2.727879_[id number] Radha Sahni [facility] 2024-02-28 10:50:00 0904-92-52G01:50:00F ormatting of this note might be different from the original.Cost [place] RCO[place] [address]-4Ytidklicq encounter SrepRC7775-41-18F88:50:20Telepho ne encounter NoteTXT1.2.840.329322.1.13.104.2 .7.2.436242|[id number] e for patient bjbk13171-5ZlygDUBJWZLDRLJOyllzb emilia C-CDA narrative textURO-UROLOGY STAFFURO-UROLOGY STAFF[address]TXTX[address] 4973ITUWBZMVBIZBEQTNNVTKJL5554-3 5-09T10:50:201.2.840.333078.1.72 .3.15|1.2.840.680865.1.13.104.2. 7.2.727879_[id number] URO-UROLOGY STAFF [facility] 2024-02-28 08:49:11 9749-35-21C93:49:11F ormatting of this note might be different from the original.Images from the original note were not included. 04098-7Sztxrliiv encounter IsulXD1515-87-15M02:51:10Telepho ne encounter NoteTXT1.2.840.015358.1.13.104.2 .7.2.575107|[id number] e for patient qhup83590-5QybmHHWJAJBCCIONwdysh emilia C-CDA narrative [id number] A Hall RN[address]TXTX[address] 1357MGJRPGPWBHCRYAJOMRXSSV9498-1 08:51:101.2.840.207748.1.72 .3.15|1.2.840.981226.1.13.104.2. 7.2.727879_[id number] Jennifer Alvarado RN [facility] 2024-02-28 08:47:10 6720-62-94G70:47:10F ormatting of this note might be different from the original.Patient expressed interest in scheduling cysto. 2 PVR visits where missed by the patient.Can we schedule Cysto or does PVR nurse visit need to be done first?Please confirm 97696-7Gllqigpqr encounter CzncZQ6996-88-80W54:48:00Telepho ne encounter NoteTXT1.2.840.418198.1.13.104.2 .7.2.903606|[id number] for patient chkv96563-5MugxABESJTGCZQRHwbssw emilia C-CDA narrative [id number] L [address] MdaiHpehqykzaStgxhhmrkSHQU455627 0519JRFWONLWTCJMQHIXJALVNI7963-7 5-09T08:48:001.2.840.906329.1.72 .3.15|1.2.840.540642.1.13.104.2. 7.2.727879_[id number] Radha Russell [facility] 2024-02-28 08:25:08 5303-37-05U43:25:08F ormatting of this note might be different from the original.Attempted to contact patient to review questions. Patient states he will call back. 39521-2Trpfjtfdf encounter RcexHF9238-61-35N63:25:34Telepho ne encounter NoteTXT1.2.840.286500.1.13.104.2 .7.2.163967|[id number] e for patient tvws03338-5KsiaZPTETZIHWTYTfggwe emilia C-CDA narrative [id number] L [address] 6682SICJGAMRGVDFWKJAPFJOFS0032-7 08:25:341.2.840.705819.1.72 .3.15|1.2.840.474580.1.13.104.2. 7.2.727879_[id number] Radha Russell [facility] 2024-02-27 17:02:58 7957-73-78Y41:02:58F ormatting of this note might be different from the original.Patient calling states he has discussed cystoscopy with Dr. Servin and wanting to get a burden. States he also has some other things he would like to discuss. 62262-8Lnxrctzxo encounter PpbcSU8342-77-15M61:05:35Telepho ne encounter NoteTXT1.2.840.697375.1.13.104.2 .7.2.353565|[id number] e for patient vuum73236-8HsbwRNDUDDBLWCOMxiyxi emilia C-CDA narrative [id number] L [address] 8354WQOVEQWDNLGVLDKQWXBRNA3104-4 :05:351.2.840.808916.1.72 .3.15|1.2.840.601149.1.13.104.2. 7.2.727879_[id number] Mercedes Akhtar [facility] 2024-01-04 08:51:57 1567-21-23C87:51:57F ormatting of this note might be different from the original.Dr. Delgado's office faxed in requested medical records. Uploaded into pts chart under external provider records dated 01/04/24. 89298-4Zeeorvukv encounter KeayMS6843-55-59U41:52:51Telepho ne encounter NoteTXT1.2.840.419810.1.13.104.2 .7.2.606125|[id number] e for patient ldcf37629-3TwgcTSITUVGXEFJDtmpsg emilia C-CDA narrative [id number] E [address]TX[address] 2771BTJMGDVETSCJVWYCPCRVTH9795-0 08:52:511.2.840.717298.1.72 .3.15|1.2.840.848762.1.13.104.2. 7.2.727879_[id number] Little Gallo [facility] 2023-10-18 15:27:02 3064-74-14F37:27:02F ormatting of this note might be different from the original.Call placed to patient. No answer, unable to leave message. 35191-8Cidgqjztk encounter WblrCQ4808-74-29G04:27:30Telepho ne encounter NoteTXT1.2.840.625716.1.13.104.2 .7.2.206110|[id number] e for patient malm65868-9AogoYCAFHFTKSMOBmubya emilia C-CDA narrative [id number] [address] 2193WFCZUWBLKGBHYOXIEZEJHJ5103-6 12-19T15:27:301.2.840.751596.1.72 .3.15|1.2.840.748028.1.13.104.2. 7.2.727879_[id number] Traci Lacy [facility] 2023-10-17 15:58:43 1088-23-14K75:58:43F ormatting of this note might be different from the original.Pt is wanting information about his visit with Dr Servin on 09/25. He is asking if he needs to have a procedure scheduled.Please assist 18390-3Kcykyjhhr encounter IzrkWK8359-16-44E15:02:11Telepho ne encounter NoteTXT1.2.840.672178.1.13.104.2 .7.2.684631|[id number] e for patient yyvx52100-6JxlePZXVFHYXKXUSggklo emilia Copeland-BOBBI narrative [id number] [address] UprlIawhzvvarEsyojlddcLLTG542[address] 3956NIIBEZUOTKHRNGWHNTVBAY4162-7 :02:111.2.840.404206.1.72 .3.15|1.2.840.523096.1.13.104.2. 7.2.727879_[id number] Sully Judge [facility]"
[2024-04-15] MEDS ORDERED: LIDOCAINE HCL JELLY 2% 6 ML SYRINGE TOP ONE (20:15)
[2024-04-15 20:39] LABS: Specific Gravity 1.023 (1.005-1.030); Sqamous Epithelial None Seen /HPF (None Seen); Urine Bacteria None Seen /HPF (<20); Urine Bilirubin NEGATIVE (Negative); Urine Blood 1+ (Negative); Urine Clarity Clear (Clear); Urine Color Light-Yellow (Yellow); Urine Culture Reflex Order NOT NEEDED; Urine Glucose NEGATIVE (Negative); Urine Ketones TRACE (Negative); Urine Micro Reflex YN NO BILL MICROSCOPIC; Urine Mucus Slight /HPF (None Seen); Urine Nitrite NEGATIVE (Negative); Urine Protein TRACE (Negative); Urine Urobilinogen Normal (Normal); Urine WBC <5 /HPF (<5); Urine pH 5.5 (5.0-7.0)
--- NOTE | 2024-04-15 20:41 | EDPHYS ---
Physician Documentation [facility] Name: Micheal Murillo Age: 58 yrs Sex: Male : 1965 Arrival Date: 04/15/2024 Time: 19:16 Bed 13 Private MD: ED Physician Yuniel Navarro HPI: 04/15 20:17 This 58 yrs old Male presents to ER via Ambulatory with complaints of Problem With sb4 Urinary Catheter. 20:17 Patient has an indwelling Carmichael catheter secondary to BPH. He states he has had this 1 sb4 in for 1 month now and is starting to malfunction. He comes in requesting for it to be exchanged. Historical: - Allergies: 19:29 NKA; as6 - PMHx: 19:29 BPH (DVT); DVT; as6 - Immunization history:: Adult Immunizations not up to date. - Infectious Disease History:: Denies. - Social history:: Smoking status: Patient reports the use of cigarette tobacco products, smokes one-half pack cigarettes per day. ROS: 20:17 Constitutional: Negative for fever, chills, and weight loss, sb4 20:17 : Positive for Per HPI, 20:17 All other systems are negative, Exam: 20:17 Constitutional: This is a well developed, well nourished patient who is awake, alert, sb4 and in no acute distress. Head/Face: Normocephalic, atraumatic. Eyes: Extra-ocular motions intact. Periorbital areas with no swelling, redness, or edema. ENT: Mucous membranes moist. Skin: Warm, dry with normal turgor. Normal color with no rashes, no lesions, and no evidence of cellulitis. MS/ Extremity: Pulses equal, no cyanosis. Neurovascular intact. Full, normal range of motion. 20:17 : a carmichael is noted, Vital Signs: 19:27 BP 149 / 90; Pulse 88; Resp 18; Temp 97.3; Pulse Ox 100% ; Weight 65.77 kg; Height 5 as6 ft. 6 in. ; Pain 5/10; 21:05 BP 137 / 88; Pulse 84; Resp 18; Temp 97.3; Pulse Ox 100% ; cp4 19:27 Body Mass Index 23.40 (65.77 kg, 167.64 cm) as6 19:27 Pain Scale: Adult as6 MDM: 19:32 Patient medically screened. sb4 20:18 Data reviewed: vital signs, nurses notes, and as a result, I will discharge patient. sb4 Counseling: I had a detailed discussion with the patient and/or guardian regarding the historical points, exam findings, and any diagnostic results supporting the discharge/admit diagnosis, the need for outpatient follow up, a urologist, to return to the emergency department if symptoms worsen or persist or if there are any questions or concerns that arise at home. 04/15 19:31 Order name: UAM; Complete Time: 20:40 sb4 04/15 19:31 Order name: Misc. Order: replace carmichael catheter; Complete Time: 20:35 sb4 Administered Medications: 20:35 Drug: Lidocaine Mucous Membrane Gel 2 % 1 application Mucous Membrane once Route: cp4 Mucous Membrane; Disposition Summary: 04/15/24 20:40 Discharge Ordered Notes: Location: Home sb4 Problem: new sb4 Symptoms: are resolved sb4 Condition: Stable sb4 Diagnosis - Mechanical complication of urinary (indwelling) catheter sb4 Followup: sb4 - With: Rayray Syed MD - When: As needed - Reason: Recheck today's complaints, Re-evaluation by your physician Discharge Instructions: - Discharge Summary Sheet sb4 - Indwelling Urinary Catheter Care, Adult, [id number] sb4 Forms: - Patient Portal Instructions sb4 - Leadership Thank You Letter sb4 Signatures: Dispatcher [employer] Frank Alexander RN RN as6 Flor Baker PA-C PANikky sb4 Antonia Matamoros cp4 Corrections: (The following items were deleted from the chart) 19:31 Urinalysis W/Microscopic+U.LAB.BRZ ordered. EDMS EDMS
--- NOTE | 2024-04-15 20:41 | ER ---
Nurse's Notes [facility] Name: Micheal Murillo Age: 58 yrs Sex: Male : 1965 Arrival Date: 04/15/2024 Time: 19:16 Bed 13 Private MD: Diagnosis: Mechanical complication of urinary (indwelling) catheter Presentation: 04/15 19:27 Chief complaint: Patient states: "My catheter needs to be changed. It's starting to as6 become uncomfortable and drain slower" pt reports last catheter change was approx 1 month ago. Coronavirus screen: At this time, the client does not indicate any symptoms associated with coronavirus-19. Ebola Screen: No symptoms or risks identified at this time. Initial Sepsis Screen: Does the patient meet any 2 criteria? No. Patient's initial sepsis screen is negative. Does the patient have a suspected source of infection? No. Patient's initial sepsis screen is negative. Risk Assessment: Do you want to hurt yourself or someone else? Patient reports no desire to harm self or others. Onset of symptoms was April 15, 2024. 19:27 Acuity: TORRIE 4 as6 19:27 Method Of Arrival: Ambulatory as6 Historical: - Allergies: 19:29 NKA; as6 - PMHx: 19:29 BPH (DVT); DVT; as6 - Immunization history:: Adult Immunizations not up to date. - Infectious Disease History:: Denies. - Social history:: Smoking status: Patient reports the use of cigarette tobacco products, smokes one-half pack cigarettes per day. Screenin:03 [facility] ED Fall Risk Assessment (Adult) History of falling in the last 3 months, cp4 including since admission No falls in past 3 months (0 pts) Confusion or Disorientation No (0 pts) Intoxicated or Sedated No (0 pts) Impaired Gait No (0 pts) Mobility Assist Device Used No (0 pt) Altered Elimination No (0 pt) Score/Fall Risk Level 0 - 2 = Low Risk Oriented to surroundings, Maintained a safe environment, Assessed \\T\\ reinforced patient's understanding of fall precautions, Hourly rounding (assess needs \\T\\ fall precautionary measures) done. Abuse screen: Denies threats or abuse. Nutritional screening: No deficits noted. Tuberculosis screening: No symptoms or risk factors identified. Assessment: 21:03 General: Appears uncomfortable, Behavior is calm, cooperative, appropriate for age. cp4 Pain: Complains of pain in pelvis. : Carmichael in place to gravity drainage Reports pain. Vital Signs: 19:27 BP 149 / 90; Pulse 88; Resp 18; Temp 97.3; Pulse Ox 100% ; Weight 65.77 kg; Height 5 as6 ft. 6 in. ; Pain 5/10; 21:05 BP 137 / 88; Pulse 84; Resp 18; Temp 97.3; Pulse Ox 100% ; cp4 19:27 Body Mass Index 23.40 (65.77 kg, 167.64 cm) as6 19:27 Pain Scale: Adult as6 ED Course: 19:19 Patient arrived in ED. ra3 19:27 Arm band placed on left wrist. as6 19:29 Triage completed. as6 19:30 Flor [facility] sb4 19:30 Yuniel Navarro MD is Attending Physician. sb4 19:39 Antonia Matamoros is Primary Nurse. cp4 20:40 Rayray Syed MD is Referral Physician. sb4 21:01 Carmichael cath. Carmichael cath removed intact, balloon deflated. cp4 21:01 Carmichael cath inserted, using sterile technique, 16 Fr., by nd, balloon inflated, to cp4 gravity drainage, urine specimen collected. 21:03 Bed in low position. Call light in reach. Side rails up X 1. Provided Education on: cp4 carmichael catheter. 21:03 No provider procedures requiring assistance completed. Patient did not have IV access cp4 during this emergency room visit. Administered Medications: 20:35 Drug: Lidocaine Mucous Membrane Gel 2 % 1 application Mucous Membrane once Route: cp4 Mucous Membrane; Medication: 21:03 VIS not applicable for this client. cp4 Outcome: 20:40 Discharge ordered by . sb4 21:03 Discharged to home ambulatory, cp4 21:03 Condition: stable 21:03 Discharge instructions given to patient, Instructed on discharge instructions, follow up and referral plans. Demonstrated understanding of instructions, follow-up care, 21:06 Patient left the ED. cp4 Signatures: Frank Lemus, RN RN as6 Flor Baker PA-C PA-C sb4 Antonia Matamoros cp4 Sophie Trejo ra3
[2024-04-15 21:44] VITALS: BP 137/88; TEMP 97.3; O2SAT 100
== END 2024-04-15 21:06 | disposition home or self-care (01) ==
LOC: ER 19:16
PROC: 0T2BX0Z Change Drainage Device in Bladder, External Approach (ICD-10-PCS; principal; 2024-04-15)
DX: T83.098A Other mechanical complication of other urinary catheter, initial encounter (principal)
CPT/HCPCS: 81001

== ENCOUNTER 2024-06-17 21:16 | Emergency (ER) | payer MEDICARE, SELFPAY ==
--- OUTSIDE RECORDS SUMMARY | 2024-06-17 21:20 | XMS REPORT | Continuity of Care Document ---
Author Name Unknown Address [address] [place] [address] [facility] Address [address] [place] [address] Care Team Providers Care Technician Name Role Phone PCP, PATIENT DOES NOT HAVE A Primary Care Physic lidia Unavailable SHAYAN SHAW Attending Clinician Unavailable LACY SERVIN Attending Clinician Unavailable Lacy Servin MD Attending Clinician Nurse, [facility] Gu Attending Clinician UnaYisel Arenas Attending Clinician Doctor Unassigned, Rosman Attending Clinician U YISEL Miller Attending Clinician Unavaila ble Payers Payer Name Policy Type Policy Number Effective Date Expirati on Date Source Problems Condition Name Condition Details Condition Category Status Onset Date Resolution Date Last Treatment Date Treating Clinician Comments Source DVT (deep venous thrombosis ) DVT (deep venous thrombosis ) Disease Active 04-07 00:00: 00 [facility] Lower limb ischemia Lower limb ischemia Disease Active 04-07 00:00: 00 [facility] PAD (periphera l artery disease) PAD (periphera l artery disease) Disease [facility] 04-07 00:00: 00 [facility] Smoker Smoker Disease [facility] 04-07 00:00: 00 [facility] Allergies, Adverse Reactions, Alerts Allergy Name Allergy Type Status Severity Reaction(s) Onset Date Inactive Date Treating Clinician Comments Source NO KNOWN ALLERGIE S Drug Class Active [facility] Social History Social Habit Start Date Stop Date Quantity Comments Source History of tobacco use Smokes tobacco daily [facility] use and exposure 2023-12-25 00:00:00 2023-12-25 00:00:00 Smokeless tobacco non-user [facility] History of Social function 2023-12-25 00:00:00 2023-12-25 00:00:00 [facility] Sex assigned at 1965 00:00:00 1965 00:00:00 [facility] Smoking Status Start Date Stop Date Source Smokes tobacco daily 2023-12-25 00:00:00 [facility] Medications Ordered Medication Name Filled Medication Name Start Date Stop Date Current Medication? Ordering Clinician Indication Dosage Frequency Signature (SIG) Comments Components Source gentamicin injection 160 mg 05-20 14:45: 00 05-20 14:22 :00 No [id number] 160mg 160 mg, Intramuscu lar, ONCE, 1 dose, On Sun05/20/24 at 0945, NING, Reason for Anti-Infec tive: Surgical Prophylaxi s, Surgical Prophylaxi s: Genitourin lita, Duration of therapy: within 24 hours of surgery [facility] levoFLOXaci n 500 mg tablet 05-12 00:00: 00 05-20 04:59 :00 No [id number] 500mg Take 1 tablet by mouth every 24 (twenty-fo ur) hours for 7 days. [facility] tamsulosin 0.4 mg 24 hr capsule -05 00:00: 00 Yes [id number] .4mg Take 1 capsule by mouth in the morning and 1 capsule in the evening. [facility] cefpodoxime 200 mg tablet 2-20 00:00: 00 Yes TAKE 1 TABLET BY MOUTH EVERY 12 HOURS WITH FOOD [facility] tamsulosin 0.4 mg 24 hr capsule 2022-1008 00:00: 00 12-24 00:00 :00 No TAKE 1 CAPSULE BY MOUTH EVERY DAY AT 6 PM [facility] ELIQUIS 5 mg tablet 2022-10 0 00:00: 00 Yes 5mg Take 1 tablet by mouth in the morning and 1 tablet in the evening. [facility] aspirin 81 mg chewable tablet 04-08 00:00: 00 Yes [id number] 81mg Take 1 tablet by mouth daily. [facility] Vital Signs Vital Name Observation Time Observation Value Comments Escobar burch Systolic blood pressure 2024-05-20 13:39:00 140 mm[Hg] [facility] Diastolic blood pressure 2024-05-20 13:39:00 93 mm[Hg] [facility] Heart rate 2024-05-20 13:38:00 88 /min Unive [facility] Body temperature 2024-05-20 13:38:00 36.78 Ailyn [facility] Respiratory rate 2024-05-20 13:38:00 18 /min [facility] Body height 2024-05-20 13:38:00 165.1 cm [facility] Body weight 2024-05-20 13:38:00 57.607 kg [facility] BMI 2024-05-20 13:38:00 21.13 kg/m2 [facility] Oxygen saturation in Arterial blood by Pulse oximetry 2024-05-20 13:38:00 98 /min [facility] Systolic blood pressure 2023-12-25 15:10:00 135 mm[Hg] [facility] Diastolic blood pressure 2023-12-25 15:10:00 88 mm[Hg] [facility] Heart rate 2023-12-25 15:10:00 93 /min [facility] Respiratory rate 2023-12-25 15:10:00 18 /min [facility] Body height 2023-12-25 15:10:00 165.1 cm [facility] Body weight 2023-12-25 15:10:00 59.512 kg [facility] BMI 2023-12-25 15:10:00 21.83 kg/m2 [facility] Oxygen saturation in Arterial blood by Pulse oximetry 2023-12-25 15:10:00 100 /min [facility] Systolic blood pressure 2023-09-25 14:16:00 147 mm[Hg] [facility] Diastolic blood pressure 2023-09-25 14:16:00 95 mm[Hg] [facility] Heart rate 2023-09-25 14:16:00 93 /min [facility] Oxygen saturation in Arterial blood by Pulse oximetry 2023-09-25 14:16:00 100 /min [facility] Body temperature 2023-09-25 14:14:00 37.33 Ailyn [facility] Respiratory rate 2023-09-25 14:14:00 18 /min [facility] Body height 2023-09-25 14:14:00 170.2 cm [facility] Body weight 2023-09-25 14:14:00 60.328 kg [facility] BMI 2023-09-25 14:14:00 20.83 kg/m2 [facility] Procedures Procedure Date / Time Performed Performing Clinicia n Source THAIS,POST-VOID RES,US,NON-IMAGING 2024-05-20 00:00:00 Lacy Servin [facility] EXTERNAL PROVIDER RECORDS 2024-01-04 05:01:00 Doctor Unassigned, Rosman [facility] THAIS,POST-VOID RES,US,NON-IMAGING 2023-12-25 15:19:00 Yisel Rose [facility] REFERRAL- REQUEST/RESPONSE 2023-10-25 06:01:00 Doctor Unassigned, Rosman [facility] CONSENT/REFUSAL FOR DIAGNOSIS AND TREATMENT 2023-09-25 14:03:55 Doctor Unassigned, Rosman [facility] REFERRAL- REQUEST/RESPONSE 2023-08-16 05:01:00 Doctor Unassigned, Rosman [facility] Encounters Start Date/Time End Date/Time Encounter Type Admission Type Attending Clinicians Care Facility Care Department Encounter ID Source 2024-06-19 09:00:00 2024-06-19 09:00:00 Outpatient SHAYAN GARCIA [facility] [id number] [facility] 2024-05-21 00:00:00 2024-05-21 12:12:08 [facility] 1.2.840.114 350.1.13.10 4.2.7.2.686 [id number] [facility] 2024-05-20 08:30:00 2024-05-20 10:37:48 Outpatient R MALATHI [facility] [id number] [facility] 2024-05-20 08:30:00 2024-05-20 10:37:48 [facility] [id number] 350.1.13.10 4.2.7.2.686 [id number] [facility] 2024-05-12 00:00:00 2024-05-12 16:03:[facility] 1.2.840.114 350.1.13.10 4.2.7.2.686 [id number] [facility] 2024-05-09 09:00:00 2024-05-09 09:30:00 Nurse Visit Nurse, [facility] Diomedes [facility] [id number] 350.1.13.10 4.2.7.2.686 [id number] [facility] 2024-05-09 09:00:00 2024-05-09 09:00:00 Outpatient R MALATHI [facility] [id number] [facility] 2024-04-11 10:00:00 2024-04-11 10:00:00 Outpatient R MALATHI [facility] [id number] [facility] 2024-03-27 00:00:00 2024-03-27 13:36:15 Telephone [facility] [id number] 350.1.13.10 4.2.7.2.686 [id number] [facility] 2024-02-28 00:00:00 2024-02-28 08:51:10 Telephone Lacy Servin [facility] BUILD[facility] 1.2.840.114 350.1.13.10 4.2.7.2.686 [id number] [facility] 2024-02-27 00:00:00 2024-02-28 08:25:39 Telephone Yisel Rose [facility] 1.2.840.114 350.1.13.10 4.2.7.2.686 [id number] [facility] 2024-01-14 09:00:00 2024-01-14 09:00:00 Outpatient R [facility] [id number] [facility] 2024-01-11 15:00:00 2024-01-11 15:00:00 Outpatient R [facility] [id number] [facility] 2024-01-04 00:00:00 2024-01-04 00:00:00 Telephone Lizzy Rosetney [facility] [id number] 350.1.13.10 4.2.7.2.686 [id number] [facility] 2024-01-04 00:00:00 2024-01-04 00:00:00 Orders Only Doctor Unassigned, Rosman [facility] 1.2.840.114 350.1.13.10 4.2.7.2.686 [id number] [facility] 2023-12-25 09:00:00 2023-12-25 09:44:52 [facility] [id number] [facility] 2023-12-25 09:00:00 2023-12-25 09:44:52 [facility] 1.0.114 350.1.13.10 4.2.7.2.686 [id number] [facility] 2023-12-07 16:00:00 2023-12-07 16:00:00 [facility] [id number] [facility] 2023-11-01 11:00:00 2023-11-01 11:00:00 Outpatient R MILTON [facility] [id number] [facility] 2023-10-25 00:00:00 2023-10-25 00:00:00 Orders Only Doctor Unassigned, Rosman [facility] 1.840.114 350.1.13.10 4.2.7.2.686 [id number] [facility] 2023-10-17 00:00:00 2023-10-17 00:00:00 Telephone [facility] 1.0.114 350.1.13.10 4.2.7.2.686 [id number] [facility] 2023-09-25 08:00:00 2023-09-25 08:52:46 [facility] [id number] [facility] 2023-09-25 08:00:00 2023-09-25 08:52:46 [facility] 1.0.114 350.1.13.10 4.2.7.2.686 [id number] [facility] 2023-09-25 00:00:00 2023-09-25 00:00:00 Orders Only Doctor Unassigned, Rosman [facility] 1.2840.114 350.1.13.10 4.2.7.2.686 [id number] [facility] 2023-08-16 00:00:00 2023-08-16 00:00:00 Orders Only Doctor Unassigned, Rosman [facility] 1.2.840.114 350.1.13.10 4.2.7.2.686 [id number] [facility] Results Test Description Test Time Test Comments Results Result Co mments Source [facility],US,[id number] 15:19:00* Test Item Value Reference Range Interpretation Comme nts PVR (URINE VOLUME) (test code = 5193) 0 ml 0-100 [facility],POST-VOID RES,,[id number] 15:19:00* Test Item Value Reference Range Interpretation Comme nts PVR (URINE VOLUME) (test code = 5193) 0 ml 0-100 [facility] Notes Date/Time Note Provider Source 2024-05-21 12:11:01 LVM for patient with clinic number for any questions or concerns. Dian Wing RN [facility] 2024-05-13 10:06:35 Patient notified of results/recommendations, understanding was verbalized via teach back. Jennifer Alvarado RN [facility] 2024-05-13 09:06:37 2nd Attempt to contact patient with no answer, Voicemail left at this time with clinic phone number and instructed patient to return call. Debi Eid MA [facility] 2024-05-13 08:09:42 Attempted to contact patient with no answer, Voicemail left at this time with clinic phone number and instructed patient to return call. Jennifer Alvarado RN [facility] 2024-05-12 17:26:02 Addended by: LACY SERVIN on: 05/12/2024 05:26 PM Modules accepted: Orders [facility] 2024-05-12 17:23:46 Indwelling carmichael Colonixzed urine Oral abx sent 5 days prior to cysto RTC as scheduled [facility] 2024-05-12 16:02:58 Images from the original note were not included. Patient scheduled for cysto 05/20/24. Will route to provider for recommendations. Jennifer Alvarado RN [facility] 2024-02-28 10:54:08 Patient will call back to schedule cysto Radha Sahni [facility] 2024-02-28 10:50:00 Cost with RCO. Otherwise offer RTC URO-UROLOGY STAFF [facility] 2024-02-28 08:49:11 Images from the original note were not included. Jennifer Alvarado RN [facility] 2024-02-28 08:47:10 Patient expressed interest in scheduling cysto. 2 PVR visits where missed by the patient. Can we schedule Cysto or does PVR nurse visit need to be done first? Please confirm Radha Russell [facility] 2024-02-28 08:25:08 Attempted to contact patient to review questions. Patient states he will call back. Radha Russell [facility] 2024-02-27 17:02:58 Patient calling states he has discussed cystoscopy with Dr. Servin and wanting to get a burden. States he also has some other things he would like to discuss. Mercedes Akhtar [facility] 2024-01-04 08:51:57 Dr. Delgado's office faxed in requested medical records. Uploaded into pts chart under external provider records dated 01/04/24. Little Gallo [facility] 2023-10-18 15:27:02 Call placed to patient. No answer, unable to leave message. ON Lacy LVN [facility] 2023-10-17 15:58:43 Pt is wanting information about his visit with Dr Servin on 09/25. He is asking if he needs to have a procedure scheduled. Please assist ON Judge [facility]
[2024-06-17] MEDS ORDERED: CEFTRIAXONE 1000 MG/VIAL ONE (21:39)
[2024-06-17] MEDS ORDERED: ONDANSETRON 4 MG/2 ML VIAL ONE (21:39)
[2024-06-17] MEDS ORDERED: LIDOCAINE VISCOUS 2% 10ML ORAL SOLN ONE (21:40)
[2024-06-17] MEDS ORDERED: NA CHLORIDE 0.9% 1,000 ML ONE (21:40)
[2024-06-17] MEDS ORDERED: MORPHINE 4 MG/ML SYR ONE (21:40)
[2024-06-17 22:58] LABS: Anion Gap 8.2 mEq/L (5.0-15.0); Bilirubin Total 0.8 mg/dL (0.2-1.0); Potassium 4.2 mEq/L (3.5-5.1)
[2024-06-17 23:13] LABS: Absolute Basophils 0.1 K/uL (0-0.5); Absolute Eosinophils 0.3 K/uL (0-0.5); Absolute Lymphocytes (CBC) 2.3 K/uL (0.7-4.9); Absolute Monocytes 1.3 K/uL (0.1-1.3); Absolute Neutrophil 6.7 K/uL (1.8-8.0); Eosinophils % 2.9 % (0-4.4); Hematocrit 49.1 % (39.6-49.0); Hemoglobin 16.5 g/dL (13.6-17.9); Lymphocytes % 21.2 % (15.3-44.8); MCH 30.9 pg (27.0-35.0); MCHC 33.6 g/dL (32.0-36.0); MCV 91.8 fL (80-100); MPV 8.8 fL (7.6-11.3); Monocytes % 12.1 % (3.3-12.3); Neutrophils % 62.8 % (41.7-73.7); Platelets 212 thou/uL (152-406); RBC Red Blood Cell Count 5.35 M/uL (4.33-5.43); Red Cell Distribution Width 14.4 % (12.1-15.2)
--- NOTE | 2024-06-17 23:32 | EDPHYS ---
Physician Documentation [facility] Name: Micheal Murillo Age: 59 yrs Sex: Male : 1965 Arrival Date: 06/17/2024 Time: 21:16 Bed 17 Private MD: ED Physician Yuniel Navarro HPI: 06/17 21:23 This 59 yrs old Male presents to ER via Unassigned with complaints of carmichael, norma removed. 21:23 The patient presents with a Carmichael catheter problem, was pulled out accidentally. Onset: norma The symptoms/episode began/occurred just prior to arrival. Modifying factors: The symptoms are alleviated by nothing, the symptoms are aggravated by nothing. Associated signs and symptoms: The patient has no apparent associated signs or symptoms. Severity of symptoms: At their worst the symptoms were mild, moderate, in the emergency department the symptoms are unchanged. The patient has not experienced similar symptoms in the past. Historical: - Allergies: 21:30 NKA; jj7 - PMHx: 21:30 BPH (DVT); DVT; PERIPHERAL ARTERY DISEASE (DVT); jj7 - Immunization history:: Client reports receiving the 2nd dose of the Covid vaccine, Flu vaccine is not up to date. - Infectious Disease History:: Denies. - Family history:: not pertinent. - Social history:: Smoking status: Patient reports the use of cigarette tobacco products, 6 CIGS DAILY, Patient/guardian denies using alcohol, street drugs, IV drugs. ROS: 21:23 Constitutional: Negative for fever, chills, and weight loss, Eyes: Negative for injury, norma pain, redness, and discharge, ENT: Negative for injury, pain, and discharge, Neck: Negative for injury, pain, and swelling, Cardiovascular: Negative for chest pain, palpitations, and edema, Respiratory: Negative for shortness of breath, cough, wheezing, and pleuritic chest pain, Abdomen/GI: Negative for abdominal pain, nausea, vomiting, diarrhea, and constipation, Back: Negative for injury and pain, MS/Extremity: Negative for injury and deformity, Skin: Negative for injury, rash, and discoloration, Neuro: Negative for headache, weakness, numbness, tingling, and seizure, Psych: Negative for depression, anxiety, suicide ideation, homicidal ideation, and hallucinations, Allergy/Immunology: Negative for hives, rash, and allergies, Endocrine: Negative for neck swelling, polydipsia, polyuria, polyphagia, and marked weight changes, Hematologic/Lymphatic: Negative for swollen nodes, abnormal bleeding, and unusual bruising, 21:23 : Positive for urinary symptoms, difficulty urinating, Exam: 21:23 Constitutional: This is a well developed, well nourished patient who is awake, alert, norma and in no acute distress. Head/Face: Normocephalic, atraumatic. Eyes: Pupils equal round and reactive to light, extra-ocular motions intact. Lids and lashes normal. Conjunctiva and sclera are non-icteric and not injected. Cornea within normal limits. Periorbital areas with no swelling, redness, or edema. ENT: Nares patent. No nasal discharge, no septal abnormalities noted. Tympanic membranes are normal and external auditory canals are clear. Oropharynx with no redness, swelling, or masses, exudates, or evidence of obstruction, uvula midline. Mucous membranes moist. Neck: Trachea midline, no thyromegaly or masses palpated, and no cervical lymphadenopathy. Supple, full range of motion without nuchal rigidity, or vertebral point tenderness. No Meningismus. Chest/axilla: Normal chest wall appearance and motion. Nontender with no deformity. No lesions are appreciated. Cardiovascular: Regular rate and rhythm with a normal S1 and S2. No gallops, murmurs, or rubs. Normal PMI, no JVD. No pulse deficits. Respiratory: Lungs have equal breath sounds bilaterally, clear to auscultation and percussion. No rales, rhonchi or wheezes noted. No increased work of breathing, no retractions or nasal flaring. Abdomen/GI: Soft, non-tender, with normal bowel sounds. No distension or tympany. No guarding or rebound. No evidence of tenderness throughout. Back: No spinal tenderness. No costovertebral tenderness. Full range of motion. Skin: Warm, dry with normal turgor. Normal color with no rashes, no lesions, and no evidence of cellulitis. MS/ Extremity: Pulses equal, no cyanosis. Neurovascular intact. Full, normal range of motion. Neuro: Awake and alert, GCS 15, oriented to person, place, time, and situation. Cranial nerves II-XII grossly intact. Motor strength 5/5 in all extremities. Sensory grossly intact. Cerebellar exam normal. Normal gait. Psych: Awake, alert, with orientation to person, place and time. Behavior, mood, and affect are within normal limits. 21:23 : CVA tenderness, is absent, Male external genitalia: normal, Bladder: tenderness, that is mild, Vital Signs: 21:28 BP 108 / 68; Pulse 90; Resp 18; Temp 97.3; Pulse Ox 100% ; Weight 65.77 kg; Height 5 [facility] ft. 6 in. ; Pain 10/10; 22:08 BP 148 / 87; Pulse 79; Resp 17; Pulse Ox 100% ; [facility] 23:01 BP 112 / 72; Pulse 71; Resp 18; Pulse Ox 96% ; [facility] 06/18 00:00 BP 128 / 67; Pulse 61; Resp 17; Temp 98.2; Pulse Ox 94% ; [facility] 06/17 21:28 Body Mass Index 23.40 (65.77 kg, 167.64 cm) [facility] 06/17 21:28 Pain Scale: Adult [facility] MDM: 06/17 21:19 Patient medically screened. [facility] 21:29 Differential diagnosis: UTI, urinary retention, Carmichael catheter problem, prostatitis, norma urethritis. Data reviewed: vital signs, nurses notes, lab test result(s), radiologic studies, CT scan. Consideration of Admission/Observation Escalation of care including admission/observation considered. I considered the following discharge prescriptions or medication management in the emergency department Medications were administered in the Emergency Department. See MAR. Independent interpretation of the following test(s) in the Emergency Department CT Scan: My interpretation is ct stone. Test considered but Not performed: Ultrasound no abd usg. Care significantly affected by the following chronic conditions: bph. 21:32 Patient medically screened. [facility] 06/17 21:23 Order name: CBC with Diff; Complete Time: 23:21 [facility] 06/17 21: Order name: Comprehensive Metabolic Panel; Complete Time: 23:10 [facility] 06/17 21: Order name: CT Stone Protocol [facility] 06/17 21:23 Order name: Carmichael; Complete Time: 22:58 [facility] 06/17 21: Order name: Carmichael Leg Bag; Complete Time: 22:58 norma Administered Medications: 22:00 Drug: NS 0.9% IV 1000 ml IV at 1 bolus Per protocol; 1000 mL bolus Route: IV; Rate: 1 jj7 bolus; Site: right forearm; :58 Follow up: IV Status: Completed infusion jj7 22:00 Drug: Rocephin IV 1 grams IV at per protocol once; Given slow IV push per pharmacy jj7 instructions Route: IV; Rate: per protocol; Site: right forearm; :58 Follow up: IV Status: Completed infusion 7 22:00 Drug: morphine IVP or IV 4 mg IVP once over 4 mins Route: IVP; Infused Over: 4 mins; jj7 Site: right forearm; :58 Follow up: Response: Marked relief of symptoms; Pain is decreased 7 22:00 Drug: Ondansetron IVP 4 mg IVP once; over 2 minutes Route: IVP; Site: right forearm; jj7 :58 Follow up: Response: Marked relief of symptoms; Nausea is decreased 22:00 Drug: Viscous Lidocaine Mucous Membrane Liquid (4 %) 5 ml Mucous Membrane once; to jj7 bedside Route: Mucous Membrane; 06/18 00:17 Drug: Ciprofloxacin PO 500 mg PO once Route: PO; 00:24 Follow up: Response: No adverse reaction 00:17 Drug: Trimethoprim-Sulfamethoxazole PO (160 mg-800 mg (DS) 1 tablet PO once Route: PO; 00:24 Follow up: Response: No adverse reaction j7 Disposition Summary: 06/17/24 23:31 Discharge Ordered Notes: Location: Home norma Problem: new norma Symptoms: have improved norma Condition: Stable norma Diagnosis - Other mechanical complication of urinary (indwelling) catheter norma - Mechanical complication of urinary (indwelling) catheter norma - Dysuria norma - UTI/ Urinary tract infection, site not specified norma Followup: norma - With: Private Physician - When: 2 - 3 days - Reason: Recheck today's complaints, Continuance of care, Re-evaluation by your physician Followup: norma - With: Rayray Syed MD - When: 2 - 3 days - Reason: Recheck today's complaints, Re-evaluation by your physician Discharge Instructions: - Discharge Summary Sheet norma - Dysuria norma - Indwelling Urinary Catheter Care, Adult norma - Urinary Tract Infection, Adult norma - Urinary Tract Infection, Adult, [id number] norma - Indwelling Urinary Catheter Care, Adult, [id number] norma Forms: - Medication Reconciliation Form norma - Antibiotic Education norma - Prescription Opioid Use norma - Patient Portal Instructions [facility] - Leadership Thank You Letter [facility] Prescriptions: - Flomax 0.4 mg Oral capsule - take 1 capsule ORAL route once; 21 capsule; Refills: 0, Product Selection [facility] Permitted - Pyridium 200 mg Oral Tablet - take 1 tablet ORAL route every 8 hours for 3 days; 9 tablet; Refills: 0, [facility] Product Selection Permitted - Cipro 500 mg Oral Tablet - take 1 tablet ORAL route every 12 hours for 7 days; 14 tablet; Refills: 0, [facility] Product Selection Permitted - Bactrim DS 800-160 mg Oral tablet - take 1 tablet ORAL route every 12 hours for 5 days; 10 tablet; Refills: 0, [facility] Product Selection Permitted Signatures: Dispatcher [employer] Yuniel Velez MD MD cha Johnson, Juwairiyah RN RN jj7
--- NOTE | 2024-06-17 23:32 | ER ---
Nurse's Notes [facility] Name: Micheal Murillo Age: 59 yrs Sex: Male : 1965 Arrival Date: 06/17/2024 Time: 21:16 Bed 17 Private MD: Diagnosis: Other mechanical complication of urinary (indwelling) catheter;Mechanical complication of urinary (indwelling) catheter;Dysuria;UTI/ Urinary tract infection, site not specified Presentation: 06/17 21:28 Chief complaint: Patient states: PENILE PAIN AND PRESSURE. TOOK HIS ANDERSON OUT YESTERDAY jj7 AND THE PAIN PROGRESSIVELY HAS GOTTEN WORSE. Coronavirus screen: At this time, the client does not indicate any symptoms associated with coronavirus-19. Ebola Screen: No symptoms or risks identified at this time. Initial Sepsis Screen: Does the patient meet any 2 criteria? No. Patient's initial sepsis screen is negative. Does the patient have a suspected source of infection? No. Patient's initial sepsis screen is negative. Risk Assessment: Do you want to hurt yourself or someone else? Patient reports no desire to harm self or others. Onset of symptoms was June 16, 2024. 21:28 Method Of Arrival: EMS: [facility] 21:28 Acuity: TORRIE 3 jj7 Triage Assessment: 21:30 General: Appears in no apparent distress. uncomfortable, Behavior is appropriate for jj7 age. Pain: Complains of pain in groin. : Reports pain PENILE PAIN AND PRESSURE. Historical: - Allergies: 21:30 NKA; jj7 - PMHx: 21:30 BPH (DVT); DVT; PERIPHERAL ARTERY DISEASE (DVT); jj7 - Immunization history:: Client reports receiving the 2nd dose of the Covid vaccine, Flu vaccine is not up to date. - Infectious Disease History:: Denies. - Family history:: not pertinent. - Social history:: Smoking status: Patient reports the use of cigarette tobacco products, 6 CIGS DAILY, Patient/guardian denies using alcohol, street drugs, IV drugs. Screenin:28 [facility] ED Fall Risk Assessment (Adult) History of falling in the last 3 months, jj7 including since admission No falls in past 3 months (0 pts) Confusion or Disorientation No (0 pts) Intoxicated or Sedated No (0 pts) Impaired Gait No (0 pts) Mobility Assist Device Used No (0 pt) Altered Elimination No (0 pt) Score/Fall Risk Level 0 - 2 = Low Risk Oriented to surroundings, Maintained a safe environment, Educated pt \T\ family on fall prevention, incl call for assistance when getting out of bed, Assessed \T\ reinforced patient's understanding of fall precautions. Abuse screen: Denies threats or abuse. Nutritional screening: No deficits noted. Tuberculosis screening: No symptoms or risk factors identified. Assessment: 21:28 Reassessment: SEE TRIAGE ASSESSMENT. [facility] Vital Signs: 21:28 BP 108 / 68; Pulse 90; Resp 18; Temp 97.3; Pulse Ox 100% ; Weight 65.77 kg; Height 5 [facility] ft. 6 in. ; Pain 10/10; 22:08 BP 148 / 87; Pulse 79; Resp 17; Pulse Ox 100% ; j7 23:01 BP 112 / 72; Pulse 71; Resp 18; Pulse Ox 96% ; 7 06/18 00:00 BP 128 / 67; Pulse 61; Resp 17; Temp 98.2; Pulse Ox 94% ; j7 06/17 21:28 Body Mass Index 23.40 (65.77 kg, 167.64 cm) [facility] 06/17 21:28 Pain Scale: Adult j7 ED Course: 06/17 21:19 Patient arrived in ED. [facility] 21:19 Yuniel Navarro MD is Attending Physician. [facility] 21:27 Kenney Baker, RN is Primary Nurse. j7 21:28 Patient has correct armband on for positive identification. Bed in low position. Call j7 light in reach. Provided Education on: USE OF CALL MCKEON. 21:30 Triage completed. jj7 21:30 Arm band placed on right wrist. jj7 22:00 Inserted saline lock: 20 gauge in right forearm, using aseptic technique. Blood jj7 collected. Flushed with 10 mL NS. 22:08 Comprehensive Metabolic Panel Sent. jj7 22:08 CBC with Diff Sent. jj7 22:38 CT Stone Protocol In Process Unspecified. EDMS 22:40 Anderson cath inserted, using sterile technique, 16 Fr., by de, balloon inflated, to jj7 gravity drainage, Patient tolerated well. 23:31 Rayray Syed MD is Referral Physician. [facility] 06/18 00:18 No provider procedures requiring assistance completed. IV discontinued, intact, jj7 bleeding controlled, No redness/swelling at site. Pressure dressing applied. 00:20 PT SENT HOME WITH ANDERSON AND LEG BAG. jj7 Administered Medications: 06/17 22:00 Drug: NS 0.9% IV 1000 ml IV at 1 bolus Per protocol; 1000 mL bolus Route: IV; Rate: 1 jj7 bolus; Site: right forearm; 22:58 Follow up: IV Status: Completed infusion jj7 22:00 Drug: Rocephin IV 1 grams IV at per protocol once; Given slow IV push per pharmacy jj7 instructions Route: IV; Rate: per protocol; Site: right forearm; 22:58 Follow up: IV Status: Completed infusion jj7 22:00 Drug: morphine IVP or IV 4 mg IVP once over 4 mins Route: IVP; Infused Over: 4 mins; jj7 Site: right forearm; 22:58 Follow up: Response: Marked relief of symptoms; Pain is decreased jj7 22:00 Drug: Ondansetron IVP 4 mg IVP once; over 2 minutes Route: IVP; Site: right forearm; jj7 22:58 Follow up: Response: Marked relief of symptoms; Nausea is decreased jj7 22:00 Drug: Viscous Lidocaine Mucous Membrane Liquid (4 %) 5 ml Mucous Membrane once; to jj7 bedside Route: Mucous Membrane; 06/18 00:17 Drug: Ciprofloxacin PO 500 mg PO once Route: PO; jj7 00:24 Follow up: Response: No adverse reaction jj7 00:17 Drug: Trimethoprim-Sulfamethoxazole PO (160 mg-800 mg (DS) 1 tablet PO once Route: PO; jj7 00:24 Follow up: Response: No adverse reaction jj7 Medication: 06/17 21:28 VIS not applicable for this client. jj7 Outcome: 23:31 Discharge ordered by . norma 06/18 00:18 Discharged to home ambulatory, jj7 Condition: improved Discharge instructions given to patient, Instructed on discharge instructions, medication usage, Demonstrated understanding of instructions, medications, Prescriptions given X 4, 00:24 Patient left the ED. jj7 Signatures: Dispatcher [employer] Yuniel Velez MD MD cha Johnson, Juwairiyah, RN RN jj7 Corrections: (The following items were deleted from the chart) 00:06/17 22:40 Anderson cath inserted, using sterile technique, 16 Fr., by de, balloon jj7 inflated, to gravity drainage, jj7 06/18 00:22 00:18 Discharged to home ambulatory, via wheelchair, jjDeyvi jj7
[2024-06-18] MEDS ORDERED: SMZ./TMP. 800/160 MG TABLET ONE (00:03)
[2024-06-18] MEDS ORDERED: CIPROFLOXACIN HCL 500 MG TAB ONE (00:03)
[2024-06-18 02:19] VITALS: BP 128/67; TEMP 98.2; O2SAT 94
--- NOTE | 2024-06-18 10:33 | RAD REPORT ---
EXAM DESCRIPTION: CT - Stone Protocol - 06/18/2024 6:24 am CLINICAL HISTORY: 59 years Male HEMATURIA TECHNIQUE: Contiguous axial images obtained through the abdomen and pelvis without IV contrast. Michaela nal and sagittal reformatted images provided. This CT exam was performed according to our departmental dose-optimization program, which includes on e or more of the following dose reduction techniques: automated exposure control, adjustment of the m A and/or kV according to patient size, and/or use of iterative reconstruction technique. COMPARISON: Report from the prior exam dated 01/20/2024. Images not provided for comparison. FINDINGS: Again seen is mild bilateral hydroureteronephrosis to the level of the urinary bladder. No renal or ureteral calculi. No focal renal lesion or perinephric fluid collection on either side. The urinary bladder is partially collapsed, thickened, and contains dependent stones measuring up to 1 cm, gas, and a Bautista catheter. Moderate enlargement of the prostate. The unenhanced liver, biliary tree, gallbladder, pancreas, spleen, and adrenal glands are normal. There is no bowel inflammation, obstruction, free intraperitoneal air, or ascites. Mild colonic const ipation. The appendix is normal. Atherosclerosis without abdominal aortic aneurysm or retroperitoneal hemorrhage. There are no acute o sseous lesions. IMPRESSION: Mild bilateral hydroureteronephrosis to the level of the urinary bladder. No urinary cb culi. The urinary bladder is partially collapsed, thickened, and contains dependent stones measuring up to 1 cm, gas, and a Bautista catheter. Moderate enlargement of the prostate. Mild colonic constipation. No other acute abdominal or pelvic findings. Electronically signed by: Pearl Justice MD 06/17/2024 11:16 PM CDT Due to temporary technical issues with the PACS/Fluency reporting system, reports are being signed by the in house radiologist without review as a courtesy to ensure prompt reporting. The interpreting r adiologist is fully responsible for the content of the report.
== END 2024-06-18 00:24 | disposition home or self-care (01) ==
LOC: ER 21:16
PROC: 0T9B70Z Drainage of Bladder with Drainage Device, Via Natural or Artificial Opening (ICD-10-PCS; principal; 2024-06-18)
DX: T83.098A Other mechanical complication of other urinary catheter, initial encounter (principal); N39.0 Urinary tract infection, site not specified; R30.0 Dysuria
CPT/HCPCS: 36415; 51702; 74176; 76377; 80053; 85025; 96365; 96375; 99285; J0696; J2405; J7030

== ENCOUNTER 2024-07-08 22:05 | Emergency (ER) | payer BC, MEDICARE, SELFPAY ==
--- OUTSIDE RECORDS SUMMARY | 2024-07-08 22:07 | XMS REPORT | Continuity of Care Document ---
Author Name Unknown Address [address] [facility] [place] [address] [facility] thconnect Address [address] [place] [address] Care Team Providers Care Ammonia Distiller Name Role Phone PCP, PATIENT DOES NOT HAVE A Primary Care Physic lidia Unavailable LACY SERVIN Attending Clinician Unavailable BERNARDA JACOBO Attending Clinician Unavailable Bernarda Jacobo MD Attending Clinician Lacy Servin MD Attending Clinician [phone] Nurse, [facility] Gu Attending Clinician Yisel Pavon Attending Clinician Doctor Unassigned, [place] Attending Clinician U YISEL Miller Attending Clinician Unavaila ble Payers Payer Name Policy Type Policy Number Effective Date Expirati on Date Source Problems Condition Name Condition Details Condition Category Status Onset Date Resolution Date Last Treatment Date Treating Clinician Comments Source DVT (deep venous thrombosis ) DVT (deep venous thrombosis ) Disease Active 04-07 00:00: 00 [facility] Lower limb ischemia Lower limb ischemia Disease Active 04-07 00:00: 00 [facility] PAD (periphera l artery disease) PAD (periphera l artery disease) Disease [facility] [place] 04-07 00:00: 00 [facility] Smoker Smoker Disease [facility]ur[facility] [place] 04-07 00:00: 00 [facility] Allergies, Adverse Reactions, Alerts Allergy Name Allergy Type Status Severity Reaction(s) Onset Date Inactive Date Treating Clinician Comments Source NO KNOWN ALLERGIE S Drug Class Active [facility] Social History Social Habit Start Date Stop Date Quantity Comments Source History of tobacco use Smokes tobacco daily [facility] of Social function 2024-06-19 00:00:00 2024-06-19 00:00:00 [facility] Tobacco use and exposure 2023-12-25 00:00:00 2023-12-25 00:00:00 Smokeless tobacco non-user [facility] Sex assigned at 1965 00:00:00 1965 00:00:00 [facility] Smoking Status Start Date Stop Date Source Smokes tobacco daily 2023-12-25 00:00:00 [facility] Medications Ordered Medication Name Filled Medication Name Start Date Stop Date Current Medication? Ordering Clinician Indication Dosage Frequency Signature (SIG) Comments Components Source sulfamethox azole-trime thoprim (BACTRIM DS) 800-160 mg per tablet 1 tablet 06-19 15:45: 00 06-19 14:59 :00 No [id number] 1{tbl} 1 tablet, Oral, ONCE, 1 dose, On Sun06/19/24 at 1045, NING, Reason for Anti-Infec tive: Surgical Prophylaxi s, Surgical Prophylaxi s: Genitourin lita, Duration of therapy: within 24 hours of surgery [facility] gentamicin injection 160 mg 05-20 14:45: 00 05-20 14:22 :00 No [id number] 160mg 160 mg, Intramuscu lar, ONCE, 1 dose, On Sun05/20/24 at 0945, NING, Reason for Anti-Infec tive: Surgical Prophylaxi s, Surgical Prophylaxi s: Genitourin lita, Duration of therapy: within 24 hours of surgery [facility] levoFLOXaci n 500 mg tablet 05-12 00:00: 00 05-20 04:59 :00 No [id number] 500mg Take 1 tablet by mouth every 24 (twenty-fo ur) hours for 7 days. [facility] tamsulosin 0.4 mg 24 hr capsule 3-05 00:00: 00 Yes [id number] .4mg Take 1 capsule by mouth in the morning and 1 capsule in the evening. [facility] cefpodoxime 200 mg tablet 2-20 00:00: 00 Yes TAKE 1 TABLET BY MOUTH EVERY 12 HOURS WITH FOOD [facility] tamsulosin 0.4 mg 24 hr capsule 2022-10 1-08 00:00: 00 12-24 00:00 :00 No TAKE 1 CAPSULE BY MOUTH EVERY DAY AT 6 PM [facility] ELIQUIS 5 mg tablet 2022-10 0 00:00: 00 Yes 5mg Take 1 tablet by mouth in the morning and 1 tablet in the evening. [facility] aspirin 81 mg chewable tablet 04-08 00:00: 00 Yes [id number] 81mg Take 1 tablet by mouth daily. [facility] Vital Signs Vital Name Observation Time Observation Value Comments S ource Systolic blood pressure 2024-06-19 14:04:00 163 mm[Hg] [facility] Diastolic blood pressure 2024-06-19 14:04:00 91 mm[Hg] [facility] Heart rate 2024-06-19 13:55:00 85 /min [facility] Respiratory rate 2024-06-19 13:55:00 18 /min [facility] Body height 2024-06-19 13:55:00 165.1 cm [facility] Body weight 2024-06-19 13:55:00 57.471 kg [facility] BMI 2024-06-19 13:55:00 21.08 kg/m2 [facility] Oxygen saturation in Arterial blood by Pulse oximetry 2024-06-19 13:55:00 100 /min [facility] Systolic blood pressure 2024-05-20 13:39:00 140 mm[Hg] [facility] Diastolic blood pressure 2024-05-20 13:39:00 93 mm[Hg] [facility] Heart rate 2024-05-20 13:38:00 88 /min [facility] Body temperature 2024-05-20 13:38:00 36.78 Ailyn [facility] Respiratory rate 2024-05-20 13:38:00 18 /min [facility] Body height 2024-05-20 13:38:00 165.1 cm [facility] Body weight 2024-05-20 13:38:00 57.607 kg [facility] BMI 2024-05-20 13:38:00 21.13 kg/m2 [facility] Oxygen saturation in Arterial blood by Pulse oximetry 2024-05-20 13:38:00 98 /min [facility] Systolic blood pressure 2023-12-25 15:10:00 135 mm[Hg] [facility] Diastolic blood pressure 2023-12-25 15:10:00 88 mm[Hg] [facility] Heart rate 2023-12-25 15:10:00 93 /min [facility] Respiratory rate 2023-12-25 15:10:00 18 /min [facility] Body height 2023-12-25 15:10:00 165.1 cm [facility] Body weight 2023-12-25 15:10:00 59.512 kg [facility] BMI 2023-12-25 15:10:00 21.83 kg/m2 [facility] Oxygen saturation in Arterial blood by Pulse oximetry 2023-12-25 15:10:00 100 /min [facility] Systolic blood pressure 2023-09-25 14:16:00 147 mm[Hg] [facility] Diastolic blood pressure 2023-09-25 14:16:00 95 mm[Hg] [facility] Heart rate 2023-09-25 14:16:00 93 /min Unive [facility] Oxygen saturation in Arterial blood by Pulse oximetry 2023-09-25 14:16:00 100 /min [facility] Body temperature 2023-09-25 14:14:00 37.33 Ailyn [facility] Respiratory rate 2023-09-25 14:14:00 18 /min [facility] Body height 2023-09-25 14:14:00 170.2 cm [facility] Body weight 2023-09-25 14:14:00 60.328 kg [facility] BMI 2023-09-25 14:14:00 20.83 kg/m2 [facility] Procedures Procedure Date / Time Performed Performing Clinicia n Source THAIS,POST-VOID RES,US,NON-IMAGING 2024-05-20 00:00:00 Lacy Servin [facility] EXTERNAL PROVIDER RECORDS 2024-01-04 05:01:00 Doctor Unassigned, [place] [facility] THAIS,POST-VOID RES,US,NON-IMAGING 2023-12-25 15:19:00 Yisel Rose [facility] REFERRAL- REQUEST/RESPONSE 2023-10-25 06:01:00 Doctor Unassigned, [place] [facility] CONSENT/REFUSAL FOR DIAGNOSIS AND TREATMENT 2023-09-25 14:03:55 Doctor Unassigned, [place] [facility] REFERRAL- REQUEST/RESPONSE 2023-08-16 05:01:00 Doctor Unassigned, [place] [facility] Encounters Start Date/Time End Date/Time Encounter Type Admission Type Attending Clinicians Care Facility Care Department Encounter ID Source 2024-06-30 15:00:00 2024-06-30 15:00:00 Outpatient R LACY SERVIN [facility] [id number] [facility] 2024-06-19 09:00:00 2024-06-19 10:14:28 Outpatient R BERNARDA AJCOBO [facility] [id number] [facility] 2024-06-19 09:00:00 2024-06-19 10:14:28 Office Visit Bernarda Jacobo [facility] ..840.114 350.1.13.10 4.2.7.2.686 [id number] [facility] 2024-05-21 00:00:00 2024-05-21 12:12:08 Telephone Lacy Servin [facility] 1..840.114 350.1.13.10 4.2.7.2.686 [id number] [facility] 2024-05-20 08:30:00 2024-05-20 10:37:48 Outpatient R MALATHI [facility] [id number] [facility] 2024-05-20 08:30:00 2024-05-20 10:37:48 [facility] 1.2.840.114 350.1.13.10 4.2.7.2.686 [id number] [facility] 2024-05-12 00:00:00 2024-05-12 16:03:57 Telephone [facility] 1.2.840.114 350.1.13.10 4.2.7.2.686 [id number] [facility] 2024-05-09 09:00:00 2024-05-09 09:30:00 Nurse Visit Nurse, [facility] 1.2.840.114 350.1.13.10 4.2.7.2.686 [id number] [facility] 2024-05-09 09:00:00 2024-05-09 09:00:00 [id number] 2024-04-11 10:00:00 2024-04-11 10:00:00 [id number] 2024-03-27 00:00:00 2024-03-27 13:36:15 Telephone [facility] 1.2.840.114 350.1.13.10 4.2.7.2.686 [id number] [facility] 2024-02-28 00:00:00 2024-02-28 08:51:10 Telephone Lacy Servni [facility] 1.2.840.114 350.1.13.10 4.2.7.2.686 [id number] [facility] 2024-02-27 00:00:00 2024-02-28 08:25:39 Telephone Yisel Rose [facility] 1.2.840.114 350.1.13.10 4.2.7.2.686 [id number] [facility] 2024-01-14 09:00:00 2024-01-14 09:00:00 Outpatient R [facility] [id number] [facility] 2024-01-11 15:00:00 2024-01-11 15:00:00 Outpatient R [facility] [id number] [facility] 2024-01-04 00:00:00 2024-01-04 00:00:00 Telephone Lizzy Rosetney [facility] 1.2.840.114 350.1.13.10 4.2.7.2.686 [id number] [facility] 2024-01-04 00:00:00 2024-01-04 00:00:00 Orders Only Doctor Unassigned, [place] [facility] 1.2.840.114 350.1.13.10 4.2.7.2.686 [id number] [facility] 2023-12-25 09:00:00 2023-12-25 09:44:52 Outpatient R LIZZY ROSETNEY [facility] [id number] [facility] 2023-12-25 09:00:00 2023-12-25 09:44:52 [facility] 1.2.840.114 350.1.13.10 4.2.7.2.686 [id number] [facility] 2023-12-07 16:00:00 2023-12-07 16:00:00 Outpatient Mavis [facility] [id number] [facility] 2023-11-01 11:00:00 2023-11-01 11:00:00 Outpatient Mavis [facility]EE [facility] [id number] [facility] 2023-10-25 00:00:00 2023-10-25 00:00:00 Orders Only Doctor Unassigned, [place] [facility] 1.840.114 350.1.13.10 4.2.7.2.686 [id number] [facility] 2023-10-17 00:00:00 2023-10-17 00:00:00 Telephone [facility] 1..114 350.1.13.10 4.2.7.2.686 [id number] [facility] 2023-09-25 08:00:00 2023-09-25 08:52:46 Outpatient R MALATHI [facility] [id number] [facility] 2023-09-25 08:00:00 2023-09-25 08:52:46 Office Visit Malathi [facility] 1.84.114 350.1.13.10 4.2.7.2.686 [id number] [facility] 2023-09-25 00:00:00 2023-09-25 00:00:00 Orders Only Doctor Unassigned, [place] [facility] 1.840.114 350.1.13.10 4.2.7.2.686 [id number] [facility] 2023-08-16 00:00:00 2023-08-16 00:00:00 Orders Only Doctor Unassigned, [place] [facility] 1.2.840.114 350.1.13.10 4.2.7.2.686 [id number] [facility] Results Test Description Test Time Test Comments Results Result Co mments Source [facility],[id number] 15:19:00* Test Item Value Reference Range Interpretation Comme nts PVR (URINE VOLUME) (test code = 5193) 0 ml 0-100 [facility],US,[id number] 15:19:00* Test Item Value Reference Range Interpretation Comme nts PVR (URINE VOLUME) (test code = 5193) 0 ml 0-100 [facility] Notes Date/Time Note Provider Source 2024-05-21 12:11:01 LVM for patient with clinic number for any questions or concerns. Dian Wing RN [facility] 2024-05-13 10:06:35 Patient notified of results/recommendations, understanding was verbalized via teach back. Jennifer Alvarado RN [facility] 2024-05-13 09:06:37 2nd Attempt to contact patient with no answer, Voicemail left at this time with clinic phone number and instructed patient to return call. Debi Eid MA [facility] 2024-05-13 08:09:42 Attempted to contact patient with no answer, Voicemail left at this time with clinic phone number and instructed patient to return call. Jennifer Alvarado RN [facility] 2024-05-12 17:26:02 Addended by: LACY SERVIN on: 05/12/2024 05:26 PM Modules accepted: Orders [facility] 2024-05-12 17:23:46 Indwelling carmichael Colonixzed urine Oral abx sent 5 days prior to cysto RTC as scheduled [facility] 2024-05-12 16:02:58 Images from the original note were not included. Patient scheduled for cysto 05/20/24. Will route to provider for recommendations. Jennifer Alvarado RN [facility] 2024-02-28 10:54:08 Patient will call back to schedule cysto Radha Sahni [facility] 2024-02-28 10:50:00 Cost with RCO. Otherwise offer RTC URO-UROLOGY STAFF [facility] 2024-02-28 08:49:11 Images from the original note were not included. Jennifer Alvarado RN [facility] 2024-02-28 08:47:10 Patient expressed interest in scheduling cysto. 2 PVR visits where missed by the patient. Can we schedule Cysto or does PVR nurse visit need to be done first? Please confirm Radha Russell [facility] 2024-02-28 08:25:08 Attempted to contact patient to review questions. Patient states he will call back. Radha Russell Sahni [facility] 2024-02-27 17:02:58 Patient calling states he has discussed cystoscopy with Dr. Servin and wanting to get a burden. States he also has some other things he would like to discuss. Mercedes Akhtar [facility] 2024-01-04 08:51:57 Dr. Delgado's office faxed in requested medical records. Uploaded into pts chart under external provider records dated 01/04/24. Little Gallo [facility] 2023-10-18 15:27:02 Call placed to patient. No answer, unable to leave message. ON Lacy LVN [facility] 2023-10-17 15:58:43 Pt is wanting information about his visit with Dr Servin on 09/25. He is asking if he needs to have a procedure scheduled. Please assist ON Judge [facility]
[2024-07-08] MEDS ORDERED: HYDROCODONE/APAP 10/325 TAB ONE (22:23)
[2024-07-08] MEDS ORDERED: DIAZEPAM 5 MG TABLET ONE (22:23)
--- NOTE | 2024-07-09 00:24 | ER ---
Nurse's Notes [facility] Name: Micheal Murillo Age: 59 yrs Sex: Male : 1965 Arrival Date: 07/08/2024 Time: 22:05 Bed 5 Private MD: Diagnosis: Anxiety, dysuria, urinary bladder outflow obstruction, anxiety associated with urinary catheterization, anxiety associated with medical condition Presentation: 07/08 22:13 Chief complaint: Patient states: I have to cath myself for bladder training. I need bm8 something to help me relax so that i can get it in. Coronavirus screen: At this time, the client does not indicate any symptoms associated with coronavirus-19. Ebola Screen: Patient negative for fever greater than or equal to 101.5 degrees Fahrenheit, and additional compatible Ebola Virus Disease symptoms Patient denies exposure to infectious person. Patient denies travel to an Ebola-affected area in the 21 days before illness onset. No symptoms or risks identified at this time. Initial Sepsis Screen: Does the patient meet any 2 criteria? No. Patient's initial sepsis screen is negative. Does the patient have a suspected source of infection? No. Patient's initial sepsis screen is negative. Risk Assessment: Do you want to hurt yourself or someone else? Patient reports no desire to harm self or others. Onset of symptoms is unknown. 22:13 Method Of Arrival: EMS: [facility] 8 22:13 Acuity: TORRIE 3 bm8 Triage Assessment: 22:15 General: Appears distressed, uncomfortable, Behavior is cooperative, appropriate for bm8 age, anxious. Pain: Complains of pain in suprapubic area Pain currently is 9 out of 10 on a pain scale. EENT: No deficits noted. No signs and/or symptoms were reported regarding the EENT system. Neuro: No deficits noted. Level of Consciousness is awake, alert, obeys commands, Oriented to person, place, time, situation, Appropriate for age. Cardiovascular: Denies chest pain, Capillary refill < 3 seconds in bilateral fingers toes Patient's skin is warm and dry. Respiratory: No deficits noted. Airway is patent Respiratory effort is even, unlabored, Respiratory pattern is regular, symmetrical. GI: No signs and/or symptoms were reported involving the gastrointestinal system. : Bladder is distended Reports inability to void, needs to self cath but cant relax to get it done. Derm: No signs and/or symptoms reported regarding the dermatologic system. Musculoskeletal: No signs and/or symptoms reported regarding the musculoskeletal system. Historical: - Allergies: 22:15 NKA; bm8 - Home Meds: 22:15 Eliquis oral [Active]; tamsulosin oral [Active]; bm8 - PMHx: 22:15 BPH (DVT); peripheral artery disease (DVT); DVT; bm8 - PSHx: 22:15 None; bm8 - Immunization history:: Adult Immunizations up to date. - Infectious Disease History:: Denies. - Social history:: Smoking status: Patient reports the use of cigarette tobacco products. - Family history:: not pertinent. Screenin:17 [facility] ED Fall Risk Assessment (Adult) History of falling in the last 3 months, bm8 including since admission No falls in past 3 months (0 pts) Confusion or Disorientation No (0 pts) Intoxicated or Sedated No (0 pts) Impaired Gait No (0 pts) Mobility Assist Device Used No (0 pt) Altered Elimination No (0 pt) Score/Fall Risk Level 0 - 2 = Low Risk Oriented to surroundings, Maintained a safe environment, Educated pt \T\ family on fall prevention, incl call for assistance when getting out of bed, Assessed \T\ reinforced patient's understanding of fall precautions, Hourly rounding (assess needs \T\ fall precautionary measures) done, Used ambulatory aids as needed (educated on \T\ assisted with), Used gait belt as appropriate. Abuse screen: Denies threats or abuse. Nutritional screening: No deficits noted. Tuberculosis screening: No symptoms or risk factors identified. Assessment: 23:29 Reassessment: Patient appears in no apparent distress at this time. Patient and/or bm8 family updated on plan of care and expected duration. Pain level reassessed. Patient is alert, oriented x 3, equal unlabored respirations, skin warm/dry/pink. pt was able to urinate and is ready to go. Patient denies pain at this time. Patient states feeling better. Patient states symptoms have improved. 07/09 00:31 Reassessment: Patient appears in no apparent distress at this time. No changes from bm8 previously documented assessment. Patient and/or family updated on plan of care and expected duration. Pain level reassessed. Patient is alert, oriented x 3, equal unlabored respirations, skin warm/dry/pink. Patient denies pain at this time. Patient states feeling better. Patient states symptoms have improved. Vital Signs: 07/08 22:13 BP 168 / 93; Pulse 84; Resp 17; Temp 99; Pulse Ox 100% ; Weight 60.33 kg; Height 5 ft. bm8 7 in. ; Pain 9/10; 23:29 BP 145 / 90; Pulse 80; Resp 17; Temp 99; Pulse Ox 100% ; Pain 0/10; bm8 18 00:31 BP 141 / 88; Pulse 80; Resp 17; Temp 98.7; Pulse Ox 100% ; Pain 0/10; bm8 07/08 22:13 Body Mass Index 20.83 (60.33 kg, 170.18 cm) bm8 07/08 22:13 Pain Scale: Adult bm8 23:29 Pain Scale: Adult bm8 07/09 00:31 Pain Scale: Adult bm8 Henderson Coma Score: 07/08 22:17 Eye Response: spontaneous(4). Motor Response: obeys commands(6). Verbal Response: bm8 oriented(5). Total: 15. 23:29 Eye Response: spontaneous(4). Motor Response: obeys commands(6). Verbal Response: bm8 oriented(5). Total: 15. 07/09 00:31 Eye Response: spontaneous(4). Motor Response: obeys commands(6). Verbal Response: bm8 oriented(5). Total: 15. 22:38 Eye Response: spontaneous(4). Motor Response: obeys commands(6). Verbal Response: sp4 oriented(5). Total: 15. ED Course: 07/08 22:06 Patient arrived in ED. [email or web address] 22:13 Zack Barakat MD is Attending Physician. sp4 22:13 Honorio Hinson RN is Primary Nurse. bm8 22:15 Triage completed. bm8 22:15 Arm band placed on right wrist. bm8 22:17 Patient has correct armband on for positive identification. Bed in low position. Call bm8 light in reach. Side rails up X 1. Client placed on continuous cardiac and pulse oximetry monitoring. NIBP monitoring applied. Pulse ox on. NIBP on. Door closed. Noise minimized. Warm blanket given. Pillow given. Verbal reassurance given. Head of bed elevated. 22:17 No provider procedures requiring assistance completed. Patient maintains SpO2 bm8 saturation greater than 95% on room air. 23:29 Provided Education on: post er care. bm8 23:29 Patient did not have IV access during this emergency room visit. bm8 Administered Medications: 22:27 Drug: Diazepam PO 10 mg PO once Route: PO; bm8 07/09 00:32 Follow up: Response: No adverse reaction bm8 07/08 22:27 Drug: Orchard PO 10 mg-325 mg 1 tabs PO once Route: PO; bm8 07/09 00:32 Follow up: Response: No adverse reaction bm8 Medication: 07/08 22: VIS not applicable for this client. bm8 Outcome: 07/09 00:24 Discharge ordered by . sp4 00:31 Discharged to home ambulatory, bm8 00:31 Condition: stable 00:31 Discharge instructions given to patient, Instructed on discharge instructions, follow up and referral plans. safety practices, Demonstrated understanding of instructions, follow-up care, medications, 00:32 Patient left the ED. bm8 Signatures: Dian Leblanc Sergey, MD MD sp4 Honorio Hinson, RN RN bm8
--- NOTE | 2024-07-09 00:24 | EDPHYS ---
Physician Documentation [facility] Name: Micheal Murillo Age: 59 yrs Sex: Male : 1965 Arrival Date: 07/08/2024 Time: 22:05 Bed 5 Private MD: ED Physician Zack Barakat HPI: 07/08 22:13 This 59 yrs old Male presents to ER via Unassigned with complaints of Problem sp4 With Urinary Catheter. 07/09 22:38 59-year-old male presents with anxiety, he states he has difficulty catheterizing sp4 himself because he is extremely anxious and also has pain in his urethra. Patient requests medications for anxiety. Historical: - Allergies: 07/08 22:15 NKA; bm8 - Home Meds: 22:15 Eliquis oral [Active]; tamsulosin oral [Active]; bm8 - PMHx: 22:15 BPH (DVT); peripheral artery disease (DVT); DVT; bm8 - PSHx: 22:15 None; bm8 - Immunization history:: Adult Immunizations up to date. - Infectious Disease History:: Denies. - Social history:: Smoking status: Patient reports the use of cigarette tobacco products. - Family history:: not pertinent. ROS: 07/09 22:38 Constitutional: Negative for fever, chills, and weight loss, positive for anxiety sp4 All other systems are negative, Exam: 22:38 Constitutional: This is a well developed, well nourished patient who is awake, alert, sp4 and in no acute distress. Anxious appearing male Head/Face: Normocephalic, atraumatic. Eyes: Pupils equal round and reactive to light, extra-ocular motions intact. Lids and lashes normal. Conjunctiva and sclera are not injected. Cornea within normal limits. Periorbital areas with no swelling, redness, or edema. ENT: Nares patent. No nasal discharge, no septal abnormalities noted. Tympanic membranes are normal and external auditory canals are clear. Oropharynx with no redness, swelling, or masses, exudates, or evidence of obstruction, uvula midline. Mucous membranes moist. Neck: Trachea midline, no thyromegaly or masses palpated, and no cervical lymphadenopathy. Supple, full range of motion without nuchal rigidity, or vertebral point tenderness. Chest/axilla: Normal chest wall appearance and motion. Nontender with no deformity. No lesions are appreciated. Cardiovascular: Regular rate and rhythm with a normal S1 and S2. No gallops, murmurs, or rubs. Normal PMI, no JVD. No pulse deficits. Respiratory: Lungs have equal breath sounds bilaterally, clear to auscultation and percussion. No rales, rhonchi or wheezes noted. No increased work of breathing, no retractions or nasal flaring. Abdomen/GI: Soft, with normal bowel sounds. No distension or tympany. No guarding or rebound. No evidence of tenderness throughout. Back: No spinal tenderness. No costovertebral tenderness. Male : Normal genitalia with no discharge or lesions. Circumcised male Skin: Warm, dry with normal turgor. Normal color with no rashes, no lesions, and no evidence of cellulitis. MS/ Extremity: Pulses equal, no cyanosis. Neurovascular intact. Full, normal range of motion. Neuro: Awake and alert, GCS 15, oriented to person, place, time, and situation. Cranial nerves II-XII grossly intact. Motor strength 5/5 in all extremities. Sensory grossly intact. Psych: Awake, alert, with orientation to person, place and time. Behavior, mood, and affect are within normal limits Vital Signs: 07/08 22:13 BP 168 / 93; Pulse 84; Resp 17; Temp 99; Pulse Ox 100% ; Weight 60.33 kg; Height 5 ft. bm8 7 in. ; Pain 9/10; 23:29 BP 145 / 90; Pulse 80; Resp 17; Temp 99; Pulse Ox 100% ; Pain 0/10; bm8 07/09 00:31 BP 141 / 88; Pulse 80; Resp 17; Temp 98.7; Pulse Ox 100% ; Pain 0/10; bm8 07/08 22:13 Body Mass Index 20.83 (60.33 kg, 170.18 cm) bm8 07/08 22:13 Pain Scale: Adult bm8 23:29 Pain Scale: Adult bm8 07/09 00:31 Pain Scale: Adult bm8 Edgeley Coma Score: 07/08 22:17 Eye Response: spontaneous(4). Motor Response: obeys commands(6). Verbal Response: bm8 oriented(5). Total: 15. 23:29 Eye Response: spontaneous(4). Motor Response: obeys commands(6). Verbal Response: bm8 oriented(5). Total: 15. 07/09 00:31 Eye Response: spontaneous(4). Motor Response: obeys commands(6). Verbal Response: bm8 oriented(5). Total: 15. 22:38 Eye Response: spontaneous(4). Motor Response: obeys commands(6). Verbal Response: sp4 oriented(5). Total: 15. MDM: 00:24 Patient medically screened. sp4 22:38 Differential Diagnosis Anxiety , concerned about medical condition, acute urinary sp4 retention. Data reviewed: vital signs, nurses notes, old medical records. ED course: Patient was given diazepam and Hathaway his pain and anxiety has improved. Patient managed to catheterize himself in the ER. Patient discharged home in stable condition. Administered Medications: 07/08 22:27 Drug: Diazepam PO 10 mg PO once Route: PO; [facility] 07/09 00:32 Follow up: Response: No adverse reaction [facility] 07/08 22:27 Drug: Hathaway PO 10 mg-325 mg 1 tabs PO once Route: PO; [facility] 07/09 00:32 Follow up: Response: No adverse reaction [facility] Disposition Summary: 07/09/24 00:24 Discharge Ordered Notes: Location: Home sp4 Problem: new sp4 Symptoms: have improved sp4 Condition: Stable sp4 Diagnosis - Anxiety, dysuria, urinary bladder outflow obstruction, anxiety associated with sp4 urinary catheterization, anxiety associated with medical condition Followup: sp4 - With: Private Physician - When: 7 - 10 days - Reason: Recheck today's complaints Discharge Instructions: - Discharge Summary Sheet sp4 - Managing Anxiety, Adult sp4 Forms: - Patient Portal Instructions sp4 Signatures: Zack Barakat MD MD sp4 Honorio Hinson RN RN bm8
[2024-07-09 01:48] VITALS: O2SAT 100
[2024-07-09 01:51] VITALS: BP 141/88; TEMP 98.7
== END 2024-07-09 00:32 | disposition home or self-care (01) ==
LOC: ER 22:05
DX: N13.9 Obstructive and reflux uropathy, unspecified (principal); R30.0 Dysuria; F41.9 Anxiety disorder, unspecified; F17.210 Nicotine dependence, cigarettes, uncomplicated
CPT/HCPCS: 99284

== ENCOUNTER 2024-08-09 09:03 | Emergency (ER) | payer SELFPAY ==
--- OUTSIDE RECORDS SUMMARY | 2024-08-09 09:06 | XMS REPORT | Continuity of Care Document ---
Author Name Unknown Address [address] [facility] [place] [address] [facility] thconnect Address [address] [facility] [address] [place] [address] Care Team Providers Care Production Sanitizer Name Role Phone Pcp, Patient Does Not Have A Primary Care Physic lidia Bernarda Jacobo MD Attending Clinician [phone] LACY SERVIN Attending Clinician Unavailable BERNARDA JACOBO Attending Clinician Unavailable Lacy Servin MD Attending Clinician [phone] Nurse, [facility] Surgery Gu Attending Clinician Yisel Pavon Attending Clinician Doctor Unassigned, [place] Attending Clinician U YISEL Miller Attending Clinician Unavaila ble Payers Payer Name Policy Type Policy Number Effective Date Expirati on Date Source Problems Condition Name Condition Details Condition Category Status Onset Date Resolution Date Last Treatment Date Treating Clinician Comments Source DVT (deep venous thrombosis ) DVT (deep venous thrombosis ) Disease Active 04-07 00:00: 00 [facility] Lower limb ischemia Lower limb ischemia Disease Active 04-07 00:00: 00 [facility] PAD (periphera l artery disease) PAD (periphera l artery disease) Disease [facility] 04-07 00:00: 00 [facility] Smoker Smoker Disease [facility] 04-07 00:00: 00 [facility] Allergies, Adverse Reactions, Alerts Allergy Name Allergy Type Status Severity Reaction(s) Onset Date Inactive Date Treating Clinician Comments Source NO KNOWN ALLERGIE S Drug Class Active [facility] Social History Social Habit Start Date Stop Date Quantity Comments Source History of tobacco use Smokes tobacco daily [facility] of Social function 2024-06-19 00:00:00 2024-06-19 00:00:00 [facility] Tobacco use and exposure 2023-12-25 00:00:00 2023-12-25 00:00:00 Smokeless tobacco non-user [facility] Sex assigned at 1965 00:00:00 1965 00:00:00 [facility] Smoking Status Start Date Stop Date Source Smokes tobacco daily 2023-12-25 00:00:00 [facility] Medications Ordered Medication Name Filled Medication Name Start Date Stop Date Current Medication? Ordering Clinician Indication Dosage Frequency Signature (SIG) Comments Components Source sulfamethox azole-trime thoprim (BACTRIM DS) 800-160 mg per tablet 1 tablet 06-19 15:45: 00 06-19 14:59 :00 No [id number] 1{tbl} 1 tablet, Oral, ONCE, 1 dose, On Sun06/19/24 at 1045, NING, Reason for Anti-Infec tive: Surgical Prophylaxi s, Surgical Prophylaxi s: Genitourin lita, Duration of therapy: within 24 hours of surgery [facility] gentamicin injection 160 mg 05-20 14:45: 00 05-20 14:22 :00 No [id number] 160mg 160 mg, Intramuscu lar, ONCE, 1 dose, On Sun05/20/24 at 0945, NING, Reason for Anti-Infec tive: Surgical Prophylaxi s, Surgical Prophylaxi s: Genitourin lita, Duration of therapy: within 24 hours of surgery [facility] levoFLOXaci n 500 mg tablet 05-12 00:00: 00 05-20 04:59 :00 No [id number] 500mg Take 1 tablet by mouth every 24 (twenty-fo ur) hours for 7 days. [facility] tamsulosin 0.4 mg 24 hr capsule 3-05 00:00: 00 Yes [id number] .4mg Take 1 capsule by mouth in the morning and 1 capsule in the evening. [facility] cefpodoxime 200 mg tablet 2-20 00:00: 00 Yes TAKE 1 TABLET BY MOUTH EVERY 12 HOURS WITH FOOD [facility] tamsulosin 0.4 mg 24 hr capsule 2022-10 1-08 00:00: 00 12-24 00:00 :00 No TAKE 1 CAPSULE BY MOUTH EVERY DAY AT 6 PM [facility] ELIQUIS 5 mg tablet 2022-10 0 00:00: 00 Yes 5mg Take 1 tablet by mouth in the morning and 1 tablet in the evening. [facility] aspirin 81 mg chewable tablet 18 00:00: 00 Yes [id number] 81mg Take 1 tablet by mouth daily. [facility] Vital Signs Vital Name Observation Time Observation Value Comments S ource Systolic blood pressure 2024-06-19 14:04:00 163 mm[Hg] [facility] Diastolic blood pressure 2024-06-19 14:04:00 91 mm[Hg] [facility] Heart rate 2024-06-19 13:55:00 85 /min [facility] Respiratory rate 2024-06-19 13:55:00 18 /min [facility] Body height 2024-06-19 13:55:00 165.1 cm [facility] Body weight 2024-06-19 13:55:00 57.471 kg [facility] BMI 2024-06-19 13:55:00 21.08 kg/m2 [facility] Oxygen saturation in Arterial blood by Pulse oximetry 2024-06-19 13:55:00 100 /min [facility] Systolic blood pressure 2024-05-20 13:39:00 140 mm[Hg] [facility] Diastolic blood pressure 2024-05-20 13:39:00 93 mm[Hg] [facility] Heart rate 2024-05-20 13:38:00 88 /min [facility] Body temperature 2024-05-20 13:38:00 36.78 Ailyn [facility] Respiratory rate 2024-05-20 13:38:00 18 /min [facility] Body height 2024-05-20 13:38:00 [facility].1 cm [facility] Body weight 2024-05-20 13:38:00 57.607 kg [facility] BMI 2024-05-20 13:38:00 21.13 kg/m2 [facility] Oxygen saturation in Arterial blood by Pulse oximetry 2024-05-20 13:38:00 98 /min [facility] Systolic blood pressure 2023-12-25 15:10:00 135 mm[Hg] [facility] Diastolic blood pressure 2023-12-25 15:10:00 88 mm[Hg] [facility] Heart rate 2023-12-25 15:10:00 93 /min [facility] Respiratory rate 2023-12-25 15:10:00 18 /min [facility] Body height 2023-12-25 15:10:00 165.1 cm [facility] Body weight 2023-12-25 15:10:00 59.512 kg [facility] BMI 2023-12-25 15:10:00 21.83 kg/m2 [facility] Oxygen saturation in Arterial blood by Pulse oximetry 2023-12-25 15:10:00 100 /min [facility] Systolic blood pressure 2023-09-25 14:16:00 147 mm[Hg] [facility] Diastolic blood pressure 2023-09-25 14:16:00 95 mm[Hg] [facility] Heart rate 2023-09-25 14:16:00 93 /min [facility] Oxygen saturation in Arterial blood by Pulse oximetry 2023-09-25 14:16:00 100 /min [facility] Body temperature 2023-09-25 14:14:00 37.33 Ailyn [facility] Respiratory rate 2023-09-25 14:14:00 18 /min [facility] Body height 2023-09-25 14:14:00 170.2 cm [facility] Body weight 2023-09-25 14:14:00 60.328 kg [facility] BMI 2023-09-25 14:14:00 20.83 kg/m2 [facility] Procedures Procedure Date / Time Performed Performing Clinicia n Source THAIS,POST-VOID RES,US,NON-IMAGING 2024-05-20 00:00:00 Lacy Servin [facility] EXTERNAL PROVIDER RECORDS 2024-01-04 05:01:00 Doctor Unassigned, [place] [facility] THAIS,POST-VOID RES,US,NON-IMAGING 2023-12-25 15:19:00 Yisel Rose [facility] REFERRAL- REQUEST/RESPONSE 2023-10-25 06:01:00 Doctor Unassigned, [place] [facility] CONSENT/REFUSAL FOR DIAGNOSIS AND TREATMENT 2023-09-25 14:03:55 Doctor Unassigned, [place] [facility] REFERRAL- REQUEST/RESPONSE 2023-08-16 05:01:00 Doctor Unassigned, [place] [facility] Encounters Start Date/Time End Date/Time Encounter Type Admission Type Attending Clinicians Care Facility Care Department Encounter ID Source 2024-07-18 00:00:00 2024-07-22 11:21:[facility] [id number] 350.1.13.10 4.2.7.2.686 [id number] [facility] 2024-06-30 15:00:00 2024-06-30 15:00:00 Outpatient R LACY SERVIN [facility] [id number] [facility] 2024-06-19 09:00:00 2024-06-19 10:14:28 Outpatient [facility] [id number] [facility] 2024-06-19 09:00:00 2024-06-19 10:14:28 Office Visit [facility] 1.2.840.114 350.1.13.10 4.2.7.2.686 [id number] [facility] 2024-05-21 00:00:00 2024-05-21 12:12:08 [facility] 1.2.840.114 350.1.13.10 4.2.7.2.686 [id number] [facility] 2024-05-20 08:30:00 2024-05-20 10:37:48 [id number] 2024-05-20 08:30:00 2024-05-20 10:37:48 [facility] 1.2.840.114 350.1.13.10 4.2.7.2.686 [id number] [facility] 2024-05-12 00:00:00 2024-05-12 16:03:57 Telephone [facility] PRIMARY AND SPECIALTY CARE 1.2.840.114 350.1.13.10 4.2.7.2.686 [id number] [facility] 2024-05-09 09:00:00 2024-05-09 09:30:00 Nurse Visit Nurse, [facility] Surgery [facility]IMARY [facility] SPECIALTY CARE 1.2.840.114 350.1.13.10 4.2.7.2.686 [id number] [facility] 2024-05-09 09:00:00 2024-05-09 09:00:00 [facility] [id number] [facility] 2024-04-11 10:00:00 2024-04-11 10:00:00 [facility] [id number] [facility] 2024-03-27 00:00:00 2024-03-27 13:36:15 [facility] 1.2.840.114 350.1.13.10 4.2.7.2.686 [id number] [facility] 2024-02-28 00:00:00 2024-02-28 08:51:10 Telephone Malathi [facility] BUILD[facility] 1.2840.114 350.1.13.10 4.2.7.2.686 [id number] [facility] 2024-02-27 00:00:00 2024-02-28 08:25:39 [facility] 1.2840.114 350.1.13.10 4.2.7.2.686 [id number] [facility] 2024-01-14 09:00:00 2024-01-14 09:00:00 Outpatient R [facility] [id number] [facility] 2024-01-11 15:00:00 2024-01-11 15:00:00 Outpatient R [facility] [id number] [facility] 2024-01-04 00:00:00 2024-01-04 00:00:00 Telephone [facility] 1.2840.114 350.1.13.10 4.2.7.2.686 [id number] [facility] 2024-01-04 00:00:00 2024-01-04 00:00:00 Orders Only Doctor Unassigned, [place] [facility] 1.2840.114 350.1.13.10 4.2.7.2.686 [id number] [facility] 2023-12-25 09:00:00 2023-12-25 09:44:52 Outpatient R LIZZY ROSETNEY [facility] [id number] [facility] 2023-12-25 09:00:00 2023-12-25 09:44:52 [facility] 1.2840.114 350.1.13.10 4.2.7.2.686 [id number] [facility] 2023-12-07 16:00:00 2023-12-07 16:00:00 [id number] [facility] 2023-11-01 11:00:00 2023-11-01 11:00:00 [facility] [id number] [facility] 2023-10-25 00:00:00 2023-10-25 00:00:00 Orders Only Doctor Unassigned, [place] [facility] 1.840.114 350.1.13.10 4.2.7.2.686 [id number] [facility] 2023-10-17 00:00:00 2023-10-17 00:00:00 Telephone [facility] 1.20.114 350.1.13.10 4.2.7.2.686 [id number] [facility] 2023-09-25 08:00:00 2023-09-25 08:52:46 [id number] 2023-09-25 08:00:00 2023-09-25 08:52:46 Office Visit [facility] 1.20.114 350.1.13.10 4.2.7.2.686 [id number] [facility] 2023-09-25 00:00:00 2023-09-25 00:00:00 Orders Only Doctor Unassigned, [place] [facility] 1.2.840.114 350.1.13.10 4.2.7.2.686 [id number] [facility] 2023-08-16 00:00:00 2023-08-16 00:00:00 Orders Only Doctor Unassigned, [place] [facility] 1.2.840.114 350.1.13.10 4.2.7.2.686 [id number] [facility] Results Test Description Test Time Test Comments Results Result Co mments Source [facility],,[id number] 15:19:00* Test Item Value Reference Range Interpretation Comme nts PVR (URINE VOLUME) (test code = 5193) 0 ml 0-100 [facility],POST-VOID RES,,[id number] 15:19:00* Test Item Value Reference Range Interpretation Comme nts PVR (URINE VOLUME) (test code = 5193) 0 ml 0-100 [facility] Notes Date/Time Note Provider Source 2024-07-22 11:21:18 Message left for patient T Melida Box RN [facility] 2024-07-21 13:25:30 He can follow with Dr Servin. Thanks [facility] 2024-07-21 10:41:57 left message on recorder Message forwarded to Dr Jacobo please advise if patient is to schedule follow up with you or Dr Alaniz [facility] 2024-07-18 15:49:55 Mary Murillo Pt returning call to clinic. Please advise. [phone] (home) Nhung Reynold Pulido [facility] 2024-07-18 12:20:44 Left message to return call [facility] 2024-07-18 09:29:01 Mary Murillo is a 59 year old male Patient calling back to discuss what to do next regarding his speedo catheter. Patient stated he is still having pain when urinating. Please contact [phone] Venkatesh García [facility] 2024-05-21 12:11:01 LVM for patient with clinic number for any questions or concerns. Dian Wing RN [facility] 2024-05-13 10:06:35 Patient notified of results/recommendations, understanding was verbalized via teach back. Jennifer Alvarado RN [facility] 2024-05-13 09:06:37 2nd Attempt to contact patient with no answer, Voicemail left at this time with clinic phone number and instructed patient to return call. Debi Eid MA [facility] 2024-05-13 08:09:42 Attempted to contact patient with no answer, Voicemail left at this time with clinic phone number and instructed patient to return call. Jennifer Alvarado RN [facility] 2024-05-12 17:26:02 Addended by: LACY SERVIN on: 05/12/2024 05:26 PM Modules accepted: Orders [facility] 2024-05-12 17:23:46 Indwelling carmichael Colonixzed urine Oral abx sent 5 days prior to cysto RTC as scheduled [facility] 2024-05-12 16:02:58 Images from the original note were not included. Patient scheduled for cysto 05/20/24. Will route to provider for recommendations. Jennifer Alvarado RN [facility] 2024-02-28 10:54:08 Patient will call back to schedule cysto Radha Sahni [facility] 2024-02-28 10:50:00 Cost with RCO. Otherwise offer RTC URO-UROLOGY STAFF [facility] 2024-02-28 08:49:11 Images from the original note were not included. Jennifer Alvarado RN [facility] 2024-02-28 08:47:10 Patient expressed interest in scheduling cysto. 2 PVR visits where missed by the patient. Can we schedule Cysto or does PVR nurse visit need to be done first? Please confirm Radha Russell [facility] 2024-02-28 08:25:08 Attempted to contact patient to review questions. Patient states he will call back. Radha Russell [facility] 2024-02-27 17:02:58 Patient calling states he has discussed cystoscopy with Dr. Servin and wanting to get a burden. States he also has some other things he would like to discuss. Mercedes Akhtar [facility] 2024-01-04 08:51:57 Dr. Delgado's office faxed in requested medical records. Uploaded into pts chart under external provider records dated 01/04/24. Little Gallo [facility] 2023-10-18 15:27:02 Call placed to patient. No answer, unable to leave message. SN Lacy LVN [facility] 2023-10-17 15:58:43 Pt is wanting information about his visit with Dr Servin on 09/25. He is asking if he needs to have a procedure scheduled. Please assist ON Judge [facility]
[2024-08-09] MEDS ORDERED: MORPHINE 4 MG/ML SYR ONE (09:28)
[2024-08-09] MEDS ORDERED: LIDOCAINE VISCOUS 2% 10ML ORAL SOLN ONE ×2 (09:28→10:24)
[2024-08-09] MEDS ORDERED: KETOROLAC 30 MG/ML INJ ONE (10:19)
[2024-08-09] MEDS ORDERED: DIPHENHYDRAMINE 50 MG/ML VIAL ONE (10:19)
[2024-08-09] MEDS ORDERED: NA CHLORIDE 0.9% 1,000 ML ONE (10:20)
[2024-08-09] MEDS ORDERED: METOCLOPRAMIDE 10 MG/2mL INJ ONE (10:20)
[2024-08-09 10:42] LABS: Specific Gravity 1.007 (1.005-1.030); Sqamous Epithelial None Seen /HPF (None Seen); Urine Bacteria <20 /HPF (<20); Urine Bilirubin NEGATIVE (Negative); Urine Blood 1+ (Negative); Urine Clarity Extremely Turbid (Clear); Urine Color Light-Yellow (Yellow); Urine Culture Reflex Order REFLEXED; Urine Glucose NEGATIVE (Negative); Urine Ketones NEGATIVE (Negative); Urine Micro Reflex YN NO BILL MICROSCOPIC; Urine Nitrite NEGATIVE (Negative); Urine Protein NEGATIVE (Negative); Urine RBC <5 /HPF (None Seen); Urine Urobilinogen Normal (Normal); Urine WBC >50 /HPF (<5); Urine WBC Clump Rare /HPF (None Seen); Urine pH 5.5 (5.0-7.0)
--- NOTE | 2024-08-09 10:57 | ER ---
Nurse's Notes [facility] Name: Micheal Murillo Age: 59 yrs Sex: Male : 1965 Arrival Date: 08/09/2024 Time: 09:03 Bed 18 Private MD: Diagnosis: Retention of urine, unspecified;UTI/ Urinary tract infection, site not specified Presentation: 08/09 09:14 Chief complaint: Patient states: has been doing intermittent catheters at home but now iw he's out, would like an indwelling carmichael placed, he is having urine frequency and pain with urination. Coronavirus screen: At this time, the client does not indicate any symptoms associated with coronavirus-19. Risk Assessment: Do you want to hurt yourself or someone else? Patient reports no desire to harm self or others. 09:14 Method Of Arrival: Ambulatory iw 09:16 Ebola Screen: No symptoms or risks identified at this time. Initial Sepsis Screen: Does iw the patient meet any 2 criteria? No. Patient's initial sepsis screen is negative. Does the patient have a suspected source of infection? No. Patient's initial sepsis screen is negative. Onset of symptoms was August 09, 2024. 09:16 Acuity: TORRIE 3 iw Historical: - Allergies: 09:16 NKA; iw - PMHx: 09:16 BPH; DVT; peripheral artery disease; iw - Immunization history:: Adult Immunizations up to date. - Infectious Disease History:: Denies. - Social history:: Smoking status: Patient denies any tobacco usage or history of. Screenin:10 [facility] ED Fall Risk Assessment (Adult) History of falling in the last 3 months, rs5 including since admission No falls in past 3 months (0 pts) Confusion or Disorientation No (0 pts) Intoxicated or Sedated No (0 pts) Impaired Gait No (0 pts) Mobility Assist Device Used No (0 pt) Altered Elimination No (0 pt) Score/Fall Risk Level 0 - 2 = Low Risk Oriented to surroundings, Maintained a safe environment. Abuse screen: Denies threats or abuse. Nutritional screening: No deficits noted. Tuberculosis screening: No symptoms or risk factors identified. Assessment: 09:10 General: Appears in no apparent distress. uncomfortable, Behavior is cooperative. Pain: rs5 Complains of pain in pelvic area Pain currently is 8 out of 10 on a pain scale. Quality of pain is described as aching, Is continuous. 09:10 Neuro: Level of Consciousness is awake, alert, obeys commands, Oriented to person, rs5 place, time, situation. Cardiovascular: Patient's skin is warm and dry. Respiratory: Airway is patent Respiratory effort is even, unlabored, Respiratory pattern is regular, symmetrical. GI: Abdomen is round non-distended, Abd is soft and non tender X 4 quads. : Reports burning with urination, incontinence, inability to void. EENT: No signs and/or symptoms were reported regarding the EENT system. Derm: Skin is intact, Skin is pink, warm \T\ dry. Musculoskeletal: Range of motion: intact in all extremities. 09:30 Reassessment: to bedside with tech, 16ff carmichael inserted using aseptic technique, 800 ml rs5 clear yellow urine drained into carmichael bag, pt tolerated procedure well. 10:12 Reassessment: Patient and/or family updated on plan of care and expected duration. Pain rs5 level reassessed. Patient is alert, oriented x 3, equal unlabored respirations, skin warm/dry/pink. 11:10 Reassessment: to bedside, carmichael bag switched to leg bag per md orders . rs5 Vital Signs: 09:13 BP 145 / 89; Pulse 98; Resp 18; Temp 97.6; Pulse Ox 98% on R/A; Weight 68.04 kg; Height iw 5 ft. 6 in. ; Pain 10/10; 11:08 BP 135 / 81; Pulse 71; Resp 17; Pulse Ox 98% on R/A; rs5 09:13 Body Mass Index 24.21 (68.04 kg, 167.64 cm) iw 09:13 Pain Scale: Adult iw ED Course: 09:06 Patient arrived in ED. mr 09:07 Flor Baker PA-C is PHCP. sb4 09:07 Yuniel Naavrro MD is Attending Physician. sb4 09:09 Gopal Fry, ASHLEY is Primary Nurse. rs5 09:10 Patient has correct armband on for positive identification. Placed in gown. Bed in low rs5 position. Call light in reach. Side rails up X2. 09:10 No provider procedures requiring assistance completed. rs5 09:16 Triage completed. iw 09:30 Carmichael cath inserted, using sterile technique, 16 Fr., by pa, balloon inflated, to rs5 gravity drainage, clamped. returned clear yellow urine. Patient tolerated well. 10:56 Rayray Syed MD is Referral Physician. sb4 11:10 Provided Education on: discharge instructions . rs5 11:15 Patient did not have IV access during this emergency room visit. rs5 Administered Medications: 09:30 Drug: morphine IM 4 mg IM once Route: IM; Site: left deltoid; rs5 10:15 Follow up: Response: No adverse reaction; Pain is decreased rs5 09:30 Drug: Viscous Lidocaine Mucous Membrane Liquid (4 %) 5 ml Mucous Membrane once; for rs5 carmichael catheter insertion Route: Mucous Membrane; 10:04 Follow up: Response: No adverse reaction; Pain is decreased rs5 Medication: 09:15 VIS not applicable for this client. rs5 Outcome: 10:56 Discharge ordered by . sb4 11:15 Discharged to home ambulatory, rs5 11:15 Condition: stable rs5 11:15 Discharge instructions given to patient, family, Instructed on discharge instructions, follow up and referral plans. Demonstrated understanding of instructions, follow-up care, 11:18 Patient left the ED. rs5 Signatures: Brandy Campos, Reg Reg mr Michelle Cesar, RN RN Flor Starr PA-C PANikky sb4 Gopal Fry, RN RN rs5
--- NOTE | 2024-08-09 10:57 | EDPHYS ---
Physician Documentation [facility] Name: Micheal Murillo Age: 59 yrs Sex: Male : 1965 Arrival Date: 08/09/2024 Time: 09:03 Bed 18 Private MD: Yuniel Mann HPI: 08/09 09:19 This 59 yrs old Male presents to ER via Ambulatory with complaints of Urinary Problem. sb4 09:22 The patient presents with urinary symptoms, retention. patient with history of chronic sb4 bladder outlet obstruction, intermittent straight caths, presents with penile pain and difficulty performing straight catheterization. he is requesting an indwelling carmichael catheter to be placed. last catheterized about 9 hours ago. states urine has looked normal in appearance . Historical: - Allergies: 09:16 NKA; iw - PMHx: :16 BPH; DVT; peripheral artery disease; iw - Immunization history:: Adult Immunizations up to date. - Infectious Disease History:: Denies. - Social history:: Smoking status: Patient denies any tobacco usage or history of. ROS: 09:22 Constitutional: Negative for fever, chills, and weight loss, sb4 09:22 : Positive for difficulty urinating, penile pain, 09:22 All other systems are negative, Exam: 09:22 Head/Face: Normocephalic, atraumatic. Eyes: Extra-ocular motions intact. Periorbital sb4 areas with no swelling, redness, or edema. ENT: Mucous membranes moist. Skin: Warm, dry with normal turgor. Normal color with no rashes, no lesions, and no evidence of cellulitis. 09:22 Constitutional: The patient appears alert, awake, uncomfortable, 09:22 Respiratory: the patient does not display signs of respiratory distress, 09:22 Neuro: Gait: is steady, at a normal pace, without difficulty, Vital Signs: 09:13 BP 145 / 89; Pulse 98; Resp 18; Temp 97.6; Pulse Ox 98% on R/A; Weight 68.04 kg; Height iw 5 ft. 6 in. ; Pain 10/10; 11:08 BP 135 / 81; Pulse 71; Resp 17; Pulse Ox 98% on R/A; rs5 09:13 Body Mass Index 24.21 (68.04 kg, 167.64 cm) iw 09:13 Pain Scale: Adult iw MDM: 09:08 Medical Screening Exam initiated sb4 09:24 Differential diagnosis: UTI, urinary retention, urethritis. sb4 10:54 Data reviewed: vital signs, nurses notes, lab test result(s), and as a result, I will sb4 discharge patient. Counseling: I had a detailed discussion with the patient and/or guardian regarding the historical points, exam findings, and any diagnostic results supporting the discharge/admit diagnosis, lab results, the need for outpatient follow up, a urologist, to return to the emergency department if symptoms worsen or persist or if there are any questions or concerns that arise at home. 08/09 09:52 Order name: UAM; Complete Time: 10:50 sb4 08/09 10:50 Order name: Urine Culture EDMS 08/09 09:19 Order name: Carmichael; Complete Time: 09:48 sb4 08/09 10:54 Order name: Leg Bag; Complete Time: 11:15 sb4 Administered Medications: 09:30 Drug: morphine IM 4 mg IM once Route: IM; Site: left deltoid; rs5 10:15 Follow up: Response: No adverse reaction; Pain is decreased rs5 09:30 Drug: Viscous Lidocaine Mucous Membrane Liquid (4 %) 5 ml Mucous Membrane once; for rs5 carmichael catheter insertion Route: Mucous Membrane; 10:04 Follow up: Response: No adverse reaction; Pain is decreased rs5 Disposition Summary: 08/09/24 10:56 Discharge Ordered Notes: Location: Home sb4 Problem: new sb4 Symptoms: have improved sb4 Condition: Stable sb4 Diagnosis - Retention of urine, unspecified sb4 - UTI/ Urinary tract infection, site not specified sb4 Followup: sb4 - With: Rayray Syed MD - When: 2 - 3 days - Reason: Recheck today's complaints, Re-evaluation by your physician Discharge Instructions: - Discharge Summary Sheet sb4 - Urinary Tract Infection, Adult, [id number] sb4 - Indwelling Urinary Catheter Care, Adult, [id number] sb4 Forms: - Antibiotic Education sb4 - Patient Portal Instructions sb4 - Leadership Thank You Letter sb4 Prescriptions: - Cipro 500 mg Oral Tablet - take 1 tablet ORAL route every 12 hours for 7 days; 14 tablet; Refills: 0, sb4 Product Selection Permitted Signatures: Dispatcher [employer] Michelle Uriostegui, RN RN iw Flor Baker, KELVIN PANikky sb4 Gopal Fry, RN RN rs5
[2024-08-09 15:13] VITALS: BP 145/89; TEMP 97.6; O2SAT 98
== END 2024-08-09 11:18 | disposition home or self-care (01) ==
LOC: ER 09:03
DX: N39.0 Urinary tract infection, site not specified (principal)
CPT/HCPCS: 51702; 81001; 87077; 87086; 87088; 87186; 96372; 99284; J1200; J2765; J7030

== ENCOUNTER 2024-08-09 14:37 | Emergency (ER) | payer SELFPAY ==
--- OUTSIDE RECORDS SUMMARY | 2024-08-09 14:39 | XMS REPORT | Continuity of Care Document ---
Author Name Unknown Address [address] [facility] [place] [address] [facility] thconnect Address [address] [facility] [address] [place] [address] Care Team Providers Care Electronic Technologist Name Role Phone Pcp, Patient Does Not Have A Primary Care Physic lidia Bernarda Jacobo MD Attending Clinician [phone] LACY SERVIN Attending Clinician Unavailable BERNARDA JACOBO Attending Clinician Unavailable Lacy Servin MD Attending Clinician [phone] Nurse, [facility] Attending Clinician Yisel Pavon Attending Clinician Doctor Unassigned, [place] Attending Clinician U YISEL Miller Attending Clinician Unavaila ble Payers Payer Name Policy Type Policy Number Effective Date Expirati on Date Source Problems Condition Name Condition Details Condition Category Status Onset Date Resolution Date Last Treatment Date Treating Clinician Comments Source DVT (deep venous thrombosis ) DVT (deep venous thrombosis ) Disease Active 04-07 00:00: 00 [facility] Lower limb ischemia Lower limb ischemia Disease Active 04-07 00:00: 00 [facility] PAD (periphera l artery disease) PAD (periphera l artery disease) Disease [facility] 04-07 00:00: 00 [facility] Smoker Smoker Disease [facility] 04-07 00:00: 00 [facility] Allergies, Adverse Reactions, Alerts Allergy Name Allergy Type Status Severity Reaction(s) Onset Date Inactive Date Treating Clinician Comments Source NO KNOWN ALLERGIE S Drug Class Active [facility] Social History Social Habit Start Date Stop Date Quantity Comments Source History of tobacco use Smokes tobacco daily [facility] of Social function 2024-06-19 00:00:00 2024-06-19 00:00:00 [facility] Tobacco use and exposure 2023-12-25 00:00:00 2023-12-25 00:00:00 Smokeless tobacco non-user [facility] Sex assigned at 1965 00:00:00 1965 00:00:00 [facility] Smoking Status Start Date Stop Date Source Smokes tobacco daily 2023-12-25 00:00:00 [facility] Medications Ordered Medication Name Filled Medication Name Start Date Stop Date Current Medication? Ordering Clinician Indication Dosage Frequency Signature (SIG) Comments Components Source sulfamethox azole-trime thoprim (BACTRIM DS) 800-160 mg per tablet 1 tablet 06-19 15:45: 00 06-19 14:59 :00 No [id number] 1{tbl} 1 tablet, Oral, ONCE, 1 dose, On Sun06/19/24 at 1045, NING, Reason for Anti-Infec tive: Surgical Prophylaxi s, Surgical Prophylaxi s: Genitourin lita, Duration of therapy: within 24 hours of surgery [facility] gentamicin injection 160 mg 05-20 14:45: 00 05-20 14:22 :00 No [id number] 160mg 160 mg, Intramuscu lar, ONCE, 1 dose, On Sun05/20/24 at 0945, NING, Reason for Anti-Infec tive: Surgical Prophylaxi s, Surgical Prophylaxi s: Genitourin lita, Duration of therapy: within 24 hours of surgery [facility] levoFLOXaci n 500 mg tablet 05-12 00:00: 00 05-20 04:59 :00 No [id number] 500mg Take 1 tablet by mouth every 24 (twenty-fo ur) hours for 7 days. [facility] tamsulosin 0.4 mg 24 hr capsule 3-05 00:00: 00 Yes [id number] .4mg Take 1 capsule by mouth in the morning and 1 capsule in the evening. [facility] cefpodoxime 200 mg tablet 2-20 00:00: 00 Yes TAKE 1 TABLET BY MOUTH EVERY 12 HOURS WITH FOOD [facility] tamsulosin 0.4 mg 24 hr capsule 2022-10 1-08 00:00: 00 12-24 00:00 :00 No TAKE 1 CAPSULE BY MOUTH EVERY DAY AT 6 PM [facility] ELIQUIS 5 mg tablet 2022-10 0 00:00: 00 Yes 5mg Take 1 tablet by mouth in the morning and 1 tablet in the evening. [facility] aspirin 81 mg chewable tablet 18 00:00: 00 Yes [id number] 81mg Take 1 tablet by mouth daily. [facility] Vital Signs Vital Name Observation Time Observation Value Comments S ource Systolic blood pressure 2024-06-19 14:04:00 163 mm[Hg] [facility] Diastolic blood pressure 2024-06-19 14:04:00 91 mm[Hg] [facility] Heart rate 2024-06-19 13:55:00 85 /min [facility] Respiratory rate 2024-06-19 13:55:00 18 /min [facility] Body height 2024-06-19 13:55:00 165.1 cm [facility] Body weight 2024-06-19 13:55:00 57.471 kg [facility] BMI 2024-06-19 13:55:00 21.08 kg/m2 [facility] Oxygen saturation in Arterial blood by Pulse oximetry 2024-06-19 13:55:00 100 /min [facility] Systolic blood pressure 2024-05-20 13:39:00 140 mm[Hg] [facility] Diastolic blood pressure 2024-05-20 13:39:00 93 mm[Hg] [facility] Heart rate 2024-05-20 13:38:00 88 /min [facility] Body temperature 2024-05-20 13:38:00 36.78 Ailyn [facility] Respiratory rate 2024-05-20 13:38:00 18 /min [facility] Body height 2024-05-20 13:38:00 [facility] 2024-05-20 13:38:00 57.607 kg [facility] BMI 2024-05-20 13:38:00 21.13 kg/m2 [facility] Oxygen saturation in Arterial blood by Pulse oximetry 2024-05-20 13:38:00 98 /min [facility] Systolic blood pressure 2023-12-25 15:10:00 135 mm[Hg] [facility] Diastolic blood pressure 2023-12-25 15:10:00 88 mm[Hg] [facility] Heart rate 2023-12-25 15:10:00 93 /min [facility] Respiratory rate 2023-12-25 15:10:00 18 /min [facility] Body height 2023-12-25 15:10:00 165.1 cm [facility] Body weight 2023-12-25 15:10:00 59.512 kg [facility] BMI 2023-12-25 15:10:00 21.83 kg/m2 [facility] Oxygen saturation in Arterial blood by Pulse oximetry 2023-12-25 15:10:00 100 /min [facility] Systolic blood pressure 2023-09-25 14:16:00 147 mm[Hg] [facility] Diastolic blood pressure 2023-09-25 14:16:00 95 mm[Hg] [facility] Heart rate 2023-09-25 14:16:00 93 /min [facility] Oxygen saturation in Arterial blood by Pulse oximetry 2023-09-25 14:16:00 100 /min [facility] Body temperature 2023-09-25 14:14:00 37.33 Ailyn [facility] Respiratory rate 2023-09-25 14:14:00 18 /min [facility] Body height 2023-09-25 14:14:00 170.2 cm [facility] Body weight 2023-09-25 14:14:00 60.328 kg [facility] BMI 2023-09-25 14:14:00 20.83 kg/m2 [facility] Procedures Procedure Date / Time Performed Performing Clinicia n Source THAIS,POST-VOID RES,US,NON-IMAGING 2024-05-20 00:00:00 Lacy Servin [facility] EXTERNAL PROVIDER RECORDS 2024-01-04 05:01:00 Doctor Unassigned, [place] [facility] THAIS,POST-VOID RES,US,NON-IMAGING 2023-12-25 15:19:00 Yisel Rose [facility] REFERRAL- REQUEST/RESPONSE 2023-10-25 06:01:00 Doctor Unassigned, [place] [facility] CONSENT/REFUSAL FOR DIAGNOSIS AND TREATMENT 2023-09-25 14:03:55 Doctor Unassigned, [place] [facility] REFERRAL- REQUEST/RESPONSE 2023-08-16 05:01:00 Doctor Unassigned, [place] [facility] Encounters Start Date/Time End Date/Time Encounter Type Admission Type Attending Clinicians Care Facility Care Department Encounter ID Source 2024-07-18 00:00:00 2024-07-22 11:21:34 [facility] PR[facility] & SPECIALTY CARE 1.2.840.114 350.1.13.10 4.2.7.2.686 [id number] [facility] 2024-06-30 15:00:00 2024-06-30 15:00:00 Outpatient R LACY SERVIN [facility] [id number] [facility] 2024-06-19 09:00:00 2024-06-19 10:14:28 Outpatient R DONNELL [facility] [id number] [facility] 2024-06-19 09:00:00 2024-06-19 10:14:28 Office Visit [facility] PRIMARY & SPECIALTY CARE 1.2.840.114 350.1.13.10 4.2.7.2.686 [id number] [facility] 2024-05-21 00:00:00 2024-05-21 12:12:08 [facility] 1.2.840.114 350.1.13.10 4.2.7.2.686 [id number] [facility] 2024-05-20 08:30:00 2024-05-20 10:37:48 [id number] 2024-05-20 08:30:00 2024-05-20 10:37:48 [facility] 1.2.840.114 350.1.13.10 4.2.7.2.686 [id number] [facility] 2024-05-12 00:00:00 2024-05-12 16:03:57 Telephone [facility] PRIMARY AND SPECIALTY CARE 1.2.840.114 350.1.13.10 4.2.7.2.686 [id number] [facility] 2024-05-09 09:00:00 2024-05-09 09:30:00 Nurse Visit Nurse, [facility] PRIMARY AND SPECIALTY CARE 1.2.840.114 350.1.13.10 4.2.7.2.686 [id number] [facility] 2024-05-09 09:00:00 2024-05-09 09:00:00 Outpatient R MALATHI [facility] [id number] [facility] 2024-04-11 10:00:00 2024-04-11 10:00:00 [id number] 2024-03-27 00:00:00 2024-03-27 13:36:15 [facility] 1.2.840.114 350.1.13.10 4.2.7.2.686 [id number] [facility] 2024-02-28 00:00:00 2024-02-28 08:51:10 Telephone Malathi [facility] BUILDING 1.2840.114 350.1.13.10 4.2.7.2.686 [id number] [facility] 2024-02-27 00:00:00 2024-02-28 08:25:39 [facility] 1.2840.114 350.1.13.10 4.2.7.2.686 [id number] [facility] 2024-01-14 09:00:00 2024-01-14 09:00:00 Outpatient R [facility] [id number] [facility] 2024-01-11 15:00:00 2024-01-11 15:00:00 Outpatient R [facility] [id number] [facility] 2024-01-04 00:00:00 2024-01-04 00:00:00 Telephone [facility] 1.2840.114 350.1.13.10 4.2.7.2.686 [id number] [facility] 2024-01-04 00:00:00 2024-01-04 00:00:00 Orders Only Doctor Unassigned, [place] [facility] 1.2840.114 350.1.13.10 4.2.7.2.686 [id number] [facility] 2023-12-25 09:00:00 2023-12-25 09:44:52 Outpatient R LIZZY ROSETNEY [facility] [id number] [facility] 2023-12-25 09:00:00 2023-12-25 09:44:52 [facility] 1.2840.114 350.1.13.10 4.2.7.2.686 [id number] [facility] 2023-12-07 16:00:00 2023-12-07 16:00:00 [facility] [id number] 2023-11-01 11:00:00 2023-11-01 11:00:00 [facility] [id number] [facility] 2023-10-25 00:00:00 2023-10-25 00:00:00 Orders Only Doctor Unassigned, [place] [facility] 1.840.114 350.1.13.10 4.2.7.2.686 [id number] [facility] 2023-10-17 00:00:00 2023-10-17 00:00:00 Telephone [facility] 1.20.114 350.1.13.10 4.2.7.2.686 [id number] [facility] 2023-09-25 08:00:00 2023-09-25 08:52:46 [id number] 2023-09-25 08:00:00 2023-09-25 08:52:46 Office Visit [facility] 1.20.114 350.1.13.10 4.2.7.2.686 [id number] [facility] 2023-09-25 00:00:00 2023-09-25 00:00:00 Orders Only Doctor Unassigned, [place] [facility] 1.2.840.114 350.1.13.10 4.2.7.2.686 [id number] [facility] 2023-08-16 00:00:00 2023-08-16 00:00:00 Orders Only Doctor Unassigned, [place] [facility] 1.2.840.114 350.1.13.10 4.2.7.2.686 [id number] [facility] Results Test Description Test Time Test Comments Results Result Co mments Source [facility],,[id number] 15:19:00* Test Item Value Reference Range Interpretation Comme nts PVR (URINE VOLUME) (test code = 5193) 0 ml 0-100 [facility],POST-VOID RES,,[id number] 15:19:00* Test Item Value Reference Range Interpretation Comme nts PVR (URINE VOLUME) (test code = 5193) 0 ml 0-100 [facility] Notes Date/Time Note Provider Source 2024-07-22 11:21:18 Message left for patient T Melida Box RN [facility] 2024-07-21 13:25:30 [address] can follow with Dr Servin. Thanks [facility] 2024-07-21 10:41:57 left message on recorder Message forwarded to Dr Jacobo please advise if patient is to schedule follow up with you or Dr Alaniz [facility] 2024-07-18 15:49:55 Mary Murillo Pt returning call to clinic. Please advise. [phone] (home) Nhung Reynold Pulido [facility] 2024-07-18 12:20:44 Left message to return call [facility] 2024-07-18 09:29:01 Mary Murillo is a 59 year old male Patient calling back to discuss what to do next regarding his speedo catheter. Patient stated he is still having pain when urinating. Please contact [phone] Venkatesh García [facility] 2024-05-21 12:11:01 LVM for patient with clinic number for any questions or concerns. Dian Wing RN [facility] 2024-05-13 10:06:35 Patient notified of results/recommendations, understanding was verbalized via teach back. Jennifer Alvarado RN [facility] 2024-05-13 09:06:37 2nd Attempt to contact patient with no answer, Voicemail left at this time with clinic phone number and instructed patient to return call. Debi Eid MA [facility] 2024-05-13 08:09:42 Attempted to contact patient with no answer, Voicemail left at this time with clinic phone number and instructed patient to return call. Jennifer Alvarado RN [facility] 2024-05-12 17:26:02 Addended by: LACY SERVIN on: 05/12/2024 05:26 PM Modules accepted: Orders [facility] 2024-05-12 17:23:46 Indwelling carmichael Colonixzed urine Oral abx sent 5 days prior to cysto RTC as scheduled [facility] 2024-05-12 16:02:58 Images from the original note were not included. Patient scheduled for cysto 05/20/24. Will route to provider for recommendations. Jennifer Alvarado RN [facility] 2024-02-28 10:54:08 Patient will call back to schedule cysto Radha Sahni [facility] 2024-02-28 10:50:00 Cost with RCO. Otherwise offer RTC URO-UROLOGY STAFF [facility] 2024-02-28 08:49:11 Images from the original note were not included. Jennifer Alvarado RN [facility] 2024-02-28 08:47:10 Patient expressed interest in scheduling cysto. 2 PVR visits where missed by the patient. Can we schedule Cysto or does PVR nurse visit need to be done first? Please confirm Radha Russell [facility] 2024-02-28 08:25:08 Attempted to contact patient to review questions. Patient states he will call back. Radha Russell [facility] 2024-02-27 17:02:58 Patient calling states he has discussed cystoscopy with Dr. Servin and wanting to get a burden. States he also has some other things he would like to discuss. Mercedes Akhtar [facility] 2024-01-04 08:51:57 Dr. Delgado's office faxed in requested medical records. Uploaded into pts chart under external provider records dated 01/04/24. Little Gallo [facility] 2023-10-18 15:27:02 Call placed to patient. No answer, unable to leave message. ON Lacy LVN [facility] 2023-10-17 15:58:43 Pt is wanting information about his visit with Dr Servin on 09/25. He is asking if he needs to have a procedure scheduled. Please assist ON Judge [facility]
[2024-08-09] MEDS ORDERED: MORPHINE 4 MG/ML SYR ONE ×2 (14:50→17:14)
[2024-08-09] MEDS ORDERED: NA CHLORIDE 0.9% 500 ML ONE ×2 (14:50→16:32)
[2024-08-09] MEDS ORDERED: ONDANSETRON 4 MG/2 ML VIAL ONE (14:50)
[2024-08-09] MEDS ORDERED: CEFTRIAXONE 1000 MG/VIAL ONE (14:50)
[2024-08-09 15:03] LABS: Absolute Basophils 0.2 K/uL (0-0.5); Absolute Eosinophils 0.1 K/uL (0-0.5); Absolute Lymphocytes (CBC) 1.9 K/uL (0.7-4.9); Absolute Monocytes 1.1 K/uL (0.1-1.3); Absolute Neutrophil 17.6 K/uL (1.8-8.0); Basophils % 0.9 % (0-1.3); Eosinophils % 0.3 % (0-4.4); Hematocrit 42.4 % (39.6-49.0); Hemoglobin 14.1 g/dL (13.6-17.9); Lymphocytes % 9.2 % (15.3-44.8); MCH 30.2 pg (27.0-35.0); MCHC 33.3 g/dL (32.0-36.0); MCV 90.7 fL (80-100); MPV 8.1 fL (7.6-11.3); Monocytes % 5.1 % (3.3-12.3); Neutrophils % 84.5 % (41.7-73.7); Platelets 453 thou/uL (152-406); RBC Red Blood Cell Count 4.68 M/uL (4.33-5.43); Red Cell Distribution Width 14.2 % (12.1-15.2)
[2024-08-09 15:10] LABS: Specific Gravity 1.019 (1.005-1.030); Urine Bilirubin NEGATIVE (Negative); Urine Blood 3+ (OVER) (Negative); Urine Clarity Extremely Turbid (Clear); Urine Color Dark-Brown (Yellow); Urine Glucose 1+ (Negative); Urine Ketones NEGATIVE (Negative); Urine Microscopic Reflex YN NO UMIC; Urine Nitrite NEGATIVE (Negative); Urine Protein 4+ (Over) (Negative); Urine Urobilinogen Normal (Normal); Urine pH 7.5 (5.0-7.0)
[2024-08-09 15:20] LABS: Albumin 3.3 g/dL (3.4-5.0); Albumin/Globulin Ratio 0.7 (1.1-1.8); Anion Gap 12.3 mEq/L (5.0-15.0); Bilirubin Total 0.5 mg/dL (0.2-1.0); Globulin 4.8 g/dL (2.3-3.5); Potassium 4.3 mEq/L (3.5-5.1); Protein, Total 8.1 g/dL (6.4-8.2)
[2024-08-09 15:59] LABS: White Blood Cell Scan OK (OK)
[2024-08-09 16:00] LABS: Blood Morphology Comment NOT SEEN (NOT SEEN); Platelet Estimate ADEQ
[2024-08-09] MEDS ORDERED: DIAZEPAM 5 MG TABLET ONE (16:32)
--- NOTE | 2024-08-09 16:39 | RAD REPORT ---
EXAMINATION: Stone Protocol CLINICAL INDICATION: Abdominal pain TECHNIQUE: CT abdomen and pelvis was performed, without IV contrast, as per department protocol. Oral contrast not given. Axial, sagittal and coronal reconstructions were obtained. One or more of the following dose reduction techniques were used: Automated exposure control, adjustment of the mA and k V according to the patient size, and iterative reconstruction. Unless otherwise specified, incidental findings do not require dedicated imaging follow-up. COMPARISON: May 2024 FINDINGS: The lack of intravenous and oral contrast limits the sensitivity of this exam for evaluation of solid visceral organs, vascular structures, and bowel Moderate bilateral hydronephrosis. The ureters are dilated to the level of the bladder. A renal calculus not seen. No ureteral calculus. A Bautista catheter is present within the bladder. Small amount of increased density within the lumen pr obably blood. Several calculi are present. Bladder wall is thickened. The prostate gland is moderately enlarged and contains calcifications. Trace amount of ascites. Liver, spleen, pancreas and adrenals grossly normal No evidence of diverticulitis. Small right inguinal hernia IMPRESSION: Moderate bilateral hydronephrosis and hydroureter to the level of the bladder. Small amount of blood is present within the bladder.
[2024-08-09] MEDS ORDERED: Levofloxacin500mg IV 500 MG/100 ML BAG IV ONE (16:55)
--- NOTE | 2024-08-09 17:07 | EDPHYS ---
Physician Documentation [facility] Name: Micheal Murillo Age: 59 yrs Sex: Male : 1965 Arrival Date: 08/09/2024 Time: 14:37 Bed 15 Private MD: ED Physician Yuniel Navarro HPI: 08/09 17:00 This 59 yrs old Male presents to ER via EMS with complaints of Blood In norma Catheter, Penile Pain. 17:00 The patient presents with a Carmichael catheter problem, draining bloody urine, urinary norma symptoms, dysuria, urinary frequency. Modifying factors: The symptoms are alleviated by nothing, the symptoms are aggravated by nothing. Associated signs and symptoms: Pertinent positives: abdominal pain. Severity of symptoms: At their worst the symptoms were moderate, in the emergency department the symptoms are unchanged. The patient has experienced similar episodes in the past, several times. Historical: - Allergies: 14:39 NKA; mb9 - Home Meds: 14:39 Eliquis oral [Active]; tamsulosin oral [Active]; mb9 - PMHx: 14:39 BPH; DVT; peripheral artery disease; mb9 - PSHx: 14:39 None; mb9 - Immunization history:: Adult Immunizations up to date. - Infectious Disease History:: Denies. - Social history:: Smoking status: Patient denies any tobacco usage or history of. - Family history:: not pertinent. ROS: 17:00 Constitutional: Negative for fever, chills, and weight loss, Eyes: Negative for injury, norma pain, redness, and discharge, ENT: Negative for injury, pain, and discharge, Neck: Negative for injury, pain, and swelling, Cardiovascular: Negative for chest pain, palpitations, and edema, Respiratory: Negative for shortness of breath, cough, wheezing, and pleuritic chest pain, Abdomen/GI: Negative for abdominal pain, nausea, vomiting, diarrhea, and constipation, Back: Negative for injury and pain, MS/Extremity: Negative for injury and deformity, Skin: Negative for injury, rash, and discoloration, Neuro: Negative for headache, weakness, numbness, tingling, and seizure, Psych: Negative for depression, anxiety, suicide ideation, homicidal ideation, and hallucinations, Allergy/Immunology: Negative for hives, rash, and allergies, Endocrine: Negative for neck swelling, polydipsia, polyuria, polyphagia, and marked weight changes, Hematologic/Lymphatic: Negative for swollen nodes, abnormal bleeding, and unusual bruising, 17:00 : Positive for urinary symptoms, urinary frequency, hematuria, difficulty urinating, Exam: 17:00 Constitutional: This is a well developed, well nourished patient who is awake, alert, nomra and in no acute distress. Head/Face: Normocephalic, atraumatic. Eyes: Pupils equal round and reactive to light, extra-ocular motions intact. Lids and lashes normal. Conjunctiva and sclera are non-icteric and not injected. Cornea within normal limits. Periorbital areas with no swelling, redness, or edema. ENT: Nares patent. No nasal discharge, no septal abnormalities noted. Tympanic membranes are normal and external auditory canals are clear. Oropharynx with no redness, swelling, or masses, exudates, or evidence of obstruction, uvula midline. Mucous membranes moist. Neck: Trachea midline, no thyromegaly or masses palpated, and no cervical lymphadenopathy. Supple, full range of motion without nuchal rigidity, or vertebral point tenderness. No Meningismus. Chest/axilla: Normal chest wall appearance and motion. Nontender with no deformity. No lesions are appreciated. Cardiovascular: Regular rate and rhythm with a normal S1 and S2. No gallops, murmurs, or rubs. Normal PMI, no JVD. No pulse deficits. Respiratory: Lungs have equal breath sounds bilaterally, clear to auscultation and percussion. No rales, rhonchi or wheezes noted. No increased work of breathing, no retractions or nasal flaring. Abdomen/GI: Soft, non-tender, with normal bowel sounds. No distension or tympany. No guarding or rebound. No evidence of tenderness throughout. Back: No spinal tenderness. No costovertebral tenderness. Full range of motion. Skin: Warm, dry with normal turgor. Normal color with no rashes, no lesions, and no evidence of cellulitis. MS/ Extremity: Pulses equal, no cyanosis. Neurovascular intact. Full, normal range of motion. Neuro: Awake and alert, GCS 15, oriented to person, place, time, and situation. Cranial nerves II-XII grossly intact. Motor strength 5/5 in all extremities. Sensory grossly intact. Cerebellar exam normal. Normal gait. Psych: Awake, alert, with orientation to person, place and time. Behavior, mood, and affect are within normal limits. 17:00 : CVA tenderness, is absent, Male external genitalia: normal, Bladder: tenderness, that is mild, a carmichael is noted, Vital Signs: 14:38 BP 158 / 82; Pulse 95; Resp 18; Temp 98; Pulse Ox 99% on R/A; Weight 70.31 kg; Height 5 mb9 ft. 6 in. ; Pain 10/10; 16:51 BP 165 / 75; Pulse 88; Resp 18; Pulse Ox 100% on R/A; mb9 18:14 BP 173 / 89; Pulse 98; Resp 18; Pulse Ox 98% on R/A; mb9 14:38 Body Mass Index 25.02 (70.31 kg, 167.64 cm) mb9 14:38 Pain Scale: Adult mb9 MDM: 14:46 Medical Screening Exam initiated norma 17:03 Differential diagnosis: nonspecific abdominal pain, UTI, urinary retention, Carmichael norma catheter problem, prostatitis, urethritis. Data reviewed: vital signs, nurses notes, lab test result(s), radiologic studies, CT scan, plain films. Consideration of Admission/Observation Escalation of care including admission/observation considered. I considered the following discharge prescriptions or medication management in the emergency department Medications were administered in the Emergency Department. See MAR. Test considered but Not performed: EKG: no ekg. Care significantly affected by the following chronic conditions: bph, dvt pad. Counseling: I had a detailed discussion with the patient and/or guardian regarding the historical points, exam findings, and any diagnostic results supporting the discharge/admit diagnosis, lab results, radiology results, the need to transfer to another facility, for higher level of care, [facility] does not immediately have the required specialist. 08/09 14:49 Order name: CBC with Diff; Complete Time: 16:28 [facility] 08/09 14:49 Order name: Comprehensive Metabolic Panel; Complete Time: 16:28 [facility] 08/09 14:49 Order name: Urinalysis w/ reflexes; Complete Time: 16:28 [facility] 08/09 15:59 Order name: CBC Smear Scan; Complete Time: 16:28 EDMS 08/09 16:47 Order name: Lactate w/ 2H reflex if indic.; Complete Time: 17:45 [facility] 08/09 14:49 Order name: CT Stone Protocol; Complete Time: 16:40 [facility] 08/09 16:31 Order name: Chest Single View XRAY; Complete Time: 18:14 [facility] Administered Medications: 14:50 Drug: Ondansetron IVP 4 mg IVP once; over 2 minutes Route: IVP; Site: right forearm; mb9 18:16 Follow up: Response: No adverse reaction mb9 14:59 Drug: NS 0.9% IV 500 ml 500 ml IV at 1 bolus once; to be given as a bolus over 30 mb9 minutes Volume: 500 ml; Route: IV; Rate: 1 bolus; Site: right forearm; 18:16 Follow up: Response: No adverse reaction; IV Status: Completed infusion mb9 14:59 Drug: Rocephin IV 1 grams IV at per protocol once; Given slow IV push per pharmacy mb9 instructions Route: IV; Rate: per protocol; Site: right forearm; 18:16 Follow up: Response: No adverse reaction; IV Status: Completed infusion mb9 14:59 Drug: morphine IVP or IV 4 mg IVP once over 4 mins Route: IVP; Infused Over: 4 mins; mb9 Site: right forearm; 18:16 Follow up: Response: No adverse reaction mb9 16:51 Drug: NS 0.9% IV 500 ml IV at per protocol once; to be given as a bolus over 30 minutes mb9 Route: IV; Rate: per protocol; Site: right forearm; 18:15 Follow up: Response: No adverse reaction; IV Status: Completed infusion mb9 16:51 Drug: Diazepam PO 10 mg PO once Route: PO; mb9 17:15 Follow up: Response: No adverse reaction mb9 17:01 Drug: levofloxacin IVPB 500 mg 100 ml IVPB once over 60 mins Volume: 100 ml; Route: mb9 IVPB; Infused Over: 60 mins; Site: right forearm; 18:15 Follow up: Response: No adverse reaction; IV Status: Completed infusion mb9 17:20 Drug: morphine IVP or IV 4 mg IVP once over 4 mins Route: IVP; Infused Over: 4 mins; mb9 Site: right forearm; 18:15 Follow up: Response: No adverse reaction mb9 Disposition Summary: 08/09/24 17:06 Transfer Ordered Notes: Transfer Location: [facility] norma Reason: Higher level of care norma Condition: Fair norma Problem: new norma Symptoms: have improved norma Accepting Physician: to [facility]., medicine , uro(08/09/24 20:12) vc1 Diagnosis - Hematuria, unspecified norma - UTI/ Urinary tract infection, site not specified norma - Acute kidney failure, unspecified norma - intermediate (current) use of anticoagulants norma - Other hydronephrosis - bilateral norma - Other mechanical complication of urinary (indwelling) catheter norma - Elevated white blood cell count norma Forms: - Medication Reconciliation Form norma - SBAR form norma Signatures: Dispatcher [employer] EDMS Yuniel Navarro MD MD cha Calcote, Vanessa, RN RN vc1 Brandy Adams RN RN mb9 Corrections: (The following items were deleted from the chart) 14:49 14:49 CBC+H.LAB.BRZ ordered. EDMS EDMS 14:49 14:49 COMPREHENSIVE METABOLIC PANEL+C.LAB.BRZ ordered. EDMS EDMS 14:49 14:49 Urinalysis+U.LAB.BRZ ordered. EDMS EDMS 14:49 14:49 Stone Protocol+CT.RAD.BRZ ordered. EDMS EDMS 16:31 16:31 Chest Single View+RAD.RAD.BRZ ordered. EDMS EDMS 16:31 16:31 BLOOD CULTURE*+BA.LAB.BRZ ordered. EDMS EDMS 16:47 16:47 LACTATE+C.LAB.BRZ ordered. EDPR EDMS 17:07 17:06 to [facility], medicine , uro norma norma 20:12 17:07 to [facility], medicine , uro norma vc1
--- NOTE | 2024-08-09 17:07 | ER ---
Nurse's Notes [facility] Name: Micheal Murillo Age: 59 yrs Sex: Male : 1965 Arrival Date: 08/09/2024 Time: 14:37 Bed 15 Private MD: Diagnosis: Hematuria, unspecified;UTI/ Urinary tract infection, site not specified;Acute kidney failure, unspecified;remote computer terminal operator (current) use of anticoagulants;Other hydronephrosis-bilateral;Other mechanical complication of urinary (indwelling) catheter;Elevated white blood cell count Presentation: 08/09 14:38 Chief complaint: EMS states: "toned out for pain at penis and blood in urine. Pt D/C mb9 from here today after carmichael was replaced. Pt denies falling or trauma.". Coronavirus screen: Vaccine status: Patient reports receiving the 2nd dose of the covid vaccine. Ebola Screen: No symptoms or risks identified at this time. Initial Sepsis Screen: Does the patient meet any 2 criteria? No. Patient's initial sepsis screen is negative. Does the patient have a suspected source of infection? No. Patient's initial sepsis screen is negative. Risk Assessment: Do you want to hurt yourself or someone else? Patient reports no desire to harm self or others. Onset of symptoms was August 09, 2024. 14:38 Method Of Arrival: EMS: [facility] mb9 14:38 Acuity: TORRIE 3 mb9 Triage Assessment: 14:40 General: Appears uncomfortable, Behavior is agitated, anxious, pt being uncooperative, mb9 refusing to get in bed, and hooked up to monitor. Pt yelling "I need pain medication." Verbal reassurance given. Pain: Complains of pain in pelvis Pain does not radiate. Pain currently is 10 out of 10 on a pain scale. Quality of pain is described as throbbing, Pain began suddenly. EENT: No signs and/or symptoms were reported regarding the EENT system. Neuro: Martinez Agitation-Sedation Scale (RASS): 0 - Alert and Calm Level of Consciousness is awake, alert, obeys commands, Oriented to person, place, time, situation, Appropriate for age. Cardiovascular: Patient's skin is warm and dry. Respiratory: Airway is patent Respiratory effort is even, unlabored, Respiratory pattern is regular, symmetrical. GI: No signs and/or symptoms were reported involving the gastrointestinal system. : Carmichael in place Urine is blood tinged, Reports pain in penis. Derm: Skin is pink, warm \\T\\ dry. Musculoskeletal: Range of motion: intact in all extremities. Historical: - Allergies: 14:39 NKA; mb9 - Home Meds: 14:39 Eliquis oral [Active]; tamsulosin oral [Active]; mb9 - PMHx: 14:39 BPH; DVT; peripheral artery disease; mb9 - PSHx: 14:39 None; mb9 - Immunization history:: Adult Immunizations up to date. - Infectious Disease History:: Denies. - Social history:: Smoking status: Patient denies any tobacco usage or history of. - Family history:: not pertinent. Screenin:41 [facility] ED Fall Risk Assessment (Adult) History of falling in the last 3 months, mb9 including since admission No falls in past 3 months (0 pts) Confusion or Disorientation No (0 pts) Intoxicated or Sedated No (0 pts) Impaired Gait No (0 pts) Mobility Assist Device Used No (0 pt) Altered Elimination No (0 pt) Score/Fall Risk Level 0 - 2 = Low Risk Oriented to surroundings, Maintained a safe environment, Educated pt \\T\\ family on fall prevention, incl call for assistance when getting out of bed. Abuse screen: Denies threats or abuse. Nutritional screening: No deficits noted. Tuberculosis screening: No symptoms or risk factors identified. Assessment: 14:42 Reassessment: see triage assessment. mb9 15:50 Reassessment: No changes from previously documented assessment. Patient and/or family mb9 updated on plan of care and expected duration. Pain level reassessed. Patient is alert, oriented x 3, equal unlabored respirations, skin warm/dry/pink. 16:51 Reassessment: No changes from previously documented assessment. Patient and/or family mb9 updated on plan of care and expected duration. Pain level reassessed. Patient is alert, oriented x 3, equal unlabored respirations, skin warm/dry/pink. 18:14 Reassessment: No changes from previously documented assessment. Patient and/or family mb9 updated on plan of care and expected duration. Pain level reassessed. Patient is alert, oriented x 3, equal unlabored respirations, skin warm/dry/pink. 18:48 Reassessment: Attempted to call report to transferring nurse. No answer. mb9 19:27 Reassessment: Attempted to call report to transferring nurse. No answer. mb9 20:03 Reassessment: Pt smoking cigarettes in bathroom. Pt educated about danger of smoking in [address] Charge nurse notified. 20:11 Reassessment: report given to EMS. mb9 Vital Signs: 14:38 BP 158 / 82; Pulse 95; Resp 18; Temp 98; Pulse Ox 99% on R/A; Weight 70.31 kg; Height 5 mb9 ft. 6 in. ; Pain 10/10; 16:51 BP 165 / 75; Pulse 88; Resp 18; Pulse Ox 100% on R/A; mb9 18:14 BP 173 / 89; Pulse 98; Resp 18; Pulse Ox 98% on R/A; mb9 14:38 Body Mass Index 25.02 (70.31 kg, 167.64 cm) mb9 14:38 Pain Scale: Adult [facility] ED Course: 14:38 Patient arrived in ED. mb9 14:39 Triage completed. mb9 14:39 Arm band placed on. mb9 14:42 Placed in gown. Bed in low position. Call light in reach. Side rails up X 1. Provided 9 Education on: press call light if needing anything. Client placed on continuous cardiac and pulse oximetry monitoring. NIBP monitoring applied. 14:42 No provider procedures requiring assistance completed. mb9 14:43 Brandy Adams, ASHLEY is Primary Nurse. mb9 14:46 Yuniel Navarro MD is Attending Physician. norma 14:59 CBC with Diff Sent. mb9 14:59 Comprehensive Metabolic Panel Sent. mb9 14:59 Urinalysis w/ reflexes Sent. mb9 14:59 Initial lab(s) drawn, by ga, sent to lab. Urine collected: Carmichael catheter specimen, mb9 blood tinged. Inserted saline lock: 20 gauge in right forearm, using aseptic technique. Blood collected. Flushed with 10 mL NS. 15:50 Patient requests food. Patient requests liquids. Patient requests pain medication. mb9 16:13 CT Stone Protocol In Process Unspecified. EDMS 17:05 initiated a transfer with Ryan from the [facility]. eb 17:42 Chest Single View XRAY In Process Unspecified. EDMS 17:[address] Luis the urologist questioned documents examiner for [facility] with Dr. Navarro for eb patient transfer consultation. 18:[address] Case the hospitalist questioned documents examiner for [facility] with Dr. Navarro for patient transfer consultation. 18:14 Patient transferred, IV remains in place. mb9 18:16 administrative approval given by Ryan Rodríguez Rn/ patient has been accepted to [facility] room 1609/ Dr. Case has accepted the patient in transport/ report to be called to [phone]. 19:52 initiated transport with EMS spoke with Oli he advised that a truck was coming [place] v[place] from [facility] and it would be awhile I stated that if they could not transport the patient not a problem we can initiate with another EMS also advised Oli that Per our Director transport will need to a 30 min time frame. Oli did advise that a he was unaware of this and a truck will be here within 30 mins. 20:06 Ems arrived to case picker patient. vk Administered Medications: 14:50 Drug: Ondansetron IVP 4 mg IVP once; over 2 minutes Route: IVP; Site: right forearm; mb9 18:16 Follow up: Response: No adverse reaction mb9 14:59 Drug: NS 0.9% IV 500 ml 500 ml IV at 1 bolus once; to be given as a bolus over 30 mb9 minutes Volume: 500 ml; Route: IV; Rate: 1 bolus; Site: right forearm; 18:16 Follow up: Response: No adverse reaction; IV Status: Completed infusion mb9 14:59 Drug: Rocephin IV 1 grams IV at per protocol once; Given slow IV push per pharmacy mb9 instructions Route: IV; Rate: per protocol; Site: right forearm; 18:16 Follow up: Response: No adverse reaction; IV Status: Completed infusion mb9 14:59 Drug: morphine IVP or IV 4 mg IVP once over 4 mins Route: IVP; Infused Over: 4 mins; mb9 Site: right forearm; 18:16 Follow up: Response: No adverse reaction mb9 16:51 Drug: NS 0.9% IV 500 ml IV at per protocol once; to be given as a bolus over 30 minutes mb9 Route: IV; Rate: per protocol; Site: right forearm; 18:15 Follow up: Response: No adverse reaction; IV Status: Completed infusion mb9 16:51 Drug: Diazepam PO 10 mg PO once Route: PO; mb9 17:15 Follow up: Response: No adverse reaction mb9 17:01 Drug: levofloxacin IVPB 500 mg 100 ml IVPB once over 60 mins Volume: 100 ml; Route: mb9 IVPB; Infused Over: 60 mins; Site: right forearm; 18:15 Follow up: Response: No adverse reaction; IV Status: Completed infusion mb9 17:20 Drug: morphine IVP or IV 4 mg IVP once over 4 mins Route: IVP; Infused Over: 4 mins; mb9 Site: right forearm; 18:15 Follow up: Response: No adverse reaction mb9 Medication: 14:42 VIS not applicable for this client. mb9 Outcome: 17:06 ER care complete, transfer ordered by MD. green 19:49 Transferred by ground EMS to [facility], Transfer form completed. mb9 X-rays sent w/ patient. Note: report given to ASHLEY Stewart 19:49 Condition: stable 19:49 Instructed on the need for transfer, 20:12 Patient left the ED. vc1 Signatures: Dispatcher [employer] EDYuniel Becker MD MD cha Botello, Elizabeth eb Calcote, Vanessa RN RN vc1 Brandy Adams RN RN mb9 Chloe Marsh
--- NOTE | 2024-08-09 17:55 | RAD REPORT ---
Procedure: Chest Single View HISTORY: Chest pain COMPARISON: none FINDINGS: The lungs appear clear of acute infiltrate. No significant pleural effusion noted. The heart is normal size. IMPRESSION: No acute abnormality is displayed.
[2024-08-09 23:18] VITALS: TEMP 98
[2024-08-09 23:22] VITALS: BP 173/89; O2SAT 98
== END 2024-08-09 20:12 | disposition short-term general hospital (02) ==
LOC: ER 14:37
DX: N39.0 Urinary tract infection, site not specified (principal); N17.9 Acute kidney failure, unspecified; N13.39 Other hydronephrosis; T83.098A Other mechanical complication of other urinary catheter, initial encounter; D72.829 Elevated white blood cell count, unspecified
CPT/HCPCS: 36415; 71045; 74176; 76377; 80053; 81003; 83605; 85025; 87040; 96365; 96366; 96375; 99285; J0696; J2405; J7040

== ENCOUNTER 2024-10-06 10:38 | Emergency (ER) | payer SELFPAY ==
[2024-10-06] MEDS ORDERED: LIDOCAINE VISCOUS 2% 10ML ORAL SOLN ONE (11:41)
--- NOTE | 2024-10-06 11:50 | ER ---
Nurse's Notes [facility] Name: Micheal Murillo Age: 59 yrs Sex: Male : 1965 Arrival Date: 10/06/2024 Time: 10:38 Bed 8 Private MD: Diagnosis: Other mechanical complication of urinary (indwelling) catheter Presentation: 10/06 10:56 Chief complaint: Patient states: requesting to have carmichael catheter changed and switched ss to leg bag. Coronavirus screen: Client denies travel out of the [place] in the last 14 days. Ebola Screen: Patient denies exposure to infectious person. Patient denies travel to an Ebola-affected area in the 21 days before illness onset. Initial Sepsis Screen: Does the patient meet any 2 criteria? No. Patient's initial sepsis screen is negative. Does the patient have a suspected source of infection? No. Patient's initial sepsis screen is negative. Initial Sepsis Screen: Does the patient meet any 2 criteria?. 10:56 Method Of Arrival: Ambulatory ss 11:22 Risk Assessment: Do you want to hurt yourself or someone else? Patient reports no ph desire to harm self or others. Onset of symptoms was October 06, 2024. 11:22 Acuity: TORRIE 4 ph Historical: - Allergies: 10:57 NKA; ss - PMHx: 10:57 BPH; DVT; peripheral artery disease; ss - Immunization history:: Adult Immunizations unknown. - Infectious Disease History:: Denies. - Social history:: Smoking status: Patient denies any tobacco usage or history of. Screenin:22 [facility] ED Fall Risk Assessment (Adult) History of falling in the last 3 months, ph including since admission No falls in past 3 months (0 pts) Confusion or Disorientation No (0 pts) Intoxicated or Sedated No (0 pts) Impaired Gait No (0 pts) Mobility Assist Device Used No (0 pt) Altered Elimination No (0 pt) Score/Fall Risk Level 0 - 2 = Low Risk Oriented to surroundings, Maintained a safe environment, Hourly rounding (assess needs \T\ fall precautionary measures) done. Abuse screen: Denies threats or abuse. Denies injuries from another. Nutritional screening: No deficits noted. Tuberculosis screening: No symptoms or risk factors identified. Assessment: 11:30 General: Appears in no apparent distress. Behavior is calm, cooperative. Pain: Denies ph pain. Neuro: Level of Consciousness is awake, alert, obeys commands, Oriented to person, place, time, situation. : Carmichael in place to gravity drainage. Derm: Skin is pink, warm \T\ dry. Vital Signs: 10:56 BP 133 / 85; Pulse 88; Resp 16; Temp 98.6(TE); Pulse Ox 97% on R/A; Pain 0/10; ss 12:15 BP 128 / 82; Pulse 81; Resp 18; Temp 98.9; Pulse Ox 99% on R/A; ph 10:56 Pain Scale: Adult ss ED Course: 10:42 Patient arrived in ED. al6 10:47 Yuniel Orourke PA is PHCP. cp 10:47 Abilio Ortega MD is Attending Physician. cp 10:57 Arm band placed on right wrist. ss 11:03 Gina Alvarado RN is Primary Nurse. ph 11:22 Triage completed. ph 11:23 Allergy band placed. ph 11:47 Rayray Syed MD is Referral Physician. cp 12:25 No provider procedures requiring assistance completed. Carmichael cath removed intact, ph balloon deflated. Carmichael cath inserted, using sterile technique, 16 Fr., by nd, balloon inflated, to gravity drainage, returned clear yellow urine. Patient tolerated well. Patient did not have IV access during this emergency room visit. Administered Medications: 12:25 Drug: Viscous Lidocaine Mucous Membrane Liquid (4 %) 10 ml Mucous Membrane once Route: ph Mucous Membrane; 12:25 Follow up: Response: No adverse reaction ph Medication: 11:23 VIS not applicable for this client. ph Outcome: 11:50 Discharge ordered by MD. cp 12:26 Discharged to home ambulatory, ph 12:26 Condition: good 12:26 Discharge instructions given to patient, Instructed on discharge instructions, follow up and referral plans. Demonstrated understanding of instructions, follow-up care, 12:26 Patient left the ED. ph Signatures: Tiffanie Cole RN RN Gina Alvarado RN RN Yuniel Orourke PA PA cp Ana Ruiz al6
--- NOTE | 2024-10-06 11:50 | EDPHYS ---
Physician Documentation [facility] Name: Micheal Murillo Age: 59 yrs Sex: Male : 1965 Arrival Date: 10/06/2024 Time: 10:38 Bed 8 Private MD: ED Physician Abilio Ortega HPI: 10/06 11:00 This 59 yrs old Male presents to ER via Ambulatory with complaints of cath problem. cp 11:00 The patient presents with replacement of Bautista catheter and placement of leg bag. No cp other complaints expressed. Associated signs and symptoms: The patient has no apparent associated signs or symptoms. Historical: - Allergies: 10:57 NKA; ss - PMHx: 10:57 BPH; DVT; peripheral artery disease; ss - Immunization history:: Adult Immunizations unknown. - Infectious Disease History:: Denies. - Social history:: Smoking status: Patient denies any tobacco usage or history of. ROS: 11:05 Constitutional: History per HPI cp Exam: 11:08 Constitutional: The patient appears in no acute distress, alert, awake, comfortable, cp non-toxic, well developed, well nourished, 11:08 Head/Face: Normocephalic, atraumatic. cp 11:08 Chest/axilla: Inspection: normal, 11:08 Cardiovascular: Rate: normal, 11:08 Respiratory: the patient does not display signs of respiratory distress, Respirations: normal, no use of accessory muscles, Breath sounds: are clear throughout, no decreased breath sounds, no stridor, no wheezing, 11:08 Abdomen/GI: Exam negative for discomfort, distension, guarding, Inspection: abdomen appears normal, Vital Signs: 10:56 BP 133 / 85; Pulse 88; Resp 16; Temp 98.6(TE); Pulse Ox 97% on R/A; Pain 0/10; ss 12:15 BP 128 / 82; Pulse 81; Resp 18; Temp 98.9; Pulse Ox 99% on R/A; ph 10:56 Pain Scale: Adult ss MDM: 10:47 Medical Screening Exam initiated norma 11:20 Differential diagnosis: UTI, urinary retention, Bautista catheter problem. cp 11:50 Data reviewed: vital signs, nurses notes, and as a result, I will discharge patient. cp 11:50 Counseling: I had a detailed discussion with the patient and/or guardian regarding the cp historical points, exam findings, and any diagnostic results supporting the discharge/admit diagnosis, the need for outpatient follow up, for definitive care, a urologist, to return to the emergency department if symptoms worsen or persist or if there are any questions or concerns that arise at home. 10/06 10:56 Order name: Bautista Leg Bag; Complete Time: 12:25 cp 10/06 11:16 Order name: Bautista; Complete Time: 12:25 ph Administered Medications: 12:25 Drug: Viscous Lidocaine Mucous Membrane Liquid (4 %) 10 ml Mucous Membrane once Route: ph Mucous Membrane; 12:25 Follow up: Response: No adverse reaction ph Disposition: 18:10 Co-signature as Attending Physician, Abilio Ortega MD I reviewed the patient's care rn provided by the Advanced Practice Provider and agree with the diagnosis and treatment plan. Disposition Summary: 10/06/24 11:50 Discharge Ordered Notes: Location: Home cp Problem: an ongoing problem cp Symptoms: have improved cp Condition: Stable cp Diagnosis - Other mechanical complication of urinary (indwelling) catheter cp Followup: cp - With: Rayray Syed MD - When: 1 week - Reason: Recheck today's complaints Discharge Instructions: - Discharge Summary Sheet cp - Indwelling Urinary Catheter Care, Adult cp Forms: - Medication Reconciliation Form cp - Antibiotic Education cp - Prescription Opioid Use cp - Patient Portal Instructions cp - Leadership Thank You Letter cp Signatures: Yuniel Navarro MD MD cha Nieto, Roman, MD MD rn Blanchard, Shelby, RN RN Gina Alvarado RN RN ph Page, Corey, PA PA cp
[2024-10-06 12:30] VITALS: BP 133/85; TEMP 98.6; O2SAT 97
== END 2024-10-06 12:26 | disposition home or self-care (01) ==
LOC: ER 10:38
DX: T83.098A Other mechanical complication of other urinary catheter, initial encounter (principal)
CPT/HCPCS: 51702; 99284

== ENCOUNTER 2024-11-19 11:34 | Emergency (ER) | payer SELFPAY ==
--- NOTE | 2024-11-19 13:58 | EDPHYS ---
Physician Documentation [facility] Name: Micheal Murillo Age: 59 yrs Sex: Male : 1965 Arrival Date: 11/19/2024 Time: 11:34 Bed 11 Private MD: ED Physician Reji Uriarte HPI: 11/19 15:00 This 59 yrs old Male presents to ER via Ambulatory with complaints of Needs Urinary rt Catheter Replacement. 15:00 Patient presents to the ED requesting urinary catheter replacement. Denies any pain, rt other specific complaints. No other aggravating relieving factors.. Historical: - Allergies: 11:51 NKA; ld1 - PMHx: 11:51 BPH; DVT; peripheral artery disease; ld1 - Immunization history:: Adult Immunizations up to date. - Infectious Disease History:: Denies. - Social history:: Smoking status: Patient reports the use of cigarette tobacco products, smokes one-half pack cigarettes per day, Patient uses alcohol, occasionally. - Family history:: not pertinent. ROS: 15:00 Constitutional: Negative for fever, chills, and weight loss, Eyes: Negative for injury, rt pain, redness, and discharge, Cardiovascular: Negative for chest pain, palpitations, and edema, Respiratory: Negative for shortness of breath, cough, wheezing, and pleuritic chest pain, Abdomen/GI: Negative for abdominal pain, nausea, vomiting, diarrhea, and constipation, Skin: Negative for injury, rash, and discoloration, Neuro: Negative for headache, weakness, numbness, tingling, and seizure, Exam: 15:00 Constitutional: This is a well developed, well nourished patient who is awake, alert, rt and in no acute distress. Head/Face: Normocephalic, atraumatic. Chest/axilla: Normal chest wall appearance and motion. Nontender with no deformity. No lesions are appreciated. Cardiovascular: Regular rate and rhythm with a normal S1 and S2. No gallops, murmurs, or rubs. Normal PMI, no JVD. No pulse deficits. Respiratory: Lungs have equal breath sounds bilaterally, clear to auscultation and percussion. No rales, rhonchi or wheezes noted. No increased work of breathing, no retractions or nasal flaring. Abdomen/GI: Soft, non-tender, with normal bowel sounds. No distension or tympany. No guarding or rebound. No evidence of tenderness throughout. Skin: Warm, dry with normal turgor. Normal color with no rashes, no lesions, and no evidence of cellulitis. MS/ Extremity: Pulses equal, no cyanosis. Neurovascular intact. Full, normal range of motion. Neuro: Awake and alert, GCS 15, oriented to person, place, time, and situation. Cranial nerves II-XII grossly intact. Motor strength 5/5 in all extremities. Sensory grossly intact. Cerebellar exam normal. Normal gait. 15:00 : Urinary catheter in place, Vital Signs: 11:49 Pulse 84; Resp 18; Temp 98(O); Pulse Ox 100% on R/A; Weight 58.97 kg; Height 5 ft. 5 ld1 in. ; Pain 0/10; 11:51 BP 135 / 79; ld1 11:49 Body Mass Index 21.63 (58.97 kg, 165.1 cm) ld1 11:49 Pain Scale: Adult ld1 MDM: 11:52 Medical Screening Exam initiated rt 15:01 Differential Diagnosis Indwelling urinary catheter replacement. Data reviewed: vital rt signs, nurses notes. Test considered but Not performed: Other Details No complaints currently, diagnostic studies are not indicated, urinary culture was sent as patient is likely colonized. Care significantly affected by the following chronic conditions: BPH. Counseling: I had a detailed discussion with the patient and/or guardian regarding the historical points, exam findings, and any diagnostic results supporting the discharge/admit diagnosis, the need for outpatient follow up. 11/19 12:43 Order name: MANUELA; Complete Time: 15:00 rt 11/19 12:43 Order name: Urine Culture rt 11/19 11:57 Order name: Lily; Complete Time: 13:56 rt Administered Medications: No medications were administered Disposition Summary: 11/19/24 13:58 Discharge Ordered Notes: Location: Home rt Problem: chronic rt Symptoms: have improved rt Condition: Stable rt Diagnosis - Mechanical complication of urinary (indwelling) catheter rt Followup: rt - With: Private Physician - When: 2 - 3 days - Reason: Discharge Instructions: - Discharge Summary Sheet rt - Indwelling Urinary Catheter Care, Adult rt Forms: - Medication Reconciliation Form rt - Antibiotic Education rt - Prescription Opioid Use rt - Patient Portal Instructions rt - Leadership Thank You Letter rt Signatures: Kassandra Carcamo, ASHLEY RN ld1 Reji Uriarte MD MD rt
--- NOTE | 2024-11-19 13:58 | ER ---
Nurse's Notes [facility] Name: Micheal Murillo Age: 59 yrs Sex: Male : 1965 Arrival Date: 11/19/2024 Time: 11:34 Bed 11 Private MD: Diagnosis: Mechanical complication of urinary (indwelling) catheter Presentation: 11/19 11:50 Chief complaint: Patient states: I need my carmichael changed. It has been 6 weeks. ld1 Coronavirus screen: At this time, the client does not indicate any symptoms associated with coronavirus-19. Ebola Screen: No symptoms or risks identified at this time. Initial Sepsis Screen: Does the patient meet any 2 criteria? No. Patient's initial sepsis screen is negative. Does the patient have a suspected source of infection? No. Patient's initial sepsis screen is negative. Risk Assessment: Do you want to hurt yourself or someone else? Patient reports no desire to harm self or others. Onset of symptoms was November 19, 2024. 11:50 Method Of Arrival: Ambulatory ld1 11:50 Acuity: TORRIE 4 ld1 Triage Assessment: 11:50 General: Appears in no apparent distress. comfortable, Behavior is calm, cooperative, ld1 appropriate for age. Pain: Denies pain. EENT: No signs and/or symptoms were reported regarding the EENT system. Neuro: Level of Consciousness is awake, alert, obeys commands, Oriented to person, place, time, situation. Cardiovascular: Capillary refill < 3 seconds Patient's skin is warm and dry. Respiratory: Airway is patent Respiratory effort is even, unlabored. GI: Abdomen is flat, non-distended. : No signs and/or symptoms were reported regarding the genitourinary system. : Carmichael in place. Derm: No signs and/or symptoms reported regarding the dermatologic system. Musculoskeletal: No signs and/or symptoms reported regarding the musculoskeletal system. Historical: - Allergies: 11:51 NKA; ld1 - PMHx: 11:51 BPH; DVT; peripheral artery disease; ld1 - Immunization history:: Adult Immunizations up to date. - Infectious Disease History:: Denies. - Social history:: Smoking status: Patient reports the use of cigarette tobacco products, smokes one-half pack cigarettes per day, Patient uses alcohol, occasionally. - Family history:: not pertinent. Screenin:12 [facility] ED Fall Risk Assessment (Adult) History of falling in the last 3 months, db including since admission No falls in past 3 months (0 pts) Confusion or Disorientation No (0 pts) Intoxicated or Sedated No (0 pts) Impaired Gait No (0 pts) Mobility Assist Device Used No (0 pt) Altered Elimination No (0 pt) Score/Fall Risk Level 0 - 2 = Low Risk Oriented to surroundings, Maintained a safe environment. Abuse screen: Denies threats or abuse. Denies injuries from another. Nutritional screening: No deficits noted. Tuberculosis screening: No symptoms or risk factors identified. Assessment: 13:30 Reassessment: Patient appears in no apparent distress at this time. Patient and/or db family updated on plan of care and expected duration. Pain level reassessed. Patient is alert, oriented x 3, equal unlabored respirations, skin warm/dry/pink. WANTS CATHETER CHANGED. : Carmichael in place. 14:12 Reassessment: Patient appears in no apparent distress at this time. Patient and/or db family updated on plan of care and expected duration. Pain level reassessed. Patient is alert, oriented x 3, equal unlabored respirations, skin warm/dry/pink. General: Appears in no apparent distress. comfortable, Behavior is calm, cooperative. Neuro: Level of Consciousness is awake, alert, obeys commands, Oriented to person, place, time, situation. Respiratory: Airway is patent Respiratory effort is even, unlabored, Respiratory pattern is regular, symmetrical. Vital Signs: 11:49 Pulse 84; Resp 18; Temp 98(O); Pulse Ox 100% on R/A; Weight 58.97 kg; Height 5 ft. 5 ld1 in. ; Pain 0/10; 11:51 BP 135 / 79; ld1 11:49 Body Mass Index 21.63 (58.97 kg, 165.1 cm) ld1 11:49 Pain Scale: Adult ld1 ED Course: 11:36 Patient arrived in ED. im 11:37 Reji Uriarte MD is Attending Physician. rt 11:50 Triage completed. ld1 11:50 Arm band placed on right wrist. ld1 13:01 Tg Whitehead, ASHLEY is Primary Nurse. db 13:45 Carmichael cath inserted, using sterile technique, 16 Fr., by ceramics test engineer, balloon inflated, db Patient tolerated well. 13:46 Patient has correct armband on for positive identification. Side rails up X 1. db 13:56 Waiting on urine for Urine production for samples. ty 14:12 Provided Education on: DISCHARGE AND FOLLOWUP. db 14:12 No provider procedures requiring assistance completed. Patient did not have IV access db during this emergency room visit. Administered Medications: No medications were administered Medication: 14:12 VIS not applicable for this client. db Outcome: 13:58 Discharge ordered by . rt 14:12 Discharged to home ambulatory, db 14:12 Condition: stable 14:12 Discharge instructions given to patient, Instructed on discharge instructions, follow up and referral plans. 14:14 Patient left the ED. db Signatures: Kassandra Shirley, RN RN ld1 Tg Whitehead RN RN db Reji Uriarte MD MD rt Nuvia Townsend Tylor ty
[2024-11-19 14:21] LABS: Specific Gravity 1.009 (1.005-1.030); Sqamous Epithelial <5 /HPF (None Seen); Urine Bacteria <20 /HPF (<20); Urine Bilirubin NEGATIVE (Negative); Urine Blood 2+ (Negative); Urine Clarity Turbid (Clear); Urine Color Colorless (Yellow); Urine Culture Reflex Order REFLEXED; Urine Glucose NEGATIVE (Negative); Urine Ketones NEGATIVE (Negative); Urine Micro Reflex YN NO BILL MICROSCOPIC; Urine Nitrite NEGATIVE (Negative); Urine Protein NEGATIVE (Negative); Urine RBC >50 /HPF (None Seen); Urine Urobilinogen Normal (Normal); Urine pH 7.5 (5.0-7.0)
[2024-11-19 20:10] VITALS: TEMP 98; O2SAT 100
[2024-11-19 20:11] VITALS: BP 135/79
== END 2024-11-19 14:14 | disposition home or self-care (01) ==
LOC: ER 11:34
DX: T83.098A Other mechanical complication of other urinary catheter, initial encounter (principal)
CPT/HCPCS: 81001; 87086; 87088

== ENCOUNTER 2025-01-07 11:03 | Emergency (ER) | payer SELFPAY ==
--- NOTE | 2025-01-07 11:52 | ER ---
Nurse's Notes [facility] Name: Micheal Murillo Age: 59 yrs Sex: Male : 1965 Arrival Date: 01/07/2025 Time: 11:03 Bed 10 Private MD: Diagnosis: Other mechanical complication of other urinary catheter, initial encounter Presentation: 01/07 11:37 Chief complaint: Patient states: here to have carmichael catheter changed. Coronavirus cm10 screen: Client denies travel out of the [place] in the last 14 days. Ebola Screen: Patient denies travel to an Ebola-affected area in the 21 days before illness onset. Initial Sepsis Screen: Does the patient meet any 2 criteria? No. Patient's initial sepsis screen is negative. Does the patient have a suspected source of infection? No. Patient's initial sepsis screen is negative. Risk Assessment: Do you want to hurt yourself or someone else? Patient reports no desire to harm self or others. Onset of symptoms was January 07, 2025. 11:37 Method Of Arrival: Ambulatory cm10 11:37 Acuity: TORRIE 4 cm10 Triage Assessment: 11:38 General: Appears in no apparent distress. comfortable, Behavior is calm, cooperative. cm10 Pain: Denies pain. Neuro: No deficits noted. Level of Consciousness is awake, alert, obeys commands, Oriented to person, place, time, situation, Appropriate for age. Respiratory: No deficits noted. Airway is patent Respiratory effort is even, unlabored, Respiratory pattern is regular, symmetrical. : Carmichael in place to gravity drainage. Historical: - Allergies: 11:38 NKA; cm10 - PMHx: 11:38 BPH; DVT; peripheral artery disease; Chronic Carmichael catheter; cm10 - Immunization history:: Adult Immunizations unknown. - Infectious Disease History:: Denies. - Social history:: Smoking status: Patient reports the use of cigarette tobacco products, cigars. Assessment: 12:30 General: Appears in no apparent distress. Neuro: Level of Consciousness is awake, iw alert, obeys commands, Oriented to person, place, time, situation. Cardiovascular: Patient's skin is warm and dry. Respiratory: Trachea Respiratory effort is even, labored. Vital Signs: 11:37 BP 143 / 79; Pulse 73; Resp 15; Temp 98.6; Pulse Ox 100% ; Weight 58.97 kg; Height 5 cm10 ft. 6 in. ; Pain 0/10; 11:37 Body Mass Index 20.98 (58.97 kg, 167.64 cm) cm10 11:37 Pain Scale: Adult cm10 ED Course: 11:06 Patient arrived in ED. cj3 11:07 Dickson Shirley DO is Attending Physician. ms3 11:38 Triage completed. cm10 11:39 Arm band placed on right wrist. Patient placed in an exam room, on a stretcher. cm10 12:04 Carmichael cath inserted, using sterile technique, 16 Fr., by pr, balloon inflated, to ty gravity drainage, clamped. other Changed into leg bag. 12:29 Michelle Cesar, RN is Primary Nurse. iw Administered Medications: No medications were administered Outcome: 11:51 Discharge ordered by MD. ms3 12:46 Discharged to home ambulatory, iw 12:46 Condition: good 12:46 Discharge instructions given to patient, Instructed on discharge instructions, follow up and referral plans. Demonstrated understanding of instructions, follow-up care, 12:47 Patient left the ED. zm Signatures: Michelle Cesar, RN RN iw Dickson Shirley DO DO ms3 Tamanna Ferrera Clarissa, RN RN cm10 Vitaliy, Smita Max cj3
--- NOTE | 2025-01-07 11:52 | EDPHYS ---
Physician Documentation [facility] Name: Micheal Murillo Age: 59 yrs Sex: Male : 1965 Arrival Date: 01/07/2025 Time: 11:03 Bed 10 Private MD: ED Physician Dickson Shirley HPI: 01/07 12:21 This 59 yrs old Male presents to ER via Ambulatory with complaints of Problem With ms3 Urinary Catheter. 12:21 59-year-old male with past medical history of benign prostate hyperplasia, peripheral ms3 artery disease, DVT presents to the emergency department for malfunction of his Bautista catheter. He states he needs catheter change as it is not draining well. He states he believes the catheter was last changed in October. Patient denies fevers, chills, nausea, vomiting, abdominal pain. Historical: - Allergies: 11:38 NKA; cm10 - PMHx: 11:38 BPH; DVT; peripheral artery disease; Chronic Bautista catheter; cm10 - Immunization history:: Adult Immunizations unknown. - Infectious Disease History:: Denies. - Social history:: Smoking status: Patient reports the use of cigarette tobacco products, cigars. ROS: 12:21 Constitutional: Negative for fever, and chills. Cardiovascular: Negative for chest ms3 pain, and palpitations. Respiratory: Negative for shortness of breath, cough, wheezing, and pleuritic chest pain, Abdomen/GI: Negative for abdominal pain, nausea, vomiting, diarrhea, and constipation, 12:21 : Positive for Bautista catheter, Exam: 12:21 Constitutional: This is a well developed, well nourished patient who is awake, alert, ms3 and in no acute distress. Cardiovascular: Regular rate and rhythm with a normal S1 and S2. No gallops, murmurs, or rubs. Normal PMI, no JVD. No pulse deficits. Respiratory: Lungs have equal breath sounds bilaterally, clear to auscultation and percussion. No rales, rhonchi or wheezes noted. No increased work of breathing, no retractions or nasal flaring. Abdomen/GI: Soft, non-tender, with normal bowel sounds. No distension or tympany. No guarding or rebound. No evidence of tenderness throughout. Skin: Warm, dry with normal turgor. Normal color with no rashes, no lesions, and no evidence of cellulitis. Vital Signs: 11:37 BP 143 / 79; Pulse 73; Resp 15; Temp 98.6; Pulse Ox 100% ; Weight 58.97 kg; Height 5 cm10 ft. 6 in. ; Pain 0/10; 11:37 Body Mass Index 20.98 (58.97 kg, 167.64 cm) cm10 11:37 Pain Scale: Adult cm10 MDM: 11:45 Medical Screening Exam initiated ms3 12:21 Differential diagnosis: Bautista catheter problem. Data reviewed: vital signs, nurses ms3 notes, and as a result, I will discharge patient. Counseling: I had a detailed discussion with the patient and/or guardian regarding the historical points, exam findings, and any diagnostic results supporting the discharge/admit diagnosis, the need for outpatient follow up, to return to the emergency department if symptoms worsen or persist or if there are any questions or concerns that arise at home. ED course: Will plan for changing Bautista catheter. Patient will be discharged after Bautista catheter change. Patient is requesting a leg bag and patient will be discharged with leg bag. Patient to follow-up with primary care physician in 2 to 3 days to arrange home health for catheter changes at appropriate intervals. Patient verbalizes understanding. All questions were answered. Return precautions discussed include fevers, chills, abdominal pain, worsening symptoms, or any other concerns.. 03 11:46 Order name: Bautista Leg Bag; Complete Time: 12:29 ms3 01/07 11:46 Order name: Bautista; Complete Time: 12:29 ms3 Administered Medications: No medications were administered Disposition Summary: 01/07/25 11:51 Discharge Ordered Notes: Location: Home ms3 Condition: Stable ms3 Diagnosis - Other mechanical complication of other urinary catheter, initial encounter ms3 Followup: ms3 - With: Private Physician - When: 2 - 3 days - Reason: Recheck today's complaints Discharge Instructions: - Discharge Summary Sheet ms3 - Indwelling Urinary Catheter Insertion, Care After ms3 Forms: - Medication Reconciliation Form ms3 - Antibiotic Education ms3 - Prescription Opioid Use ms3 - Patient Portal Instructions ms3 - Leadership Thank You Letter ms3 Signatures: Dickson Shirley DO DO ms3 Sherie Ferrera RN RN cm10
[2025-01-07 18:49] VITALS: BP 143/79; TEMP 98.6; O2SAT 100
== END 2025-01-07 12:47 | disposition home or self-care (01) ==
LOC: ER 11:03
DX: T83.098A Other mechanical complication of other urinary catheter, initial encounter (principal)

== ENCOUNTER 2025-02-27 01:51 | Emergency (ER) | payer SELFPAY ==
[2025-02-27 02:35] LABS: Specific Gravity 1.015 (1.005-1.030); Sqamous Epithelial None Seen /HPF (None Seen); Urine Bacteria <20 /HPF (<20); Urine Bilirubin NEGATIVE (Negative); Urine Blood 2+ (Negative); Urine Clarity Extremely Turbid (Clear); Urine Color Light-Yellow (Yellow); Urine Culture Reflex Order REFLEXED; Urine Glucose NEGATIVE (Negative); Urine Ketones NEGATIVE (Negative); Urine Microscopic Reflex YN ORDER UMIC; Urine Mucus Slight /HPF (None Seen); Urine Nitrite 2+ (Negative); Urine Protein NEGATIVE (Negative); Urine RBC 21-50 /HPF (None Seen); Urine Urobilinogen Normal (Normal); Urine WBC >50 /HPF (<5); Urine WBC Clump Rare /HPF (None Seen); Urine pH 5.5 (5.0-7.0)
[2025-02-27] MEDS ORDERED: HYDROCODONE/APAP 7.5/325 MG TAB ONE (02:35)
[2025-02-27 02:46] LABS: Absolute Basophils 0.1 K/uL (0-0.5); Absolute Eosinophils 0.3 K/uL (0-0.5); Absolute Lymphocytes (CBC) 1.5 K/uL (0.7-4.9); Absolute Monocytes 0.8 K/uL (0.1-1.3); Basophils % 0.6 % (0-1.3); Hemoglobin 14.9 g/dL (13.6-17.9); Lymphocytes % 11.3 % (15.3-44.8); MCHC 34.3 g/dL (32.0-36.0)
[2025-02-27 02:53] LABS: Absolute Neutrophil 10.6 K/uL (1.8-8.0); Hematocrit 43.3 % (39.6-49.0); MCH 31.3 pg (27.0-35.0); MCV 91.2 fL (80-100); MPV 9.2 fL (7.6-11.3); Monocytes % 6.3 % (3.3-12.3); Neutrophils % 79.8 % (41.7-73.7); Nucleated Red Blood Cells % 0.1 % (0-0); Platelets 175 thou/uL (152-406); RBC Red Blood Cell Count 4.75 M/uL (4.33-5.43); Red Cell Distribution Width 14.2 % (12.1-15.2)
[2025-02-27 02:56] LABS: Albumin 3.6 g/dL (3.4-5.0); Anion Gap 9.7 mEq/L (5.0-15.0); Bilirubin Total 0.2 mg/dL (0.2-1.0); Globulin 3.6 g/dL (2.3-3.5); Potassium 3.7 mEq/L (3.5-5.1); Protein, Total 7.2 g/dL (6.4-8.2)
[2025-02-27] MEDS ORDERED: CEFTRIAXONE 1000 MG/VIAL ONE (03:19)
[2025-02-27] MEDS ORDERED: CIPROFLOXACIN HCL 500 MG TAB ONE (03:19)
--- NOTE | 2025-02-27 03:25 | EDPHYS ---
Physician Documentation [facility] Name: Micehal Murillo Age: 59 yrs Sex: Male : 1965 Arrival Date: 02/27/2025 Time: 01:51 Bed 7 Private MD: ED Physician Yuniel Navarro HPI: 02/27 02:10 This 59 yrs old Male presents to ER via EMS with complaints of Urinary Retention. cp 02:10 The patient presents with urinary symptoms, dysuria, retention. Onset: The cp symptoms/episode began/occurred today. 02:10 Associated signs and symptoms: Pertinent positives: abdominal pain, Pertinent cp negatives: chest pain, constipation, diarrhea, fever, vomiting. Historical: - Allergies: 02:02 NKA; bm8 - Home Meds: 02:02 Unable to obtain [Active]; bm8 - PMHx: 02:02 BPH; Chronic Bautista catheter; DVT; peripheral artery disease; bm8 - PSHx: 02:02 None; bm8 - Immunization history:: Adult Immunizations up to date. - Infectious Disease History:: Denies. - Social history:: Smoking status: Patient reports the use of cigarette tobacco products, smokes one pack cigarettes per day. Patient/guardian denies using alcohol, street drugs. ROS: 02:15 Constitutional: Negative for body aches, chills, fever, poor PO intake, cp 02:15 Eyes: Negative for injury, pain, redness, and discharge, cp 02:15 ENT: Negative for drainage from ear(s), ear pain, sore throat, difficulty swallowing, difficulty handling secretions, 02:15 Respiratory: Negative for cough, shortness of breath, wheezing, 02:15 Abdomen/GI: Positive for abdominal pain, Negative for vomiting, diarrhea, constipation, 02:15 Back: Negative for pain at rest, pain with movement, 02:15 : Positive for burning with urination, difficulty urinating, Negative for testicular pain 02:15 Neuro: Negative for altered mental status, dizziness, headache, numbness, syncope, weakness, 02:15 All other systems are negative, Exam: 02:20 Constitutional: The patient appears in no acute distress, alert, awake, cp non-diaphoretic, non-toxic, well developed, well nourished, uncomfortable, 02:20 Head/Face: Normocephalic, atraumatic. cp 02:20 Chest/axilla: Inspection: normal, 02:20 Cardiovascular: Rate: normal, Edema: is not appreciated, 02:20 Respiratory: the patient does not display signs of respiratory distress, Respirations: normal, no use of accessory muscles, no retractions, labored breathing, is not present, 02:20 Abdomen/GI: Exam negative for distension, Inspection: abdomen appears normal, 02:20 Neuro: Orientation: to person, place \T\ time. Mentation: is normal, Motor: moves all fours, strength is normal, Gait: is steady, Vital Signs: 01:51 BP 159 / 124; Pulse 80; Resp 19; Temp 97.5; Pulse Ox 99% ; Weight 58.97 kg; Height 5 bm8 ft. 6 in. ; Pain 10/10; 02:04 BP 143 / 76; Pulse 63; Resp 18; Temp 97.5; Pulse Ox 96% ; Pain 3/10; bm8 02:56 BP 140 / 84; Pulse 58; Resp 18; Temp 97.5; Pulse Ox 97% ; Pain 3/10; bm8 03:30 BP 123 / 76; Pulse 65; Resp 18; Temp 97.5; Pulse Ox 100% ; Pain 0/10; bm8 01:51 Body Mass Index 20.98 (58.97 kg, 167.64 cm) bm8 01:51 Pain Scale: Adult bm8 02:04 Pain Scale: Adult bm8 02:56 Pain Scale: Adult bm8 03:30 Pain Scale: Adult bm8 Angeline Coma Score: 02:04 Eye Response: spontaneous(4). Motor Response: obeys commands(6). Verbal Response: bm8 oriented(5). Total: 15. 02:56 Eye Response: spontaneous(4). Motor Response: obeys commands(6). Verbal Response: bm8 oriented(5). Total: 15. 03:30 Eye Response: spontaneous(4). Motor Response: obeys commands(6). Verbal Response: bm8 oriented(5). Total: 15. MDM: 02:04 Medical Screening Exam initiated cp 02:40 Differential diagnosis: UTI, urinary retention, prostatitis, urethritis, sepsis, kidney cp failure. 03:23 Data reviewed: vital signs, nurses notes, lab test result(s), and as a result, I will cp discharge patient. 03:23 I considered the following discharge prescriptions or medication management in the emergency department Medications were administered in the Emergency Department. See MAR. Counseling: I had a detailed discussion with the patient and/or guardian regarding the historical points, exam findings, and any diagnostic results supporting the discharge/admit diagnosis, lab results, the need for outpatient follow up, for definitive care, a urologist, to return to the emergency department if symptoms worsen or persist or if there are any questions or concerns that arise at home. Response to treatment: the patient's symptoms have markedly improved after treatment, and as a result, I will discharge patient. 02/27 02:07 Order name: UA Rfx Dane Cult if indicated; Complete Time: 03:12 cp 02/27 03:12 Interpretation: Normal except: [facility] Extremely Turbid; UBLD 2+; UNIT 2+; UESTR 500; UWBC cp >50; URBC 21-50. 02/27 02:14 Order name: CBC with Diff; Complete Time: 03:12 cp 02/27 03:12 Interpretation: Normal except: WBC 13.30; DESTINI% 79.8; LYM% 11.3; NEUT A 10.6. cp 02/27 02:14 Order name: CMP; Complete Time: 03:12 cp 02/27 03:13 Interpretation: Normal except: CL 109; GLUC 129; BUN 21; GLOB 3.6; A/G 1.0. cp 02/27 02:45 Order name: Urine Culture EDMS 02/27 02:07 Order name: Bautista; Complete Time: 02:07 bm8 02/27 02:07 Order name: Bautista; Complete Time: 02:39 cp 02/27 02:14 Order name: IV Saline Lock; Complete Time: 02:39 cp 02/27 02:14 Order name: Labs collected and sent; Complete Time: 02:39 cp 02/27 03:25 Order name: Bautista Leg Bag; Complete Time: 03:29 cp Administered Medications: 02:12 CANCELLED (Physician Discretion): [id number] mg IM once cp 02:39 Drug: Hydrocodone-Acetaminophen PO (7.5 mg-325 mg) 1 tabs PO once; RASS on ADMIN: bm8 Combtv4, Very Agttd3, Agttd2, Rstlss1, AlertClm0, Drwsy-1, Lt Sdtn-2, Mod Sdtn-3, Dp Sdtn-4, UnArsble-5 Route: PO; :29 Follow up: Response: No adverse reaction bm8 03:29 Drug: Rocephin IV 1 grams IV at calculated rate once; Given slow IV push per pharmacy bm8 instructions Route: IV; Rate: calculated rate; Site: right antecubital; : Follow up: Response: Medication administered at discharge.; IV Status: Completed bm8 infusion 03: Drug: Ciprofloxacin PO 500 mg PO once Route: PO; bm8 03: Follow up: Response: Medication administered at discharge. bm8 Disposition Summary: 02/27/25 03:24 Discharge Ordered Notes: Location: Home cp Problem: new cp Symptoms: have improved cp Condition: Stable cp Diagnosis - Retention of urine, unspecified cp - UTI/ Urinary tract infection, site not specified cp Followup: cp - With: Private Physician - When: 5 - 6 days - Reason: Recheck today's complaints Discharge Instructions: - Discharge Summary Sheet cp - Acute Urinary Retention, Male cp - Urinary Tract Infection, Adult cp Forms: - Medication Reconciliation Form cp - Antibiotic Education cp - Prescription Opioid Use cp - Patient Portal Instructions cp - Leadership Thank You Letter cp Prescriptions: - Cipro 500 mg Oral Tablet - take 1 tablet ORAL route every 12 hours for 7 days; 14 tablet; Refills: 0, cp Product Selection Permitted Signatures: Dispatcher [employer] EDMS Yuniel Orourke PA PA cp Honorio Hinson, RN RN bm8 Corrections: (The following items were deleted from the chart) 02:12 02:11 Ketorolac IM 30 mg IM once ordered. cp cp 02:28 02:07 UA W/ Microscopic+U.LAB.BRZ ordered. EDMS EDMS
--- NOTE | 2025-02-27 03:25 | ER ---
Nurse's Notes [facility] Name: Micheal Murillo Age: 59 yrs Sex: Male : 1965 Arrival Date: 02/27/2025 Time: 01:51 Bed 7 Private MD: Diagnosis: Retention of urine, unspecified;UTI/ Urinary tract infection, site not specified Presentation: 02/27 01:51 Chief complaint: Patient states: I cant pee and it hurts so bad. bm8 01:51 Coronavirus screen: At this time, the client does not indicate any symptoms associated bm8 with coronavirus-19. Ebola Screen: Patient negative for fever greater than or equal to 101.5 degrees Fahrenheit, and additional compatible Ebola Virus Disease symptoms Patient denies exposure to infectious person. Patient denies travel to an Ebola-affected area in the 21 days before illness onset. No symptoms or risks identified at this time. Initial Sepsis Screen: Does the patient meet any 2 criteria? No. Patient's initial sepsis screen is negative. Does the patient have a suspected source of infection? No. Patient's initial sepsis screen is negative. Risk Assessment: Do you want to hurt yourself or someone else? Patient reports no desire to harm self or others. Onset of symptoms was February 26, 2025 at 00:00. 01:51 Method Of Arrival: EMS: [facility] bm8 01:51 Acuity: TORRIE 3 bm8 Triage Assessment: 01:51 General: Appears distressed, uncomfortable, Behavior is agitated. bm8 01:51 Pain: Complains of pain in suprapubic area Pain currently is 10 out of 10 on a pain bm8 scale. EENT: No deficits noted. No signs and/or symptoms were reported regarding the EENT system. Neuro: No deficits noted. Level of Consciousness is awake, alert, obeys commands, Oriented to person, place, time, situation, Appropriate for age. Cardiovascular: Denies chest pain, shortness of breath, Heart tones S1 S2 present Capillary refill < 3 seconds in bilateral fingers Patient's skin is warm and dry. Respiratory: Airway is patent Respiratory effort is even, unlabored, Respiratory pattern is regular, symmetrical. GI: No signs and/or symptoms were reported involving the gastrointestinal system. : Reports inability to void, since for 3 hours pain in suprapubic area. Derm: No signs and/or symptoms reported regarding the dermatologic system. Musculoskeletal: No signs and/or symptoms reported regarding the musculoskeletal system. Historical: - Allergies: 02:02 NKA; bm8 - Home Meds: 02:02 Unable to obtain [Active]; bm8 - PMHx: 02:02 BPH; Chronic Carmichael catheter; DVT; peripheral artery disease; bm8 - PSHx: 02:02 None; bm8 - Immunization history:: Adult Immunizations up to date. - Infectious Disease History:: Denies. - Social history:: Smoking status: Patient reports the use of cigarette tobacco products, smokes one pack cigarettes per day. Patient/guardian denies using alcohol, street drugs. Screenin:04 [facility] ED Fall Risk Assessment (Adult) History of falling in the last 3 months, bm8 including since admission No falls in past 3 months (0 pts) Confusion or Disorientation No (0 pts) Intoxicated or Sedated No (0 pts) Impaired Gait No (0 pts) Mobility Assist Device Used No (0 pt) Altered Elimination No (0 pt) Score/Fall Risk Level 0 - 2 = Low Risk Oriented to surroundings, Maintained a safe environment, Educated pt \T\ family on fall prevention, incl call for assistance when getting out of bed, Assessed \T\ reinforced patient's understanding of fall precautions, Hourly rounding (assess needs \T\ fall precautionary measures) done, Used ambulatory aids as needed (educated on \T\ assisted with), Used gait belt as appropriate. Abuse screen: Denies threats or abuse. Nutritional screening: No deficits noted. Tuberculosis screening: No symptoms or risk factors identified. Assessment: 02:04 General: Appears in no apparent distress. comfortable, Behavior is calm, cooperative, bm8 appropriate for age. : Carmichael in place to gravity drainage Urine is cloudy. 02:56 Reassessment: Patient appears in no apparent distress at this time. Patient and/or bm8 family updated on plan of care and expected duration. Pain level reassessed. Patient is alert, oriented x 3, equal unlabored respirations, skin warm/dry/pink. Patient states feeling better. Patient states symptoms have improved. 03:30 Reassessment: Patient appears in no apparent distress at this time. Patient and/or bm8 family updated on plan of care and expected duration. Pain level reassessed. Patient is alert, oriented x 3, equal unlabored respirations, skin warm/dry/pink. Patient denies pain at this time. Patient states feeling better. Patient states symptoms have improved. Vital Signs: 01:51 BP 159 / 124; Pulse 80; Resp 19; Temp 97.5; Pulse Ox 99% ; Weight 58.97 kg; Height 5 bm8 ft. 6 in. ; Pain 10/10; 02:04 BP 143 / 76; Pulse 63; Resp 18; Temp 97.5; Pulse Ox 96% ; Pain 3/10; bm8 02:56 BP 140 / 84; Pulse 58; Resp 18; Temp 97.5; Pulse Ox 97% ; Pain 3/10; bm8 03:30 BP 123 / 76; Pulse 65; Resp 18; Temp 97.5; Pulse Ox 100% ; Pain 0/10; bm8 01:51 Body Mass Index 20.98 (58.97 kg, 167.64 cm) bm8 01:51 Pain Scale: Adult bm8 02:04 Pain Scale: Adult bm8 02:56 Pain Scale: Adult bm8 03:30 Pain Scale: Adult bm8 Angeline Coma Score: 02:04 Eye Response: spontaneous(4). Motor Response: obeys commands(6). Verbal Response: bm8 oriented(5). Total: 15. 02:56 Eye Response: spontaneous(4). Motor Response: obeys commands(6). Verbal Response: bm8 oriented(5). Total: 15. 03:30 Eye Response: spontaneous(4). Motor Response: obeys commands(6). Verbal Response: bm8 oriented(5). Total: 15. ED Course: 01:51 Arm band placed on right wrist. bm8 02:01 Patient arrived in ED. bm8 02:02 Triage completed. bm8 02:04 [facility] cp 02:04 Yuniel Navarro MD is Attending Physician. cp 02:04 Patient has correct armband on for positive identification. Bed in low position. Call bm8 light in reach. Side rails up X 1. Client placed on continuous cardiac and pulse oximetry monitoring. NIBP monitoring applied. Pulse ox on. NIBP on. Door closed. Noise minimized. Warm blanket given. Verbal reassurance given. Head of bed lowered. 02:04 No provider procedures requiring assistance completed. Urine collected: Carmichael catheter bm8 specimen, cloudy, Amount Returned: 600mL. Carmichael cath inserted, using sterile technique, 18 Fr., by va, balloon inflated, to gravity drainage, urine specimen collected. Patient maintains SpO2 saturation greater than 95% on room air. 02:39 Honorio Hinson, RN is Primary Nurse. bm8 02:39 Inserted saline lock: 20 gauge in right antecubital area, using aseptic technique. bm8 Blood collected. Flushed with 10 mL NS. 03:30 Provided Education on: post er care, carmichael leg bag draining. bm8 03:30 IV discontinued, intact, bleeding controlled, No redness/swelling at site. Pressure bm8 dressing applied. Administered Medications: 02:12 CANCELLED (Physician Discretion): [id number] mg IM once cp 02:39 Drug: Hydrocodone-Acetaminophen PO (7.5 mg-325 mg) 1 tabs PO once; RASS on ADMIN: bm8 Combtv4, Very Agttd3, Agttd2, Rstlss1, AlertClm0, Drwsy-1, Lt Sdtn-2, Mod Sdtn-3, Dp Sdtn-4, UnArsble-5 Route: PO; 03:29 Follow up: Response: No adverse reaction bm8 03:29 Drug: Rocephin IV 1 grams IV at calculated rate once; Given slow IV push per pharmacy bm8 instructions Route: IV; Rate: calculated rate; Site: right antecubital; 03:29 Follow up: Response: Medication administered at discharge.; IV Status: Completed bm8 infusion 03:29 Drug: Ciprofloxacin PO 500 mg PO once Route: PO; bm8 03:29 Follow up: Response: Medication administered at discharge. bm8 Medication: 02:04 VIS not applicable for this client. bm8 Outcome: 03:24 Discharge ordered by . cp 03:30 Discharged to home ambulatory, bm8 03:30 Condition: stable 03:30 Discharge instructions given to patient, Instructed on discharge instructions, follow up and referral plans. no drinking with medication, no driving heavy equipment, medication usage, safety practices, Demonstrated understanding of instructions, follow-up care, medications, Prescriptions given X 1, 03:38 Patient left the ED. bm8 Signatures: Yuniel Orourke PA PA cp Honorio Hinson, RN RN bm8
[2025-02-27 03:50] VITALS: TEMP 97.5
[2025-02-27 04:06] VITALS: BP 123/76; O2SAT 100
== END 2025-02-27 03:38 | disposition home or self-care (01) ==
LOC: ER 01:51
DX: N39.0 Urinary tract infection, site not specified (principal)
CPT/HCPCS: 36415; 51702; 80053; 81001; 85025; 87077; 87086; 87088; 87186; 96374; 99285; J0696

== ENCOUNTER 2025-07-16 12:14 | Emergency (ER) | payer OTHER ==
--- NOTE | 2025-07-16 13:40 | ER ---
Nurse's Notes [facility] Name: Micheal Murillo Age: 60 yrs Sex: Male : 1965 Arrival Date: 07/16/2025 Time: 12:14 Bed 9 Private MD: Diagnosis: Encounter for exchange of indwelling urinary Bautista catheter Presentation: 07/16 12:59 Chief complaint: Patient states: needs urinary catheter changed, states it has been at wy1 least 2 months since it was changed. Coronavirus screen: At this time, the client does not indicate any symptoms associated with coronavirus-19. Ebola Screen: No symptoms or risks identified at this time. Initial Sepsis Screen: Does the patient meet any 2 criteria? No. Patient's initial sepsis screen is negative. Does the patient have a suspected source of infection? No. Patient's initial sepsis screen is negative. Risk Assessment: Do you want to hurt yourself or someone else? Patient reports no desire to harm self or others. Onset of symptoms is unknown. 12:59 Method Of Arrival: [place] [facility] [place] 12:59 Acuity: TORRIE 4 me1 Historical: - Allergies: 13:00 NKA; me1 - PMHx: 13:00 BPH; DVT; Chronic Bautista catheter; peripheral artery disease; me1 - PSHx: 13:00 None; me1 - Immunization history:: Adult Immunizations up to date. - Infectious Disease History:: Denies. - Social history:: Smoking status: Patient reports the use of cigarette tobacco products, smokes one-half pack cigarettes per day. Screenin:15 [facility] ED Fall Risk Assessment (Adult) History of falling in the last 3 months, nh2 including since admission No falls in past 3 months (0 pts) Confusion or Disorientation No (0 pts) Intoxicated or Sedated No (0 pts) Impaired Gait No (0 pts) Mobility Assist Device Used No (0 pt) Altered Elimination Yes (1 pt) Score/Fall Risk Level 0 - 2 = Low Risk Oriented to surroundings, Maintained a safe environment, Educated pt \T\ family on fall prevention, incl call for assistance when getting out of bed, Assessed \T\ reinforced patient's understanding of fall precautions. Abuse screen: Denies threats or abuse. Denies injuries from another. Nutritional screening: No deficits noted. Tuberculosis screening: No symptoms or risk factors identified. Assessment: 13:15 General: Appears in no apparent distress. Behavior is calm, cooperative, appropriate nh2 for age. Pain: Denies pain. Neuro: Level of Consciousness is awake, alert, obeys commands, Oriented to person, place, time, situation, Denies weakness dizziness. Cardiovascular: Denies chest pain, Patient's skin is warm and dry. Respiratory: Airway is patent Trachea midline Respiratory effort is even, unlabored, Denies cough, shortness of breath. GI: Abdomen is round non-distended. : Bautista in place to gravity drainage Urine is suleiman. EENT: No signs and/or symptoms were reported regarding the EENT system. Derm: Skin is intact, Skin is pink, warm \T\ dry. Skin temperature is warm. Musculoskeletal: Range of motion: intact in all extremities. Vital Signs: 12:59 BP 162 / 86; Pulse 85; Resp 17; Temp 98.2; Pulse Ox 100% ; Weight 61.23 kg; Height 5 me1 ft. 7 in. ; Pain 0/10; 14:10 BP 155 / 82; Pulse 84; Resp 18; Temp 98(O); Pulse Ox 98% on R/A; nh2 12:59 Body Mass Index 21.14 (61.23 kg, 170.18 cm) me1 12:59 Pain Scale: Adult me1 ED Course: 12:18 Patient arrived in ED. cj3 12:19 Flor Baker PA-C is PHCP. sb4 12:19 Abilio Ortega MD is Attending Physician. sb4 13:00 Triage completed. me1 13:00 Arm band placed on Patient placed in waiting room. me1 13:15 Patient has correct armband on for positive identification. Bed in low position. Call nh2 light in reach. Side rails up X 1. Provided Education on: using call light for assistance. 13:15 No provider procedures requiring assistance completed. Patient did not have IV access nh2 during this emergency room visit. 13:18 Nelson Ayers Jr, ASHLEY is Primary Nurse. nh2 13:20 Bautista cath removed intact, balloon deflated. nh2 13:35 Bautista cath inserted, using sterile technique, 16 Fr., by ED staff, balloon inflated, to nh2 gravity drainage, clamped. Patient tolerated well. 13:39 Rayray Syed MD is Referral Physician. sb4 Administered Medications: No medications were administered Medication: 13:15 VIS not applicable for this client. nh2 Outcome: 13:40 Discharge ordered by MD. maxwell 14:11 Discharged to home ambulatory, nh2 14:11 Condition: stable 14:11 Discharge instructions given to patient, Instructed on discharge instructions, follow up and referral plans. Demonstrated understanding of instructions, follow-up care, 14:12 Patient left the ED. nh2 Signatures: Flor Baker PA-C PA-C sb4 Rubina Childress RN RN wy1 Nelson Ayers Jr, RN RN nh2 Smita Baker 3
--- NOTE | 2025-07-16 13:40 | EDPHYS ---
Physician Documentation [facility] Name: Micheal Murillo Age: 60 yrs Sex: Male : 1965 Arrival Date: 07/16/2025 Time: 12:14 Bed 9 Private MD: ED Physician Abilio Ortega HPI: 07/16 13:19 This 60 yrs old Male presents to ER via Ambulatory with complaints of Problem With sb4 Urinary Catheter. 13:19 requesting carmichael catheter change. Has indwelling Carmichael catheter secondary to BPH. sb4 States that it has not been changed in 2 months now. Historical: - Allergies: 13:00 NKA; me1 - PMHx: 13:00 BPH; DVT; Chronic Carmichael catheter; peripheral artery disease; me1 - PSHx: 13:00 None; me1 - Immunization history:: Adult Immunizations up to date. - Infectious Disease History:: Denies. - Social history:: Smoking status: Patient reports the use of cigarette tobacco products, smokes one-half pack cigarettes per day. ROS: 13:19 Constitutional: Negative for fever, chills, and weight loss, sb4 13:19 All other systems are negative, Exam: 13:19 Constitutional: This is a well developed, well nourished patient who is awake, alert, sb4 and in no acute distress. Head/Face: Normocephalic, atraumatic. Eyes: Extra-ocular motions intact. Periorbital areas with no swelling, redness, or edema. ENT: Mucous membranes moist. Respiratory: No increased work of breathing, no retractions or nasal flaring. Skin: Warm, dry with normal turgor. Normal color with no rashes, no lesions, and no evidence of cellulitis. Vital Signs: 12:59 BP 162 / 86; Pulse 85; Resp 17; Temp 98.2; Pulse Ox 100% ; Weight 61.23 kg; Height 5 me1 ft. 7 in. ; Pain 0/10; 14:10 BP 155 / 82; Pulse 84; Resp 18; Temp 98(O); Pulse Ox 98% on R/A; nh2 12:59 Body Mass Index 21.14 (61.23 kg, 170.18 cm) me1 12:59 Pain Scale: Adult me1 MDM: 12:20 Medical Screening Exam initiated sb4 13:20 Data reviewed: vital signs, nurses notes, and as a result, I will discharge patient. sb4 Counseling: I had a detailed discussion with the patient and/or guardian regarding the historical points, exam findings, and any diagnostic results supporting the discharge/admit diagnosis, the need for outpatient follow up, a urologist, to return to the emergency department if symptoms worsen or persist or if there are any questions or concerns that arise at home. 07/16 13:02 Order name: Sarabjit. Order: replace carmichael catheter; Complete Time: 13:57 sb4 Administered Medications: No medications were administered Disposition: 16:46 Co-signature as Attending Physician, Abilio Ortega MD I reviewed the patient's care rn provided by the Advanced Practice Provider and agree with the diagnosis and treatment plan. Disposition Summary: 07/16/25 13:40 Discharge Ordered Notes: Location: Home sb4 Problem: an ongoing problem sb4 Symptoms: have improved sb4 Condition: Stable sb4 Diagnosis - Encounter for exchange of indwelling urinary Carmichael catheter sb4 Followup: sb4 - With: Rayray Syed MD - When: As needed - Reason: Recheck today's complaints, Re-evaluation by your physician Discharge Instructions: - Discharge Summary Sheet sb4 - Indwelling Urinary Catheter Care, Adult, [id number] sb4 Forms: - Patient Portal Instructions sb4 - Leadership Thank You Letter sb4 Signatures: Abilio Ortega MD MD rn Brown, Sophia, PA-C PAAlyseC sb4 Rubina Childress RN RN me1
[2025-07-16 14:18] VITALS: BP 155/82; TEMP 98; O2SAT 98
== END 2025-07-16 14:12 | disposition home or self-care (01) ==
LOC: ER 12:14
DX: Z46.6 Encounter for fitting and adjustment of urinary device (principal)
CPT/HCPCS: 51702; 99284

== ENCOUNTER 2025-07-23 11:15 | Emergency (ER) | payer OTHER ==
--- NOTE | 2025-07-23 11:42 | EDPHYS ---
Physician Documentation [facility] Name: Micheal Murillo Age: 60 yrs Sex: Male : 1965 Arrival Date: 07/23/2025 Time: 11:15 Bed IW8 Private MD: ED Physician Abilio Ortega HPI: 07/23 11:43 This 60 yrs old Male presents to ER via Ambulatory with complaints of Problem dr5 With Urinary Catheter. 11:43 Onset: The symptoms/episode began/occurred acutely. Patient is a 60-year-old male with dr5 indwelling catheter coming in for supplies. Patient reports that he excellently tripped and has a small leak in his Bautista and needs to have a new leg bag. Patient denies fever, dysuria, abdominal pain, chest pain, shortness of breath, or any other symptoms.. Historical: - Allergies: 11:45 NKA; bp - PMHx: 11:45 BPH; Chronic Bautista catheter; DVT; peripheral artery disease; bp - Immunization history:: Adult Immunizations unknown. - Infectious Disease History:: Denies. - Social history:: Smoking status: unknown. ROS: 11:43 Constitutional: as per hpi dr5 Exam: 11:43 Constitutional: This is a well developed, well nourished patient who is awake, alert, dr5 and in no acute distress. Head/Face: Normocephalic, atraumatic. Eyes: Pupils equal round and reactive to light, extra-ocular motions intact. Lids and lashes normal. Conjunctiva and sclera are non-icteric and not injected. Cornea within normal limits. Periorbital areas with no swelling, redness, or edema. Cardiovascular: Regular rate and rhythm with a normal S1 and S2. Normal PMI, no JVD. No pulse deficits. Respiratory: Lungs have equal breath sounds bilaterally, clear to auscultation. No rales, rhonchi or wheezes noted. No increased work of breathing, no retractions or nasal flaring. Abdomen/GI: Soft, non-tender, non-distended Back: No spinal tenderness. No costovertebral tenderness. Full range of motion. Skin: Warm, dry with normal turgor. Normal color with no rashes, no lesions, and no evidence of cellulitis. MS/ Extremity: Pulses equal, no cyanosis. Neurovascular intact. Full, normal range of motion. Neuro: Awake and alert, GCS 15, oriented to person, place, time, and situation. Cranial nerves II-XII grossly intact. Motor strength 5/5 in all extremities. Sensory grossly intact. Cerebellar exam normal. Normal gait. Vital Signs: 11:44 BP 133 / 75; Pulse 89; Resp 16; Temp 98; Pulse Ox 97% ; bp MDM: 11:18 Medical Screening Exam initiated dr5 11:43 Differential diagnosis: viral Infection, Urinary catheter mechanical issue, urinary dr5 tract infection. Data reviewed: vital signs, nurses notes. Consideration of Admission/Observation Escalation of care including admission/observation considered. Escalation considered patient found to have complaint with urinary indwelling catheter. I considered the following discharge prescriptions or medication management in the emergency department I discussed and recommended Over The Counter medications. Test considered but Not performed: Labs: Labs, UA considered but patient denies any complaints. CT: CT scan considered but patient does not have any complaints such as urinary obstruction. Care significantly affected by the following Social Determinants of Health: Poor access to healthcare and/or lack of insurance, Poor access to transportation, Problems related to employment. Counseling: I had a detailed discussion with the patient and/or guardian regarding the historical points, exam findings, and any diagnostic results supporting the discharge/admit diagnosis, the presence of at least one elevated blood pressure reading (>120/80) during this emergency department visit, the need for outpatient follow up, for definitive care, a family practitioner. Special discussion: I discussed with the patient/guardian in detail that at this point there is no indication for admission to the hospital. It is understood, however, that if the symptoms persist or worsen the patient needs to return immediately for re-evaluation. Based on the history and exam findings, there is no indication for further emergent testing or inpatient evaluation. I discussed with the patient/guardian the need to see the primary care provider for further evaluation of the symptoms. ED course: Patient was given leg bag and tubing. Patient verbalizes appreciation and will have patient follow-up primary care doctor as needed. All question answered. Strict ER precautions given.. Administered Medications: No medications were administered Disposition: 18:39 Co-signature as Attending Physician, Abilio Ortega MD I reviewed the patient's care rn provided by the Advanced Practice Provider and agree with the diagnosis and treatment plan. Disposition Summary: 07/23/25 11:41 Discharge Ordered Notes: Location: Home dr5 Condition: Stable dr5 Diagnosis - Mechanical complication of urinary (indwelling) catheter dr5 Followup: dr5 - With: Emergency Department - When: As needed - Reason: Worsening of condition Followup: dr5 - With: Private Physician - When: 1 - 2 days - Reason: Recheck today's complaints, Continuance of care, Re-evaluation by your physician Discharge Instructions: - Discharge Summary Sheet dr5 - Indwelling Urinary Catheter Insertion, Care After dr5 Forms: - Medication Reconciliation Form dr5 - Patient Portal Instructions dr5 - Leadership Thank You Letter dr5 Signatures: Abilio Ortega MD MD rn Peltier, Brian, RN RN Jarett Meyer, RISK CONTROL SPECIALIST-C RISK CONTROL SPECIALIST-Cdr5
--- NOTE | 2025-07-23 11:47 | ER ---
Nurse's Notes [facility] Name: Micheal Murillo Age: 60 yrs Sex: Male : 1965 Arrival Date: 07/23/2025 Time: 11:15 Bed IW8 Private MD: Diagnosis: Mechanical complication of urinary (indwelling) catheter Presentation: 07/23 11:44 Chief complaint: Patient states: "I DON'T NEED TO SEE A DOCTOR, I JUST NEED A NEW LEG bp BAG. MINE GOT CAUGHT AND STARTED LEAKING". Coronavirus screen: At this time, the client does not indicate any symptoms associated with coronavirus-19. Ebola Screen: No symptoms or risks identified at this time. Initial Sepsis Screen: Does the patient meet any 2 criteria? No. Patient's initial sepsis screen is negative. Does the patient have a suspected source of infection? No. Patient's initial sepsis screen is negative. Risk Assessment: Do you want to hurt yourself or someone else? Patient reports no desire to harm self or others. Onset of symptoms is unknown. 11:44 Method Of Arrival: Ambulatory bp 11:44 Acuity: TORRIE 5 bp Triage Assessment: 11:45 General: Appears in no apparent distress. Behavior is calm, cooperative, appropriate bp for age. Pain: Denies pain. EENT: No deficits noted. Neuro: No deficits noted. Cardiovascular: No deficits noted. Respiratory: No deficits noted. GI: No signs and/or symptoms were reported involving the gastrointestinal system. : Bautista in place. Derm: No deficits noted. Musculoskeletal: No deficits noted. Historical: - Allergies: 11:45 NKA; bp - PMHx: 11:45 BPH; Chronic Bautista catheter; DVT; peripheral artery disease; bp - Immunization history:: Adult Immunizations unknown. - Infectious Disease History:: Denies. - Social history:: Smoking status: unknown. Screenin:46 [facility] ED Fall Risk Assessment (Adult) History of falling in the last 3 months, bp including since admission No falls in past 3 months (0 pts) Confusion or Disorientation No (0 pts) Intoxicated or Sedated No (0 pts) Impaired Gait No (0 pts) Mobility Assist Device Used No (0 pt) Altered Elimination No (0 pt) Score/Fall Risk Level 0 - 2 = Low Risk Oriented to surroundings. Abuse screen: Denies threats or abuse. Denies injuries from another. Nutritional screening: No deficits noted. Tuberculosis screening: No symptoms or risk factors identified. Vital Signs: 11:44 BP 133 / 75; Pulse 89; Resp 16; Temp 98; Pulse Ox 97% ; bp ED Course: 11:18 Patient arrived in ED. im 11:18 Jarett Lubin FNP-C is [facility]. dr5 11:18 Abilio Ortega MD is Attending Physician. dr5 11:44 Zacarias Aldrich, RN is Primary Nurse. bp 11:45 Triage completed. bp 11:45 Arm band placed on. bp 11:46 Patient has correct armband on for positive identification. bp 11:46 No provider procedures requiring assistance completed. Patient did not have IV access bp during this emergency room visit. Administered Medications: No medications were administered Outcome: 11:41 Discharge ordered by MD. dr5 11:46 Discharged to home ambulatory, bp 11:46 Condition: stable 11:46 Discharge instructions given to patient, Instructed on discharge instructions, follow up and referral plans. Demonstrated understanding of instructions, follow-up care, 11:47 Patient left the ED. bp Signatures: Zacarias Aldrich, RN RN bp Nuvia Townsend im Jarett Lubin FNP-C DRAMATIC COACH-Cdr5
[2025-07-23 11:51] VITALS: BP 133/75; TEMP 98; O2SAT 97
== END 2025-07-23 11:47 | disposition home or self-care (01) ==
LOC: ER 11:15
DX: T83.038A Leakage of other urinary catheter, initial encounter (principal)
CPT/HCPCS: 99282